=== PATIENT | male | born 1970 | race American Indian/Alaskan Native ===

== ENCOUNTER 2016-09-30 16:47 | Inpatient (IN) | payer MEDICAID, OTHER ==
[2016-09-30 16:48] VITALS: BMI 15.3
[2016-09-30] MEDS ORDERED: Sodium Chloride 0.9% 1,000 ML IV STA (16:57)
[2016-09-30 17:38] LABS: ABG ALLEN TEST YES; ARTERIAL BLOOD GAS PH 7.28 (7.35-7.45); ARTERIAL BLOOD GAS PO2 104 mm/Hg (80-100)
--- NOTE | 2016-09-30 17:48 | ED PDOC ---
HPI: General Adult Time Seen by Provider: 09/30/16 16:56 Chief Complaint (Nursing): Weakness/Neurological Deficit Chief Complaint (Provider): Generalized Weakness History Per: Patient History/Exam Limitations: no limitations Onset/Duration Of Symptoms: Days (x2 weeks) Have you had recent travel within the past 21 days to any of the following countries: [place], [place], [place] or [place]?: No Current Symptoms Are (Timing): Still Present Severity: Moderate Additional Complaint(s): Shyam Ryan is a 46 year old male, with a past medical history inclusive of HTN, hypercholesterolemia, seizures, diabetes (medication compliant) and unspecified "abdominal problems", who presents to the ED on 09/30/16, as per the direction of his PMD, for the evaluation of moderate, generalized weakness that he has experienced over the past 2 weeks. Associated nausea also reported in addition to some moderate lightheadedness, especially when he attempts to get up and try to walk. Denies syncope as well as headache, chest pain, shortness of breath, abdominal pain, focal weakness or blurred vision. PMD: Ramón Past Medical History Reviewed: Historical Data, Nursing Documentation, Vital Signs Vital Signs: Last Vital Signs Temp 97.6 F 10/04/16 12:22 Pulse 86 10/04/16 12:22 Resp 20 10/04/16 12:22 BP 103/70 10/04/16 12:22 Pulse Ox 99 10/04/16 12:22 - Medical History PMH: Diabetes, HTN, Hypercholesterolemia, Seizures Denies: Chronic Kidney Disease Other PMH: c-diff - Surgical History Surgical History: No Surg Hx - Family History Family History: States: Diabetes - Social History Current smoker - smoking cessation education provided: No Alcohol: None Drugs: Denies - Immunization History Hx Influenza Vaccination: No Hx Pneumococcal Vaccination: No - Home Medications Home Medications: Ambulatory Orders Medication Instructions Recorded Aspirin [Ecotrin] 81 mg PO DAILY 09/30/16 Atorvastatin [Lipitor] 10 mg PO DAILY 09/30/16 Canagliflozin [Invokana] 300 mg PO DAILY 09/30/16 Insulin Detemir [Levemir] 30 units SC HS 09/30/16 MetFORMIN [glucoPHAGE] 1,000 mg PO BID 09/30/16 Nebivolol [Bystolic] 10 mg PO DAILY 09/30/16 SITagliptin [Januvia] 100 mg PO DAILY 09/30/16 - Allergies Allergies/Adverse Reactions: Allergies Allergy/AdvReac Type Severity Reaction Status Date / Time No Known Allergies Allergy Verified 09/30/16 16:49 Review of Systems ROS Statement: Except As Marked, All Systems Reviewed And Found Negative Constitutional: Positive for: Chills, Malaise (fatigue), Weight loss (x2 weeks) . Negative for: Fever Eyes: Negative for: Vision Change ENT: Positive for: Nose Discharge (mild). Negative for: Throat Pain Cardiovascular: Positive for: Light Headedness. Negative for: Chest Pain Respiratory: Positive for: Cough, Sputum (yellow). Negative for: Shortness of Breath, Hemoptysis Gastrointestinal: Positive for: Nausea. Negative for: Vomiting, Abdominal Pain Neurological: Positive for: Dizziness. Negative for: Weakness, Numbness, Headache Physical Exam - Reviewed Nursing Documentation Reviewed: Yes Vital Signs Reviewed: Yes - Physical Exam Appears: Positive for: No Acute Distress (unkempt, cachectic/tired appearing) Head Exam: Positive for: ATRAUMATIC, NORMOCEPHALIC. Negative for: NORMAL INSPECTION (temporal wasting) Skin: Positive for: Normal Color (poor skin turgor), Warm, Dry. Negative for: Rash Eye Exam: Positive for: Normal appearance, PERRL ENT: Positive for: Other (dry mucous membranes). Negative for: Pharyngeal Erythema, Tonsillar Exudate Cardiovascular/Chest: Positive for: Regular Rate, Rhythm. Negative for: Edema, Murmur Respiratory: Positive for: Normal Breath Sounds. Negative for: Respiratory Distress Gastrointestinal/Abdominal: Positive for: Normal Exam, Soft. Negative for: Tenderness Back: Positive for: Normal Inspection Extremity: Positive for: Normal ROM (x4 extremities), Other (poor muscle bulk diffusely, no notable skin lesions) Neurologic/Psych: Positive for: Alert, Oriented (x3), Other (normal speech). Negative for: Motor/Sensory Deficits (no focal deficits), Aphasia - Laboratory Results Result Diagrams: 10/04/16 10:52 10/04/16 10:52 - ECG O2 Sat by Pulse Oximetry: 100 (RA) Pulse Ox Interpretation: Normal - Radiology X-Ray: Interpreted by Me, Viewed By Me X-Ray Interpretation: No Acute Disease Medical Decision Making Medical Decision Makin:56 Initial Impression: weakness, dehydration Differential diagnoses include but are not limited to electrolyte abnormality, DKA, sepsis, occult malignancy, HIV, viral syndrome. Initial Plan: * EKG * CXR * ABG * Labs * BNP * TSH * Magnesium * Phosphorus * Troponin I * PTT * PT * Procalcitonin Serum * Urinalysis * HIV 1&2 Antibody * Blood Culture * IV NS 1000ml at 2000mls/hr * Vital Signs Q15 min * Reevaluation Patient will be placed onto a youth nutritional monitor. CXR shows no acute disease. 18:43 Labs reviewed, indicative of acute renal failure, dehydration. Blood glucose is 269. Discussed case with Dr. Melgar, patient will be admitted to Telemetry under his service for further evaluation/treatment of acute renal failure, dehydration and diabetes. Plan has been discussed with patient who is in agreement. Condition fair. Scribe Attestation: Documented by Cynthia Molina, acting as a scribe for Kaylene Mccullough MD. Provider Scribe Attestation: All medical record entries made by the Scribe were at my direction and personally dictated by me. I have reviewed the chart and agree that the record accurately reflects my personal performance of the history, physical exam, medical decision making, and the department course for this patient. I have also personally directed, reviewed, and agree with the discharge instructions and disposition. Disposition - Clinical Impression Clinical Impression: Hyperglycemia, Dehydration, Renal failure - Patient ED Disposition Is Patient to be Admitted: Yes Counseled Patient/Family Regarding: Studies Performed, Diagnosis - Disposition Disposition Time: 18:43 Condition: GUARDED - Pt Status Changed To: Hospital Disposition Of: Inpatient - Admit Certification Admit to Inpatient:: After my assessment, the patient will require hospitalization for at least two midnights. This is because of the severity of symptoms shown, intensity of services needed, and/or the medical risk in this patient being treated as an outpatient. - POA Present On Arrival: Poor Glycemic Control
[2016-09-30 18:11] LABS: BASO # 0.1 K/uL (0.0-0.2); BASO % 1.3 % (0.0-2.0); EOS # 0.4 K/uL (0.0-0.7); EOS % 5.3 % (0.0-4.0); HEMATOCRIT 40.5 % (35.0-51.0); LYMPH # 1.7 K/uL (1.0-4.3); LYMPH % 22.9 % (20.0-40.0); MEAN CORPUSCULAR HEMOGLOBIN 28.5 pg (27.0-31.0); MEAN CORPUSCULAR HGB CONC 32.8 g/dL (33.0-37.0); MEAN PLATELET VOLUME 7.7 fl (7.2-11.7); MONO # 0.6 K/uL (0.0-0.8); MONO % 7.7 % (0.0-10.0); NEUT # 4.6 K/uL (1.8-7.0); NEUT % 62.8 % (50.0-75.0); NRBC % 0.1 % (0.0-0.0); RED CELL DISTRIBUTION WIDTH 16.5 % (11.5-14.5); WHITE BLOOD COUNT 7.3 K/uL (4.8-10.8)
[2016-09-30 18:16] LABS: ALB/GLOB RATIO 0.9 (1.0-2.1); ALKALINE PHOSPHATASE 149 U/L (38-126); ALT/SGPT 32 U/L (21-72); AST/SGOT 24 U/L (17-59); BILIRUBIN,TOTAL 0.5 mg/dl (0.2-1.3); BLOOD UREA NITROGEN 59 mg/dl (9-20); CALCIUM 9.6 mg/dL (8.4-10.2); CARBON DIOXIDE 15 mmol/L (22-30); CHLORIDE 115 mmol/L (98-107); GFR AFRICAN-AMERICAN 20; GLUCOSE,RANDOM 269 mg/dL (75-110); MAGNESIUM 2.5 MG/DL (1.6-2.3); PHOSPHOROUS 5.5 mg/dl (2.5-4.5); SODIUM 149 mmol/l (132-148); TOTAL PROTEIN 8.7 G/DL (6.3-8.2)
[2016-09-30 18:18] LABS: POTASSIUM 5.6 MMOL/L (3.6-5.0)
--- NOTE | 2016-09-30 18:32 | RAD ---
HISTORY: Sepsis Patient . Technique: Single view portable semi erect @ 17:45. COMPARISON: 06/07/2015. FINDINGS: LUNGS: No active pulmonary disease. PLEURA: No significant pleural effusion identified, no pneumothorax apparent. CARDIOVASCULAR: Normal. OSSEOUS STRUCTURES: No significant abnormalities. VISUALIZED UPPER ABDOMEN: Normal. OTHER FINDINGS: None. IMPRESSION: No active disease. No significant interval change compared to the prior examination(s).
[2016-09-30 18:34] LABS: PARTIAL THROMBOPLASTIN TIME 25.7 SECONDS (23.3-32.5)
[2016-09-30 19:00] LABS: THYROID STIMULATING HORMONE 2.13 mIU/ML (0.46-4.68)
[2016-10-01] MEDS ORDERED: Dextrose 5%/0.45% NS 1,000 ML IV SCH ×2 (05:15→10:57)
[2016-10-01 06:42] LABS: BASO # 0.1 K/uL (0.0-0.2); BASO % 1.1 % (0.0-2.0); EOS # 0.5 K/uL (0.0-0.7); EOS % 7.4 % (0.0-4.0); HEMATOCRIT 37.8 % (35.0-51.0); LYMPH # 1.9 K/uL (1.0-4.3); LYMPH % 26.8 % (20.0-40.0); MEAN CELL VOLUME 86.9 fl (80.0-94.0); MEAN CORPUSCULAR HEMOGLOBIN 28.5 pg (27.0-31.0); MEAN CORPUSCULAR HGB CONC 32.8 g/dL (33.0-37.0); MEAN PLATELET VOLUME 7.9 fl (7.2-11.7); MONO # 0.6 K/uL (0.0-0.8); MONO % 7.9 % (0.0-10.0); NEUT % 56.8 % (50.0-75.0)
[2016-10-01 06:47] LABS: ALB/GLOB RATIO 0.9 (1.0-2.1); BILIRUBIN,TOTAL 0.5 mg/dl (0.2-1.3); CALCIUM 9.9 mg/dL (8.4-10.2); POTASSIUM 4.8 MMOL/L (3.6-5.0); TOTAL PROTEIN 8.5 G/DL (6.3-8.2)
[2016-10-01] MEDS ORDERED: Insulin Regular 100 units/ml ONE ×2 (08:54→12:33)
[2016-10-01] MEDS: Insulin Regular 100 units/ml SC SCH ×4 (08:55→22:29)
[2016-10-01] MEDS ORDERED: Dextrose 50% SYRINGE Inj (50 ml) IV PRN (11:02)
[2016-10-01] MEDS ORDERED: Glucagon Recombinant 1 mg Inj IM PRN (11:02)
[2016-10-01] MEDS: Sodium Chloride 0.9% 1,000 ML IV SCH ×2 (11:03→17:51)
--- NOTE | 2016-10-01 11:44 | CARD ---
APPROVED REPORT EKG Measurement Heart [id number] CT 148P79 [id number] <Conclusion> Normal sinus rhythm Early repolarization Normal ECG
[2016-10-01 12:07] LABS: CHOLESTEROL 171 mg/dL (0-199)
--- NOTE | 2016-10-01 12:54 | CP.PCM.HP ---
<Mars Leong F - Last Filed: 10/01/16 12:51> History of Present Illness - History of Present Illness History of Present Illness: 46 y/o M with PMH HTN, hypercholesterolemia, seizures, diabetes (medication compliant) who was instructed to come to [facility] as instructed by his PMD. Being admitted for acute renal failure. Patient states moderate, generalized weakness that he has experienced over the past 2 weeks. Associated nausea, moderate lightheadedness, especially when he attempts to get up and try to walk. Denies syncope as well as headache, chest pain, shortness of breath, abdominal pain, focal weakness or blurred vision. PMD Dr Melgar PMH: HTN, hypercholesterolemia, seizures, diabetes PSH: denies Meds: see reconciled list allergies: nkda SH: denies etoh, tob, drugs Present on Admission - Present on Admission Any Indicators Present on Admission: No Review of Systems - Review of Systems Review of Systems: see hpi Past Patient History - Infectious Disease Hx of Infectious Diseases: None - Past Medical History & Family History Past Medical History?: Yes - Past Social History Smoking Status: Never Smoked - CARDIAC Hx Hypercholesterolemia: Yes Hx Hypertension: Yes - PULMONARY Hx Respiratory Disorders: No - NEUROLOGICAL Hx Seizures: Yes - HEENT Hx HEENT Problems: No - RENAL Hx Chronic Kidney Disease: No - ENDOCRINE/METABOLIC Hx Diabetes Mellitus Type 1: Yes - HEMATOLOGICAL/ONCOLOGICAL Hx Blood Disorders: No - INTEGUMENTARY Hx Dermatological Problems: No - MUSCULOSKELETAL/RHEUMATOLOGICAL Hx Falls: Yes - GASTROINTESTINAL Hx Clostridium Difficile: Yes Hx Diarrhea: Yes - PSYCHIATRIC Hx Psychophysiologic Disorder: No Hx Substance Use: No - SURGICAL HISTORY Hx Surgeries: No - ANESTHESIA Hx Anesthesia: No Meds Allergies/Adverse Reactions: Allergies Allergy/AdvReac Type Severity Reaction Status Date / Time No Known Allergies Allergy Verified 12/10/16 18:01 Physical Exam - Constitutional Appears: Chronically Ill - Head Exam Head Exam: ATRAUMATIC - Eye Exam Eye Exam: EOMI Pupil Exam: PERRL - ENT Exam ENT Exam: Mucous Membranes Dry - Respiratory Exam Respiratory Exam: Clear to Auscultation Bilateral - Cardiovascular Exam Cardiovascular Exam: +S1, +S2 - GI/Abdominal Exam GI & Abdominal Exam: Normal Bowel Sounds, Soft. absent: Tenderness - Extremities Exam Extremities exam: Positive for: pedal pulses present. Negative for: pedal edema - Neurological Exam Neurological exam: Alert, Oriented x3 - Psychiatric Exam Psychiatric exam: Normal Affect, Normal Mood - Skin Skin Exam: Dry, Warm Results - Vital Signs Recent Vital Signs: Last Vital Signs Temp 97.4 F L 10/01/16 08:12 Pulse 91 H 10/01/16 12:19 Resp 11 L 10/01/16 12:19 BP 117/85 10/01/16 12:19 Pulse Ox 100 10/01/16 12:19 - Labs Result Diagrams: 10/01/16 06:00 10/01/16 06:00 Labs: Laboratory Results - last 24 hr 09/30/16 09/30/16 10/01/16 18:50 19:30 06:00 WBC 7.0 RBC 4.35 L Hgb 12.4 Hct 37.8 MCV 86.9 MCH 28.5 MCHC 32.8 L RDW 16.0 H Plt Count 270 MPV 7.9 Neut % (Auto) 56.8 Lymph % (Auto) 26.8 [place] % (Auto) 7.9 Eos % (Auto) 7.4 H Baso % (Auto) 1.1 Neut # 4.0 Lymph # 1.9 [place] # 0.6 Eos # 0.5 Baso # 0.1 Sodium 152 H Potassium 4.8 Chloride 121 H Carbon Dioxide 15 L Anion Gap 21 H BUN 53 H Creatinine 3.2 H Est GFR ( Amer) 26 Est GFR (Non-Af Amer) 21 Random Glucose 234 H Calcium 9.9 Total Bilirubin 0.5 AST 20 ALT 31 Alkaline Phosphatase 144 H Total Protein 8.5 H Albumin 3.9 Globulin 4.5 H Albumin/Globulin Ratio 0.9 L Triglycerides Cholesterol LDL Cholesterol Direct HDL Cholesterol Urine Opiates Screen Negative Urine Methadone Screen Negative Ur Barbiturates Screen Negative Ur Phencyclidine Scrn Negative Ur Amphetamines Screen Negative U Benzodiazepines Scrn Negative U Oth Cocaine Metabols Negative U Cannabinoids Screen Negative HIV 1&2 Antibody Screen Negative 10/01/16 11:31 WBC RBC Hgb Hct MCV MCH MCHC RDW Plt Count MPV Neut % (Auto) Lymph % (Auto) [place] % (Auto) Eos % (Auto) Baso % (Auto) Neut # Lymph # [place] # Eos # Baso # Sodium Potassium Chloride Carbon Dioxide Anion Gap BUN Creatinine Est GFR ( Amer) Est GFR (Non-Af Amer) Random Glucose Calcium Total Bilirubin AST ALT Alkaline Phosphatase Total Protein Albumin Globulin Albumin/Globulin Ratio Triglycerides 114 Cholesterol 171 LDL Cholesterol Direct 71 HDL Cholesterol 52 Urine Opiates Screen Urine Methadone Screen Ur Barbiturates Screen Ur Phencyclidine Scrn Ur Amphetamines Screen U Benzodiazepines Scrn U Oth Cocaine Metabols U Cannabinoids Screen HIV 1&2 Antibody Screen Assessment & Plan - Assessment and Plan (Free Text) Plan: 46 y/o M with PMH HTN, hypercholesterolemia, seizures, diabetes (medication compliant) who was instructed to come to [facility] as instructed by his PMD. Being admitted for acute renal failure. Acute renal failure likely 2/2 dehydration IVF monitor bmp HTN c/w home meds Hypercholesterolemia c/w home meds DM c/w home meds DVT Px Lovenox SC daily <Justin Melgar - Last Filed: 12/15/16 11:24> Results - Vital Signs Recent Vital Signs: Last Vital Signs Temp 97.9 F 10/10/16 08:03 Pulse 89 10/10/16 08:57 Resp 20 10/10/16 08:03 BP 119/79 10/10/16 08:57 Pulse Ox 100 10/10/16 08:03 - Labs Result Diagrams: 10/10/16 06:40 10/10/16 06:40 Assessment & Plan - Assessment and Plan (Free Text) Plan: I was present during evaluation and discussed with Dr Salo hughes plans of care Justin Melgar M.D.
--- NOTE | 2016-10-01 16:40 | CP.PCM.CON ---
History of Present Illness - History of Present Illness History of Present Illness: 46 y/o male with Hx/o DM 11 diagnosed 4 yrs ago, HTN, hyperlipidemia & seizures is admitted for generalized weakness, malaise & acute renal failure. Renal consult is requested for abnormal renal function. Pt reports having diarrhea at home. Pt denied any kidney problem in the past. Has not had eye exam for few yrs. No hx/o kidney disease No FHx/o kidney disease Past Patient History - Infectious Disease Hx of Infectious Diseases: None - Past Medical History & Family History Past Medical History?: Yes - Past Social History Smoking Status: Never Smoked - CARDIAC Hx Hypercholesterolemia: Yes Hx Hypertension: Yes - PULMONARY Hx Respiratory Disorders: No - NEUROLOGICAL Hx Seizures: Yes - HEENT Hx HEENT Problems: No - RENAL Hx Chronic Kidney Disease: No - ENDOCRINE/METABOLIC Hx Diabetes Mellitus Type 1: Yes - HEMATOLOGICAL/ONCOLOGICAL Hx Blood Disorders: No - INTEGUMENTARY Hx Dermatological Problems: No - MUSCULOSKELETAL/RHEUMATOLOGICAL Hx Falls: Yes - GASTROINTESTINAL Hx Clostridium Difficile: Yes Hx Diarrhea: Yes - PSYCHIATRIC Hx Psychophysiologic Disorder: No Hx Substance Use: No - SURGICAL HISTORY Hx Surgeries: No - ANESTHESIA Hx Anesthesia: No Meds Allergies/Adverse Reactions: Allergies Allergy/AdvReac Type Severity Reaction Status Date / Time No Known Allergies Allergy Verified 09/30/16 16:49 - Medications Medications: Current Medications Aspirin (Ecotrin) 81 mg PO DAILY [facility] Atorvastatin Calcium (Lipitor) 10 mg PO DAILY [facility] Dextrose (Dextrose 50% Inj) 0 ml IV STAT PRN; Protocol PRN Reason: Hyglycemia Protocol Dextrose (Glutose 15) 0 gm PO ONCE PRN; Protocol PRN Reason: Hypoglycemia Protocol Glucagon (Glucagen Diagnostic Kit) 0 mg IM STAT PRN; Protocol PRN Reason: Hypoglycemia Protocol Home Med (Canagliflozin [Invokana]) 300 mg PO DAILY [facility] Sodium Chloride (Sodium Chloride 0.9%) 1,000 mls @ 150 mls/hr IV .Q6H40M [facility] Stop: 10/02/16 11:01 Last Admin: 10/01/16 11:03 Dose: 150 mls/hr Insulin Detemir (Levemir) 30 units SC HS AMADA Insulin Human Regular (Humulin R) 0 units SC ACHS AMADA PRN Reason: Protocol Last Admin: 10/01/16 12:30 Dose: 2 units Metformin HCl (Glucophage) 1,000 mg PO BID [facility] Metoprolol Tartrate (Lopressor) 50 mg PO BID [facility] Sitagliptin Phosphate (Januvia) 100 mg PO DAILY AMADA Physical Exam - Constitutional Appears: Non-toxic - Head Exam Head Exam: ATRAUMATIC, NORMOCEPHALIC - Eye Exam Additional comments: Sclerae anicteric - ENT Exam ENT Exam: Mucous Membranes Dry - Neck Exam Additional comments: Neck supple - Respiratory Exam Additional comments: Lungs clear - Cardiovascular Exam Cardiovascular Exam: REGULAR RHYTHM - GI/Abdominal Exam Additional comments: Abd is soft & nontender - Extremities Exam Additional comments: Extrem no edema Results - Vital Signs Recent Vital Signs: Last Vital Signs Temp 97.4 F L 10/01/16 08:12 Pulse 91 H 10/01/16 12:19 Resp 11 L 10/01/16 12:19 BP 117/85 10/01/16 12:19 Pulse Ox 100 10/01/16 12:19 - Labs Result Diagrams: 10/01/16 06:00 10/01/16 06:00 Labs: Laboratory Results - last 24 hr 09/30/16 09/30/16 10/01/16 18:50 19:30 06:00 WBC 7.0 RBC 4.35 L Hgb 12.4 Hct 37.8 MCV 86.9 MCH 28.5 MCHC 32.8 L RDW 16.0 H Plt Count 270 MPV 7.9 Neut % (Auto) 56.8 Lymph % (Auto) 26.8 [place] % (Auto) 7.9 Eos % (Auto) 7.4 H Baso % (Auto) 1.1 Neut # 4.0 Lymph # 1.9 [place] # 0.6 Eos # 0.5 Baso # 0.1 Sodium 152 H Potassium 4.8 Chloride 121 H Carbon Dioxide 15 L Anion Gap 21 H BUN 53 H Creatinine 3.2 H Est GFR ( Amer) 26 Est GFR (Non-Af Amer) 21 Random Glucose 234 H Calcium 9.9 Total Bilirubin 0.5 AST 20 ALT 31 Alkaline Phosphatase 144 H Total Protein 8.5 H Albumin 3.9 Globulin 4.5 H Albumin/Globulin Ratio 0.9 L Triglycerides Cholesterol LDL Cholesterol Direct HDL Cholesterol Urine Opiates Screen Negative Urine Methadone Screen Negative Ur Barbiturates Screen Negative Ur Phencyclidine Scrn Negative Ur Amphetamines Screen Negative U Benzodiazepines Scrn Negative U Oth Cocaine Metabols Negative U Cannabinoids Screen Negative C. difficile Ag & Toxin HIV 1&2 Antibody Screen Negative 10/01/16 10/01/16 11:31 15:00 WBC RBC Hgb Hct MCV MCH MCHC RDW Plt Count MPV Neut % (Auto) Lymph % (Auto) [place] % (Auto) Eos % (Auto) Baso % (Auto) Neut # Lymph # [place] # Eos # Baso # Sodium Potassium Chloride Carbon Dioxide Anion Gap BUN Creatinine Est GFR ( Amer) Est GFR (Non-Af Amer) Random Glucose Calcium Total Bilirubin AST ALT Alkaline Phosphatase Total Protein Albumin Globulin Albumin/Globulin Ratio Triglycerides 114 Cholesterol 171 LDL Cholesterol Direct 71 HDL Cholesterol 52 Urine Opiates Screen Urine Methadone Screen Ur Barbiturates Screen Ur Phencyclidine Scrn Ur Amphetamines Screen U Benzodiazepines Scrn U Oth Cocaine Metabols U Cannabinoids Screen C. difficile Ag & Toxin Positive H HIV 1&2 Antibody Screen Assessment & Plan - Assessment and Plan (Free Text) Assessment: BRITTNI appears to be secondary to dehydration Slight improvement in creat since admission Hypernatremia also sec to dehydration C.diff colitis Plan: Continue IV hydration Monitor urine output Suggest to hold metformin renal US
--- NOTE | 2016-10-01 19:04 | US ---
PROCEDURE: Ultrasound of the Kidneys HISTORY: BRITTNI,DM COMPARISON: None available. TECHNIQUE: Sonogram of the kidneys. FINDINGS: RIGHT KIDNEY: Measures: 11 x5.4 x 6.2 cm. Mildly echogenic kidneys. No evidence of hydronephrosis. No stone, solid mass lesion or hydronephrosis visualized. LEFT KIDNEY: Measures: 10.7 x 4.8 x 5 cm. Mildly echogenic kidney without evidence of hydronephrosis. No stone, solid mass lesion or hydronephrosis visualized. OTHER FINDINGS: The kidney measures in the prevoid images 8 0.1 x 8.7 x 8.1 centimeter. The total volume of the bladder is 400 mL. The uterus jets are not visualized. There is large low-level echoes and the posterior dependent portion of the bladder suggestive of debris. . IMPRESSION: Mildly echogenic kidneys. No evidence of hydronephrosis. The ureteral jets are not visualized . Patient could not void therefore cannot evaluate postvoid residual. Large amount of low to intermediate echoes in the posterior dependent portion of the bladder suggestive of infectious process and debris. Moderate diffuse bladder wall thickening.
[2016-10-01] MEDS: Vancomycin 500 mg (Oral/Rectal USE) PO SCH (23:16)
[2016-10-01] MEDS: Insulin Detemir 100 Units/ml Inj SC SCH (23:16)
[2016-10-02] MEDS: Vancomycin 500 mg (Oral/Rectal USE) PO SCH ×4 (04:42→23:29)
[2016-10-02] MEDS: Sodium Chloride 0.9% 1,000 ML IV SCH ×2 (04:43→10:34)
[2016-10-02] MEDS: Insulin Regular 100 units/ml SC SCH ×3 (06:57→16:57)
[2016-10-02 07:17] LABS: MICROALBUMIN 10.4 mg/dL (())
[2016-10-02] MEDS: Cholestyramine 4 gm/Pkt UD PO SCH ×3 (10:32→17:03)
--- NOTE | 2016-10-02 11:45 | CARD ---
APPROVED REPORT EXAM: Two-dimensional and M-mode echocardiogram with Doppler and color Doppler. Other Information Quality : FairRhythm : NSR Technically limited study due to Poor Echo Window INDICATION LV Function:SystolicDiastolic Mitral Valve E/A ratio0.0 TDI E/Lateral E'0.0E/Medial E'0.0 LEFT VENTRICLE The left ventricle is normal size. There is normal left ventricular wall thickness. The left ventricular function is normal. The left ventricular ejection fraction is within the normal range. The Ejection Fraction is 50-55%. There is normal LV segmental wall motion. The left ventricular diastolic function is normal. No left ventricle thrombus noted on this study. There is no mass noted in the left ventricle. RIGHT VENTRICLE The right ventricle is normal size. There is normal right ventricular wall thickness. The right ventricular systolic function is normal. ATRIA The left atrium size is normal. The right atrium size is normal. The interatrial septum is intact with no evidence for an atrial septal defect. AORTIC VALVE The aortic valve is normal in structure and function. No aortic regurgitation is present. There is no aortic valvular stenosis. There is no aortic valvular vegetation. MITRAL VALVE The mitral valve is normal in structure and function. There is no evidence of mitral valve prolapse. There is no mitral valve stenosis. There is no mitral valve regurgitation noted. TRICUSPID VALVE The tricuspid valve is normal in structure and function. There is no tricuspid valve regurgitation noted. There is no tricuspid valve prolapse or vegetation. There is no tricuspid valve stenosis. PULMONIC VALVE The pulmonary valve is normal in structure and function. There is no pulmonic valvular regurgitation. There is no pulmonic valvular stenosis. GREAT VESSELS The aortic root is normal in size. The IVC is normal in size and collapses >50% with inspiration. PERICARDIAL EFFUSION The pericardium appears normal. There is no pleural effusion. <Conclusion> Limited Study The left ventricle is normal size. The left ventricular function is normal. The left ventricular ejection fraction is within the normal range. The Ejection Fraction is 50-55%.
--- NOTE | 2016-10-02 11:46 | CP.PCM.PN ---
<LuisSelin - Last Filed: 10/02/16 11:47> Subjective - Date & Time of Evaluation Date of Evaluation: 10/02/16 Time of Evaluation: 10:20 - Subjective Subjective: pt seen and examined at bedside this morning, doing better. looks a lot better. does not have any complaints. nurses notes reviewed Objective - Vital Signs/Intake and Output Vital Signs (last 24 hours): Temp Pulse Resp BP Pulse Ox 97.9 F 94 H 20 110/76 100 10/02/16 08:00 10/02/16 10:32 10/02/16 08:00 10/02/16 10:32 10/02/16 08:00 - Medications Medications: Current Medications Aspirin (Ecotrin) 81 mg PO DAILY [facility] Last Admin: 10/02/16 10:47 Dose: 81 mg Atorvastatin Calcium (Lipitor) 10 mg PO DAILY [facility] Last Admin: 10/02/16 10:33 Dose: 10 mg Cholestyramine Resin (Questran) 4 gm PO 0800,1400,1800 [facility] Last Admin: 10/02/16 10:32 Dose: 4 gm Dextrose (Dextrose 50% Inj) 0 ml IV STAT PRN; Protocol PRN Reason: Hyglycemia Protocol Dextrose (Glutose 15) 0 gm PO ONCE PRN; Protocol PRN Reason: Hypoglycemia Protocol Glucagon (Glucagen Diagnostic Kit) 0 mg IM STAT PRN; Protocol PRN Reason: Hypoglycemia Protocol Home Med (Canagliflozin [Invokana]) 300 mg PO DAILY [facility] Insulin Detemir (Levemir) 30 units SC HS [facility] Last Admin: 10/01/16 23:16 Dose: 30 units Insulin Human Regular (Humulin R) 0 units SC ACHS [facility] PRN Reason: Protocol Last Admin: 10/02/16 06:57 Dose: 2 units Metformin HCl (Glucophage) 1,000 mg PO BID [facility] Last Admin: 10/02/16 10:32 Dose: 1,000 mg Metoprolol Tartrate (Lopressor) 50 mg PO BID [facility] Last Admin: 10/02/16 10:32 Dose: 50 mg Sitagliptin Phosphate (Januvia) 100 mg PO DAILY [facility] Last Admin: 10/02/16 10:32 Dose: 100 mg Vancomycin HCl (Vancocin (Oral/Rectal Use)) 125 mg PO Q6 [facility] Last Admin: 10/02/16 10:34 Dose: 125 mg - Labs Labs: 10/01/16 06:00 10/01/16 06:00 PT 11.2 SECONDS (9.6-11.2) 09/30/16 17:50 INR 1.08 (0.92-1.08) 09/30/16 17:50 APTT 25.7 SECONDS (23.3-32.5) 09/30/16 17:50 - Constitutional Appears: Non-toxic, No Acute Distress - Head Exam Head Exam: NORMOCEPHALIC - Eye Exam Eye Exam: Normal appearance - ENT Exam ENT Exam: Mucous Membranes Moist - Respiratory Exam Respiratory Exam: Clear to Ausculation Bilateral, NORMAL BREATHING PATTERN. absent: Rhonchi, Wheezes - Cardiovascular Exam Cardiovascular Exam: REGULAR RHYTHM, +S1, +S2 - GI/Abdominal Exam GI & Abdominal Exam: Soft, Normal Bowel Sounds. absent: Tenderness - Extremities Exam Extremities Exam: Normal Inspection. absent: Calf Tenderness - Neurological Exam Neurological Exam: Alert, Awake, CN II-XII Intact, Oriented x3 Assessment and Plan - Assessment and Plan (Free Text) Assessment: 46 y/o M with PMH HTN, hypercholesterolemia, seizures, diabetes (medication compliant) who was instructed to come to [facility] as instructed by his PMD. Being admitted for acute renal failure. Acute renal failure likely 2/2 dehydration IVF monitor bmp HTN c/w home meds Hypercholesterolemia c/w home meds DM c/w home meds DVT Px Lovenox SC daily Plan: Acute renal failure due to dehydration improving Nephrology recommendations appreciated monitor bmp C-diff positive started on vanco plus Questran isolation HTN c/w home meds Hypercholesterolemia c/w home meds DM accuchecks c/w home meds DVT Px Lovenox SC daily Disposition: discharge in the [place] if pt remains stable <Justin Melgar - Last Filed: 12/15/16 11:25> Objective - Vital Signs/Intake and Output Vital Signs (last 24 hours): Temp Pulse Resp BP Pulse Ox 97.9 F 89 20 119/79 100 10/10/16 08:03 10/10/16 08:57 10/10/16 08:03 10/10/16 08:57 10/10/16 08:03 - Labs Labs: 10/10/16 06:40 10/10/16 06:40 PT 11.2 SECONDS (9.6-11.2) 09/30/16 17:50 INR 1.08 (0.92-1.08) 09/30/16 17:50 APTT 25.7 SECONDS (23.3-32.5) 09/30/16 17:50 Assessment and Plan - Assessment and Plan (Free Text) Plan: I was present during evaluation and discussed with Dr Luis hughes plans of care Justin Melgar M.D.
--- NOTE | 2016-10-02 14:21 | CP.PCM.PN ---
Subjective - Date & Time of Evaluation Date of Evaluation: 10/02/16 Time of Evaluation: 01:20 - Subjective Subjective: Feels better today Objective - Vital Signs/Intake and Output Vital Signs (last 24 hours): Temp Pulse Resp BP Pulse Ox 97.5 F L 91 H 18 100/66 100 10/02/16 12:00 10/02/16 12:00 10/02/16 12:00 10/02/16 12:00 10/02/16 12:00 - Medications Medications: Current Medications Aspirin (Ecotrin) 81 mg PO DAILY [facility] Last Admin: 10/02/16 10:47 Dose: 81 mg Atorvastatin Calcium (Lipitor) 10 mg PO DAILY [facility] Last Admin: 10/02/16 10:33 Dose: 10 mg Cholestyramine Resin (Questran) 4 gm PO 0800,1400,1800 [facility] Last Admin: 10/02/16 13:29 Dose: 4 gm Dextrose (Dextrose 50% Inj) 0 ml IV STAT PRN; Protocol PRN Reason: Hyglycemia Protocol Dextrose (Glutose 15) 0 gm PO ONCE PRN; Protocol PRN Reason: Hypoglycemia Protocol Glucagon (Glucagen Diagnostic Kit) 0 mg IM STAT PRN; Protocol PRN Reason: Hypoglycemia Protocol Home Med (Canagliflozin [Invokana]) 300 mg PO DAILY [facility] Insulin Detemir (Levemir) 30 units SC HS [facility] Last Admin: 10/01/16 23:16 Dose: 30 units Insulin Human Regular (Humulin R) 0 units SC ACHS [facility] PRN Reason: Protocol Last Admin: 10/02/16 13:27 Dose: Not Given Metformin HCl (Glucophage) 1,000 mg PO BID [facility] Last Admin: 10/02/16 10:32 Dose: 1,000 mg Metoprolol Tartrate (Lopressor) 50 mg PO BID [facility] Last Admin: 10/02/16 10:32 Dose: 50 mg Sitagliptin Phosphate (Januvia) 100 mg PO DAILY [facility] Last Admin: 10/02/16 10:32 Dose: 100 mg Vancomycin HCl (Vancocin (Oral/Rectal Use)) 125 mg PO Q6 [facility] Last Admin: 10/02/16 10:34 Dose: 125 mg - Labs Labs: 10/01/16 06:00 10/01/16 06:00 PT 11.2 SECONDS (9.6-11.2) 09/30/16 17:50 INR 1.08 (0.92-1.08) 09/30/16 17:50 APTT 25.7 SECONDS (23.3-32.5) 09/30/16 17:50 - Respiratory Exam Additional comments: Lungs clear - Cardiovascular Exam Cardiovascular Exam: REGULAR RHYTHM - GI/Abdominal Exam GI & Abdominal Exam: Soft - Extremities Exam Additional comments: No edema Assessment and Plan - Assessment and Plan (Free Text) Assessment: Dehydration se. to chronic diarrhea DM 11 BRITTNI & hypernatremia sec to dehydration C.diff colitis Plan: Clinically improved Todays labs pending Continue IV hydration
[2016-10-02 19:35] LABS: MEAN CELL VOLUME 88.3 fl (80.0-94.0); MEAN CORPUSCULAR HEMOGLOBIN 28.8 pg (27.0-31.0); MEAN CORPUSCULAR HGB CONC 32.6 g/dL (33.0-37.0); RED CELL DISTRIBUTION WIDTH 16.8 % (11.5-14.5); WHITE BLOOD COUNT 6.2 K/uL (4.8-10.8)
[2016-10-02 19:40] LABS: CALCIUM 9.4 mg/dL (8.4-10.2)
[2016-10-02 19:45] LABS: POTASSIUM 5.9 MMOL/L (3.6-5.0)
[2016-10-02] MEDS: Insulin Detemir 100 Units/ml Inj SC SCH (23:28)
[2016-10-03] MEDS: Insulin Regular 100 units/ml SC SCH ×5 (00:21→21:25)
[2016-10-03] MEDS: Vancomycin 500 mg (Oral/Rectal USE) PO SCH ×4 (04:00→21:30)
[2016-10-03 07:15] LABS: BASO # 0.1 K/uL (0.0-0.2); BASO % 0.8 % (0.0-2.0); EOS # 0.5 K/uL (0.0-0.7); EOS % 6.5 % (0.0-4.0); HEMATOCRIT 34.7 % (35.0-51.0); LYMPH # 1.5 K/uL (1.0-4.3); MEAN CORPUSCULAR HEMOGLOBIN 28.8 pg (27.0-31.0); MEAN CORPUSCULAR HGB CONC 32.7 g/dL (33.0-37.0); MEAN PLATELET VOLUME 7.8 fl (7.2-11.7); MONO # 0.6 K/uL (0.0-0.8); MONO % 8.7 % (0.0-10.0); NEUT # 4.3 K/uL (1.8-7.0); RED CELL DISTRIBUTION WIDTH 16.3 % (11.5-14.5)
[2016-10-03 07:31] LABS: ALB/GLOB RATIO 0.8 (1.0-2.1); BILIRUBIN,TOTAL 0.3 mg/dl (0.2-1.3); CALCIUM 9.4 mg/dL (8.4-10.2); MAGNESIUM 1.7 MG/DL (1.6-2.3); PHOSPHOROUS 3.3 mg/dl (2.5-4.5); POTASSIUM 5.2 MMOL/L (3.6-5.0); TOTAL PROTEIN 7.5 G/DL (6.3-8.2)
[2016-10-03] MEDS: Cholestyramine 4 gm/Pkt UD PO SCH ×3 (09:13→17:55)
[2016-10-03] MEDS ORDERED: Sodium Chloride 0.9% 1,000 ML IV SCH (09:15)
[2016-10-03] MEDS ORDERED: Sodium Chloride 0.45% 1,000 ML IV SCH (11:15)
--- NOTE | 2016-10-03 16:37 | CP.PCM.PN ---
Subjective - Date & Time of Evaluation Date of Evaluation: 10/03/16 Time of Evaluation: 13:30 - Subjective Subjective: seen and examined lots of diarrhea Objective - Vital Signs/Intake and Output Vital Signs (last 24 hours): Temp Pulse Resp BP Pulse Ox 97.8 F 95 H 18 96/55 L 100 10/03/16 16:28 10/03/16 16:28 10/03/16 16:28 10/03/16 16:28 10/03/16 16:28 - Medications Medications: Current Medications Aspirin (Ecotrin) 81 mg PO DAILY [facility] Last Admin: 10/03/16 09:13 Dose: 81 mg Atorvastatin Calcium (Lipitor) 10 mg PO DAILY [facility] Last Admin: 10/03/16 09:13 Dose: 10 mg Cholestyramine Resin (Questran) 4 gm PO 0800,1400,1800 [facility] Last Admin: 10/03/16 14:06 Dose: 4 gm Dextrose (Dextrose 50% Inj) 0 ml IV STAT PRN; Protocol PRN Reason: Hyglycemia Protocol Dextrose (Glutose 15) 0 gm PO ONCE PRN; Protocol PRN Reason: Hypoglycemia Protocol Glucagon (Glucagen Diagnostic Kit) 0 mg IM STAT PRN; Protocol PRN Reason: Hypoglycemia Protocol Sodium Bicarbonate 75 meq/ (Dextrose) 1,075 mls @ 125 mls/hr IV .Q8H36M [facility] Insulin Detemir (Levemir) 30 units SC HS [facility] Last Admin: 10/02/16 23:28 Dose: 30 units Insulin Human Regular (Humulin R) 0 units SC ACHS [facility] PRN Reason: Protocol Last Admin: 10/03/16 14:06 Dose: 6 units Metoprolol Tartrate (Lopressor) 50 mg PO BID [facility] Last Admin: 10/03/16 09:14 Dose: Not Given Vancomycin HCl (Vancocin (Oral/Rectal Use)) 125 mg PO Q6 [facility] Last Admin: 10/03/16 09:14 Dose: 125 mg - Labs Labs: 10/03/16 06:15 10/03/16 06:15 PT 11.2 SECONDS (9.6-11.2) 09/30/16 17:50 INR 1.08 (0.92-1.08) 09/30/16 17:50 APTT 25.7 SECONDS (23.3-32.5) 09/30/16 17:50 - Constitutional Appears: Cachectic, Chronically Ill - Head Exam Head Exam: ATRAUMATIC - Eye Exam Eye Exam: Normal appearance - ENT Exam ENT Exam: Normal Exam - Neck Exam Neck Exam: Normal Inspection - Respiratory Exam Respiratory Exam: NORMAL BREATHING PATTERN - Cardiovascular Exam Cardiovascular Exam: +S1, +S2 - GI/Abdominal Exam GI & Abdominal Exam: Normal Bowel Sounds - Extremities Exam Additional comments: no edema - Neurological Exam Neurological Exam: Alert, Oriented x3 - Psychiatric Exam Psychiatric exam: Normal Affect - Skin Skin Exam: Normal Color Assessment and Plan - Assessment and Plan (Free Text) Assessment: ARF/ Diarrhea/ Acidosis/ Hypernatremia/dm plan: BRITTNI consistent w/ pre-renal thus far improving w/ ivf WIll d/c 1/2 ns and switch D5w w 75 meq of a bicarb - a hypotonic solution to help w/ volume repletion, improve bicarb and hopefully reduce sodium. Once Hco3 improved can switch back to 1/2 ns. Will need to watch sugars as they may go up with this.
[2016-10-03] MEDS: Sodium Bicarbonate 8.4% 75 MEQ in Dextrose 5% In Water 1,000 ML IV SCH (18:15)
[2016-10-03] MEDS: Insulin Detemir 100 Units/ml Inj SC SCH (21:26)
[2016-10-04] MEDS: Vancomycin 500 mg (Oral/Rectal USE) PO SCH ×4 (04:52→22:10)
[2016-10-04] MEDS: Sodium Bicarbonate 8.4% 75 MEQ in Dextrose 5% In Water 1,000 ML IV SCH ×2 (05:18→09:09)
[2016-10-04] MEDS: Insulin Regular 100 units/ml SC SCH ×4 (08:00→22:02)
[2016-10-04] MEDS: Cholestyramine 4 gm/Pkt UD PO SCH ×3 (08:10→18:20)
[2016-10-04 11:02] LABS: BASO # 0.1 K/uL (0.0-0.2); BASO % 0.9 % (0.0-2.0); EOS # 0.4 K/uL (0.0-0.7); EOS % 6.4 % (0.0-4.0); HEMATOCRIT 32.8 % (35.0-51.0); LYMPH # 1.2 K/uL (1.0-4.3); MEAN CELL VOLUME 86.6 fl (80.0-94.0); MEAN CORPUSCULAR HEMOGLOBIN 27.9 pg (27.0-31.0); MEAN CORPUSCULAR HGB CONC 32.3 g/dL (33.0-37.0); MEAN PLATELET VOLUME 7.5 fl (7.2-11.7); MONO # 0.5 K/uL (0.0-0.8); MONO % 9.2 % (0.0-10.0); NEUT # 3.7 K/uL (1.8-7.0); NEUT % 62.5 % (50.0-75.0); NRBC % 0.1 % (0.0-0.0); RED CELL DISTRIBUTION WIDTH 15.9 % (11.5-14.5); WHITE BLOOD COUNT 5.9 K/uL (4.8-10.8)
[2016-10-04 11:25] LABS: ALB/GLOB RATIO 0.8 (1.0-2.1); BILIRUBIN,TOTAL 0.3 mg/dl (0.2-1.3); CALCIUM 9.3 mg/dL (8.4-10.2); POTASSIUM 4.9 MMOL/L (3.6-5.0); TOTAL PROTEIN 7.1 G/DL (6.3-8.2)
--- NOTE | 2016-10-04 12:16 | CP.PCM.PN ---
Subjective - Date & Time of Evaluation Date of Evaluation: 10/04/16 Time of Evaluation: 12:00 - Subjective Subjective: Appears weak. No c/o abdominal pain Objective - Vital Signs/Intake and Output Vital Signs (last 24 hours): Temp Pulse Resp BP Pulse Ox 97.5 F L 90 20 100/63 98 10/04/16 08:00 10/04/16 09:04 10/04/16 08:00 10/04/16 09:04 10/04/16 08:00 - Medications Medications: Current Medications Aspirin (Ecotrin) 81 mg PO DAILY [facility] Last Admin: 10/04/16 09:02 Dose: 81 mg Atorvastatin Calcium (Lipitor) 10 mg PO DAILY [facility] Last Admin: 10/04/16 09:03 Dose: 10 mg Cholestyramine Resin (Questran) 4 gm PO 0800,1400,1800 [facility] Last Admin: 10/04/16 08:10 Dose: 4 gm Dextrose (Dextrose 50% Inj) 0 ml IV STAT PRN; Protocol PRN Reason: Hyglycemia Protocol Dextrose (Glutose 15) 0 gm PO ONCE PRN; Protocol PRN Reason: Hypoglycemia Protocol Glucagon (Glucagen Diagnostic Kit) 0 mg IM STAT PRN; Protocol PRN Reason: Hypoglycemia Protocol Sodium Bicarbonate 75 meq/ (Dextrose) 1,075 mls @ 125 mls/hr IV .Q8H36M [facility] Last Admin: 10/04/16 09:09 Dose: Not Given Insulin Detemir (Levemir) 30 units SC HS [facility] Last Admin: 10/03/16 21:26 Dose: 30 units Insulin Human Regular (Humulin R) 0 units SC ACHS [facility] PRN Reason: Protocol Last Admin: 10/04/16 08:00 Dose: Not Given Metoprolol Tartrate (Lopressor) 50 mg PO BID [facility] Last Admin: 10/04/16 09:04 Dose: 50 mg Vancomycin HCl (Vancocin (Oral/Rectal Use)) 125 mg PO Q6 [facility] Last Admin: 10/04/16 10:48 Dose: 125 mg - Labs Labs: 10/04/16 10:52 10/04/16 10:52 PT 11.2 SECONDS (9.6-11.2) 09/30/16 17:50 INR 1.08 (0.92-1.08) 09/30/16 17:50 APTT 25.7 SECONDS (23.3-32.5) 09/30/16 17:50 - Respiratory Exam Additional comments: Lungs clear - Cardiovascular Exam Cardiovascular Exam: REGULAR RHYTHM - GI/Abdominal Exam Additional comments: Abd soft nontender - Extremities Exam Additional comments: No edema Assessment and Plan - Assessment and Plan (Free Text) Assessment: Acute on chronic renal failure Renal function continues to improve Anion gap metabolic acidosis C.dibb colitis Plan: Continue with bicarb drip Hypernatremia also improved Continue to monitor renal function
[2016-10-04] MEDS: Insulin Detemir 100 Units/ml Inj SC SCH (22:10)
[2016-10-05] MEDS: Sodium Bicarbonate 8.4% 75 MEQ in Dextrose 5% In Water 1,000 ML IV SCH ×5 (00:32→22:25)
[2016-10-05] MEDS: Vancomycin 500 mg (Oral/Rectal USE) PO SCH ×4 (04:25→21:05)
[2016-10-05] MEDS: Insulin Regular 100 units/ml SC SCH ×4 (06:36→21:03)
[2016-10-05 07:55] VITALS: O2SAT 100
[2016-10-05] MEDS: Cholestyramine 4 gm/Pkt UD PO SCH ×3 (08:51→17:21)
--- NOTE | 2016-10-05 12:32 | CP.PCM.PN ---
Subjective - Date & Time of Evaluation Date of Evaluation: 10/04/16 Time of Evaluation: 09:00 - Subjective Subjective: Patient feels better Still with a lot of loose stools. Positive for C diff. Has no fever. Objective - Vital Signs/Intake and Output Vital Signs (last 24 hours): Temp Pulse Resp BP Pulse Ox 97.9 F 64 18 101/68 100 10/05/16 07:55 10/05/16 08:51 10/05/16 07:55 10/05/16 08:51 10/05/16 07:55 - Medications Medications: Current Medications Aspirin (Ecotrin) 81 mg PO DAILY [facility] Last Admin: 10/05/16 08:55 Dose: 81 mg Atorvastatin Calcium (Lipitor) 10 mg PO DAILY [facility] Last Admin: 10/05/16 08:55 Dose: 10 mg Cholestyramine Resin (Questran) 4 gm PO 0800,1400,1800 [facility] Last Admin: 10/05/16 08:51 Dose: 4 gm Dextrose (Dextrose 50% Inj) 0 ml IV STAT PRN; Protocol PRN Reason: Hyglycemia Protocol Dextrose (Glutose 15) 0 gm PO ONCE PRN; Protocol PRN Reason: Hypoglycemia Protocol Glucagon (Glucagen Diagnostic Kit) 0 mg IM STAT PRN; Protocol PRN Reason: Hypoglycemia Protocol Sodium Bicarbonate 75 meq/ (Dextrose) 1,075 mls @ 125 mls/hr IV .Q8H36M [facility] Last Admin: 10/05/16 04:34 Dose: Not Given Insulin Detemir (Levemir) 30 units SC HS [facility] Last Admin: 10/04/16 22:10 Dose: 30 units Insulin Human Regular (Humulin R) 0 units SC ACHS [facility] PRN Reason: Protocol Last Admin: 10/05/16 11:42 Dose: 4 units Metoprolol Tartrate (Lopressor) 50 mg PO BID [facility] Last Admin: 10/05/16 08:51 Dose: 50 mg Vancomycin HCl (Vancocin (Oral/Rectal Use)) 125 mg PO Q6 [facility] Last Admin: 10/05/16 09:00 Dose: 125 mg - Labs Labs: 10/04/16 10:52 10/04/16 10:52 PT 11.2 SECONDS (9.6-11.2) 09/30/16 17:50 INR 1.08 (0.92-1.08) 09/30/16 17:50 APTT 25.7 SECONDS (23.3-32.5) 09/30/16 17:50 - Head Exam Head Exam: NORMAL INSPECTION - Eye Exam Additional comments: sunken eyeballs - Respiratory Exam Respiratory Exam: Clear to Ausculation Bilateral - Cardiovascular Exam Cardiovascular Exam: REGULAR RHYTHM - GI/Abdominal Exam GI & Abdominal Exam: Normal Bowel Sounds - Neurological Exam Neurological Exam: Awake Assessment and Plan (1) Physical debility Status: Acute (2) Clostridium difficile infection Status: Acute (3) DKA (diabetic ketoacidoses) Status: Acute (4) Malabsorption due to intolerance, not elsewhere classified Status: Acute (5) Diabetes mellitus type 2 in nonobese Status: Chronic - Assessment and Plan (Free Text) Plan: cont meds hydration check labs
--- NOTE | 2016-10-05 12:33 | CP.PCM.PN ---
Subjective - Date & Time of Evaluation Date of Evaluation: 10/05/16 Time of Evaluation: 12:33 - Subjective Subjective: Patient remains stable Has no chest pain or SOB. Afebrile. Objective - Vital Signs/Intake and Output Vital Signs (last 24 hours): Temp Pulse Resp BP Pulse Ox 97.9 F 64 18 101/68 100 10/05/16 07:55 10/05/16 08:51 10/05/16 07:55 10/05/16 08:51 10/05/16 07:55 - Medications Medications: Current Medications Aspirin (Ecotrin) 81 mg PO DAILY [facility] Last Admin: 10/05/16 08:55 Dose: 81 mg Atorvastatin Calcium (Lipitor) 10 mg PO DAILY [facility] Last Admin: 10/05/16 08:55 Dose: 10 mg Cholestyramine Resin (Questran) 4 gm PO 0800,1400,1800 [facility] Last Admin: 10/05/16 08:51 Dose: 4 gm Dextrose (Dextrose 50% Inj) 0 ml IV STAT PRN; Protocol PRN Reason: Hyglycemia Protocol Dextrose (Glutose 15) 0 gm PO ONCE PRN; Protocol PRN Reason: Hypoglycemia Protocol Glucagon (Glucagen Diagnostic Kit) 0 mg IM STAT PRN; Protocol PRN Reason: Hypoglycemia Protocol Sodium Bicarbonate 75 meq/ (Dextrose) 1,075 mls @ 125 mls/hr IV .Q8H36M [facility] Last Admin: 10/05/16 04:34 Dose: Not Given Insulin Detemir (Levemir) 30 units SC HS [facility] Last Admin: 10/04/16 22:10 Dose: 30 units Insulin Human Regular (Humulin R) 0 units SC ACHS [facility] PRN Reason: Protocol Last Admin: 10/05/16 11:42 Dose: 4 units Metoprolol Tartrate (Lopressor) 50 mg PO BID [facility] Last Admin: 10/05/16 08:51 Dose: 50 mg Vancomycin HCl (Vancocin (Oral/Rectal Use)) 125 mg PO Q6 [facility] Last Admin: 10/05/16 09:00 Dose: 125 mg - Labs Labs: 10/04/16 10:52 10/04/16 10:52 PT 11.2 SECONDS (9.6-11.2) 09/30/16 17:50 INR 1.08 (0.92-1.08) 09/30/16 17:50 APTT 25.7 SECONDS (23.3-32.5) 09/30/16 17:50 - Head Exam Head Exam: NORMAL INSPECTION - Respiratory Exam Respiratory Exam: Clear to Ausculation Bilateral - Cardiovascular Exam Cardiovascular Exam: REGULAR RHYTHM - GI/Abdominal Exam GI & Abdominal Exam: Normal Bowel Sounds - Neurological Exam Neurological Exam: Awake, Oriented x3 - Psychiatric Exam Psychiatric exam: Normal Affect Assessment and Plan (1) Clostridium difficile infection Status: Acute (2) Diabetes mellitus type 2 in nonobese Status: Chronic (3) Metabolic acidosis Status: Resolved - Assessment and Plan (Free Text) Plan: cont meds cont hydratin antibiotics
--- NOTE | 2016-10-05 15:52 | CP.PCM.PN ---
Subjective - Date & Time of Evaluation Date of Evaluation: 10/05/16 Time of Evaluation: 03:25 - Subjective Subjective: Appears comfortable Objective - Vital Signs/Intake and Output Vital Signs (last 24 hours): Temp Pulse Resp BP Pulse Ox 97.9 F 64 18 101/68 100 10/05/16 07:55 10/05/16 08:51 10/05/16 07:55 10/05/16 08:51 10/05/16 07:55 - Medications Medications: Current Medications Aspirin (Ecotrin) 81 mg PO DAILY [facility] Last Admin: 10/05/16 08:55 Dose: 81 mg Atorvastatin Calcium (Lipitor) 10 mg PO DAILY [facility] Last Admin: 10/05/16 08:55 Dose: 10 mg Cholestyramine Resin (Questran) 4 gm PO 0800,1400,1800 [facility] Last Admin: 10/05/16 08:51 Dose: 4 gm Dextrose (Dextrose 50% Inj) 0 ml IV STAT PRN; Protocol PRN Reason: Hyglycemia Protocol Dextrose (Glutose 15) 0 gm PO ONCE PRN; Protocol PRN Reason: Hypoglycemia Protocol Glucagon (Glucagen Diagnostic Kit) 0 mg IM STAT PRN; Protocol PRN Reason: Hypoglycemia Protocol Sodium Bicarbonate 75 meq/ (Dextrose) 1,075 mls @ 125 mls/hr IV .Q8H36M [facility] Last Admin: 10/05/16 04:34 Dose: Not Given Insulin Detemir (Levemir) 30 units SC HS [facility] Last Admin: 10/04/16 22:10 Dose: 30 units Insulin Human Regular (Humulin R) 0 units SC ACHS [facility] PRN Reason: Protocol Last Admin: 10/05/16 11:42 Dose: 4 units Metoprolol Tartrate (Lopressor) 50 mg PO BID [facility] Last Admin: 10/05/16 08:51 Dose: 50 mg Vancomycin HCl (Vancocin (Oral/Rectal Use)) 125 mg PO Q6 [facility] Last Admin: 10/05/16 09:00 Dose: 125 mg - Labs Labs: 10/04/16 10:52 10/04/16 10:52 PT 11.2 SECONDS (9.6-11.2) 09/30/16 17:50 INR 1.08 (0.92-1.08) 09/30/16 17:50 APTT 25.7 SECONDS (23.3-32.5) 09/30/16 17:50 - Respiratory Exam Respiratory Exam: NORMAL BREATHING PATTERN - Cardiovascular Exam Cardiovascular Exam: REGULAR RHYTHM - Extremities Exam Additional comments: No edema Assessment and Plan - Assessment and Plan (Free Text) Assessment: Acute on CRF. Renal function is stable Metabolic acidosis with anion gap Bicarb remains low despite supplementation C,diff colitis Plan: Continue with bicarb drip Will otder serum & urine Osmol Lactic acid level
[2016-10-05] MEDS: Insulin Detemir 100 Units/ml Inj SC SCH (21:04)
[2016-10-06] MEDS: Vancomycin 500 mg (Oral/Rectal USE) PO SCH ×4 (04:16→21:25)
[2016-10-06] MEDS: Sodium Bicarbonate 8.4% 75 MEQ in Dextrose 5% In Water 1,000 ML IV SCH ×2 (04:57→13:02)
[2016-10-06] MEDS: Insulin Regular 100 units/ml SC SCH ×4 (06:32→21:30)
[2016-10-06] MEDS: Cholestyramine 4 gm/Pkt UD PO SCH ×3 (09:05→17:42)
[2016-10-06 10:07] LABS: RBC URINE 11 /hpf (0-3); URINE BACTERIA MOD (<OCC); URINE BILIRUBIN NEGATIVE (NEGATIVE); URINE BLOOD SMALL (NEGATIVE); URINE COLOR YELLOW (YELLOW); URINE GLUCOSE (UA) NEG (Normal); URINE KETONE NEGATIVE (NEGATIVE); URINE LEUKOCYTE ESTERASE LARGE Leu/uL (Negative); URINE PROTEIN 100 mg/dL (NEGATIVE); URINE UROBILINOGEN 0.2-1.0 mg/dL (0.2-1.0); WBC CLUMPS MANY /hpf; WBC URINE 430 /hpf (0-5)
[2016-10-06 16:23] LABS: BLOOD UREA NITROGEN 27 mg/dl (9-20); CARBON DIOXIDE 24 mmol/L (22-30); CHLORIDE 107 mmol/L (98-107); GFR AFRICAN-AMERICAN 57; GLUCOSE,RANDOM 347 mg/dL (75-110); POTASSIUM 5.3 MMOL/L (3.6-5.0); SODIUM 144 mmol/l (132-148)
--- NOTE | 2016-10-06 16:52 | CP.PCM.PN ---
Subjective - Date & Time of Evaluation Date of Evaluation: 10/06/16 Time of Evaluation: 04:00 - Subjective Subjective: Alert Denies abdominal pain Objective - Vital Signs/Intake and Output Vital Signs (last 24 hours): Temp Pulse Resp BP Pulse Ox 98.5 F 92 H 18 108/74 100 10/06/16 08:43 10/06/16 09:05 10/06/16 08:43 10/06/16 09:05 10/06/16 08:43 Intake and Output: 10/06/16 10/06/16 06:59 18:59 Intake Total 400 Balance 400 - Medications Medications: Current Medications Aspirin (Ecotrin) 81 mg PO DAILY [facility] Last Admin: 10/06/16 09:05 Dose: 81 mg Atorvastatin Calcium (Lipitor) 10 mg PO DAILY [facility] Last Admin: 10/06/16 09:05 Dose: 10 mg Cholestyramine Resin (Questran) 4 gm PO 0800,1400,1800 [facility] Last Admin: 10/06/16 14:02 Dose: 4 gm Dextrose (Dextrose 50% Inj) 0 ml IV STAT PRN; Protocol PRN Reason: Hyglycemia Protocol Dextrose (Glutose 15) 0 gm PO ONCE PRN; Protocol PRN Reason: Hypoglycemia Protocol Glucagon (Glucagen Diagnostic Kit) 0 mg IM STAT PRN; Protocol PRN Reason: Hypoglycemia Protocol Sodium Bicarbonate 75 meq/ (Dextrose) 1,075 mls @ 125 mls/hr IV .Q8H36M [facility] Last Admin: 10/06/16 13:02 Dose: 125 mls/hr Insulin Detemir (Levemir) 30 units SC HS [facility] Last Admin: 10/05/16 21:04 Dose: 30 units Insulin Human Regular (Humulin R) 0 units SC ACHS [facility] PRN Reason: Protocol Last Admin: 10/06/16 11:50 Dose: 1 units Metoprolol Tartrate (Lopressor) 50 mg PO BID [facility] Last Admin: 10/06/16 09:05 Dose: 50 mg Vancomycin HCl (Vancocin (Oral/Rectal Use)) 125 mg PO Q6 [facility] Last Admin: 10/06/16 16:03 Dose: 125 mg - Labs Labs: 10/04/16 10:52 10/06/16 15:30 PT 11.2 SECONDS (9.6-11.2) 09/30/16 17:50 INR 1.08 (0.92-1.08) 09/30/16 17:50 APTT 25.7 SECONDS (23.3-32.5) 09/30/16 17:50 - Respiratory Exam Additional comments: Lungs clear - Cardiovascular Exam Cardiovascular Exam: REGULAR RHYTHM - GI/Abdominal Exam GI & Abdominal Exam: Soft - Extremities Exam Additional comments: No edema Assessment and Plan - Assessment and Plan (Free Text) Assessment: BRITTNI improving Hyperkalemia,kayexalate , low K diet Metabolic acidosis corrected Plan: Decrease bicarb drip rate Low K+ diet Kayexalate
[2016-10-06] MEDS ORDERED: Sodium Bicarbonate 8.4% 75 MEQ in Dextrose 5% In Water 1,000 ML IV SCH (16:58)
[2016-10-06] MEDS ORDERED: Sod Polystyrene Sulf 15 gm/60 ml Oral Susp PO ONE (17:08)
[2016-10-06] MEDS: Insulin Detemir 100 Units/ml Inj SC SCH (21:25)
[2016-10-07] MEDS: Vancomycin 500 mg (Oral/Rectal USE) PO SCH ×4 (04:39→21:48)
[2016-10-07] MEDS: Insulin Regular 100 units/ml SC SCH ×4 (06:57→21:46)
[2016-10-07] MEDS: Cholestyramine 4 gm/Pkt UD PO SCH ×3 (10:07→17:17)
[2016-10-07 10:17] LABS: CALCIUM 9.1 mg/dL (8.4-10.2); POTASSIUM 4.4 MMOL/L (3.6-5.0)
--- NOTE | 2016-10-07 11:55 | CP.PCM.DIS ---
Provider - Provider Date of Admission: 09/30/16 18:43 Attending physician: Justin Meglar MD Hospital Course - Lab Results Lab Results: Most Recent Lab Values WBC 5.9 K/uL (4.8-10.8) 10/04/16 10:52 RBC 3.78 Mil/uL (4.40-5.90) L 10/04/16 10:52 Hgb 10.6 g/dL (12.0-18.0) L 10/04/16 10:52 Hct 32.8 % (35.0-51.0) L 10/04/16 10:52 MCV 86.6 fl (80.0-94.0) 10/04/16 10:52 MCH 27.9 pg (27.0-31.0) 10/04/16 10:52 MCHC 32.3 g/dL (33.0-37.0) L 10/04/16 10:52 RDW 15.9 % (11.5-14.5) H 10/04/16 10:52 Plt Count 283 K/uL (130-400) 10/04/16 10:52 MPV 7.5 fl (7.2-11.7) 10/04/16 10:52 Neut % (Auto) 62.5 % (50.0-75.0) 10/04/16 10:52 Lymph % (Auto) 21.0 % (20.0-40.0) 10/04/16 10:52 [place] % (Auto) 9.2 % (0.0-10.0) 10/04/16 10:52 Eos % (Auto) 6.4 % (0.0-4.0) H 10/04/16 10:52 Baso % (Auto) 0.9 % (0.0-2.0) 10/04/16 10:52 Neut # 3.7 K/uL (1.8-7.0) 10/04/16 10:52 Lymph # 1.2 K/uL (1.0-4.3) 10/04/16 10:52 [place] # 0.5 K/uL (0.0-0.8) 10/04/16 10:52 Eos # 0.4 K/uL (0.0-0.7) 10/04/16 10:52 Baso # 0.1 K/uL (0.0-0.2) 10/04/16 10:52 PT 11.2 SECONDS (9.6-11.2) 09/30/16 17:50 INR 1.08 (0.92-1.08) 09/30/16 17:50 APTT 25.7 SECONDS (23.3-32.5) 09/30/16 17:50 pCO2 33 mm/Hg (35-45) L 09/30/16 17:29 pO2 104 mm/Hg (80-100) H 09/30/16 17:29 HCO3 17.0 mmol/L (21-28) L 09/30/16 17:29 ABG pH 7.28 (7.35-7.45) L 09/30/16 17: ABG Total CO2 16.5 mmol/L (22-28) L 09/30/16 17:29 ABG O2 Saturation 98.8 % (95-98) H 09/30/16 17:29 ABG Base Excess -10.2 mmol/L (-2.0-3.0) L 09/30/16 17:29 Kb Test Yes 09/30/16 17:29 ABG Potassium 4.9 mmol/L (3.6-5.2) 09/30/16 17:29 A-a O2 Difference 4.0 mm/Hg 09/30/16 17:29 Sodium 142.0 mmol/L (132-148) 09/30/16 17: Chloride 119.0 mmol/L (98-107) H 09/30/16 17: Glucose 271 mg/dL (75-110) H 09/30/16 17:29 Lactate 1.0 mmol/L (0.7-2.1) 09/30/16 17:29 FiO2 21.0 % 09/30/16 17: Sodium 146 mmol/l (132-148) 10/07/16 09:40 Potassium 4.4 MMOL/L (3.6-5.0) 10/07/16 09:40 Chloride 112 mmol/L (98-107) H 10/07/16 09:40 Carbon Dioxide 21 mmol/L (22-30) L 10/07/16 09:40 Anion Gap 17 (10-20) 10/07/16 09:40 BUN 23 mg/dl (9-20) H 10/07/16 09:40 Creatinine 1.6 mg/dL (0.8-1.5) H 10/07/16 09:40 Est GFR ( Amer) 57 10/07/16 09:40 Est GFR (Non-Af Amer) 47 10/07/16 09:40 POC Glucose (mg/dL) 101 mg/dL (65-110) 10/07/16 06:57 Random Glucose 266 mg/dL (75-110) H 10/07/16 09:40 Hemoglobin A1c 9.0 % (4.2-6.5) H D 10/01/16 11:38 Lactic Acid 1.5 MMOL/L (0.7-2.1) 10/05/16 19:00 Calcium 9.1 mg/dL (8.4-10.2) 10/07/16 09:40 Phosphorus 3.3 mg/dl (2.5-4.5) 10/03/16 06:15 Magnesium 1.7 MG/DL (1.6-2.3) 10/03/16 06:15 Total Bilirubin 0.3 mg/dl (0.2-1.3) 10/04/16 10:52 AST 13 U/L (17-59) L D 10/04/16 10:52 ALT 22 U/L (21-72) 10/04/16 10:52 Alkaline Phosphatase 100 U/L (38-126) 10/04/16 10:52 Troponin I < 0.0120 ng/mL (0.00-0.120) 09/30/16 17:50 NT-Pro-B Natriuret Pep 154 pg/ml (0-450) 09/30/16 17:50 Total Protein 7.1 G/DL (6.3-8.2) 10/04/16 10:52 Albumin 3.2 g/dL (3.5-5.0) L 10/04/16 10:52 Globulin 3.8 gm/dL (2.2-3.9) 10/04/16 10:52 Albumin/Globulin Ratio 0.8 (1.0-2.1) L 10/04/16 10:52 Triglycerides 114 mg/DL (0-149) 10/01/16 11:31 Cholesterol 171 mg/dL (0-199) 10/01/16 11:31 LDL Cholesterol Direct 71 mg/dL (0-129) 10/01/16 11:31 HDL Cholesterol 52 MG/DL (30-70) 10/01/16 11:31 Procalcitonin 0.10 NG/ML (0.19-0.49) L 09/30/16 17:50 TSH 3rd Generation 2.13 mIU/ML (0.46-4.68) 09/30/16 17:50 Arterial Blood Potassium 4.9 mmol/L (3.6-5.2) 09/30/16 17:29 Urine Color Yellow (YELLOW) 10/05/16 07:00 Urine Clarity Cloudy (Clear) 10/05/16 07:00 Urine pH 6.0 (5.0-8.0) 10/05/16 07:00 Ur Specific [place] 1.006 (1.003-1.030) 10/05/16 07:00 Urine Protein 100 mg/dL (NEGATIVE) 10/05/16 07:00 Urine Glucose (UA) Neg mg/dL (Normal) 10/05/16 07:00 Urine Ketones Negative mg/dL (NEGATIVE) 10/05/16 07:00 Urine Blood Small (NEGATIVE) 10/05/16 07:00 Urine Nitrate Negative (NEGATIVE) 10/05/16 07:00 Urine Bilirubin Negative (NEGATIVE) 10/05/16 07:00 Urine Urobilinogen 0.2-1.0 mg/dL (0.2-1.0) 10/05/16 07:00 Ur Leukocyte Esterase Large [place]/uL (Negative) 10/05/16 07:00 Urine RBC (Auto) 11 /hpf (0-3) H 10/05/16 07:00 Urine WBC Clumps (Auto) Many /hpf (NONE) H 10/05/16 07:00 Urine Microscopic WBC 430 /hpf (0-5) H 10/05/16 07:00 Ur Squamous Epith Cells 1 /hpf (0-5) 10/05/16 07:00 Urine Bacteria Mod (<OCC) H 10/05/16 07:00 Urine Yeast (Budding) Mod /hpf (NEGATIVE) H 10/05/16 07:00 Urine Creatinine 46 mg/dL (20-370) 10/01/16 19:42 Urine Microalbumin 10.4 mg/dL (()) 10/01/16 19:42 Microalb/Creat Ratio 227 (<30) H 10/01/16 19:42 Urine Opiates Screen Negative (NEGATIVE) 09/30/16 18:50 Urine Methadone Screen Negative (NEGATIVE) 09/30/16 18:50 Ur Barbiturates Screen Negative (NEGATIVE) 09/30/16 18:50 Ur Phencyclidine Scrn Negative (NEGATIVE) 09/30/16 18:50 Ur Amphetamines Screen Negative (NEGATIVE) 09/30/16 18:50 U Benzodiazepines Scrn Negative (NEGATIVE) 09/30/16 18:50 U Oth Cocaine Metabols Negative (NEGATIVE) 09/30/16 18:50 U Cannabinoids Screen Negative (NEGATIVE) 09/30/16 18:50 Serum Ketones Negative (NEGATIVE) 10/06/16 15:30 C. difficile Ag & Toxin Negative (NEGATIVE) 10/03/16 08:50 HIV 1&2 Antibody Screen Negative (NEGATIVE) 09/30/16 19:30 Discharge Exam - Head Exam Head Exam: ATRAUMATIC, NORMOCEPHALIC. absent: NORMAL INSPECTION (temporal wasting) Discharge Plan - Follow Up Plan Condition: GUARDED Disposition: HOME/ ROUTINE
--- NOTE | 2016-10-07 15:46 | CP.PCM.PN ---
Subjective - Date & Time of Evaluation Date of Evaluation: 10/07/16 Time of Evaluation: 11:20 - Subjective Subjective: Comfortable in bed Objective - Vital Signs/Intake and Output Vital Signs (last 24 hours): Temp Pulse Resp BP Pulse Ox 98.5 F 88 20 115/82 100 10/07/16 08:42 10/07/16 10:07 10/07/16 08:42 10/07/16 10:07 10/07/16 08:42 - Medications Medications: Current Medications Aspirin (Ecotrin) 81 mg PO DAILY [facility] Last Admin: 10/07/16 10:08 Dose: 81 mg Atorvastatin Calcium (Lipitor) 10 mg PO DAILY [facility] Last Admin: 10/07/16 10:07 Dose: 10 mg Cholestyramine Resin (Questran) 4 gm PO 0800,1400,1800 [facility] Last Admin: 10/07/16 10:07 Dose: 4 gm Dextrose (Dextrose 50% Inj) 0 ml IV STAT PRN; Protocol PRN Reason: Hyglycemia Protocol Dextrose (Glutose 15) 0 gm PO ONCE PRN; Protocol PRN Reason: Hypoglycemia Protocol Glucagon (Glucagen Diagnostic Kit) 0 mg IM STAT PRN; Protocol PRN Reason: Hypoglycemia Protocol Insulin Detemir (Levemir) 30 units SC HS [facility] Last Admin: 10/06/16 21:25 Dose: 30 units Insulin Human Regular (Humulin R) 0 units SC ACHS [facility] PRN Reason: Protocol Last Admin: 10/07/16 12:35 Dose: 6 units Metoprolol Tartrate (Lopressor) 50 mg PO BID [facility] Last Admin: 10/07/16 10:07 Dose: 50 mg Pioglitazone HCl (Actos) 30 mg PO DAILY [facility] Last Admin: 10/07/16 10:33 Dose: 30 mg Sitagliptin Phosphate (Januvia) 50 mg PO DAILY [facility] Last Admin: 10/07/16 10:32 Dose: 50 mg Vancomycin HCl (Vancocin (Oral/Rectal Use)) 125 mg PO Q6 [facility] Last Admin: 10/07/16 10:09 Dose: 125 mg - Labs Labs: 10/04/16 10:52 10/07/16 09:40 PT 11.2 SECONDS (9.6-11.2) 09/30/16 17:50 INR 1.08 (0.92-1.08) 09/30/16 17:50 APTT 25.7 SECONDS (23.3-32.5) 09/30/16 17:50 - Respiratory Exam Respiratory Exam: NORMAL BREATHING PATTERN - Cardiovascular Exam Cardiovascular Exam: REGULAR RHYTHM - Extremities Exam Additional comments: No edema Assessment and Plan - Assessment and Plan (Free Text) Assessment: CKD stage 111, Creat is stable K+ controlled Metabolic acidosis on bicarb drip C. diff colitis Plan: Suggest to d/c bicarb drip Monito creat, K+ & bicarb
[2016-10-07] MEDS: Insulin Detemir 100 Units/ml Inj SC SCH (21:46)
[2016-10-08] MEDS: Vancomycin 500 mg (Oral/Rectal USE) PO SCH ×4 (03:59→22:49)
[2016-10-08] MEDS: Insulin Regular 100 units/ml SC SCH ×4 (06:50→22:46)
--- NOTE | 2016-10-08 08:07 | CP.PCM.PN ---
<Kristy Roche - Last Filed: 10/08/16 14:48> Subjective - Date & Time of Evaluation Date of Evaluation: 10/08/16 Time of Evaluation: 07:10 - Subjective Subjective: 46M seen and examined at bedside with attending. Pt reports feeling better, but still a little weak. BMs have greatly improved in frequency and consistency. He denies SOB, chest pain, palpitations, and is eating well. Objective - Vital Signs/Intake and Output Vital Signs (last 24 hours): Temp Pulse Resp BP Pulse Ox 36.9 C 85 20 114/78 100 10/07/16 23:23 10/07/16 23:23 10/07/16 23:23 10/07/16 23:23 10/07/16 23:23 - Medications Medications: Current Medications Aspirin (Ecotrin) 81 mg PO DAILY [facility] Last Admin: 10/07/16 10:08 Dose: 81 mg Atorvastatin Calcium (Lipitor) 10 mg PO DAILY [facility] Last Admin: 10/07/16 10:07 Dose: 10 mg Cholestyramine Resin (Questran) 4 gm PO 0800,1400,1800 [facility] Last Admin: 10/07/16 17:17 Dose: 4 gm Dextrose (Dextrose 50% Inj) 0 ml IV STAT PRN; Protocol PRN Reason: Hyglycemia Protocol Dextrose (Glutose 15) 0 gm PO ONCE PRN; Protocol PRN Reason: Hypoglycemia Protocol Glucagon (Glucagen Diagnostic Kit) 0 mg IM STAT PRN; Protocol PRN Reason: Hypoglycemia Protocol Insulin Detemir (Levemir) 30 units SC HS [facility] Last Admin: 10/07/16 21:46 Dose: 30 units Insulin Human Regular (Humulin R) 0 units SC ACHS [facility] PRN Reason: Protocol Last Admin: 10/08/16 06:50 Dose: 2 units Metoprolol Tartrate (Lopressor) 50 mg PO BID [facility] Last Admin: 10/07/16 17:16 Dose: 50 mg Pioglitazone HCl (Actos) 30 mg PO DAILY [facility] Last Admin: 10/07/16 10:33 Dose: 30 mg Sitagliptin Phosphate (Januvia) 50 mg PO DAILY [facility] Last Admin: 10/07/16 10:32 Dose: 50 mg Vancomycin HCl (Vancocin (Oral/Rectal Use)) 125 mg PO Q6 [facility] Last Admin: 10/08/16 03:59 Dose: 125 mg - Labs Labs: 10/04/16 10:52 10/07/16 09:40 PT 11.2 SECONDS (9.6-11.2) 09/30/16 17:50 INR 1.08 (0.92-1.08) 09/30/16 17:50 APTT 25.7 SECONDS (23.3-32.5) 09/30/16 17:50 - Constitutional Appears: Well, No Acute Distress, Cachectic - Head Exam Head Exam: ATRAUMATIC, NORMAL INSPECTION - Eye Exam Eye Exam: EOMI, Normal appearance - ENT Exam ENT Exam: Mucous Membranes Moist, Normal Exam - Neck Exam Neck Exam: Full ROM, Normal Inspection - Respiratory Exam Respiratory Exam: Clear to Ausculation Bilateral, NORMAL BREATHING PATTERN. absent: Rhonchi, Wheezes - Cardiovascular Exam Cardiovascular Exam: REGULAR RHYTHM. absent: JVD - GI/Abdominal Exam GI & Abdominal Exam: Soft, Normal Bowel Sounds. absent: Tenderness - Extremities Exam Extremities Exam: Full ROM, Normal Capillary Refill, Normal Inspection. absent : Pedal Edema - Neurological Exam Neurological Exam: Alert, Awake, Oriented x3 - Psychiatric Exam Psychiatric exam: Normal Affect, Normal Mood - Skin Skin Exam: Normal Color, Warm Assessment and Plan (1) Diabetes Assessment & Plan: Intermittently controlled, most recently poorly controlled due to poor nutrition and diarrhea. Glucose better controlled presently. - Levemir - SSI - Pioglitazone, Januvia - Hypoglycemia Bundle - Accu-check Status: h (2) Clostridium difficile infection Assessment & Plan: Diarrhea since 06/2016 and patient denies antibiotic use but admits doesn't remember exactly. - PO Vancomycin - Cholestyramine Status: c (3) BRITTNI (acute kidney injury) Assessment & Plan: Likely multi-factorial with poor nutrition, persistent diarrhea since , and poor glucose control leading to volume depletion and pre-renal. Continuing to resolve as underlying factors are addressed. - Mod CHO diet - BMP - Encourage hydration Status: c (4) Hypertension Assessment & Plan: Well- controlled c/w home medications Status: h (5) DVT prophylaxis Assessment & Plan: Heparin 5,000, SC, Q12H Status: c <Justin Melgar - Last Filed: 12/15/16 11:30> Objective - Vital Signs/Intake and Output Vital Signs (last 24 hours): Temp Pulse Resp BP Pulse Ox 97.9 F 89 20 119/79 100 10/10/16 08:03 10/10/16 08:57 10/10/16 08:03 10/10/16 08:57 10/10/16 08:03 - Labs Labs: 10/10/16 06:40 10/10/16 06:40 PT 11.2 SECONDS (9.6-11.2) 09/30/16 17:50 INR 1.08 (0.92-1.08) 09/30/16 17:50 APTT 25.7 SECONDS (23.3-32.5) 09/30/16 17:50 Assessment and Plan (1) Clostridium difficile infection Status: Acute (2) Diabetes mellitus type 2 in nonobese Status: Chronic (3) Metabolic acidosis Status: Resolved - Assessment and Plan (Free Text) Plan: i was present during evaluation and discussed with Dr Melchor madrid plans of care Justin Melgar M.D.
[2016-10-08 08:09] LABS: BASO # 0.1 K/uL (0.0-0.2); BASO % 1.2 % (0.0-2.0); EOS # 0.5 K/uL (0.0-0.7); EOS % 7.6 % (0.0-4.0); HEMATOCRIT 33.3 % (35.0-51.0); LYMPH # 1.9 K/uL (1.0-4.3); LYMPH % 29.4 % (20.0-40.0); MEAN CELL VOLUME 86.3 fl (80.0-94.0); MEAN CORPUSCULAR HEMOGLOBIN 28.4 pg (27.0-31.0); MEAN CORPUSCULAR HGB CONC 32.9 g/dL (33.0-37.0); MEAN PLATELET VOLUME 7.7 fl (7.2-11.7); MONO # 0.7 K/uL (0.0-0.8); MONO % 10.7 % (0.0-10.0); NEUT # 3.3 K/uL (1.8-7.0); NEUT % 51.1 % (50.0-75.0); RED CELL DISTRIBUTION WIDTH 16.1 % (11.5-14.5); WHITE BLOOD COUNT 6.4 K/uL (4.8-10.8)
[2016-10-08 08:20] LABS: ALB/GLOB RATIO 0.8 (1.0-2.1); ALKALINE PHOSPHATASE 112 U/L (38-126); ALT/SGPT 39 U/L (21-72); AST/SGOT 27 U/L (17-59); BILIRUBIN,TOTAL 0.3 mg/dl (0.2-1.3); BLOOD UREA NITROGEN 22 mg/dl (9-20); CALCIUM 9.5 mg/dL (8.4-10.2); CARBON DIOXIDE 21 mmol/L (22-30); CHLORIDE 110 mmol/L (98-107); GFR AFRICAN-AMERICAN > 60; GLUCOSE,RANDOM 177 mg/dL (75-110); POTASSIUM 4.8 MMOL/L (3.6-5.0); SODIUM 145 mmol/l (132-148); TOTAL PROTEIN 7.8 G/DL (6.3-8.2)
[2016-10-08] MEDS: Cholestyramine 4 gm/Pkt UD PO SCH ×3 (10:11→19:02)
--- NOTE | 2016-10-08 10:18 | CP.PCM.PN ---
Subjective - Date & Time of Evaluation Date of Evaluation: 10/08/16 Time of Evaluation: 10:16 - Subjective Subjective: diarrhea slowing down Objective - Vital Signs/Intake and Output Vital Signs (last 24 hours): Temp Pulse Resp BP Pulse Ox 97.4 F L 92 H 20 113/82 100 10/08/16 08:47 10/08/16 09:56 10/08/16 08:47 10/08/16 09:56 10/08/16 08:47 - Medications Medications: Current Medications Aspirin (Ecotrin) 81 mg PO DAILY [facility] Last Admin: 10/08/16 09:55 Dose: 81 mg Atorvastatin Calcium (Lipitor) 10 mg PO DAILY [facility] Last Admin: 10/08/16 09:55 Dose: 10 mg Cholestyramine Resin (Questran) 4 gm PO 0800,1400,1800 [facility] Last Admin: 10/08/16 10:11 Dose: Not Given Dextrose (Dextrose 50% Inj) 0 ml IV STAT PRN; Protocol PRN Reason: Hyglycemia Protocol Dextrose (Glutose 15) 0 gm PO ONCE PRN; Protocol PRN Reason: Hypoglycemia Protocol Glucagon (Glucagen Diagnostic Kit) 0 mg IM STAT PRN; Protocol PRN Reason: Hypoglycemia Protocol Insulin Detemir (Levemir) 30 units SC HS [facility] Last Admin: 10/07/16 21:46 Dose: 30 units Insulin Human Regular (Humulin R) 0 units SC ACHS [facility] PRN Reason: Protocol Last Admin: 10/08/16 06:50 Dose: 2 units Metoprolol Tartrate (Lopressor) 50 mg PO BID [facility] Last Admin: 10/08/16 09:56 Dose: 50 mg Pioglitazone HCl (Actos) 30 mg PO DAILY [facility] Last Admin: 10/08/16 09:55 Dose: 30 mg Sitagliptin Phosphate (Januvia) 50 mg PO DAILY [facility] Last Admin: 10/08/16 09:55 Dose: 50 mg Vancomycin HCl (Vancocin (Oral/Rectal Use)) 125 mg PO Q6 [facility] Last Admin: 10/08/16 10:03 Dose: 125 mg - Labs Labs: 10/08/16 06:00 10/08/16 06:00 PT 11.2 SECONDS (9.6-11.2) 09/30/16 17:50 INR 1.08 (0.92-1.08) 09/30/16 17:50 APTT 25.7 SECONDS (23.3-32.5) 09/30/16 17:50 - Constitutional Appears: Non-toxic - Head Exam Head Exam: ATRAUMATIC - Eye Exam Eye Exam: Normal appearance - ENT Exam ENT Exam: Normal Exam - Neck Exam Neck Exam: Normal Inspection - Respiratory Exam Respiratory Exam: NORMAL BREATHING PATTERN - Cardiovascular Exam Cardiovascular Exam: +S1, +S2 - GI/Abdominal Exam GI & Abdominal Exam: Normal Bowel Sounds - Extremities Exam Extremities Exam: Normal Inspection - Neurological Exam Neurological Exam: Alert, Oriented x3 - Psychiatric Exam Psychiatric exam: Normal Affect - Skin Skin Exam: Normal Color Assessment and Plan - Assessment and Plan (Free Text) Assessment: ARF/ c. diff Diarrhea/ Acidosis/ Hypernatremia/dm plan: ARF resolving off ivf as now appears to be eating and drinking and acidosis appears resolved hypernatremia resolved on po vanc
[2016-10-08] MEDS: Insulin Detemir 100 Units/ml Inj SC SCH (22:47)
[2016-10-09] MEDS: Vancomycin 500 mg (Oral/Rectal USE) PO SCH ×4 (04:21→22:46)
--- NOTE | 2016-10-09 07:13 | CP.PCM.PN ---
Subjective - Date & Time of Evaluation Date of Evaluation: 10/09/16 Time of Evaluation: 07:13 - Subjective Subjective: 46M Objective - Vital Signs/Intake and Output Vital Signs (last 24 hours): Temp Pulse Resp BP Pulse Ox 36.6 C 92 H 18 112/75 100 10/08/16 20:29 10/08/16 20:29 10/08/16 20:29 10/08/16 20:29 10/08/16 20:29 - Medications Medications: Current Medications Aspirin (Ecotrin) 81 mg PO DAILY [facility] Last Admin: 10/08/16 09:55 Dose: 81 mg Atorvastatin Calcium (Lipitor) 10 mg PO DAILY [facility] Last Admin: 10/08/16 09:55 Dose: 10 mg Cholestyramine Resin (Questran) 4 gm PO 0800,1400,1800 [facility] Last Admin: 10/08/16 19:02 Dose: 4 gm Dextrose (Dextrose 50% Inj) 0 ml IV STAT PRN; Protocol PRN Reason: Hyglycemia Protocol Dextrose (Glutose 15) 0 gm PO ONCE PRN; Protocol PRN Reason: Hypoglycemia Protocol Glucagon (Glucagen Diagnostic Kit) 0 mg IM STAT PRN; Protocol PRN Reason: Hypoglycemia Protocol Heparin Sodium (Porcine) (Heparin) 5,000 units SC Q12 [facility] PRN Reason: Protocol Last Admin: 10/08/16 22:46 Dose: 5,000 units Insulin Detemir (Levemir) 30 units SC HS [facility] Last Admin: 10/08/16 22:47 Dose: 30 units Insulin Human Regular (Humulin R) 0 units SC ACHS [facility] PRN Reason: Protocol Last Admin: 10/08/16 22:46 Dose: Not Given Metoprolol Tartrate (Lopressor) 50 mg PO BID [facility] Last Admin: 10/08/16 16:50 Dose: 50 mg Pioglitazone HCl (Actos) 30 mg PO DAILY [facility] Last Admin: 10/08/16 09:55 Dose: 30 mg Sitagliptin Phosphate (Januvia) 50 mg PO DAILY [facility] Last Admin: 10/08/16 09:55 Dose: 50 mg Vancomycin HCl (Vancocin (Oral/Rectal Use)) 125 mg PO Q6 [facility] Last Admin: 10/09/16 04:21 Dose: 125 mg - Labs Labs: 10/08/16 06:00 10/08/16 06:00 PT 11.2 SECONDS (9.6-11.2) 09/30/16 17:50 INR 1.08 (0.92-1.08) 09/30/16 17:50 APTT 25.7 SECONDS (23.3-32.5) 09/30/16 17:50 Assessment and Plan (1) BRITTNI (acute kidney injury) Status: Acute (2) Clostridium difficile infection Status: Acute (3) DVT prophylaxis Status: Acute (4) Diabetes Status: Chronic (5) Hypertension Status: Chronic
[2016-10-09 07:40] LABS: HEMATOCRIT 33.2 % (35.0-51.0); MEAN CELL VOLUME 85.5 fl (80.0-94.0); MEAN CORPUSCULAR HGB CONC 33.9 g/dL (33.0-37.0); RED CELL DISTRIBUTION WIDTH 15.6 % (11.5-14.5); WHITE BLOOD COUNT 6.7 K/uL (4.8-10.8)
[2016-10-09 07:54] LABS: CHLORIDE 110 mmol/L (98-107); GLUCOSE,RANDOM 94 mg/dL (75-110); POTASSIUM 4.9 MMOL/L (3.6-5.0)
[2016-10-09 07:55] LABS: ALB/GLOB RATIO 0.8 (1.0-2.1); ALKALINE PHOSPHATASE 115 U/L (38-126); ALT/SGPT 29 U/L (21-72); AST/SGOT 24 U/L (17-59); BILIRUBIN,TOTAL 0.3 mg/dl (0.2-1.3); BLOOD UREA NITROGEN 21 mg/dl (9-20); CALCIUM 9.8 mg/dL (8.4-10.2); CARBON DIOXIDE 23 mmol/L (22-30); GFR AFRICAN-AMERICAN > 60; SODIUM 147 mmol/l (132-148)
[2016-10-09] MEDS: Insulin Regular 100 units/ml SC SCH ×4 (07:57→22:48)
[2016-10-09] MEDS: Cholestyramine 4 gm/Pkt UD PO SCH ×2 (09:32→13:05)
--- NOTE | 2016-10-09 10:36 | CP.PCM.DIS ---
Provider - Provider Date of Admission: 09/30/16 18:43 Attending physician: Justin Melgar MD Time Spent in preparation of Discharge (in minutes): 45 Diagnosis - Discharge Diagnosis (1) BRITTNI (acute kidney injury) Status: Chronic Comment: Improved, but likely will have baseline (2) Clostridium difficile infection Status: Acute (3) DVT prophylaxis Status: Acute (4) Diabetes Status: Chronic (5) Hypertension Status: Chronic Hospital Course - Lab Results Lab Results: Most Recent Lab Values WBC 6.7 K/uL (4.8-10.8) 10/09/16 06:05 RBC 3.88 Mil/uL (4.40-5.90) L 10/09/16 06:05 Hgb 11.3 g/dL (12.0-18.0) L 10/09/16 06:05 Hct 33.2 % (35.0-51.0) L 10/09/16 06:05 MCV 85.5 fl (80.0-94.0) 10/09/16 06:05 MCH 29.0 pg (27.0-31.0) 10/09/16 06:05 MCHC 33.9 g/dL (33.0-37.0) 10/09/16 06:05 RDW 15.6 % (11.5-14.5) H 10/09/16 06:05 Plt Count 348 K/uL (130-400) 10/09/16 06:05 MPV 7.7 fl (7.2-11.7) 10/08/16 06:00 Neut % (Auto) 51.1 % (50.0-75.0) 10/08/16 06:00 Lymph % (Auto) 29.4 % (20.0-40.0) 10/08/16 06:00 [place] % (Auto) 10.7 % (0.0-10.0) H 10/08/16 06:00 Eos % (Auto) 7.6 % (0.0-4.0) H 10/08/16 06:00 Baso % (Auto) 1.2 % (0.0-2.0) 10/08/16 06:00 Neut # 3.3 K/uL (1.8-7.0) 10/08/16 06:00 Lymph # 1.9 K/uL (1.0-4.3) 10/08/16 06:00 [place] # 0.7 K/uL (0.0-0.8) 10/08/16 06:00 Eos # 0.5 K/uL (0.0-0.7) 10/08/16 06:00 Baso # 0.1 K/uL (0.0-0.2) 10/08/16 06:00 PT 11.2 SECONDS (9.6-11.2) 09/30/16 17:50 INR 1.08 (0.92-1.08) 09/30/16 17:50 APTT 25.7 SECONDS (23.3-32.5) 09/30/16 17:50 pCO2 33 mm/Hg (35-45) L 09/30/16 17: pO2 104 mm/Hg (80-100) H 09/30/16 17: HCO3 17.0 mmol/L (21-28) L 09/30/16 17: ABG pH 7.28 (7.35-7.45) L 09/30/16 17:29 ABG Total CO2 16.5 mmol/L (22-28) L 09/30/16 17:29 ABG O2 Saturation 98.8 % (95-98) H 09/30/16 17:29 ABG Base Excess -10.2 mmol/L (-2.0-3.0) L 09/30/16 17:29 Kb Test Yes 09/30/16 17: ABG Potassium 4.9 mmol/L (3.6-5.2) 09/30/16 17:29 A-a O2 Difference 4.0 mm/Hg 09/30/16 17:29 Sodium 142.0 mmol/L (132-148) 09/30/16 17: Chloride 119.0 mmol/L (98-107) H 09/30/16 17: Glucose 271 mg/dL (75-110) H 09/30/16 17:29 Lactate 1.0 mmol/L (0.7-2.1) 09/30/16 17:29 FiO2 21.0 % 09/30/16 17: Sodium 147 mmol/l (132-148) 10/09/16 06:05 Potassium 4.9 MMOL/L (3.6-5.0) 10/09/16 06:05 Chloride 110 mmol/L (98-107) H 10/09/16 06:05 Carbon Dioxide 23 mmol/L (22-30) 10/09/16 06:05 Anion Gap 19 (10-20) 10/09/16 06:05 BUN 21 mg/dl (9-20) H 10/09/16 06:05 Creatinine 1.5 mg/dL (0.8-1.5) 10/09/16 06:05 Est GFR ( Amer) > 60 10/09/16 06:05 Est GFR (Non-Af Amer) 51 10/09/16 06:05 POC Glucose (mg/dL) 90 mg/dL (65-110) 10/09/16 06:27 Random Glucose 94 mg/dL (75-110) 10/09/16 06:05 Hemoglobin A1c 9.0 % (4.2-6.5) H D 10/01/16 11:38 Lactic Acid 1.5 MMOL/L (0.7-2.1) 10/05/16 19:00 Calcium 9.8 mg/dL (8.4-10.2) 10/09/16 06:05 Phosphorus 3.3 mg/dl (2.5-4.5) 10/03/16 06:15 Magnesium 1.7 MG/DL (1.6-2.3) 10/03/16 06:15 Total Bilirubin 0.3 mg/dl (0.2-1.3) 10/09/16 06:05 AST 24 U/L (17-59) 10/09/16 06:05 ALT 29 U/L (21-72) 10/09/16 06:05 Alkaline Phosphatase 115 U/L (38-126) 10/09/16 06:05 Troponin I < 0.0120 ng/mL (0.00-0.120) 09/30/16 17:50 NT-Pro-B Natriuret Pep 154 pg/ml (0-450) 09/30/16 17:50 Total Protein 8.0 G/DL (6.3-8.2) 10/09/16 06:05 Albumin 3.5 g/dL (3.5-5.0) 10/09/16 06:05 Globulin 4.4 gm/dL (2.2-3.9) H 10/09/16 06:05 Albumin/Globulin Ratio 0.8 (1.0-2.1) L 10/09/16 06:05 Triglycerides 114 mg/DL (0-149) 10/01/16 11:31 Cholesterol 171 mg/dL (0-199) 10/01/16 11:31 LDL Cholesterol Direct 71 mg/dL (0-129) 10/01/16 11:31 HDL Cholesterol 52 MG/DL (30-70) 10/01/16 11:31 Procalcitonin 0.10 NG/ML (0.19-0.49) L 09/30/16 17:50 TSH 3rd Generation 2.13 mIU/ML (0.46-4.68) 09/30/16 17:50 Arterial Blood Potassium 4.9 mmol/L (3.6-5.2) 09/30/16 17:29 Urine Color Yellow (YELLOW) 10/05/16 07:00 Urine Clarity Cloudy (Clear) 10/05/16 07:00 Urine pH 6.0 (5.0-8.0) 10/05/16 07:00 Ur Specific [place] 1.006 (1.003-1.030) 10/05/16 07:00 Urine Protein 100 mg/dL (NEGATIVE) 10/05/16 07:00 Urine Glucose (UA) Neg mg/dL (Normal) 10/05/16 07:00 Urine Ketones Negative mg/dL (NEGATIVE) 10/05/16 07:00 Urine Blood Small (NEGATIVE) 10/05/16 07:00 Urine Nitrate Negative (NEGATIVE) 10/05/16 07:00 Urine Bilirubin Negative (NEGATIVE) 10/05/16 07:00 Urine Urobilinogen 0.2-1.0 mg/dL (0.2-1.0) 10/05/16 07:00 Ur Leukocyte Esterase Large [place]/uL (Negative) 10/05/16 07:00 Urine RBC (Auto) 11 /hpf (0-3) H 10/05/16 07:00 Urine WBC Clumps (Auto) Many /hpf (NONE) H 10/05/16 07:00 Urine Microscopic WBC 430 /hpf (0-5) H 10/05/16 07:00 Ur Squamous Epith Cells 1 /hpf (0-5) 10/05/16 07:00 Urine Bacteria Mod (<OCC) H 10/05/16 07:00 Urine Yeast (Budding) Mod /hpf (NEGATIVE) H 10/05/16 07:00 Urine Creatinine 46 mg/dL (20-370) 10/01/16 19:42 Urine Microalbumin 10.4 mg/dL (()) 10/01/16 19:42 Microalb/Creat Ratio 227 (<30) H 10/01/16 19:42 Urine Opiates Screen Negative (NEGATIVE) 09/30/16 18:50 Urine Methadone Screen Negative (NEGATIVE) 09/30/16 18:50 Ur Barbiturates Screen Negative (NEGATIVE) 09/30/16 18:50 Ur Phencyclidine Scrn Negative (NEGATIVE) 09/30/16 18:50 Ur Amphetamines Screen Negative (NEGATIVE) 09/30/16 18:50 U Benzodiazepines Scrn Negative (NEGATIVE) 09/30/16 18:50 U Oth Cocaine Metabols Negative (NEGATIVE) 09/30/16 18:50 U Cannabinoids Screen Negative (NEGATIVE) 09/30/16 18:50 Serum Ketones Negative (NEGATIVE) 10/06/16 15:30 C. difficile Ag & Toxin Negative (NEGATIVE) 10/03/16 08:50 HIV 1&2 Antibody Screen Negative (NEGATIVE) 09/30/16 19:30 Discharge Exam - Head Exam Head Exam: ATRAUMATIC, NORMAL INSPECTION Discharge Plan - Follow Up Plan Condition: GUARDED Disposition: REHAB FACILITY/REHAB UNIT Instructions: Clostridium Difficile Infection (DC), Managing Diabetes During Sick Days (DC), Diabetic Hyperglycemia (DC)
--- NOTE | 2016-10-09 10:50 | CP.PCM.PN ---
Subjective - Date & Time of Evaluation Date of Evaluation: 10/09/16 Time of Evaluation: 10:48 - Subjective Subjective: No significant changes reported overnight. Clinically appears to be stable Objective - Vital Signs/Intake and Output Vital Signs (last 24 hours): Temp Pulse Resp BP Pulse Ox 98.2 F 92 H 20 97/60 L 100 10/09/16 08:07 10/09/16 08:07 10/09/16 08:07 10/09/16 09:33 10/09/16 08:07 - Medications Medications: Current Medications Aspirin (Ecotrin) 81 mg PO DAILY [facility] Last Admin: 10/09/16 09:32 Dose: 81 mg Atorvastatin Calcium (Lipitor) 10 mg PO DAILY [facility] Last Admin: 10/09/16 09:32 Dose: 10 mg Cholestyramine Resin (Questran) 4 gm PO 0800,1400,1800 [facility] Last Admin: 10/09/16 09:32 Dose: 4 gm Dextrose (Dextrose 50% Inj) 0 ml IV STAT PRN; Protocol PRN Reason: Hyglycemia Protocol Dextrose (Glutose 15) 0 gm PO ONCE PRN; Protocol PRN Reason: Hypoglycemia Protocol Glucagon (Glucagen Diagnostic Kit) 0 mg IM STAT PRN; Protocol PRN Reason: Hypoglycemia Protocol Heparin Sodium (Porcine) (Heparin) 5,000 units SC Q12 [facility] PRN Reason: Protocol Last Admin: 10/09/16 09:32 Dose: 5,000 units Insulin Detemir (Levemir) 15 units SC Q12H [facility] Insulin Human Regular (Humulin R) 0 units SC ACHS AMADA PRN Reason: Protocol Last Admin: 10/09/16 07:57 Dose: Not Given Metoprolol Tartrate (Lopressor) 25 mg PO BID [facility] Pioglitazone HCl (Actos) 30 mg PO DAILY [facility] Last Admin: 10/09/16 09:31 Dose: 30 mg Sitagliptin Phosphate (Januvia) 50 mg PO DAILY [facility] Last Admin: 10/09/16 09:32 Dose: 50 mg Vancomycin HCl (Vancocin (Oral/Rectal Use)) 125 mg PO Q6 [facility] Last Admin: 10/09/16 09:34 Dose: 125 mg - Labs Labs: 10/09/16 06:05 10/09/16 06:05 PT 11.2 SECONDS (9.6-11.2) 09/30/16 17:50 INR 1.08 (0.92-1.08) 09/30/16 17:50 APTT 25.7 SECONDS (23.3-32.5) 09/30/16 17:50 - Constitutional Appears: No Acute Distress - ENT Exam ENT Exam: Mucous Membranes Moist - Respiratory Exam Respiratory Exam: absent: Chest Wall Tenderness - Cardiovascular Exam Cardiovascular Exam: absent: Rubs - Extremities Exam Extremities Exam: absent: Calf Tenderness - Back Exam Back Exam: absent: CVA tenderness (L) - Neurological Exam Neurological Exam: Alert Assessment and Plan (1) BRITTNI (acute kidney injury) Assessment & Plan: plan: ARF resolving off ivf as now appears to be eating and drinking and acidosis appears resolved hypernatremia resolved on po vanc force fluid Status: Chronic
[2016-10-09] MEDS: Insulin Detemir 100 Units/ml Inj SC SCH ×2 (11:15→22:48)
--- NOTE | 2016-10-09 11:21 | CP.PCM.PN ---
<Kristy Roche - Last Filed: 10/09/16 11:37> Subjective - Date & Time of Evaluation Date of Evaluation: 10/09/16 Time of Evaluation: 07:00 - Subjective Subjective: 46M seen and examined at bedside with attending. Pt now reporting crampy abdominal pain, but reports BMs are soft, formed at present. Otherwise denies SOB, chest pain. Objective - Vital Signs/Intake and Output Vital Signs (last 24 hours): Temp Pulse Resp BP Pulse Ox 36.8 C 92 H 20 97/60 L 100 10/09/16 08:07 10/09/16 08:07 10/09/16 08:07 10/09/16 09:33 10/09/16 08:07 - Medications Medications: Current Medications Aspirin (Ecotrin) 81 mg PO DAILY [facility] Last Admin: 10/09/16 09:32 Dose: 81 mg Atorvastatin Calcium (Lipitor) 10 mg PO DAILY [facility] Last Admin: 10/09/16 09:32 Dose: 10 mg Cholestyramine Resin (Questran) 4 gm PO 0800,1400,1800 [facility] Last Admin: 10/09/16 09:32 Dose: 4 gm Dextrose (Dextrose 50% Inj) 0 ml IV STAT PRN; Protocol PRN Reason: Hyglycemia Protocol Dextrose (Glutose 15) 0 gm PO ONCE PRN; Protocol PRN Reason: Hypoglycemia Protocol Dicyclomine HCl (Bentyl) 10 mg PO QID [facility] Glucagon (Glucagen Diagnostic Kit) 0 mg IM STAT PRN; Protocol PRN Reason: Hypoglycemia Protocol Heparin Sodium (Porcine) (Heparin) 5,000 units SC Q12 [facility] PRN Reason: Protocol Last Admin: 10/09/16 09:32 Dose: 5,000 units Insulin Detemir (Levemir) 15 units SC Q12H [facility] Last Admin: 10/09/16 11:15 Dose: 15 unit Insulin Human Regular (Humulin R) 0 units SC ACHS [facility] PRN Reason: Protocol Last Admin: 10/09/16 07:57 Dose: Not Given Metoprolol Tartrate (Lopressor) 25 mg PO BID [facility] Pioglitazone HCl (Actos) 30 mg PO DAILY [facility] Last Admin: 10/09/16 09:31 Dose: 30 mg Sitagliptin Phosphate (Januvia) 50 mg PO DAILY [facility] Last Admin: 10/09/16 09:32 Dose: 50 mg Sucralfate (Carafate Oral Susp) 1 gm PO QID [facility] Vancomycin HCl (Vancocin (Oral/Rectal Use)) 125 mg PO Q6 [facility] Last Admin: 10/09/16 09:34 Dose: 125 mg - Labs Labs: 10/09/16 06:05 10/09/16 06:05 PT 11.2 SECONDS (9.6-11.2) 09/30/16 17:50 INR 1.08 (0.92-1.08) 09/30/16 17:50 APTT 25.7 SECONDS (23.3-32.5) 09/30/16 17:50 - Constitutional Appears: Well, Non-toxic, No Acute Distress - Head Exam Head Exam: ATRAUMATIC, NORMAL INSPECTION - Eye Exam Eye Exam: EOMI, Normal appearance - ENT Exam ENT Exam: Mucous Membranes Moist, Normal Exam - Neck Exam Neck Exam: Full ROM, Normal Inspection - Respiratory Exam Respiratory Exam: Clear to Ausculation Bilateral, NORMAL BREATHING PATTERN. absent: Rales, Wheezes - Cardiovascular Exam Cardiovascular Exam: REGULAR RHYTHM. absent: JVD - GI/Abdominal Exam GI & Abdominal Exam: Soft, Normal Bowel Sounds. absent: Tenderness - Extremities Exam Extremities Exam: Full ROM, Normal Capillary Refill, Normal Inspection. absent : Pedal Edema - Neurological Exam Neurological Exam: Alert, Awake, Oriented x3 - Psychiatric Exam Psychiatric exam: Normal Affect, Normal Mood - Skin Skin Exam: Normal Color, Warm Assessment and Plan (1) Diabetes Assessment & Plan: Low fasting and spike in afternoon. - Levemir 30U, SC, qHS - starting Losartan 25mg, PO, Daily - SSI started prior to LUNCH only - Pioglitazone, Januvia - Hypoglycemia Bundle - Accu-check Status: h (2) Clostridium difficile infection Assessment & Plan: Improved, no longer has diarrhea and continues on oral abx. Now with some mild crampy abd pain. - c/w PO Vancomycin - c/w Cholestyramine - Bentyl - Sucralfate Status: c (3) BRITTNI (acute kidney injury) Assessment & Plan: Likely at baseline renal function. - Daiy BMP - Encourage hydration - f/u Nephrology recommendations Status: h (4) Hypertension Assessment & Plan: Well- controlled c/w home medications Status: h (5) DVT prophylaxis Assessment & Plan: Heparin 5,000, SC, Q12H Status: c <Justin Melgar - Last Filed: 12/15/16 11:30> Objective - Vital Signs/Intake and Output Vital Signs (last 24 hours): Temp Pulse Resp BP Pulse Ox 97.9 F 89 20 119/79 100 10/10/16 08:03 10/10/16 08:57 10/10/16 08:03 10/10/16 08:57 10/10/16 08:03 - Labs Labs: 10/10/16 06:40 10/10/16 06:40 PT 11.2 SECONDS (9.6-11.2) 09/30/16 17:50 INR 1.08 (0.92-1.08) 09/30/16 17:50 APTT 25.7 SECONDS (23.3-32.5) 09/30/16 17:50 Assessment and Plan (1) Clostridium difficile infection Status: Acute (2) Diabetes mellitus type 2 in nonobese Status: Chronic (3) Metabolic acidosis Status: Resolved - Assessment and Plan (Free Text) Plan: I was present during evaluation and discussed with Dr Melchor hughes plans of care Justin Melgar M.D.
[2016-10-09] MEDS: Sucralfate 1 gm/10 ml Oral Susp UD PO SCH ×3 (13:04→22:45)
[2016-10-10] MEDS: Vancomycin 500 mg (Oral/Rectal USE) PO SCH ×2 (05:00→09:10)
[2016-10-10] MEDS: Insulin Regular 100 units/ml SC SCH ×2 (06:57→11:48)
[2016-10-10 07:41] LABS: HEMATOCRIT 32.4 % (35.0-51.0); MEAN CELL VOLUME 85.6 fl (80.0-94.0); MEAN CORPUSCULAR HEMOGLOBIN 28.4 pg (27.0-31.0); MEAN CORPUSCULAR HGB CONC 33.2 g/dL (33.0-37.0); RED CELL DISTRIBUTION WIDTH 15.7 % (11.5-14.5); WHITE BLOOD COUNT 7.2 K/uL (4.8-10.8)
[2016-10-10 07:54] LABS: CALCIUM 9.2 mg/dL (8.4-10.2); POTASSIUM 5.1 MMOL/L (3.6-5.0)
[2016-10-10] MEDS ORDERED: Insulin Lispro (humaLOG) 100 Units/ml Inj SC SCH (08:00)
[2016-10-10 08:04] VITALS: BP 119/79; PULSE 89; RESP 20; TEMP 97.9
[2016-10-10] MEDS: Sucralfate 1 gm/10 ml Oral Susp UD PO SCH ×2 (08:54→12:03)
[2016-10-10] MEDS: Cholestyramine 4 gm/Pkt UD PO SCH (08:55)
--- NOTE | 2016-10-10 09:08 | CP.PCM.DIS ---
<MelchorKristy - Last Filed: 10/10/16 15:36> Provider - Provider Date of Admission: 09/30/16 18:43 Attending physician: Justin Melgar MD Time Spent in preparation of Discharge (in minutes): 45 Diagnosis - Discharge Diagnosis (1) Diabetes Status: h Comment: Has medication at home that he will resume. (2) Clostridium difficile infection Status: c Comment: Treatment changed to PO Flagyl due to insurance lapse. (3) BRITTNI (acute kidney injury) Status: h Comment: Worsening Cr after started on Losartan. Nephrology recommend consider d/c Losartan (4) Hypertension Status: h Comment: Well-controlled on current regimen. Hospital Course - Lab Results Lab Results: Most Recent Lab Values WBC 7.2 K/uL (4.8-10.8) 10/10/16 06:40 RBC 3.79 Mil/uL (4.40-5.90) L 10/10/16 06:40 Hgb 10.8 g/dL (12.0-18.0) L 10/10/16 06:40 Hct 32.4 % (35.0-51.0) L 10/10/16 06:40 MCV 85.6 fl (80.0-94.0) 10/10/16 06:40 MCH 28.4 pg (27.0-31.0) 10/10/16 06:40 MCHC 33.2 g/dL (33.0-37.0) 10/10/16 06:40 RDW 15.7 % (11.5-14.5) H 10/10/16 06:40 Plt Count 349 K/uL (130-400) 10/10/16 06:40 MPV 7.7 fl (7.2-11.7) 10/08/16 06:00 Neut % (Auto) 51.1 % (50.0-75.0) 10/08/16 06:00 Lymph % (Auto) 29.4 % (20.0-40.0) 10/08/16 06:00 Tyler % (Auto) 10.7 % (0.0-10.0) H 10/08/16 06:00 Eos % (Auto) 7.6 % (0.0-4.0) H 10/08/16 06:00 Baso % (Auto) 1.2 % (0.0-2.0) 10/08/16 06:00 Neut # 3.3 K/uL (1.8-7.0) 10/08/16 06:00 Lymph # 1.9 K/uL (1.0-4.3) 10/08/16 06:00 Tyler # 0.7 K/uL (0.0-0.8) 10/08/16 06:00 Eos # 0.5 K/uL (0.0-0.7) 10/08/16 06:00 Baso # 0.1 K/uL (0.0-0.2) 10/08/16 06:00 PT 11.2 SECONDS (9.6-11.2) 09/30/16 17:50 INR 1.08 (0.92-1.08) 09/30/16 17:50 APTT 25.7 SECONDS (23.3-32.5) 09/30/16 17:50 pCO2 33 mm/Hg (35-45) L 09/30/16 17:29 pO2 104 mm/Hg (80-100) H 09/30/16 17: HCO3 17.0 mmol/L (21-28) L 09/30/16 17:29 ABG pH 7.28 (7.35-7.45) L 09/30/16 17: ABG Total CO2 16.5 mmol/L (22-28) L 09/30/16 17: ABG O2 Saturation 98.8 % (95-98) H 09/30/16 17: ABG Base Excess -10.2 mmol/L (-2.0-3.0) L 09/30/16 17:29 Kb Test Yes 09/30/16 17: ABG Potassium 4.9 mmol/L (3.6-5.2) 09/30/16 17: A-a O2 Difference 4.0 mm/Hg 09/30/16 17: Sodium 142.0 mmol/L (132-148) 09/30/16 17: Chloride 119.0 mmol/L (98-107) H 09/30/16 17: Glucose 271 mg/dL (75-110) H 09/30/16 17:29 Lactate 1.0 mmol/L (0.7-2.1) 09/30/16 17:29 FiO2 21.0 % 09/30/16 17:29 Sodium 145 mmol/l (132-148) 10/10/16 06:40 Potassium 5.1 MMOL/L (3.6-5.0) H 10/10/16 06:40 Chloride 109 mmol/L (98-107) H 10/10/16 06:40 Carbon Dioxide 24 mmol/L (22-30) 10/10/16 06:40 Anion Gap 17 (10-20) 10/10/16 06:40 BUN 26 mg/dl (9-20) H 10/10/16 06:40 Creatinine 1.7 mg/dL (0.8-1.5) H 10/10/16 06:40 Est GFR ( Amer) 53 10/10/16 06:40 Est GFR (Non-Af Amer) 44 10/10/16 06:40 POC Glucose (mg/dL) 187 mg/dL (65-110) H 10/10/16 06:09 Random Glucose 187 mg/dL (75-110) H 10/10/16 06:40 Hemoglobin A1c 9.0 % (4.2-6.5) H D 10/01/16 11:38 Lactic Acid 1.5 MMOL/L (0.7-2.1) 10/05/16 19:00 Calcium 9.2 mg/dL (8.4-10.2) 10/10/16 06:40 Phosphorus 3.3 mg/dl (2.5-4.5) 10/03/16 06:15 Magnesium 1.7 MG/DL (1.6-2.3) 10/03/16 06:15 Total Bilirubin 0.3 mg/dl (0.2-1.3) 10/09/16 06:05 AST 24 U/L (17-59) 10/09/16 06:05 ALT 29 U/L (21-72) 10/09/16 06:05 Alkaline Phosphatase 115 U/L (38-126) 10/09/16 06:05 Troponin I < 0.0120 ng/mL (0.00-0.120) 09/30/16 17:50 NT-Pro-B Natriuret Pep 154 pg/ml (0-450) 09/30/16 17:50 Total Protein 8.0 G/DL (6.3-8.2) 10/09/16 06:05 Albumin 3.5 g/dL (3.5-5.0) 10/09/16 06:05 Globulin 4.4 gm/dL (2.2-3.9) H 10/09/16 06:05 Albumin/Globulin Ratio 0.8 (1.0-2.1) L 10/09/16 06:05 Triglycerides 114 mg/DL (0-149) 10/01/16 11:31 Cholesterol 171 mg/dL (0-199) 10/01/16 11:31 LDL Cholesterol Direct 71 mg/dL (0-129) 10/01/16 11:31 HDL Cholesterol 52 MG/DL (30-70) 10/01/16 11:31 Procalcitonin 0.10 NG/ML (0.19-0.49) L 09/30/16 17:50 TSH 3rd Generation 2.13 mIU/ML (0.46-4.68) 09/30/16 17:50 Arterial Blood Potassium 4.9 mmol/L (3.6-5.2) 09/30/16 17:29 Urine Color Yellow (YELLOW) 10/05/16 07:00 Urine Clarity Cloudy (Clear) 10/05/16 07:00 Urine pH 6.0 (5.0-8.0) 10/05/16 07:00 Ur Specific [place] 1.006 (1.003-1.030) 10/05/16 07:00 Urine Protein 100 mg/dL (NEGATIVE) 10/05/16 07:00 Urine Glucose (UA) Neg mg/dL (Normal) 10/05/16 07:00 Urine Ketones Negative mg/dL (NEGATIVE) 10/05/16 07:00 Urine Blood Small (NEGATIVE) 10/05/16 07:00 Urine Nitrate Negative (NEGATIVE) 10/05/16 07:00 Urine Bilirubin Negative (NEGATIVE) 10/05/16 07:00 Urine Urobilinogen 0.2-1.0 mg/dL (0.2-1.0) 10/05/16 07:00 Ur Leukocyte Esterase Large Clark/uL (Negative) 10/05/16 07:00 Urine RBC (Auto) 11 /hpf (0-3) H 10/05/16 07:00 Urine WBC Clumps (Auto) Many /hpf (NONE) H 10/05/16 07:00 Urine Microscopic WBC 430 /hpf (0-5) H 10/05/16 07:00 Ur Squamous Epith Cells 1 /hpf (0-5) 10/05/16 07:00 Urine Bacteria Mod (<OCC) H 10/05/16 07:00 Urine Yeast (Budding) Mod /hpf (NEGATIVE) H 10/05/16 07:00 Urine Creatinine 46 mg/dL (20-370) 10/01/16 19:42 Urine Microalbumin 10.4 mg/dL (()) 10/01/16 19:42 Microalb/Creat Ratio 227 (<30) H 10/01/16 19:42 Urine Opiates Screen Negative (NEGATIVE) 09/30/16 18:50 Urine Methadone Screen Negative (NEGATIVE) 09/30/16 18:50 Ur Barbiturates Screen Negative (NEGATIVE) 09/30/16 18:50 Ur Phencyclidine Scrn Negative (NEGATIVE) 09/30/16 18:50 Ur Amphetamines Screen Negative (NEGATIVE) 09/30/16 18:50 U Benzodiazepines Scrn Negative (NEGATIVE) 09/30/16 18:50 U Oth Cocaine Metabols Negative (NEGATIVE) 09/30/16 18:50 U Cannabinoids Screen Negative (NEGATIVE) 09/30/16 18:50 Serum Ketones Negative (NEGATIVE) 10/06/16 15:30 C. difficile Ag & Toxin Negative (NEGATIVE) 10/03/16 08:50 HIV 1&2 Antibody Screen Negative (NEGATIVE) 09/30/16 19:30 - Hospital Course Hospital Course: 46M admitted after experiencing 3-4 months of diarrhea with corresponding diarrhea and inability to tolerate diabetic medication. He has improved with appropriate fluid resuscitation and medication. Nephrology (Senia Pan and Dr Brown) assisted in co-management of acute renal injury. He is no longer experiencing diarrhea, able to ambulate with walker, and is tolerating PO. He is stable for discharge to home and will f/u with Dr Melgar 10/14, Thursday. Discharge Exam - Head Exam Head Exam: ATRAUMATIC, NORMAL INSPECTION - Eye Exam Eye Exam: EOMI, Normal appearance - ENT Exam ENT Exam: Mucous Membranes Moist, Normal Exam - Neck Exam Neck exam: Full Rom, Normal Inspection - Respiratory Exam Respiratory Exam: Clear to PA & Lateral, NORMAL BREATHING PATTERN. absent: Rales, Wheezes - Cardiovascular Exam Cardiovascular Exam: REGULAR RHYTHM. absent: JVD - GI/Abdominal Exam GI & Abdominal Exam: Normal Bowel Sounds, Soft. absent: Tenderness - Extremities Exam Extremities exam: full ROM, normal capillary refill, pedal pulses present - Neurological Exam Neurological exam: Alert, Oriented x3 - Psychiatric Exam Psychiatric exam: Normal Affect, Normal Mood - Skin Skin Exam: Normal Color, Warm Discharge Plan - Discharge Medications Prescriptions: Sucralfate [Carafate Oral Susp] 1 gm PO QID #40 udc Aspirin [Ecotrin] 81 mg PO DAILY #30 tabec Insulin Detemir [Levemir] 30 units SC HS #1 dev Atorvastatin [Lipitor] 10 mg PO DAILY #30 tab - Follow Up Plan Condition: GUARDED Disposition: HOME/ ROUTINE Instructions: Clostridium Difficile Infection (DC), Managing Diabetes During Sick Days (DC), Diabetic Hyperglycemia (DC) Additional Instructions: I was present during evaluation and discussed with Dr Roche re: discharge plans. Justin Melgar M.D. Referrals: Felton Alaniz MD [Staff Provider] - Justin Melgar MD [Staff Provider] - 10/14/16 2:00 pm <Justin Melgar - Last Filed: 12/15/16 11:32> Provider - Provider Date of Admission: 09/30/16 18:43 Attending physician: Justin Melgar MD Diagnosis - Discharge Diagnosis (1) Clostridium difficile infection Status: Acute (2) Diabetes mellitus type 2 in nonobese Status: Chronic (3) Metabolic acidosis Status: Resolved Hospital Course - Lab Results Lab Results: Most Recent Lab Values WBC 7.2 K/uL (4.8-10.8) 10/10/16 06:40 RBC 3.79 Mil/uL (4.40-5.90) L 10/10/16 06:40 Hgb 10.8 g/dL (12.0-18.0) L 10/10/16 06:40 Hct 32.4 % (35.0-51.0) L 10/10/16 06:40 MCV 85.6 fl (80.0-94.0) 10/10/16 06:40 MCH 28.4 pg (27.0-31.0) 10/10/16 06:40 MCHC 33.2 g/dL (33.0-37.0) 10/10/16 06:40 RDW 15.7 % (11.5-14.5) H 10/10/16 06:40 Plt Count 349 K/uL (130-400) 10/10/16 06:40 MPV 7.7 fl (7.2-11.7) 10/08/16 06:00 Neut % (Auto) 51.1 % (50.0-75.0) 10/08/16 06:00 Lymph % (Auto) 29.4 % (20.0-40.0) 10/08/16 06:00 Tyler % (Auto) 10.7 % (0.0-10.0) H 10/08/16 06:00 Eos % (Auto) 7.6 % (0.0-4.0) H 10/08/16 06:00 Baso % (Auto) 1.2 % (0.0-2.0) 10/08/16 06:00 Neut # 3.3 K/uL (1.8-7.0) 10/08/16 06:00 Lymph # 1.9 K/uL (1.0-4.3) 10/08/16 06:00 Tyler # 0.7 K/uL (0.0-0.8) 10/08/16 06:00 Eos # 0.5 K/uL (0.0-0.7) 10/08/16 06:00 Baso # 0.1 K/uL (0.0-0.2) 10/08/16 06:00 PT 11.2 SECONDS (9.6-11.2) 09/30/16 17:50 INR 1.08 (0.92-1.08) 09/30/16 17:50 APTT 25.7 SECONDS (23.3-32.5) 09/30/16 17:50 pCO2 33 mm/Hg (35-45) L 09/30/16 17:29 pO2 104 mm/Hg (80-100) H 09/30/16 17:29 HCO3 17.0 mmol/L (21-28) L 09/30/16 17:29 ABG pH 7.28 (7.35-7.45) L 09/30/16 17:29 ABG Total CO2 16.5 mmol/L (22-28) L 09/30/16 17:29 ABG O2 Saturation 98.8 % (95-98) H 09/30/16 17:29 ABG Base Excess -10.2 mmol/L (-2.0-3.0) L 09/30/16 17:29 Kb Test Yes 09/30/16 17: ABG Potassium 4.9 mmol/L (3.6-5.2) 09/30/16 17:29 A-a O2 Difference 4.0 mm/Hg 09/30/16 17: Sodium 142.0 mmol/L (132-148) 09/30/16 17: Chloride 119.0 mmol/L (98-107) H 09/30/16 17: Glucose 271 mg/dL (75-110) H 09/30/16 17: Lactate 1.0 mmol/L (0.7-2.1) 09/30/16 17: FiO2 21.0 % 09/30/16 17: Sodium 145 mmol/l (132-148) 10/10/16 06:40 Potassium 5.1 MMOL/L (3.6-5.0) H 10/10/16 06:40 Chloride 109 mmol/L (98-107) H 10/10/16 06:40 Carbon Dioxide 24 mmol/L (22-30) 10/10/16 06:40 Anion Gap 17 (10-20) 10/10/16 06:40 BUN 26 mg/dl (9-20) H 10/10/16 06:40 Creatinine 1.7 mg/dL (0.8-1.5) H 10/10/16 06:40 Est GFR ( Amer) 53 10/10/16 06:40 Est GFR (Non-Af Amer) 44 10/10/16 06:40 POC Glucose (mg/dL) 285 mg/dL (65-110) H 10/10/16 10:48 Random Glucose 187 mg/dL (75-110) H 10/10/16 06:40 Hemoglobin A1c 9.0 % (4.2-6.5) H D 10/01/16 11:38 Lactic Acid 1.5 MMOL/L (0.7-2.1) 10/05/16 19:00 Calcium 9.2 mg/dL (8.4-10.2) 10/10/16 06:40 Phosphorus 3.3 mg/dl (2.5-4.5) 10/03/16 06:15 Magnesium 1.7 MG/DL (1.6-2.3) 10/03/16 06:15 Total Bilirubin 0.3 mg/dl (0.2-1.3) 10/09/16 06:05 AST 24 U/L (17-59) 10/09/16 06:05 ALT 29 U/L (21-72) 10/09/16 06:05 Alkaline Phosphatase 115 U/L (38-126) 10/09/16 06:05 Troponin I < 0.0120 ng/mL (0.00-0.120) 09/30/16 17:50 NT-Pro-B Natriuret Pep 154 pg/ml (0-450) 09/30/16 17:50 Total Protein 8.0 G/DL (6.3-8.2) 10/09/16 06:05 Albumin 3.5 g/dL (3.5-5.0) 10/09/16 06:05 Globulin 4.4 gm/dL (2.2-3.9) H 10/09/16 06:05 Albumin/Globulin Ratio 0.8 (1.0-2.1) L 10/09/16 06:05 Triglycerides 114 mg/DL (0-149) 10/01/16 11:31 Cholesterol 171 mg/dL (0-199) 10/01/16 11:31 LDL Cholesterol Direct 71 mg/dL (0-129) 10/01/16 11:31 HDL Cholesterol 52 MG/DL (30-70) 10/01/16 11:31 Beta-Hydroxybutyric Acd None detected mcg/mL (()) 10/06/16 12:19 Procalcitonin 0.10 NG/ML (0.19-0.49) L 09/30/16 17:50 TSH 3rd Generation 2.13 mIU/ML (0.46-4.68) 09/30/16 17:50 Arterial Blood Potassium 4.9 mmol/L (3.6-5.2) 09/30/16 17:29 Urine Color Yellow (YELLOW) 10/05/16 07:00 Urine Clarity Cloudy (Clear) 10/05/16 07:00 Urine pH 6.0 (5.0-8.0) 10/05/16 07:00 Ur Specific [place] 1.006 (1.003-1.030) 10/05/16 07:00 Urine Protein 100 mg/dL (NEGATIVE) 10/05/16 07:00 Urine Glucose (UA) Neg mg/dL (Normal) 10/05/16 07:00 Urine Ketones Negative mg/dL (NEGATIVE) 10/05/16 07:00 Urine Blood Small (NEGATIVE) 10/05/16 07:00 Urine Nitrate Negative (NEGATIVE) 10/05/16 07:00 Urine Bilirubin Negative (NEGATIVE) 10/05/16 07:00 Urine Urobilinogen 0.2-1.0 mg/dL (0.2-1.0) 10/05/16 07:00 Ur Leukocyte Esterase Large Clark/uL (Negative) 10/05/16 07:00 Urine RBC (Auto) 11 /hpf (0-3) H 10/05/16 07:00 Urine WBC Clumps (Auto) Many /hpf (NONE) H 10/05/16 07:00 Urine Microscopic WBC 430 /hpf (0-5) H 10/05/16 07:00 Ur Squamous Epith Cells 1 /hpf (0-5) 10/05/16 07:00 Urine Bacteria Mod (<OCC) H 10/05/16 07:00 Urine Yeast (Budding) Mod /hpf (NEGATIVE) H 10/05/16 07:00 Urine Creatinine 46 mg/dL (20-370) 10/01/16 19:42 Urine Microalbumin 10.4 mg/dL (()) 10/01/16 19:42 Microalb/Creat Ratio 227 (<30) H 10/01/16 19:42 Random Vancomycin < 5.0 ug/mL 10/10/16 09:36 Urine Opiates Screen Negative (NEGATIVE) 09/30/16 18:50 Urine Methadone Screen Negative (NEGATIVE) 09/30/16 18:50 Ur Barbiturates Screen Negative (NEGATIVE) 09/30/16 18:50 Ur Phencyclidine Scrn Negative (NEGATIVE) 09/30/16 18:50 Ur Amphetamines Screen Negative (NEGATIVE) 09/30/16 18:50 U Benzodiazepines Scrn Negative (NEGATIVE) 09/30/16 18:50 U Oth Cocaine Metabols Negative (NEGATIVE) 09/30/16 18:50 U Cannabinoids Screen Negative (NEGATIVE) 09/30/16 18:50 Serum Ketones Negative (NEGATIVE) 10/06/16 15:30 C. difficile Ag & Toxin Negative (NEGATIVE) 10/03/16 08:50 HIV 1&2 Antibody Screen Negative (NEGATIVE) 09/30/16 19:30
--- NOTE | 2016-10-10 09:37 | CP.PCM.PN ---
Subjective - Date & Time of Evaluation Date of Evaluation: 10/10/16 Time of Evaluation: 09:34 - Subjective Subjective: Patient and bed appeared to be comfortable He is eating his breakfast Objective - Vital Signs/Intake and Output Vital Signs (last 24 hours): Temp Pulse Resp BP Pulse Ox 97.9 F 89 20 119/79 100 10/10/16 08:03 10/10/16 08:57 10/10/16 08:03 10/10/16 08:57 10/10/16 08:03 - Medications Medications: Current Medications Aspirin (Ecotrin) 81 mg PO DAILY [facility] Last Admin: 10/10/16 08:56 Dose: 81 mg Atorvastatin Calcium (Lipitor) 10 mg PO DAILY [facility] Last Admin: 10/10/16 08:55 Dose: 10 mg Cholestyramine Resin (Questran) 4 gm PO 0800,1400,1800 [facility] Last Admin: 10/10/16 08:55 Dose: 4 gm Dextrose (Dextrose 50% Inj) 0 ml IV STAT PRN; Protocol PRN Reason: Hyglycemia Protocol Dextrose (Glutose 15) 0 gm PO ONCE PRN; Protocol PRN Reason: Hypoglycemia Protocol Dicyclomine HCl (Bentyl) 10 mg PO QID [facility] Last Admin: 10/10/16 08:54 Dose: 10 mg Glucagon (Glucagen Diagnostic Kit) 0 mg IM STAT PRN; Protocol PRN Reason: Hypoglycemia Protocol Heparin Sodium (Porcine) (Heparin) 5,000 units SC Q12 [facility] PRN Reason: Protocol Last Admin: 10/10/16 08:56 Dose: 5,000 units Insulin Detemir (Levemir) 30 units SC HS [facility] Insulin Human Regular (Humulin R) 0 units SC ACHS [facility] PRN Reason: Protocol Last Admin: 10/10/16 06:57 Dose: 2 units Losartan Potassium (Cozaar) 25 mg PO DAILY [facility] Last Admin: 10/10/16 08:54 Dose: 25 mg Metoprolol Tartrate (Lopressor) 25 mg PO BID [facility] Last Admin: 10/10/16 08:57 Dose: 25 mg Pioglitazone HCl (Actos) 30 mg PO DAILY [facility] Last Admin: 10/10/16 08:55 Dose: 30 mg Sitagliptin Phosphate (Januvia) 50 mg PO DAILY [facility] Last Admin: 10/10/16 08:56 Dose: 50 mg Sucralfate (Carafate Oral Susp) 1 gm PO QID [facility] Last Admin: 10/10/16 08:54 Dose: 1 gm Vancomycin HCl (Vancocin (Oral/Rectal Use)) 125 mg PO Q6 [facility] Last Admin: 10/10/16 09:10 Dose: 125 mg - Labs Labs: 10/10/16 06:40 10/10/16 06:40 PT 11.2 SECONDS (9.6-11.2) 09/30/16 17:50 INR 1.08 (0.92-1.08) 09/30/16 17:50 APTT 25.7 SECONDS (23.3-32.5) 09/30/16 17:50 - Constitutional Appears: No Acute Distress - ENT Exam ENT Exam: Mucous Membranes Moist - Respiratory Exam Respiratory Exam: absent: Chest Wall Tenderness - Cardiovascular Exam Cardiovascular Exam: REGULAR RHYTHM - GI/Abdominal Exam GI & Abdominal Exam: absent: Guarding - Extremities Exam Extremities Exam: absent: Calf Tenderness - Back Exam Back Exam: absent: CVA tenderness (L), CVA tenderness (R) - Neurological Exam Neurological Exam: Alert Assessment and Plan (1) BRITTNI (acute kidney injury) Assessment & Plan: Worsening kidney function serum creatinine going up 1.7 Forced fluid by mouth Patient receiving oral vancomycin although small percentage could be absorbed. Therefore I'm ordering stat vancomycin level. We will hold off losartan and perhaps vancomycin if the level elevated. Status: Chronic
[2016-10-10] MEDS ORDERED: Insulin Detemir 100 Units/ml Inj SC SCH (22:00)
== END 2016-10-10 15:00 | disposition home or self-care (01) | DRG 683 ==
LOC: H.ER 16:47 → H.ERHOLD 18:43 → H.TEL 10-01 22:06 → H.MEDSURG1 10-05 00:15
PROVIDERS: ADMIT Family Medicine; ATTEND Family Medicine
DX: N17.9 Acute kidney failure, unspecified (principal); E87.0 Hyperosmolality and hypernatremia; A04.7 Enterocolitis due to Clostridium difficile; E87.2 Acidosis; E86.0 Dehydration; N18.3 Chronic kidney disease, stage 3 (moderate); E11.22 Type 2 diabetes mellitus with diabetic chronic kidney disease; E87.5 Hyperkalemia; I12.9 Hypertensive chronic kidney disease with stage 1 through stage 4 chronic kidney disease, or unspecified chronic kidney disease; E11.65 Type 2 diabetes mellitus with hyperglycemia; E78.00 Pure hypercholesterolemia, unspecified; E78.5 Hyperlipidemia, unspecified; R56.9 Unspecified convulsions; Z79.4 Long term (current) use of insulin; Z79.82 Long term (current) use of aspirin

== ENCOUNTER 2016-11-05 19:45 | Inpatient (IN) | payer OTHER ==
[2016-11-05] MEDS ORDERED: Sodium Chloride 0.9% 1,000 ML IV STA (19:56)
[2016-11-05] MEDS ORDERED: Insulin Regular 100 units/ml ONE (20:13)
[2016-11-05 20:17] LABS: ABG ALLEN TEST YES; ARTERIAL BLOOD GAS HCO3 11.6 mmol/L (21-28); ARTERIAL BLOOD GAS PO2 101 mm/Hg (80-100)
[2016-11-05] MEDS ORDERED: Insulin Regular 100 units/ml IV ONE (20:17)
[2016-11-05 20:18] LABS: ARTERIAL BLOOD GAS PH 7.16 (7.35-7.45)
[2016-11-05 20:48] LABS: BASO # 0.1 K/uL (0.0-0.2); BASO % 0.4 % (0.0-2.0); EOS % 0.2 % (0.0-4.0); HEMATOCRIT 47.5 % (35.0-51.0); LYMPH # 1.3 K/uL (1.0-4.3); LYMPH % 6.9 % (20.0-40.0); MEAN CELL VOLUME 88.6 fl (80.0-94.0); MEAN CORPUSCULAR HGB CONC 32.7 g/dL (33.0-37.0); MEAN PLATELET VOLUME 9.7 fl (7.2-11.7); MONO # 0.8 K/uL (0.0-0.8); MONO % 4.2 % (0.0-10.0); NEUT # 16.3 K/uL (1.8-7.0); NEUT % 88.3 % (50.0-75.0); NRBC % 0.1 % (0.0-0.0); PLATELET COUNT 358 K/uL (130-400); RED CELL DISTRIBUTION WIDTH 14.9 % (11.5-14.5); WHITE BLOOD COUNT 18.5 K/uL (4.8-10.8)
[2016-11-05 21:06] LABS: PARTIAL THROMBOPLASTIN TIME 26.4 SECONDS (23.3-32.5)
--- NOTE | 2016-11-05 21:13 | ED PDOC ---
ATTENTION PHYSICIANS Hyperglycemia/Hypoglycemia <Cynthia Lancaster - Last Filed: 11/05/16 22:13> Chief Complaint (Provider): High Blood Sugar History Per: Patient, Other (ALS) History/Exam Limitations: no limitations Onset/Duration Of Symptoms: Days (2x weeks) Current Symptoms Are (Timing): Still Present Severity: Moderate Causative (Exacerbating) Factor(s): Missed Taking Medication Associated Infectious Symptoms: Other (thick salivary secretion, general weakness). denies: Nausea, Vomiting : The patient does not have any of the infectious symptoms listed except for those marked. Additional Complaint(s): 46 year old male patient with a pertinent medical history of diabetes, c diff colitis, sepsis, and previous episodes of DKA is brought into ED by ALS for elevated blood sugar. ALS states that patient was hypotensive in the field, ongoing fluids are being administered. He reports that his symptoms of general body weakness first onset 2x weeks ago but have gotten worsened. He admits to not taking insulin due to general weakness, although he noticed elevated blood sugar levels. He also reports having thick salivary secretions, but denies having nausea, vomiting, diarrhea, and abdominal pain. PMD: Justin Melgar MD <Reza Ghosh - Last Filed: 11/06/16 01:42> Time Seen by Provider: 11/05/16 19:52 Chief Complaint (Nursing): High Blood Sugar Past Medical History Vital Signs: Last Vital Signs Temp 97.7 F 11/05/16 19:51 Pulse 101 H 11/05/16 22:03 Resp 12 11/05/16 22:03 BP 129/92 H 11/05/16 22:03 Pulse Ox 99 11/05/16 22:08 <Cynthia Lancaster - Last Filed: 11/05/16 22:13> Reviewed: Historical Data, Nursing Documentation, Vital Signs Vital Signs: Last Vital Signs Temp 97.7 F 11/05/16 19:51 Pulse 125 H 11/05/16 20:30 Resp 22 11/05/16 20:30 BP 113/83 11/05/16 20:30 Pulse Ox 99 11/05/16 20:30 - Medical History PMH: Diabetes, Fractures (left shoulder), HTN, Hypercholesterolemia, Seizures Denies: HIV, Chronic Kidney Disease - Surgical History Surgical History: No Surg Hx - Family History Family History: States: Unknown Family Hx, Diabetes - Social History Current smoker - smoking cessation education provided: No Alcohol: None Drugs: Denies - Immunization History Hx Influenza Vaccination: No Hx Pneumococcal Vaccination: No <Reza Ghosh - Last Filed: 11/06/16 01:42> - Home Medications Home Medications: Ambulatory Orders Medication Instructions Recorded Aspirin [Ecotrin] 81 mg PO DAILY #30 tabec 10/10/16 Atorvastatin [Lipitor] 10 mg PO DAILY #30 tab 10/10/16 Cholestyramine [Questran] 4 gm PO 0800,1400,1800 #45 packet 10/10/16 Dicyclomine [Bentyl] 10 mg PO QID #30 cap 10/10/16 Insulin Detemir [Levemir] 30 units SC HS #1 dev 10/10/16 Metoprolol Tartrate [Lopressor] 25 mg PO BID #60 tab 10/10/16 Pioglitazone [Actos] 30 mg PO DAILY #30 tab 10/10/16 SITagliptin [Januvia] 50 mg PO DAILY #30 tab 10/10/16 Sucralfate [Carafate Oral Susp] 1 gm PO QID #40 udc 10/10/16 - Allergies Allergies/Adverse Reactions: Allergies Allergy/AdvReac Type Severity Reaction Status Date / Time No Known Allergies Allergy Verified 11/05/16 19:53 Review of Systems ROS Statement: Except As Marked, All Systems Reviewed And Found Negative Constitutional: Positive for: Weakness ENT: Positive for: Other (thickening of salivary secretions) Respiratory: Negative for: Shortness of Breath Gastrointestinal: Negative for: Nausea, Vomiting, Abdominal Pain, Diarrhea <Reza Ghosh - Last Filed: 11/06/16 01:42> Physical Exam - Reviewed Nursing Documentation Reviewed: Yes Vital Signs Reviewed: Yes - Physical Exam Appears: Positive for: Non-toxic (cachectic), No Acute Distress Head Exam: Positive for: ATRAUMATIC, NORMOCEPHALIC. Negative for: NORMAL INSPECTION (bitemporal wasting) Skin: Positive for: Normal Color, Warm, Dry ENT: Positive for: Other (vrey tacky mucous membranes) Cardiovascular/Chest: Positive for: Tachycardia (regular rhythm) Respiratory: Positive for: Normal Breath Sounds Neurologic/Psych: Positive for: Alert, Oriented (3x) <Reza Ghosh - Last Filed: 11/06/16 01:42> - Laboratory Results Result Diagrams: 11/05/16 20:38 11/05/16 20:38 - ECG O2 Sat by Pulse Oximetry: 99 (RA) Pulse Ox Interpretation: Normal - Critical Care Total Time (In Min): 60 <Cynthia Lancaster - Last Filed: 11/05/16 22:13> - Laboratory Results Result Diagrams: 11/05/16 20:38 11/05/16 22:24 - ECG O2 Sat by Pulse Oximetry: 99 <Reza Ghosh - Last Filed: 11/06/16 01:42> Medical Decision Making Medical Decision Makin:52 Initial impression: 46 year old male with hyperlycemia insetting of diabetes. Initial plan: * ABG shock panel * EKG * CMP * lactic acid plasma * troponin I * Udip * CBC * PTT * prothrombin time * XRay chest portable * IV fluid boluses * 2 saline locks * insulin drip * blood culture * accucheck * C diff toxin AB * urinalysis * reevaluation 20:00 Accucheck shows glucose elevation AGB reveals metabolic acidosis and hyperlactatemia Code sepsis is initiated 20:55 Discussed case with Justin Melgar MD. 21:[address] Hinkle for ICU placement 21:40 Discussed case with infectious disease translational specialist Dr. Mallory for code sepsis. He advises to IV vancomycin and to collect stool for c diff. Dr. Mallory agreed with decision to administer dose of Flagyl. Patient will be admitted to ICU under Dr. Melgar for DKA and dehydration UA noted to be indicative of UTI IV rocephin ordered for coverage of UTI Scribe Attestation: Documented by Miranda Kwan, acting as a scribe for Reza Ghosh MD. Provider Scribe Attestation: All medical record entries made by the Scribe were at my direction and personally dictated by me. I have reviewed the chart and agree that the record accurately reflects my personal performance of the history, physical exam, medical decision making, and the department course for this patient. I have also personally directed, reviewed, and agree with the discharge instructions and disposition. <Reza Ghosh - Last Filed: 11/06/16 01:42> Disposition <Cynthia Lancaster - Last Filed: 11/05/16 22:13> - Patient ED Disposition Is Patient to be Admitted: Yes - Disposition Disposition Time: 20:40 <Reza Ghosh - Last Filed: 11/06/16 01:42> - Clinical Impression Clinical Impression: DKA (diabetic ketoacidoses), Sepsis, Dehydration, BRITTNI (acute kidney injury) - Disposition Condition: GUARDED
[2016-11-05 21:34] LABS: ALB/GLOB RATIO 0.6 (1.0-2.1); ALKALINE PHOSPHATASE 171 U/L (38-126); ALT/SGPT 16 U/L (21-72); AST/SGOT 38 U/L (17-59); BILIRUBIN,TOTAL 1.5 mg/dl (0.2-1.3); BLOOD UREA NITROGEN 85 mg/dl (9-20); CHLORIDE 111 mmol/L (98-107); GFR AFRICAN-AMERICAN 19; TOTAL PROTEIN 10.8 G/DL (6.3-8.2)
[2016-11-05 21:37] LABS: SODIUM 145 mmol/l (132-148)
[2016-11-05 21:40] LABS: GLUCOSE,RANDOM 588 mg/dL (75-110); POTASSIUM 6.9 MMOL/L (3.6-5.0)
[2016-11-05 21:41] LABS: CARBON DIOXIDE 8 mmol/L (22-30)
[2016-11-05] MEDS ORDERED: metroNIDAZOLE 500mg/100ml NS 100 ML IVPB STA (21:43)
[2016-11-05] MEDS ORDERED: Vancomycin 1 g Inj ONE (21:51)
[2016-11-05 22:29] LABS: EOSINOPHIL 1 % (0-7); NEUTROPHIL 82 % (42-75); TOTAL CELLS COUNTED 100
[2016-11-05 22:42] LABS: CALCIUM 9.1 mg/dL (8.4-10.2)
[2016-11-05 22:45] LABS: POTASSIUM 5.3 MMOL/L (3.6-5.0)
[2016-11-05 23:33] LABS: RBC URINE 120 /hpf (0-3); URINE BILIRUBIN NEGATIVE (NEGATIVE); URINE BLOOD MODERATE (NEGATIVE); URINE COLOR YELLOW (YELLOW); URINE GLUCOSE (UA) 150 mg/dL (Normal); URINE KETONE NEGATIVE (NEGATIVE); URINE LEUKOCYTE ESTERASE LARGE Leu/uL (Negative); URINE PROTEIN 100 mg/dL (NEGATIVE); URINE UROBILINOGEN 0.2-1.0 mg/dL (0.2-1.0); WBC CLUMPS MANY /hpf; WBC URINE 1330 /hpf (0-5)
--- NOTE | 2016-11-05 23:33 | CP.PCM.CON ---
History of Present Illness - History of Present Illness History of Present Illness: PCP: Justin Frias MD Reason for Consult: Critical care Management Chief Complaint: Severe Dizziness with elevated Blood Glucose HPI: 46 years male with hx of HTN, BRITTNI DM II with previous episode of DKA is brought to the ED by the ALS, complaining of not eating for 3-4 days, worsening of his dizziness whereby he cannot stand because he will fall, generalized weakness for 2 weeks and becoming worse, and being non compliant with his medications. His blood glucose was elevated. He was found to be Hypotensive by the ALS and was given fluids. mHe referred mild cough but Thick salivary secretion. No nausea nor vomits, no Chest pain, palpitations, diarrhea nor dysuria. No fever. PMH: DM II with hx of DKA; Fractures (left shoulder), HTN, HLD; Seizures while in grade school; BRITTNI; C Diff Colitis PSH: Denies surgical hx SH: Non Smoker; No illegal drug use; No Alcohol use; Live with 3 brothers and a sister; Worked [employer] last year FH: DM Allergies: NKDA Review of Systems - Constitutional Constitutional: Anorexia, Malaise, Weight Loss - EENT Eyes: absent: Diplopia, Photophobia, Requires Corrective Lenses, Sees Flashes Ears: absent: Ear Discharge, Ear Pain, Tinnitus Nose/Mouth/Throat: absent: Epistaxis, Nasal Congestion, Nasal Discharge, Sinus Pain, Sinus Pressure - Cardiovascular Cardiovascular: absent: Chest Pain, Dyspnea, Edema - Respiratory Respiratory: Cough. absent: Dyspnea, Hemoptysis, Wheezing - Gastrointestinal Gastrointestinal: absent: Abdominal Pain, Constipation, Diarrhea, Nausea, Vomiting - Genitourinary Genitourinary: absent: Dysuria, Flank Pain, Hematuria, Urinary Frequency - Musculoskeletal Musculoskeletal: Muscle Weakness. absent: Arthralgias, Muscle Cramps, Numbness - Integumentary Integumentary: absent: Pruritus, Rash, Skin Ulcer, Sores, Striae, Swelling - Neurological Neurological: Dizziness, Weakness. absent: Focal Weakness, Headaches, Paresthesias - Psychiatric Psychiatric: absent: Anxiety, Depression, Panic Attacks - Endocrine Endocrine: absent: Palpitations, Polydipsia, Polyphagia, Polyuria - Hematologic/Lymphatic Hematologic: absent: Easy Bleeding, Easy Bruising Past Patient History - Infectious Disease Hx of Infectious Diseases: None - Past Medical History & Family History Past Medical History?: Yes - Past Social History Smoking Status: Never Smoked Chewing Tobacco Use: No Cigar Use: No Alcohol: None Drugs: Denies Home Situation {Lives}: With Family - CARDIAC Hx Hypercholesterolemia: Yes Hx Hypertension: Yes - PULMONARY Hx Respiratory Disorders: No - NEUROLOGICAL Hx Seizures: Yes - HEENT Hx HEENT Problems: No - RENAL Hx Chronic Kidney Disease: No - ENDOCRINE/METABOLIC Hx Endocrine Disorders: Yes Hx Diabetes Mellitus Type 2: Yes - HEMATOLOGICAL/ONCOLOGICAL Hx Blood Disorders: No Hx Human Immunodeficiency Virus (HIV): No - INTEGUMENTARY Hx Dermatological Problems: No - MUSCULOSKELETAL/RHEUMATOLOGICAL Hx Fractures: Yes (left shoulder) - GASTROINTESTINAL Hx Clostridium Difficile: Yes Hx Diarrhea: Yes - GENITOURINARY/GYNECOLOGICAL Hx Genitourinary Disorders: No - PSYCHIATRIC Hx Psychophysiologic Disorder: No Hx Substance Use: No - SURGICAL HISTORY Hx Surgeries: No - ANESTHESIA Hx Anesthesia: No Meds Allergies/Adverse Reactions: Allergies Allergy/AdvReac Type Severity Reaction Status Date / Time No Known Allergies Allergy Verified 11/05/16 19:53 - Medications Medications: Current Medications Insulin Human Regular 100 (units/ Sodium Chloride) 101 mls @ 6.06 mls/hr IV .[id number] AMADA PRN Reason: 6 UNITS/HR Last Admin: 11/05/16 21:51 Dose: 6.06 mls/hr Vancomycin HCl 1,000 mg/ (Sodium Chloride) 250 mls @ 125 mls/hr IV STAT STA Stop: 11/06/16 00:10 Physical Exam - Constitutional Appears: Cachectic - Head Exam Head Exam: ATRAUMATIC, NORMAL INSPECTION, NORMOCEPHALIC - Eye Exam Eye Exam: EOMI, Normal appearance Pupil Exam: NORMAL ACCOMODATION, PERRL - ENT Exam ENT Exam: Mucous Membranes Dry, Normal External Ear Exam, Normal Oropharynx - Neck Exam Neck exam: Positive for: Full Rom, Normal Inspection. Negative for: Lymphadenopathy, Tenderness - Respiratory Exam Respiratory Exam: Clear to Auscultation Bilateral. absent: Rales, Rhonchi, Wheezes - Cardiovascular Exam Cardiovascular Exam: REGULAR RHYTHM, RRR, +S1, +S2. absent: Gallop, JVD - GI/Abdominal Exam GI & Abdominal Exam: Normal Bowel Sounds, Soft. absent: Mass, Organomegaly, Tenderness - Rectal Exam Rectal Exam: Deferred - Extremities Exam Extremities exam: Positive for: full ROM, normal inspection. Negative for: calf tenderness, joint swelling, pedal edema - Back Exam Back exam: NORMAL INSPECTION. absent: CVA tenderness (L), CVA tenderness (R) - Neurological Exam Neurological exam: Alert, CN II-XII Intact, Oriented x3, Reflexes Normal - Psychiatric Exam Psychiatric exam: Normal Affect, Normal Mood - Skin Skin Exam: Dry, Intact, Normal Color, Warm Results - Vital Signs Recent Vital Signs: Last Vital Signs Temp 97.7 F 11/05/16 19:51 Pulse 102 H 11/05/16 22:32 Resp 13 11/05/16 22:32 BP 128/74 11/05/16 22:32 Pulse Ox 99 11/05/16 22:33 - Labs Result Diagrams: 11/05/16 20:38 11/05/16 22:24 Labs: Laboratory Results - last 24 hr 11/05/16 11/05/16 22:24 23:00 Sodium 149 H Potassium 5.3 H Chloride 119 H Carbon Dioxide 12 L Anion Gap 23 H BUN 79 H Creatinine 3.4 H Est GFR ( Amer) 24 Est GFR (Non-Af Amer) 20 Random Glucose 383 H Lactic Acid 3.4 H Calcium 9.1 - EKG Data EKG comments: Sinus tachycardia, 125/min. No sign of Ischemia - Imaging and Cardiology Chest x-ray Status: Image reviewed by me Additional comment: No infiltrates Assessment & Plan - Assessment and Plan (Free Text) Assessment: #.DKA #. Dehydration #. BRITTNI #. UTI #. Funguria #. Hypokalemia #. Leukocytosis Plan: 46 years male with hx of HTN, BRITTNI DM II with previous episode of DKA is brought to the ED by the ALS, not eating for 3-4 days, worsening of his dizziness, generalized weakness for 2 weeks and becoming worse, and being non compliant with his medications. His blood glucose was elevated. He referred mild cough no nausea nor vomits, Chest pain, palpitations, diarrhea nor dysuria. No fever. #. DKA secondary to UTI and non compliance with medication - One liter of NS given in ED. Continue with D5/0.45NS because the blood Glucose is down to 150mg/dl and the anion gap is still elevated - IV Regular insulin according to protocol with Accucheck Q1H - Follow Electrolytes including Magnesium - NPO except medications until anion gap has normalized #. Dehydration due to poor intake and the diuresis of the hyperglycemia - IV Fluid D5/0.45NS at 150mls/Hr because of the Hypernatremia, normalized blood pressures with Blood Sugars running low on the IV Rgular Insulin - Follow Renal labs #. BRITTNI is caused by the Dehydration and is prerenal. -m IV Fluids - Follow renal labs #. UTI with Fungiuria and Sepsis. - Vancomycin, Flagyl given in ED. - Ceftriaxone 1gm given in Ed, Continue with !gm IVPB Daily - Diflucan 200mg stat dose, followed by Diflucan 100mg Oral daily - Follow urine coulture #. Leukocytosis caused by the DKA and the UTI - Treat the UTI - Follow WBC #. Stress ulcer prophylaxis with Pantoprazole #. DVT Prophylaxis with lovenox #. Code Status: Full - Date & Time Date: 11/05/16 Time: 23:33
[2016-11-06] MEDS ORDERED: Dextrose 50% SYRINGE Inj (50 ml) IV PRN ×5 (00:49→17:00)
[2016-11-06] MEDS ORDERED: Glucagon Recombinant 1 mg Inj IM PRN ×5 (00:49→17:00)
[2016-11-06 00:56] VITALS: BMI 12.6
[2016-11-06] MEDS: Dextrose 5%/0.45% NS 1,000 ML IV SCH ×2 (01:50→09:10)
[2016-11-06 05:27] LABS: BASO # 0.1 K/uL (0.0-0.2); BASO % 0.8 % (0.0-2.0); EOS # 0.2 K/uL (0.0-0.7); EOS % 1.4 % (0.0-4.0); HEMATOCRIT 33.3 % (35.0-51.0); LYMPH # 1.6 K/uL (1.0-4.3); LYMPH % 10.7 % (20.0-40.0); MEAN CELL VOLUME 87.2 fl (80.0-94.0); MEAN CORPUSCULAR HEMOGLOBIN 28.4 pg (27.0-31.0); MEAN CORPUSCULAR HGB CONC 32.6 g/dL (33.0-37.0); MEAN PLATELET VOLUME 8.9 fl (7.2-11.7); MONO # 0.9 K/uL (0.0-0.8); MONO % 5.8 % (0.0-10.0); NEUT # 12.2 K/uL (1.8-7.0); NEUT % 81.3 % (50.0-75.0); RED CELL DISTRIBUTION WIDTH 14.5 % (11.5-14.5); WHITE BLOOD COUNT 14.9 K/uL (4.8-10.8)
[2016-11-06 05:38] LABS: ALB/GLOB RATIO 0.7 (1.0-2.1); BILIRUBIN,TOTAL 0.2 mg/dl (0.2-1.3); CALCIUM 8.7 mg/dL (8.4-10.2); POTASSIUM 3.7 MMOL/L (3.6-5.0); TOTAL PROTEIN 7.2 G/DL (6.3-8.2)
--- NOTE | 2016-11-06 07:05 | RAD ---
HISTORY: admit COMPARISON: Comparison is made to the previous study dated 09/30/2016 FINDINGS: LUNGS: No evidence of new infiltrate or consolidation in the lungs. Mild hyperinflation of the lungs is again noted. PLEURA: No significant pleural effusion identified, no pneumothorax apparent. CARDIOVASCULAR: Normal. OSSEOUS STRUCTURES: No significant abnormalities. VISUALIZED UPPER ABDOMEN: Normal. OTHER FINDINGS: None. IMPRESSION: No evidence of significant interval change compared to the previous exam.
--- NOTE | 2016-11-06 07:16 | CP.PCM.HP ---
<Cassie Jones - Last Filed: 11/06/16 10:18> History of Present Illness - History of Present Illness History of Present Illness: 46 y/o M with PMH HTN, hypercholesterolemia, seizures, diabetes admitted for DKA, dehydration. c/o weakness x2 weeks and has not been compliant with insulin d/t feeling weak. Tolerating PO. Denies fever, headache, chest pain, shortness of breath, abdominal pain, diarrhea. Evaluated by PMD 2 weeks ago and found to have c diff. BM less frequent. PMD Dr Melgar PMH: HTN, hypercholesterolemia, seizures, diabetes PSH: denies allergies: NKDA SH: denies smoking, EtOH, drugs Present on Admission - Present on Admission Any Indicators Present on Admission: Yes History of Uncontrolled Diabetes: Yes Review of Systems - Constitutional Constitutional: Weakness. absent: Chills, Fever - Cardiovascular Cardiovascular: absent: Chest Pain - Respiratory Respiratory: absent: Dyspnea - Gastrointestinal Gastrointestinal: absent: Abdominal Pain, Diarrhea, Nausea, Vomiting - Genitourinary Genitourinary: absent: Dysuria, Hematuria - Musculoskeletal Musculoskeletal: absent: Back Pain - Neurological Neurological: Weakness Past Patient History - Infectious Disease Hx of Infectious Diseases: None - Past Medical History & Family History Past Medical History?: Yes - Past Social History Smoking Status: Never Smoked Chewing Tobacco Use: No Cigar Use: No Alcohol: None Drugs: Denies Home Situation {Lives}: With Family - CARDIAC Hx Hypercholesterolemia: Yes Hx Hypertension: Yes - PULMONARY Hx Respiratory Disorders: No - NEUROLOGICAL Hx Seizures: Yes - HEENT Hx HEENT Problems: No - RENAL Hx Chronic Kidney Disease: No - ENDOCRINE/METABOLIC Hx Endocrine Disorders: Yes Hx Diabetes Mellitus Type 2: Yes - HEMATOLOGICAL/ONCOLOGICAL Hx Blood Disorders: No Hx Human Immunodeficiency Virus (HIV): No - INTEGUMENTARY Hx Dermatological Problems: No - MUSCULOSKELETAL/RHEUMATOLOGICAL Hx Fractures: Yes (left shoulder) - GASTROINTESTINAL Hx Clostridium Difficile: Yes Hx Diarrhea: Yes - GENITOURINARY/GYNECOLOGICAL Hx Genitourinary Disorders: No - PSYCHIATRIC Hx Psychophysiologic Disorder: No Hx Substance Use: No - SURGICAL HISTORY Hx Surgeries: No - ANESTHESIA Hx Anesthesia: No Meds Allergies/Adverse Reactions: Allergies Allergy/AdvReac Type Severity Reaction Status Date / Time No Known Allergies Allergy Verified 11/05/16 19:53 Physical Exam - Constitutional Appears: Non-toxic, No Acute Distress - Head Exam Head Exam: NORMAL INSPECTION - Eye Exam Eye Exam: Normal appearance - ENT Exam ENT Exam: Mucous Membranes Dry - Neck Exam Neck exam: Positive for: Normal Inspection - Respiratory Exam Respiratory Exam: Clear to Auscultation Bilateral - Cardiovascular Exam Cardiovascular Exam: REGULAR RHYTHM - GI/Abdominal Exam GI & Abdominal Exam: Normal Bowel Sounds, Soft - Extremities Exam Extremities exam: Positive for: normal inspection. Negative for: pedal edema, tenderness - Neurological Exam Neurological exam: Alert, Oriented x3 - Skin Skin Exam: Dry, Warm Results - Vital Signs Recent Vital Signs: Last Vital Signs Temp 98.5 F 11/06/16 04:00 Pulse 81 11/06/16 06:00 Resp 10 L 11/06/16 06:00 BP 97/75 L 11/06/16 06:00 Pulse Ox 100 11/06/16 06:00 - Labs Result Diagrams: 11/06/16 04:20 11/06/16 04:20 Labs: Laboratory Results - last 24 hr 11/05/16 11/05/16 11/05/16 21:27 22:24 23:00 WBC RBC Hgb Hct MCV MCH MCHC RDW Plt Count MPV Neut % (Auto) Lymph % (Auto) [place] % (Auto) Eos % (Auto) Baso % (Auto) Neut # Lymph # [place] # Eos # Baso # Sodium 149 H Potassium 5.3 H Chloride 119 H Carbon Dioxide 12 L Anion Gap 23 H BUN 79 H Creatinine 3.4 H Est GFR ( Amer) 24 Est GFR (Non-Af Amer) 20 POC Glucose (mg/dL) 362 H Random Glucose 383 H Lactic Acid 3.4 H Calcium 9.1 Total Bilirubin AST ALT Alkaline Phosphatase Total Protein Albumin Globulin Albumin/Globulin Ratio Urine Color Urine Clarity Urine pH Ur Specific [place] Urine Protein Urine Glucose (UA) Urine Ketones Urine Blood Urine Nitrate Urine Bilirubin Urine Urobilinogen Ur Leukocyte Esterase Urine RBC (Auto) Urine WBC Clumps (Auto) Urine Microscopic WBC Urine Yeast (Budding) 11/05/16 11/05/16 11/06/16 23:02 23:13 00:10 WBC RBC Hgb Hct MCV MCH MCHC RDW Plt Count MPV Neut % (Auto) Lymph % (Auto) [place] % (Auto) Eos % (Auto) Baso % (Auto) Neut # Lymph # [place] # Eos # Baso # Sodium Potassium Chloride Carbon Dioxide Anion Gap BUN Creatinine Est GFR ( Amer) Est GFR (Non-Af Amer) POC Glucose (mg/dL) 207 H 183 H Random Glucose Lactic Acid Calcium Total Bilirubin AST ALT Alkaline Phosphatase Total Protein Albumin Globulin Albumin/Globulin Ratio Urine Color Yellow Urine Clarity Cloudy Urine pH 6.0 Ur Specific [place] 1.012 Urine Protein 100 Urine Glucose (UA) 150 Urine Ketones Negative Urine Blood Moderate Urine Nitrate Negative Urine Bilirubin Negative Urine Urobilinogen 0.2-1.0 Ur Leukocyte Esterase Large Urine RBC (Auto) 120 H Urine WBC Clumps (Auto) Many H Urine Microscopic WBC 1330 H Urine Yeast (Budding) Many H 11/06/16 11/06/16 11/06/16 01:03 02:07 02:58 WBC RBC Hgb Hct MCV MCH MCHC RDW Plt Count MPV Neut % (Auto) Lymph % (Auto) [place] % (Auto) Eos % (Auto) Baso % (Auto) Neut # Lymph # [place] # Eos # Baso # Sodium Potassium Chloride Carbon Dioxide Anion Gap BUN Creatinine Est GFR ( Amer) Est GFR (Non-Af Amer) POC Glucose (mg/dL) 122 H 131 H Random Glucose Lactic Acid 1.1 Calcium Total Bilirubin AST ALT Alkaline Phosphatase Total Protein Albumin Globulin Albumin/Globulin Ratio Urine Color Urine Clarity Urine pH Ur Specific [place] Urine Protein Urine Glucose (UA) Urine Ketones Urine Blood Urine Nitrate Urine Bilirubin Urine Urobilinogen Ur Leukocyte Esterase Urine RBC (Auto) Urine WBC Clumps (Auto) Urine Microscopic WBC Urine Yeast (Budding) 11/06/16 11/06/16 11/06/16 03:03 04:04 04:20 WBC 14.9 H RBC 3.82 L Hgb 10.9 L D Hct 33.3 L MCV 87.2 MCH 28.4 MCHC 32.6 L RDW 14.5 Plt Count 255 D MPV 8.9 Neut % (Auto) 81.3 H Lymph % (Auto) 10.7 L [place] % (Auto) 5.8 Eos % (Auto) 1.4 Baso % (Auto) 0.8 Neut # 12.2 H Lymph # 1.6 [place] # 0.9 H Eos # 0.2 Baso # 0.1 Sodium Potassium Chloride Carbon Dioxide Anion Gap BUN Creatinine Est GFR ( Amer) Est GFR (Non-Af Amer) POC Glucose (mg/dL) 191 H 214 H Random Glucose Lactic Acid Calcium Total Bilirubin AST ALT Alkaline Phosphatase Total Protein Albumin Globulin Albumin/Globulin Ratio Urine Color Urine Clarity Urine pH Ur Specific [place] Urine Protein Urine Glucose (UA) Urine Ketones Urine Blood Urine Nitrate Urine Bilirubin Urine Urobilinogen Ur Leukocyte Esterase Urine RBC (Auto) Urine WBC Clumps (Auto) Urine Microscopic WBC Urine Yeast (Budding) 11/06/16 11/06/16 11/06/16 04:20 04:20 05:05 WBC RBC Hgb Hct MCV MCH MCHC RDW Plt Count MPV Neut % (Auto) Lymph % (Auto) [place] % (Auto) Eos % (Auto) Baso % (Auto) Neut # Lymph # [place] # Eos # Baso # Sodium 150 H Potassium 3.7 Chloride 121 H Carbon Dioxide 16 L Anion Gap 17 BUN 69 H Creatinine 2.9 H Est GFR ( Amer) 29 Est GFR (Non-Af Amer) 24 POC Glucose (mg/dL) 166 H Random Glucose 216 H Lactic Acid 1.4 Calcium 8.7 Total Bilirubin 0.2 AST 13 L D ALT 17 L Alkaline Phosphatase 109 Total Protein 7.2 Albumin 2.9 L D Globulin 4.3 H Albumin/Globulin Ratio 0.7 L Urine Color Urine Clarity Urine pH Ur Specific [place] Urine Protein Urine Glucose (UA) Urine Ketones Urine Blood Urine Nitrate Urine Bilirubin Urine Urobilinogen Ur Leukocyte Esterase Urine RBC (Auto) Urine WBC Clumps (Auto) Urine Microscopic WBC Urine Yeast (Budding) 11/06/16 11/06/16 06:06 07:02 WBC RBC Hgb Hct MCV MCH MCHC RDW Plt Count MPV Neut % (Auto) Lymph % (Auto) [place] % (Auto) Eos % (Auto) Baso % (Auto) Neut # Lymph # [place] # Eos # Baso # Sodium Potassium Chloride Carbon Dioxide Anion Gap BUN Creatinine Est GFR ( Amer) Est GFR (Non-Af Amer) POC Glucose (mg/dL) 192 H 210 H Random Glucose Lactic Acid Calcium Total Bilirubin AST ALT Alkaline Phosphatase Total Protein Albumin Globulin Albumin/Globulin Ratio Urine Color Urine Clarity Urine pH Ur Specific [place] Urine Protein Urine Glucose (UA) Urine Ketones Urine Blood Urine Nitrate Urine Bilirubin Urine Urobilinogen Ur Leukocyte Esterase Urine RBC (Auto) Urine WBC Clumps (Auto) Urine Microscopic WBC Urine Yeast (Budding) Assessment & Plan - Assessment and Plan (Free Text) Assessment: 46 y/o M with PMH HTN, hypercholesterolemia, seizures, diabetes admitted for DKA, dehydration. Sepsis -2/2 to UTI and DKA -LA normalized -ID on board, appreciate input DKA -2/2 infection and med noncompliance -IV Regular insulin drip -Accucheck Q1H -D5 NS MIVF 150cc/hr -NPO -monitor electrolytes UTI -UA +yeast, WBC -Ceftriaxone 1gm IVPB Daily -Diflucan 100mg Oral daily -FU urine culture Dehydration -D5 NS MIVF 150cc/hr -D5 NS 500cc bolus -monitor electrolytes BRITTNI, prerenal, improving -D5 NS MIVF 150cc/hr -D5 NS 500cc bolus -monitor electrolytes anemia -likely dilutional -monitor H/H -iron studies reviewed, will not start Fe for now c diff positive -FU c diff tox -vanco PO -will monitor overall clinical response give pt has other comorbidities. If sepsis does not improve, will add flagyl -contact precautions Leukocytosis -trending down HLD -statin HTN -hold metoprolol d/t hypotension and dehydration GI prophylaxis -Pantoprazole DVT Prophylaxis -lovenox Decision To Admit - Pt Status Changed To: Hospital Disposition Of: Inpatient - Admit Certification Admit to Inpatient:: After my assessment, the patient will require hospitalization for at least two midnights. This is because of the severity of symptoms shown, intensity of services needed, and/or the medical risk in this patient being treated as an outpatient. - . Bed Request Type: Intensive Care Admitting Physician: Justin Melgar <Justin Melgar - Last Filed: 11/09/16 21:58> Results - Vital Signs Recent Vital Signs: Last Vital Signs Temp 97.7 F 11/09/16 21:08 Pulse 76 11/09/16 21:08 Resp 18 11/09/16 21:08 BP 115/81 11/09/16 21:08 Pulse Ox 100 11/09/16 21:08 - Labs Result Diagrams: 11/08/16 05:30 11/09/16 05:40 Labs: Laboratory Results - last 24 hr 11/09/16 11/09/16 11/09/16 05:40 06:00 15:00 Sodium 154 H Potassium 4.1 Chloride 132 H Carbon Dioxide 12 L Anion Gap 14 BUN 36 H Creatinine 2.9 H Est GFR ( Amer) 29 Est GFR (Non-Af Amer) 24 POC Glucose (mg/dL) 112 H Random Glucose 113 H Lactic Acid 1.4 Calcium 9.2 Total Bilirubin 0.2 AST 9 L ALT 21 Alkaline Phosphatase 102 Total Protein 6.9 Albumin 2.5 L Globulin 4.4 H Albumin/Globulin Ratio 0.6 L Urine Color Urine Clarity Urine pH Ur Specific [place] Urine Protein Urine Glucose (UA) Urine Ketones Urine Blood Urine Nitrate Urine Bilirubin Urine Urobilinogen Ur Leukocyte Esterase Urine RBC (Auto) Urine WBC Clumps (Auto) Urine Microscopic WBC Ur Squamous Epith Cells Amorphous Sediment Urine Bacteria Urine Yeast (Budding) Ur Random Creatinine Ur Random Sodium Ur Random Potassium Serum Ketones 11/09/16 11/09/16 11/09/16 15:00 15:15 15:15 Sodium Potassium Chloride Carbon Dioxide Anion Gap BUN Creatinine Est GFR ( Amer) Est GFR (Non-Af Amer) POC Glucose (mg/dL) Random Glucose Lactic Acid Calcium Total Bilirubin AST ALT Alkaline Phosphatase Total Protein Albumin Globulin Albumin/Globulin Ratio Urine Color Urine Clarity Urine pH Ur Specific [place] Urine Protein Urine Glucose (UA) Urine Ketones Urine Blood Urine Nitrate Urine Bilirubin Urine Urobilinogen Ur Leukocyte Esterase Urine RBC (Auto) Urine WBC Clumps (Auto) Urine Microscopic WBC Ur Squamous Epith Cells Amorphous Sediment Urine Bacteria Urine Yeast (Budding) Ur Random Creatinine 21.1 Ur Random Sodium 73 74 Ur Random Potassium 10.0 9.7 Serum Ketones Negative 11/09/16 11/09/16 11/09/16 15:15 16:22 21:13 Sodium Potassium Chloride Carbon Dioxide Anion Gap BUN Creatinine Est GFR ( Amer) Est GFR (Non-Af Amer) POC Glucose (mg/dL) 265 H 222 H Random Glucose Lactic Acid Calcium Total Bilirubin AST ALT Alkaline Phosphatase Total Protein Albumin Globulin Albumin/Globulin Ratio Urine Color Yellow Urine Clarity Turbid Urine pH 6.0 Ur Specific [place] 1.006 Urine Protein 30 Urine Glucose (UA) Neg Urine Ketones Negative Urine Blood Small Urine Nitrate Negative Urine Bilirubin Negative Urine Urobilinogen 0.2-1.0 Ur Leukocyte Esterase Large Urine RBC (Auto) 222 H Urine WBC Clumps (Auto) Many H Urine Microscopic WBC 3077 H Ur Squamous Epith Cells 1 Amorphous Sediment Small Urine Bacteria Mod H Urine Yeast (Budding) Many H Ur Random Creatinine Ur Random Sodium Ur Random Potassium Serum Ketones Assessment & Plan - Assessment and Plan (Free Text) Plan: I was present during evaluation and discussed with Dr Cassie hughes plans of care , antibiotic use, hydration. I personally examined the patient. Justin Melgar M.D.
[2016-11-06] MEDS: Enoxaparin 30 mg Syringe SC SCH (08:44)
[2016-11-06] MEDS: Pantoprazole 40 mg EC Tab PO SCH (08:44)
--- NOTE | 2016-11-06 10:09 | CARD ---
APPROVED REPORT EKG Measurement Heart [id number] <Conclusion> Sinus tachycardia Right atrial enlargement Borderline ECG
[2016-11-06] MEDS: Dextrose 5%/0.9% NS 1,000 ML IV SCH ×3 (10:32→22:05)
--- NOTE | 2016-11-06 15:10 | CP.CCUPN ---
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 Denies any increase in abdominal discomfort; denies fevers or chills, no CP or SOB. IVFs changed as per PMD to D5NS for now. Insulin drip has been stopped rom 3 units/hr with normalization of BS levels. Afebrile, 98/70, 82 , 14, 100% on RA. ROS: as above, no other obtainable pertinent negs or positives on 12 system review from other documentations. PMSFH: All nursing and physician documentation reviewed, no new information noted pertinent to current medical problems. No other distress noted: EXAM- HEENT: no icterus, pupils 2-3mm but equal and reactive bilat, no nystagmus NECK: no visible JVD, supple, carotids equal upstroke bilat/no bruits CHEST: decreased BS bases, no wheezes audible HEART: regular, distant, tachy S1S2, no murmur audible, no rubs. ABD: soft, no distention post re-intubation, no focal tenderness, no HSM. BS hypoactive, no abdominal bruits or other masses EXT: no leg edema, no peripheral/ digital cyanosis, no calf tenderness or palpable cords, distal pulses intact and symmetrical NEURO: No focal motor deficits SKIN: no rashes LABS: WBC= 14.9 HGB= 10.9 PLTs= 255K Na= 150 K= 3.7 HCO3= 216 BUN/Cr= 69/2.9 BS= 216 MAJOR PROBLEMS: 1. DKA 2. Chronic C diff infection 3. BRITTNI / ATN 4. Hypernatremia / Dehydration 5. Chronic Disease Anemia PLAN: 1. IVF hydration and Insulin drip as anion gap normalizes. 2. PO Vanco started, consider IV Flagyl as well. 3. Start PO diet as tolerated. 4. Watch K levels, which may need repletion as acidosis improves, Check Mag / Phos.
--- NOTE | 2016-11-06 15:46 | CP.PCM.CON ---
History of Present Illness - History of Present Illness History of Present Illness: 46 y/o M admitted for DKA, dehydration. c/o weakness x2 weeks and has not been compliant with insulin d/t feeling weak. Tolerating PO. Denies fever, headache, chest pain, shortness of breath, abdominal pain, diarrhea. Evaluated by PMD 2 weeks ago and found to have c diff. BM less frequent. ID consult requested - possible sepsis appears weak lethargic PMH: HTN, hypercholesterolemia, seizures, diabetes PSH: denies allergies: NKDA SH: denies smoking, EtOH, drugs Review of Systems - Constitutional Constitutional: As Per HPI, Anorexia, Malaise, Weight Loss - EENT Eyes: absent: As Per HPI, Blind Spots, Blurred Vision, Change in Vision, Decreased Night Vision, Diplopia, Discharge, Dry Eye, Exophthalmos, Floaters, Irritation, Itchy Eyes, Loss of Peripheral Vision, Pain, Photophobia, Requires Corrective Lenses, Sees Flashes, Spots in Vision, Tunnel Vision, Other Visual Disturbances, Loss of Vision, Other Ears: absent: As Per HPI, Decreased Hearing, Ear Discharge, Ear Pain, Tinnitus, Abnormal Hearing, Disequilibrium, Dizziness, Other Nose/Mouth/Throat: absent: As Per HPI, Epistaxis, Nasal Congestion, Nasal Discharge, Nasal Obstruction, Nasal Trauma, Nose Pain, Post Nasal Drip, Sinus Pain, Sinus Pressure, Bleeding Gums, Change in Voice, Dental Pain, Dry Mouth, Dysphagia, Halitosis, Hoarsness, Lip Swelling, Mouth Lesions, Mouth Pain, Odynophagia, Sore Throat, Throat Swelling, Tongue Swelling, Facial Pain, Neck Pain, Neck Mass, Other - Cardiovascular Cardiovascular: absent: As Per HPI, Acrocyanosis, Chest Pain, Chest Pain at Rest , Chest Pain with Activity, Claudication, Diaphoresis, Dyspnea, Dyspnea on Exertion, Edema, Irregular Heart Rhythm, Pain Radiating to Arm/Neck/Jaw, Leg Edema, Leg Ulcers, Lightheadedness, Orthopnea, Palpitations, Paroxysmal Nocturnal Dyspnea, Pedal Edema, Radiating Pain, Rapid Heart Rate, Slow Heart Rate, Syncope, Other - Respiratory Respiratory: absent: As Per HPI, Cough, Dyspnea, Hemoptysis, Dyspnea on Exertion , Wheezing, Snoring, Stridor, Pain on Inspiration, Chest Congestion, Excessive Mucous Production, Change in Mucous Color, Pain with Coughing, Other - Gastrointestinal Gastrointestinal: As Per HPI - Genitourinary Genitourinary: absent: As Per HPI, Change in Urinary Stream, Difficulty Urinating, Dysuria, Flank Pain, Hematuria, Pyuria, Nocturia, Urinary Incontinence, Urinary Frequency, Urinary Hesitance, Urinary Urgency, Voiding Freq/Small Amts, Freq UTI, Hx Renal/Bladder Calculi, Hx /Renal Surgery, Bladder Distension, Other - Musculoskeletal Musculoskeletal: absent: As Per HPI, Abnormal Gait, Arthralgias, Atrophy, Back Pain, Deformity, Joint Swelling, Limited Range of Motion, Loss of Height, Muscle Cramps, Muscle Weakness, Myalgias, Neck Pain, Numbness, Radiating Pain into Limb, Stiffness, Tingling, Other - Integumentary Integumentary: absent: As Per HPI, Acne, Alopecia, Bleeding Lesions, Change in Hair, Change in Nails, Change in Pigmentation, Changing Lesions, Dry Skin, Erythema, Furuncle, Hirsutism, Lesions, New Lesions, Non-Healing Lesions, Photosensitivity, Pruritus, Rash, Skin Pain, Skin Ulcer, Sores, Striae, Swelling , Unusual Bruising, Wounds, Jaundice, Other - Neurological Neurological: absent: As Per HPI, Abnormal Gait, Abnormal Hearing, Abnormal Movements, Abnormal Speech, Behavioral Changes, Burning Sensations, Confusion, Convulsions, Disequilibrium, Dizziness, Numbness, Focal Weakness, Frequent Falls , Headaches, Lack of Coordination, Loss of Vision, Memory Loss, Paresthesias, Radicular Pain, Restless Legs, Sensory Deficit, Syncope, Tingling, Tremor, Vertigo, Weakness, Other Visual Disturbances, Other - Psychiatric Psychiatric: absent: As Per HPI, Abnormal Sleep Pattern, Anhedonia, Anxiety, Auditory Hallucinations, Behavioral Changes, Change in Appetite, Change in Libido, Confusion, Depression, Difficulty Concentrating, Hallucinations, Homicidal Ideation, Hopelessness, Irritability, Memory Loss, Mood Swings, Panic Attacks, Paranoia, Suicidal Ideation, Visual Hallucinations, Tactile Hallucinations, Other - Endocrine Endocrine: As Per HPI Past Patient History - Infectious Disease Hx of Infectious Diseases: None - Past Medical History & Family History Past Medical History?: Yes - Past Social History Smoking Status: Never Smoked Chewing Tobacco Use: No Cigar Use: No Alcohol: None Drugs: Denies Home Situation {Lives}: With Family - CARDIAC Hx Hypercholesterolemia: Yes Hx Hypertension: Yes - PULMONARY Hx Respiratory Disorders: No - NEUROLOGICAL Hx Seizures: Yes - HEENT Hx HEENT Problems: No - RENAL Hx Chronic Kidney Disease: No - ENDOCRINE/METABOLIC Hx Endocrine Disorders: Yes Hx Diabetes Mellitus Type 2: Yes - HEMATOLOGICAL/ONCOLOGICAL Hx Blood Disorders: No Hx Human Immunodeficiency Virus (HIV): No - INTEGUMENTARY Hx Dermatological Problems: No - MUSCULOSKELETAL/RHEUMATOLOGICAL Hx Fractures: Yes (left shoulder) - GASTROINTESTINAL Hx Clostridium Difficile: Yes Hx Diarrhea: Yes - GENITOURINARY/GYNECOLOGICAL Hx Genitourinary Disorders: No - PSYCHIATRIC Hx Psychophysiologic Disorder: No Hx Substance Use: No - SURGICAL HISTORY Hx Surgeries: No - ANESTHESIA Hx Anesthesia: No Meds Allergies/Adverse Reactions: Allergies Allergy/AdvReac Type Severity Reaction Status Date / Time No Known Allergies Allergy Verified 11/05/16 19:53 - Medications Medications: Current Medications Aspirin (Ecotrin) 81 mg PO DAILY [facility] Last Admin: 11/06/16 08:44 Dose: 81 mg Atorvastatin Calcium (Lipitor) 10 mg PO DAILY [facility] Last Admin: 11/06/16 08:44 Dose: 10 mg Dextrose (Dextrose 50% Inj) 0 ml IV STAT PRN; Protocol PRN Reason: Hyglycemia Protocol Dextrose (Glutose 15) 0 gm PO ONCE PRN; Protocol PRN Reason: Hypoglycemia Protocol Enoxaparin Sodium (Lovenox) 30 mg SC DAILY [facility] PRN Reason: Protocol Last Admin: 11/06/16 08:44 Dose: 30 mg Fluconazole (Diflucan) 100 mg PO DAILY [facility] Last Admin: 11/06/16 08:44 Dose: 100 mg Glucagon (Glucagen Diagnostic Kit) 0 mg IM STAT PRN; Protocol PRN Reason: Hypoglycemia Protocol Ceftriaxone Sodium 1 gm/ (Sodium Chloride) 100 mls @ 100 mls/hr IVPB DAILY [facility] Last Admin: 11/06/16 12:36 Dose: 100 mls/hr Insulin Human Regular 100 (units/ Sodium Chloride) 101 mls @ 3.03 mls/hr IV .Q24H AMADA; 3 UNITS/HR PRN Reason: Protocol Last Titration: 11/06/16 14:00 Dose: 0 units/hr, 0 mls/hr Dextrose/Sodium Chloride (Dextrose 5%/0.9% Ns 1000 Ml) 1,000 mls @ 150 mls/hr IV .Q6H40M [facility] Stop: 11/07/16 10:26 Last Admin: 11/06/16 10:32 Dose: 150 mls/hr Ondansetron HCl (Zofran Inj) 4 mg IVP Q4 PRN PRN Reason: Nausea/Vomiting Pantoprazole Sodium (Protonix Ec Tab) 40 mg PO DAILY [facility] Last Admin: 11/06/16 08:44 Dose: 40 mg Vancomycin HCl (Vancocin (Oral/Rectal Use)) 250 mg PO Q6 [facility] Physical Exam - Constitutional Appears: Non-toxic, Cachectic, Chronically Ill - Head Exam Head Exam: NORMOCEPHALIC - Eye Exam Eye Exam: PERRL. absent: Scleral icterus - ENT Exam ENT Exam: Mucous Membranes Dry, Normal External Ear Exam, Normal Oropharynx - Neck Exam Neck exam: Negative for: Lymphadenopathy, Thyromegaly - Respiratory Exam Respiratory Exam: Decreased Breath Sounds, Clear to Auscultation Bilateral - Cardiovascular Exam Cardiovascular Exam: REGULAR RHYTHM, +S1, +S2 - GI/Abdominal Exam GI & Abdominal Exam: Diminished Bowel Sounds, Soft. absent: Tenderness - Rectal Exam Rectal Exam: Deferred - Exam Exam: NORMAL INSPECTION - Extremities Exam Extremities exam: Positive for: pedal pulses present. Negative for: calf tenderness, pedal edema, tenderness - Back Exam Back exam: absent: CVA tenderness (L), CVA tenderness (R), paraspinal tenderness - Neurological Exam Neurological exam: Alert, CN II-XII Intact, Oriented x3, Reflexes Normal - Psychiatric Exam Psychiatric exam: Depressed - Skin Skin Exam: Dry, Intact Results - Vital Signs Recent Vital Signs: Last Vital Signs Temp 97.4 F L 11/06/16 12:00 Pulse 73 11/06/16 14:00 Resp 10 L 11/06/16 14:00 BP 104/77 11/06/16 14:00 Pulse Ox 100 11/06/16 14:00 - Labs Result Diagrams: 11/06/16 04:20 11/06/16 04:20 Labs: Laboratory Results - last 24 hr 11/05/16 11/05/16 11/05/16 21:27 22:24 23:00 WBC RBC Hgb Hct MCV MCH MCHC RDW Plt Count MPV Neut % (Auto) Lymph % (Auto) Dickson % (Auto) Eos % (Auto) Baso % (Auto) Neut # Lymph # Dickson # Eos # Baso # Sodium 149 H Potassium 5.3 H Chloride 119 H Carbon Dioxide 12 L Anion Gap 23 H BUN 79 H Creatinine 3.4 H Est GFR ( Amer) 24 Est GFR (Non-Af Amer) 20 POC Glucose (mg/dL) 362 H Random Glucose 383 H Lactic Acid 3.4 H Calcium 9.1 Magnesium Total Bilirubin AST ALT Alkaline Phosphatase Total Protein Albumin Globulin Albumin/Globulin Ratio Urine Color Urine Clarity Urine pH Ur Specific [place] Urine Protein Urine Glucose (UA) Urine Ketones Urine Blood Urine Nitrate Urine Bilirubin Urine Urobilinogen Ur Leukocyte Esterase Urine RBC (Auto) Urine WBC Clumps (Auto) Urine Microscopic WBC Urine Yeast (Budding) C. difficile Ag & Toxin 11/05/16 11/05/16 11/06/16 23:02 23:13 00:10 WBC RBC Hgb Hct MCV MCH MCHC RDW Plt Count MPV Neut % (Auto) Lymph % (Auto) Dickson % (Auto) Eos % (Auto) Baso % (Auto) Neut # Lymph # Dickson # Eos # Baso # Sodium Potassium Chloride Carbon Dioxide Anion Gap BUN Creatinine Est GFR ( Amer) Est GFR (Non-Af Amer) POC Glucose (mg/dL) 207 H 183 H Random Glucose Lactic Acid Calcium Magnesium Total Bilirubin AST ALT Alkaline Phosphatase Total Protein Albumin Globulin Albumin/Globulin Ratio Urine Color Yellow Urine Clarity Cloudy Urine pH 6.0 Ur Specific [place] 1.012 Urine Protein 100 Urine Glucose (UA) 150 Urine Ketones Negative Urine Blood Moderate Urine Nitrate Negative Urine Bilirubin Negative Urine Urobilinogen 0.2-1.0 Ur Leukocyte Esterase Large Urine RBC (Auto) 120 H Urine WBC Clumps (Auto) Many H Urine Microscopic WBC 1330 H Urine Yeast (Budding) Many H C. difficile Ag & Toxin 11/06/16 11/06/16 11/06/16 01:03 02:07 02:58 WBC RBC Hgb Hct MCV MCH MCHC RDW Plt Count MPV Neut % (Auto) Lymph % (Auto) Dickson % (Auto) Eos % (Auto) Baso % (Auto) Neut # Lymph # Dickson # Eos # Baso # Sodium Potassium Chloride Carbon Dioxide Anion Gap BUN Creatinine Est GFR ( Amer) Est GFR (Non-Af Amer) POC Glucose (mg/dL) 122 H 131 H Random Glucose Lactic Acid 1.1 Calcium Magnesium Total Bilirubin AST ALT Alkaline Phosphatase Total Protein Albumin Globulin Albumin/Globulin Ratio Urine Color Urine Clarity Urine pH Ur Specific [place] Urine Protein Urine Glucose (UA) Urine Ketones Urine Blood Urine Nitrate Urine Bilirubin Urine Urobilinogen Ur Leukocyte Esterase Urine RBC (Auto) Urine WBC Clumps (Auto) Urine Microscopic WBC Urine Yeast (Budding) C. difficile Ag & Toxin 11/06/16 11/06/16 11/06/16 03:03 04:04 04:20 WBC 14.9 H RBC 3.82 L Hgb 10.9 L D Hct 33.3 L MCV 87.2 MCH 28.4 MCHC 32.6 L RDW 14.5 Plt Count 255 D MPV 8.9 Neut % (Auto) 81.3 H Lymph % (Auto) 10.7 L Dickson % (Auto) 5.8 Eos % (Auto) 1.4 Baso % (Auto) 0.8 Neut # 12.2 H Lymph # 1.6 Dickson # 0.9 H Eos # 0.2 Baso # 0.1 Sodium Potassium Chloride Carbon Dioxide Anion Gap BUN Creatinine Est GFR ( Amer) Est GFR (Non-Af Amer) POC Glucose (mg/dL) 191 H 214 H Random Glucose Lactic Acid Calcium Magnesium Total Bilirubin AST ALT Alkaline Phosphatase Total Protein Albumin Globulin Albumin/Globulin Ratio Urine Color Urine Clarity Urine pH Ur Specific [place] Urine Protein Urine Glucose (UA) Urine Ketones Urine Blood Urine Nitrate Urine Bilirubin Urine Urobilinogen Ur Leukocyte Esterase Urine RBC (Auto) Urine WBC Clumps (Auto) Urine Microscopic WBC Urine Yeast (Budding) C. difficile Ag & Toxin 11/06/16 11/06/16 11/06/16 04:20 04:20 04:20 WBC RBC Hgb Hct MCV MCH MCHC RDW Plt Count MPV Neut % (Auto) Lymph % (Auto) Dickson % (Auto) Eos % (Auto) Baso % (Auto) Neut # Lymph # Dickson # Eos # Baso # Sodium 150 H Potassium 3.7 Chloride 121 H Carbon Dioxide 16 L Anion Gap 17 BUN 69 H Creatinine 2.9 H Est GFR ( Amer) 29 Est GFR (Non-Af Amer) 24 POC Glucose (mg/dL) Random Glucose 216 H Lactic Acid 1.4 Calcium 8.7 Magnesium 2.2 Total Bilirubin 0.2 AST 13 L D ALT 17 L Alkaline Phosphatase 109 Total Protein 7.2 Albumin 2.9 L D Globulin 4.3 H Albumin/Globulin Ratio 0.7 L Urine Color Urine Clarity Urine pH Ur Specific [place] Urine Protein Urine Glucose (UA) Urine Ketones Urine Blood Urine Nitrate Urine Bilirubin Urine Urobilinogen Ur Leukocyte Esterase Urine RBC (Auto) Urine WBC Clumps (Auto) Urine Microscopic WBC Urine Yeast (Budding) C. difficile Ag & Toxin 11/06/16 11/06/16 11/06/16 05:05 06:06 07:02 WBC RBC Hgb Hct MCV MCH MCHC RDW Plt Count MPV Neut % (Auto) Lymph % (Auto) Dickson % (Auto) Eos % (Auto) Baso % (Auto) Neut # Lymph # Dickson # Eos # Baso # Sodium Potassium Chloride Carbon Dioxide Anion Gap BUN Creatinine Est GFR ( Amer) Est GFR (Non-Af Amer) POC Glucose (mg/dL) 166 H 192 H 210 H Random Glucose Lactic Acid Calcium Magnesium Total Bilirubin AST ALT Alkaline Phosphatase Total Protein Albumin Globulin Albumin/Globulin Ratio Urine Color Urine Clarity Urine pH Ur Specific [place] Urine Protein Urine Glucose (UA) Urine Ketones Urine Blood Urine Nitrate Urine Bilirubin Urine Urobilinogen Ur Leukocyte Esterase Urine RBC (Auto) Urine WBC Clumps (Auto) Urine Microscopic WBC Urine Yeast (Budding) C. difficile Ag & Toxin 11/06/16 11/06/16 11/06/16 08:09 09:05 10:02 WBC RBC Hgb Hct MCV MCH MCHC RDW Plt Count MPV Neut % (Auto) Lymph % (Auto) Dickson % (Auto) Eos % (Auto) Baso % (Auto) Neut # Lymph # Dickson # Eos # Baso # Sodium Potassium Chloride Carbon Dioxide Anion Gap BUN Creatinine Est GFR ( Amer) Est GFR (Non-Af Amer) POC Glucose (mg/dL) 183 H 158 H 182 H Random Glucose Lactic Acid Calcium Magnesium Total Bilirubin AST ALT Alkaline Phosphatase Total Protein Albumin Globulin Albumin/Globulin Ratio Urine Color Urine Clarity Urine pH Ur Specific [place] Urine Protein Urine Glucose (UA) Urine Ketones Urine Blood Urine Nitrate Urine Bilirubin Urine Urobilinogen Ur Leukocyte Esterase Urine RBC (Auto) Urine WBC Clumps (Auto) Urine Microscopic WBC Urine Yeast (Budding) C. difficile Ag & Toxin 11/06/16 11/06/16 11/06/16 10:18 10:58 11:59 WBC RBC Hgb Hct MCV MCH MCHC RDW Plt Count MPV Neut % (Auto) Lymph % (Auto) Dickson % (Auto) Eos % (Auto) Baso % (Auto) Neut # Lymph # Dickson # Eos # Baso # Sodium Potassium Chloride Carbon Dioxide Anion Gap BUN Creatinine Est GFR ( Amer) Est GFR (Non-Af Amer) POC Glucose (mg/dL) 197 H 160 H Random Glucose Lactic Acid Calcium Magnesium Total Bilirubin AST ALT Alkaline Phosphatase Total Protein Albumin Globulin Albumin/Globulin Ratio Urine Color Urine Clarity Urine pH Ur Specific [place] Urine Protein Urine Glucose (UA) Urine Ketones Urine Blood Urine Nitrate Urine Bilirubin Urine Urobilinogen Ur Leukocyte Esterase Urine RBC (Auto) Urine WBC Clumps (Auto) Urine Microscopic WBC Urine Yeast (Budding) C. difficile Ag & Toxin Positive H 11/06/16 11/06/16 11/06/16 13:15 14:02 15:00 WBC RBC Hgb Hct MCV MCH MCHC RDW Plt Count MPV Neut % (Auto) Lymph % (Auto) Dickson % (Auto) Eos % (Auto) Baso % (Auto) Neut # Lymph # Dickson # Eos # Baso # Sodium Potassium Chloride Carbon Dioxide Anion Gap BUN Creatinine Est GFR ( Amer) Est GFR (Non-Af Amer) POC Glucose (mg/dL) 110 102 167 H Random Glucose Lactic Acid Calcium Magnesium Total Bilirubin AST ALT Alkaline Phosphatase Total Protein Albumin Globulin Albumin/Globulin Ratio Urine Color Urine Clarity Urine pH Ur Specific [place] Urine Protein Urine Glucose (UA) Urine Ketones Urine Blood Urine Nitrate Urine Bilirubin Urine Urobilinogen Ur Leukocyte Esterase Urine RBC (Auto) Urine WBC Clumps (Auto) Urine Microscopic WBC Urine Yeast (Budding) C. difficile Ag & Toxin Assessment & Plan (1) DKA (diabetic ketoacidoses) Status: Acute (2) Dehydration Status: Acute (3) Sepsis Status: Acute (4) BRITTNI (acute kidney injury) Status: Chronic (5) Clostridium difficile infection Status: Acute (6) DVT prophylaxis Status: Acute (7) Diarrhea Status: Acute (8) History of hypercholesterolemia Status: Acute - Assessment and Plan (Free Text) Assessment: cont iv flagyl and PO Vanco consider colonoscopy/ egd r/o malignancy
[2016-11-06] MEDS ORDERED: Insulin Regular 100 units/ml SC STA (16:59)
[2016-11-06] MEDS: Vancomycin 500 mg (Oral/Rectal USE) PO SCH ×2 (17:40→21:38)
[2016-11-06 17:41] LABS: CALCIUM 8.4 mg/dL (8.4-10.2)
[2016-11-06] MEDS: Insulin Regular 100 units/ml SC SCH (21:47)
[2016-11-07] MEDS: Sodium Chloride 0.9% 1,000 ML IV SCH ×3 (00:26→16:18)
[2016-11-07 05:22] LABS: HEMATOCRIT 33.1 % (35.0-51.0); MEAN CELL VOLUME 87.9 fl (80.0-94.0); MEAN CORPUSCULAR HEMOGLOBIN 28.1 pg (27.0-31.0); WHITE BLOOD COUNT 9.5 K/uL (4.8-10.8)
[2016-11-07 05:35] LABS: ALB/GLOB RATIO 0.7 (1.0-2.1); BILIRUBIN,TOTAL 0.2 mg/dl (0.2-1.3); CALCIUM 8.4 mg/dL (8.4-10.2); MAGNESIUM 1.9 MG/DL (1.6-2.3); POTASSIUM 3.7 MMOL/L (3.6-5.0); TOTAL PROTEIN 6.7 G/DL (6.3-8.2)
[2016-11-07] MEDS: Insulin Regular 100 units/ml SC SCH ×4 (06:38→21:23)
[2016-11-07] MEDS: Vancomycin 500 mg (Oral/Rectal USE) PO SCH (06:48)
--- NOTE | 2016-11-07 06:58 | CP.CCUPN ---
CCU Subjective - Physician Review Subjective (Free Text): C [employer] DEV[employer] PROGRESS NOTE Patient examined, interim events reviewed: Awake and responsive, still having liquid BMs. Denies any abdominal discomfort ; no fevers or chills, no CP or SOB. IVFs changed again to NS for now. Insulin drip resumed at 2-3 units/hr. Afebrile, 106/70, 80, 14, 100% on RA. 24H I/O's = 3107/2350ml ROS: as above, no new pertinent negs or positives on 12 system review from other documentations. PMSFH: All nursing and physician documentation reviewed, no new information noted pertinent to current medical problems. No other distress noted: EXAM- HEENT: no icterus, pupils equal and reactive bilat, no nystagmus NECK: no visible JVD, supple, carotids equal upstroke bilat/no bruits CHEST: decreased BS bases, no wheezes audible HEART: regular, distant, tachy S1S2, no murmur audible, no rubs. ABD: soft, no distention, no focal tenderness, no HSM. BS hypoactive, no abdominal bruits or other masses EXT: no leg edema, no peripheral/ digital cyanosis, no calf tenderness or palpable cords, distal pulses intact and symmetrical NEURO: No focal motor deficits SKIN: no rashes LABS: WBC= 9.5 HGB= 10.6 PLTs= 239k Na= 146 K= 3.7 HCO3= 12 BUN/Cr= 51/2.3 BS= 355 MAJOR PROBLEMS: 1. DKA 2. Chronic C diff infection 3. BRITTNI / ATN 4. Hypernatremia / Dehydration 5. Chronic Disease Anemia PLAN: 1. Will maintain IVF hydration ( BUN/Cr levels improving) and Insulin drip for better glucose control, anion gap normalized, but will check urinary anion gap. Metabolic acidosis 2' Diarrhea?? now. 2. PO Vanco started, consider IV Flagyl as well. Discuss with ID: re- stop Rocephin. 3. PO diet as tolerated. 4. Improved Na levels, watch K, may need repletion as acidosis improves, Check Mag /Phos.
--- NOTE | 2016-11-07 07:29 | CP.PCM.PN ---
<Cassie Jones - Last Filed: 11/07/16 08:51> Subjective - Date & Time of Evaluation Date of Evaluation: 11/07/16 Time of Evaluation: 07:29 - Subjective Subjective: evaluated with attending. No overnight events. Feels better today, has an appetite, tolerating PO. BM x3 yesterday, watery/loose. Denies chest pain, SOB, abdominal pain. Objective - Vital Signs/Intake and Output Vital Signs (last 24 hours): Temp Pulse Resp BP Pulse Ox 97.7 F 80 11 L 106/74 100 11/07/16 04:00 11/07/16 04:00 11/07/16 04:00 11/07/16 04:00 11/07/16 04:00 Intake and Output: 11/07/16 11/07/16 06:59 18:59 Intake Total 2135 Output Total 1750 Balance 385 - Medications Medications: Current Medications Aspirin (Ecotrin) 81 mg PO DAILY [facility] Last Admin: 11/06/16 08:44 Dose: 81 mg Atorvastatin Calcium (Lipitor) 10 mg PO DAILY [facility] Last Admin: 11/06/16 08:44 Dose: 10 mg Dextrose (Dextrose 50% Inj) 0 ml IV STAT PRN; Protocol PRN Reason: Hyglycemia Protocol Dextrose (Glutose 15) 0 gm PO ONCE PRN; Protocol PRN Reason: Hypoglycemia Protocol Enoxaparin Sodium (Lovenox) 30 mg SC DAILY [facility] PRN Reason: Protocol Last Admin: 11/06/16 08:44 Dose: 30 mg Fluconazole (Diflucan) 100 mg PO DAILY [facility] Last Admin: 11/06/16 08:44 Dose: 100 mg Glucagon (Glucagen Diagnostic Kit) 0 mg IM STAT PRN; Protocol PRN Reason: Hypoglycemia Protocol Ceftriaxone Sodium 1 gm/ (Sodium Chloride) 100 mls @ 100 mls/hr IVPB DAILY [facility] Last Admin: 11/06/16 12:36 Dose: 100 mls/hr Insulin Human Regular 100 (units/ Sodium Chloride) 101 mls @ 3.03 mls/hr IV .Q24H [facility]; 3 UNITS/HR PRN Reason: Protocol Last Admin: 11/07/16 06:31 Dose: Not Given Sodium Chloride (Sodium Chloride 0.9%) 1,000 mls @ 150 mls/hr IV .Q6H40M [facility] Stop: 11/07/16 23:29 Last Admin: 11/07/16 06:34 Dose: 150 mls/hr Insulin Human Regular (Humulin R) 0 units SC ACHS [facility] PRN Reason: Protocol Last Admin: 11/07/16 06:38 Dose: 8 u Ondansetron HCl (Zofran Inj) 4 mg IVP Q4 PRN PRN Reason: Nausea/Vomiting Pantoprazole Sodium (Protonix Ec Tab) 40 mg PO DAILY [facility] Last Admin: 11/06/16 08:44 Dose: 40 mg Vancomycin HCl (Vancocin (Oral/Rectal Use)) 250 mg PO Q6 [facility] Last Admin: 11/07/16 06:48 Dose: 250 mg - Labs Labs: 11/07/16 04:15 11/07/16 04:15 PT 11.8 SECONDS (9.6-11.2) H 11/05/16 20:38 INR 1.13 (0.92-1.08) H 11/05/16 20:38 APTT 26.4 SECONDS (23.3-32.5) 11/05/16 20:38 - Constitutional Appears: Non-toxic, No Acute Distress - Head Exam Head Exam: NORMAL INSPECTION - Eye Exam Eye Exam: Normal appearance - ENT Exam ENT Exam: Mucous Membranes Dry - Respiratory Exam Respiratory Exam: Clear to Ausculation Bilateral - Cardiovascular Exam Cardiovascular Exam: REGULAR RHYTHM - GI/Abdominal Exam GI & Abdominal Exam: Soft, Tenderness - Extremities Exam Extremities Exam: Normal Inspection. absent: Pedal Edema - Neurological Exam Neurological Exam: Alert, Oriented x3 - Skin Skin Exam: Dry, Warm Assessment and Plan - Assessment and Plan (Free Text) Assessment: 46 y/o M with PMH HTN, hypercholesterolemia, seizures, diabetes admitted for DKA, dehydration. Sepsis, improved -VSS -2/2 to UTI and DKA -LA, WBC normalized -ID on board, appreciate input DKA, improved -2/2 infection and med noncompliance -AG closed -Accucheck -SSI -D5 NS MIVF 150cc/hr -PO diet as tolerated -monitor electrolytes UTI -UA +yeast, WBC -Ceftriaxone 1gm IVPB Daily -Diflucan 100mg Oral daily -FU urine culture -ID on board, appreciate input Dehydration -D5 NS MIVF 150cc/hr -monitor electrolytes BRITTNI, prerenal, improving -D5 NS MIVF 150cc/hr -monitor electrolytes anemia -likely dilutional -monitor H/H -iron studies reviewed, will not start Fe for now c diff positive -+c diff tox -vanco PO -ID on board, appreciate input. will start flagyl IV -contact precautions hypernatremia -resolved -D5 NS MIVF 150cc/hr Leukocytosis -resolved HLD -statin HTN -hold metoprolol d/t hypotension and dehydration GI prophylaxis -Pantoprazole DVT Prophylaxis -lovenox <Justin Melgar - Last Filed: 11/09/16 22:05> Objective - Vital Signs/Intake and Output Vital Signs (last 24 hours): Temp Pulse Resp BP Pulse Ox 97.7 F 76 18 115/81 100 11/09/16 21:08 11/09/16 21:08 11/09/16 21:08 11/09/16 21:08 11/09/16 21:08 - Medications Medications: Current Medications Aspirin (Ecotrin) 81 mg PO DAILY [facility] Last Admin: 11/09/16 08:09 Dose: 81 mg Atorvastatin Calcium (Lipitor) 10 mg PO DAILY [facility] Last Admin: 11/09/16 08:09 Dose: 10 mg Cholestyramine Resin (Questran) 4 gm PO DAILY [facility] Last Admin: 11/09/16 10:29 Dose: 4 gm Dextrose (Dextrose 50% Inj) 0 ml IV STAT PRN; Protocol PRN Reason: Hyglycemia Protocol Dextrose (Glutose 15) 0 gm PO ONCE PRN; Protocol PRN Reason: Hypoglycemia Protocol Fluconazole (Diflucan) 100 mg PO DAILY [facility] Last Admin: 11/09/16 08:09 Dose: 100 mg Glucagon (Glucagen Diagnostic Kit) 0 mg IM STAT PRN; Protocol PRN Reason: Hypoglycemia Protocol Metronidazole (Flagyl 500mg/100ml Ns) 100 mls @ 100 mls/hr IVPB Q8 [facility] Last Admin: 11/09/16 16:27 Dose: 100 mls/hr Sodium Bicarbonate 50 meq/ (Dextrose) 1,050 mls @ 100 mls/hr IV .[id number] [facility] Stop: 11/11/16 10:55 Last Admin: 11/09/16 11:29 Dose: 100 mls/hr Insulin Detemir (Levemir) 20 units SC HS [facility] Last Admin: 11/09/16 21:14 Dose: 20 u Insulin Human Regular (Humulin R) 0 units SC ACHS [facility] PRN Reason: Protocol Last Admin: 11/09/16 21:14 Dose: Not Given Insulin Lispro Protam/Lispro Human (Humalog Mix 75/25) 10 units SC BID [facility] Last Admin: 11/09/16 16:59 Dose: 10 units Megestrol Acetate (Megace) 800 mg PO DAILY [facility] Last Admin: 11/09/16 08:09 Dose: 800 mg Ondansetron HCl (Zofran Inj) 4 mg IVP Q4 PRN PRN Reason: Nausea/Vomiting Pantoprazole Sodium (Protonix Ec Tab) 40 mg PO DAILY [facility] Last Admin: 11/09/16 08:09 Dose: 40 mg Vancomycin HCl (Vancocin (Oral/Rectal Use)) 250 mg PO Q6 [facility] Last Admin: 11/09/16 21:14 Dose: 250 mg - Labs Labs: 11/08/16 05:30 11/09/16 05:40 PT 11.8 SECONDS (9.6-11.2) H 11/05/16 20:38 INR 1.13 (0.92-1.08) H 11/05/16 20:38 APTT 26.4 SECONDS (23.3-32.5) 11/05/16 20:38 Assessment and Plan - Assessment and Plan (Free Text) Plan: I was present during evaluation and personally examined patient. I discussed with Dr Cassie hughes plans of care and management, Justin Melgar M.D.
[2016-11-07] MEDS: Pantoprazole 40 mg EC Tab PO SCH (08:13)
[2016-11-07] MEDS: Enoxaparin 30 mg Syringe SC SCH (08:13)
[2016-11-07] MEDS: Vancomycin 1 g Inj PO SCH ×3 (10:49→21:35)
[2016-11-07] MEDS: metroNIDAZOLE 500mg/100ml NS 100 ML IVPB SCH ×2 (12:53→17:18)
--- NOTE | 2016-11-07 13:23 | CP.PCM.PN ---
Subjective - Date & Time of Evaluation Date of Evaluation: 11/07/16 Time of Evaluation: 10:00 - Subjective Subjective: weak and lethargic NAD less diarrhea Objective - Vital Signs/Intake and Output Vital Signs (last 24 hours): Temp Pulse Resp BP Pulse Ox 97.8 F 97 H 16 104/58 L 97 11/07/16 12:00 11/07/16 12:00 11/07/16 12:00 11/07/16 12:00 11/07/16 12:00 Intake and Output: 11/07/16 11/07/16 06:59 18:59 Intake Total 2135 1690 Output Total 1750 900 Balance 385 790 - Medications Medications: Current Medications Aspirin (Ecotrin) 81 mg PO DAILY [facility] Last Admin: 11/07/16 08:13 Dose: 81 mg Atorvastatin Calcium (Lipitor) 10 mg PO DAILY [facility] Last Admin: 11/07/16 08:13 Dose: 10 mg Dextrose (Dextrose 50% Inj) 0 ml IV STAT PRN; Protocol PRN Reason: Hyglycemia Protocol Dextrose (Glutose 15) 0 gm PO ONCE PRN; Protocol PRN Reason: Hypoglycemia Protocol Enoxaparin Sodium (Lovenox) 30 mg SC DAILY [facility] PRN Reason: Protocol Last Admin: 11/07/16 08:13 Dose: 30 mg Fluconazole (Diflucan) 100 mg PO DAILY [facility] Last Admin: 11/07/16 08:13 Dose: 100 mg Glucagon (Glucagen Diagnostic Kit) 0 mg IM STAT PRN; Protocol PRN Reason: Hypoglycemia Protocol Ceftriaxone Sodium 1 gm/ (Sodium Chloride) 100 mls @ 100 mls/hr IVPB DAILY [facility] Last Admin: 11/07/16 08:14 Dose: 100 mls/hr Insulin Human Regular 100 (units/ Sodium Chloride) 101 mls @ 3.03 mls/hr IV .Q24H [facility]; 3 UNITS/HR PRN Reason: Protocol Last Admin: 11/07/16 06:31 Dose: Not Given Sodium Chloride (Sodium Chloride 0.9%) 1,000 mls @ 150 mls/hr IV .Q6H40M [facility] Stop: 11/07/16 23:29 Last Admin: 11/07/16 06:34 Dose: 150 mls/hr Metronidazole (Flagyl 500mg/100ml Ns) 100 mls @ 100 mls/hr IVPB Q8 [facility] Last Admin: 11/07/16 12:53 Dose: 100 mls/hr Insulin Human Regular (Humulin R) 0 units SC ACHS [facility] PRN Reason: Protocol Last Admin: 11/07/16 11:01 Dose: 8 u Megestrol Acetate (Megace) 800 mg PO DAILY [facility] Ondansetron HCl (Zofran Inj) 4 mg IVP Q4 PRN PRN Reason: Nausea/Vomiting Pantoprazole Sodium (Protonix Ec Tab) 40 mg PO DAILY [facility] Last Admin: 11/07/16 08:13 Dose: 40 mg Vancomycin HCl (Vancomycin Inj) 0.25 gm PO Q6 [facility] Last Admin: 11/07/16 10:49 Dose: 0.25 gm - Labs Labs: 11/07/16 04:15 11/07/16 04:15 PT 11.8 SECONDS (9.6-11.2) H 11/05/16 20:38 INR 1.13 (0.92-1.08) H 11/05/16 20:38 APTT 26.4 SECONDS (23.3-32.5) 11/05/16 20:38 - Constitutional Appears: Non-toxic, Cachectic, Chronically Ill - Eye Exam Eye Exam: PERRL Pupil Exam: NORMAL ACCOMODATION - ENT Exam ENT Exam: TM's Normal Bilaterally - Neck Exam Neck Exam: Full ROM - Respiratory Exam Respiratory Exam: Decreased Breath Sounds, Clear to Ausculation Bilateral - Cardiovascular Exam Cardiovascular Exam: REGULAR RHYTHM, +S1, +S2 - GI/Abdominal Exam GI & Abdominal Exam: Distended, Soft. absent: Tenderness - Rectal Exam Rectal Exam: Deferred - Exam Exam: NORMAL INSPECTION - Extremities Exam Extremities Exam: absent: Calf Tenderness, Pedal Edema - Back Exam Back Exam: absent: CVA tenderness (L), CVA tenderness (R) - Neurological Exam Neurological Exam: Alert, Awake, Oriented x3 - Psychiatric Exam Psychiatric exam: Normal Mood - Skin Skin Exam: Dry Assessment and Plan (1) DKA (diabetic ketoacidoses) Status: Acute (2) Dehydration Status: Acute (3) Sepsis Status: Acute (4) BRITTNI (acute kidney injury) Status: Chronic (5) Clostridium difficile infection Status: Acute (6) DVT prophylaxis Status: Acute (7) Diarrhea Status: Acute (8) History of hypercholesterolemia Status: Acute
[2016-11-08] MEDS: Sodium Chloride 0.9% 1,000 ML IV SCH (00:35)
[2016-11-08] MEDS: metroNIDAZOLE 500mg/100ml NS 100 ML IVPB SCH ×3 (00:36→17:00)
[2016-11-08] MEDS: Vancomycin 1 g Inj PO SCH ×2 (03:37→09:08)
[2016-11-08] MEDS: Insulin Regular 100 units/ml SC SCH ×4 (07:10→22:00)
[2016-11-08 08:02] LABS: HEMATOCRIT 34.8 % (35.0-51.0); MEAN CELL VOLUME 88.9 fl (80.0-94.0); MEAN CORPUSCULAR HEMOGLOBIN 28.1 pg (27.0-31.0); MEAN CORPUSCULAR HGB CONC 31.6 g/dL (33.0-37.0); RED CELL DISTRIBUTION WIDTH 15.3 % (11.5-14.5)
[2016-11-08 08:20] LABS: ALB/GLOB RATIO 0.6 (1.0-2.1); BILIRUBIN,TOTAL 0.2 mg/dl (0.2-1.3); CALCIUM 8.6 mg/dL (8.4-10.2); MAGNESIUM 1.9 MG/DL (1.6-2.3); PHOSPHOROUS 3.3 mg/dl (2.5-4.5); POTASSIUM 4.2 MMOL/L (3.6-5.0); TOTAL PROTEIN 6.7 G/DL (6.3-8.2)
[2016-11-08] MEDS: Pantoprazole 40 mg EC Tab PO SCH (08:22)
[2016-11-08] MEDS: Megestrol Acetate 40 mg/ml Cup PO SCH (08:22)
[2016-11-08] MEDS: Enoxaparin 30 mg Syringe SC SCH (08:23)
--- NOTE | 2016-11-08 12:19 | CP.CCUPN ---
CCU Subjective - Physician Review Subjective (Free Text): NEUROPSYCHOLOGY SERVICE DIRECTOR PROGRESS NOTE Patient examined, interim events reviewed: Awake and responsive, still having diarrheal BMs. Denies any abdominal discomfort or nausea; no fevers or chills, no CP or SOB. Has been off insulin drip resumed at 2-3 units/hr. Afebrile, 117/80, 89, 14, 100% on RA. 24H I/O's = 5890/3200ml. ROS: as above, no new pertinent negs or positives on 12 system review from other documentations. PMSFH: All nursing and physician documentation reviewed, no new information noted pertinent to current medical problems. No other distress noted: EXAM- HEENT: no icterus, pupils equal and reactive bilat, no nystagmus NECK: no visible JVD, supple, carotids equal upstroke bilat/no bruits CHEST: decreased BS bases, no wheezes audible HEART: regular, distant, tachy S1S2, no murmur audible, no rubs. ABD: soft, no distention, no focal tenderness, no HSM. BS hypoactive, no abdominal bruits or other masses EXT: no leg edema, no peripheral/ digital cyanosis, no calf tenderness or palpable cords, distal pulses intact and symmetrical NEURO: No focal motor deficits SKIN: no rashes LABS: WBC= 7.0 HGB= 11.0 PLTs= 243k Na= 152 K= 4.2 HCO3= 11 BUN/Cr= 40/2.8 BS= 446 MAJOR PROBLEMS: 1. DKA 2. Chronic C diff infection 3. BRITTNI / ATN 4. Hypernatremia / Dehydration 5. Chronic Disease Anemia PLAN: 1. Maintain IVF hydration with hypotonic fluids, dextrose added, Levemir cautiously resumed. Non gapped Metabolic acidosis 2' Diarrhea?? now. Urinary anion gap assessment. 2. On PO Vanco started, consider IV Flagyl as well. Discuss with ID: re- stop Rocephin. 3. PO diet as tolerated. 4. Serial Na levels, watch. Check Mag /Phos.
--- NOTE | 2016-11-08 12:40 | CP.PCM.PN ---
Subjective - Date & Time of Evaluation Date of Evaluation: 11/08/16 Time of Evaluation: 12:38 - Subjective Subjective: patient feels a lot better. Still with elevated FBS Still with episodes of loose stools. Objective - Vital Signs/Intake and Output Vital Signs (last 24 hours): Temp Pulse Resp BP Pulse Ox 98.1 F 94 H 16 106/73 100 11/08/16 07:54 11/08/16 10:00 11/08/16 10:00 11/08/16 10:00 11/08/16 09:00 Intake and Output: 11/08/16 11/08/16 06:59 18:59 Intake Total 2630 830 Output Total 2125 600 Balance 505 230 - Medications Medications: Current Medications Aspirin (Ecotrin) [address] [facility] Last Admin: 11/08/16 08:22 Dose: 81 mg Atorvastatin Calcium (Lipitor) [address] [facility] Last Admin: 11/08/16 08:22 Dose: 10 mg Dextrose (Dextrose 50% Inj) 0 ml IV STAT PRN; Protocol PRN Reason: Hyglycemia Protocol Dextrose (Glutose 15) 0 gm PO ONCE PRN; Protocol PRN Reason: Hypoglycemia Protocol Enoxaparin Sodium (Lovenox) 30 mg SC DAILY [facility] PRN Reason: Protocol Last Admin: 11/08/16 08:23 Dose: 30 mg Fluconazole (Diflucan) [address] [facility] Last Admin: 11/08/16 08:22 Dose: 100 mg Glucagon (Glucagen Diagnostic Kit) 0 mg IM STAT PRN; Protocol PRN Reason: Hypoglycemia Protocol Metronidazole (Flagyl 500mg/100ml Ns) 100 mls @ 100 mls/hr IVPB Q8 [facility] Last Admin: 11/08/16 08:19 Dose: 100 mls/hr Dextrose/Sodium Chloride (Dextrose 5%-0.45% Ns 500 Ml) 1,000 mls @ 100 mls/hr IV .Q10H [facility] Stop: 11/09/16 12:02 Insulin Detemir (Levemir) 20 units SC HS [facility] Insulin Detemir (Levemir) [address] [facility] Insulin Human Regular (Humulin R) 0 units SC ACHS [facility] PRN Reason: Protocol Last Admin: 11/08/16 07:10 Dose: 10 u Megestrol Acetate (Megace) [address] [facility] Last Admin: 11/08/16 08:22 Dose: 800 mg Ondansetron HCl (Zofran Inj) 4 mg IVP Q4 PRN PRN Reason: Nausea/Vomiting Pantoprazole Sodium (Protonix Ec Tab) [address] [facility] Last Admin: 11/08/16 08:22 Dose: 40 mg Vancomycin HCl (Vancomycin Inj) 0.[address] [facility] Last Admin: 11/08/16 09:08 Dose: 0.25 gm - Labs Labs: 11/08/16 05:30 11/08/16 05:30 PT 11.8 SECONDS (9.6-11.2) H 11/05/16 20:38 INR 1.13 (0.92-1.08) H 11/05/16 20:38 APTT 26.4 SECONDS (23.3-32.5) 11/05/16 20:38 - Head Exam Head Exam: NORMAL INSPECTION - Eye Exam Eye Exam: Normal appearance - ENT Exam ENT Exam: Mucous Membranes Dry - Respiratory Exam Respiratory Exam: Clear to Ausculation Bilateral, NORMAL BREATHING PATTERN - Cardiovascular Exam Cardiovascular Exam: REGULAR RHYTHM - GI/Abdominal Exam GI & Abdominal Exam: Normal Bowel Sounds - Neurological Exam Neurological Exam: Awake, Oriented x3 - Psychiatric Exam Psychiatric exam: Normal Mood Assessment and Plan (1) Diabetes mellitus type 2 in nonobese Status: Acute (2) DKA (diabetic ketoacidoses) Status: Acute (3) Dehydration Status: Acute (4) BRITTNI (acute kidney injury) Status: Chronic (5) Clostridium difficile infection Status: Acute - Assessment and Plan (Free Text) Plan: COnt hydration and vancomycin cont meds recheck stool exams
[2016-11-08] MEDS: Cholestyramine 4 gm/Pkt UD PO SCH (16:51)
[2016-11-08] MEDS: Vancomycin 500 mg (Oral/Rectal USE) PO SCH ×2 (16:53→21:55)
[2016-11-08] MEDS: Insulin Lispro Mix 75/25 100 units/ml (HumaLog) 10ml SC SCH (17:02)
[2016-11-08] MEDS: Insulin Detemir 100 Units/ml Inj SC SCH (21:56)
[2016-11-08] MEDS ORDERED: Insulin Detemir 100 Units/ml Inj SC SCH (22:00)
[2016-11-09] MEDS: metroNIDAZOLE 500mg/100ml NS 100 ML IVPB SCH ×3 (00:11→16:27)
[2016-11-09] MEDS: Vancomycin 500 mg (Oral/Rectal USE) PO SCH ×4 (04:00→21:14)
[2016-11-09] MEDS: Insulin Regular 100 units/ml SC SCH ×4 (06:47→21:14)
[2016-11-09 06:56] LABS: ALB/GLOB RATIO 0.6 (1.0-2.1); BILIRUBIN,TOTAL 0.2 mg/dl (0.2-1.3); CALCIUM 9.2 mg/dL (8.4-10.2); POTASSIUM 4.1 MMOL/L (3.6-5.0); TOTAL PROTEIN 6.9 G/DL (6.3-8.2)
--- NOTE | 2016-11-09 07:43 | CP.PCM.PN ---
Subjective - Date & Time of Evaluation Date of Evaluation: 11/09/16 Time of Evaluation: 07:41 - Subjective Subjective: No new complaints. Objective - Vital Signs/Intake and Output Vital Signs (last 24 hours): Temp Pulse Resp BP Pulse Ox 98.2 F 91 H 20 100/67 100 11/09/16 00:10 11/09/16 00:10 11/09/16 00:10 11/09/16 00:10 11/09/16 00:10 - Labs Labs: 11/08/16 05:30 11/09/16 05:40 PT 11.8 SECONDS (9.6-11.2) H 11/05/16 20:38 INR 1.13 (0.92-1.08) H 11/05/16 20:38 APTT 26.4 SECONDS (23.3-32.5) 11/05/16 20:38 - Constitutional Appears: Well - Head Exam Head Exam: NORMAL INSPECTION - Eye Exam Eye Exam: Normal appearance - ENT Exam ENT Exam: Mucous Membranes Moist - Neck Exam Neck Exam: Full ROM - Respiratory Exam Respiratory Exam: Clear to Ausculation Bilateral - Cardiovascular Exam Cardiovascular Exam: REGULAR RHYTHM, +S1, +S2 - GI/Abdominal Exam GI & Abdominal Exam: Soft, Hypoactive Bowel Sounds - Rectal Exam Rectal Exam: Deferred - Extremities Exam Extremities Exam: Normal Inspection - Back Exam Back Exam: NORMAL INSPECTION - Neurological Exam Neurological Exam: Alert, Awake, Oriented x3 - Skin Skin Exam: Normal Color Assessment and Plan - Assessment and Plan (Free Text) Assessment: 1. s/p DKA 2. Chronic C diff infection 3. BRITTNI / ATN 4. Hypernatremia / Dehydration 5. Chronic Disease Anemia Plan: 1. Have requested urine spot Chloride levels, and not yet reported by Lab with spot urine Na and urine K. Non-anion gap metabolic Acidosis evident, unclear if 2' to ATN versus Diarrhea. 2. Change IVFs to plain D5W at 100ml / hr for today to prevent further rise in hypernatremia. 3. Levemir started and BS levels have improved. 4. Abx coverage ongoing.
[2016-11-09] MEDS: Enoxaparin 30 mg Syringe SC SCH (08:09)
[2016-11-09] MEDS: Megestrol Acetate 40 mg/ml Cup PO SCH (08:09)
[2016-11-09] MEDS: Pantoprazole 40 mg EC Tab PO SCH (08:09)
[2016-11-09] MEDS: Insulin Lispro Mix 75/25 100 units/ml (HumaLog) 10ml SC SCH ×2 (09:37→16:59)
[2016-11-09] MEDS: Cholestyramine 4 gm/Pkt UD PO SCH (10:29)
[2016-11-09] MEDS: Sodium Bicarbonate 8.4% 50 MEQ in Dextrose 5% In Water 1,000 ML IV SCH ×2 (11:29→21:24)
--- NOTE | 2016-11-09 13:08 | CP.PCM.CON ---
History of Present Illness - History of Present Illness History of Present Illness: 46 y/o male with HX/o DM,chronic C.diff infection ,seizures was admitted on 11/05/16 for DKA, extreme weakness & dizziness Pt was also noted to have BRITTNI. Upon arrival in ER Pt was hypotensive Renal consult is requested for evaluation of KI, metabolic acidosis & now has developed hypernatremia Past Patient History - Infectious Disease Hx of Infectious Diseases: None - Past Medical History & Family History Past Medical History?: Yes - Past Social History Smoking Status: Never Smoked Chewing Tobacco Use: No Cigar Use: No Alcohol: None Drugs: Denies Home Situation {Lives}: With Family - CARDIAC Hx Hypercholesterolemia: Yes Hx Hypertension: Yes - PULMONARY Hx Respiratory Disorders: No - NEUROLOGICAL Hx Seizures: Yes - HEENT Hx HEENT Problems: No - RENAL Hx Chronic Kidney Disease: No - ENDOCRINE/METABOLIC Hx Endocrine Disorders: Yes Hx Diabetes Mellitus Type 2: Yes - HEMATOLOGICAL/ONCOLOGICAL Hx Blood Disorders: No Hx Human Immunodeficiency Virus (HIV): No - INTEGUMENTARY Hx Dermatological Problems: No - MUSCULOSKELETAL/RHEUMATOLOGICAL Hx Fractures: Yes (left shoulder) - GASTROINTESTINAL Hx Clostridium Difficile: Yes Hx Diarrhea: Yes - GENITOURINARY/GYNECOLOGICAL Hx Genitourinary Disorders: No - PSYCHIATRIC Hx Psychophysiologic Disorder: No Hx Substance Use: No - SURGICAL HISTORY Hx Surgeries: No - ANESTHESIA Hx Anesthesia: No Meds Allergies/Adverse Reactions: Allergies Allergy/AdvReac Type Severity Reaction Status Date / Time No Known Allergies Allergy Verified 11/05/16 19:53 - Medications Medications: Current Medications Aspirin (Ecotrin) 81 mg PO DAILY [facility] Last Admin: 11/09/16 08:09 Dose: 81 mg Atorvastatin Calcium (Lipitor) 10 mg PO DAILY [facility] Last Admin: 11/09/16 08:09 Dose: 10 mg Cholestyramine Resin (Questran) 4 gm PO DAILY [facility] Last Admin: 11/09/16 10:29 Dose: 4 gm Dextrose (Dextrose 50% Inj) 0 ml IV STAT PRN; Protocol PRN Reason: Hyglycemia Protocol Dextrose (Glutose 15) 0 gm PO ONCE PRN; Protocol PRN Reason: Hypoglycemia Protocol Fluconazole (Diflucan) 100 mg PO DAILY [facility] Last Admin: 11/09/16 08:09 Dose: 100 mg Glucagon (Glucagen Diagnostic Kit) 0 mg IM STAT PRN; Protocol PRN Reason: Hypoglycemia Protocol Metronidazole (Flagyl 500mg/100ml Ns) 100 mls @ 100 mls/hr IVPB Q8 [facility] Last Admin: 11/09/16 08:08 Dose: 100 mls/hr Sodium Bicarbonate 50 meq/ (Dextrose) 1,050 mls @ 100 mls/hr IV .[id number] [facility] Stop: 11/11/16 10:55 Last Admin: 11/09/16 11:29 Dose: 100 mls/hr Insulin Detemir (Levemir) 20 units SC [facility] Last Admin: 11/08/16 21:56 Dose: Not Given Insulin Human Regular (Humulin R) 0 units SC ACHS [facility] PRN Reason: Protocol Last Admin: 11/09/16 11:06 Dose: 6 u Insulin Lispro Protam/Lispro Human (Humalog Mix 75/25) 10 units SC BID [facility] Last Admin: 11/09/16 09:37 Dose: 10 units Megestrol Acetate (Megace) 800 mg PO DAILY [facility] Last Admin: 11/09/16 08:09 Dose: 800 mg Ondansetron HCl (Zofran Inj) 4 mg IVP Q4 PRN PRN Reason: Nausea/Vomiting Pantoprazole Sodium (Protonix Ec Tab) 40 mg PO DAILY [facility] Last Admin: 11/09/16 08:09 Dose: 40 mg Vancomycin HCl (Vancocin (Oral/Rectal Use)) 250 mg PO Q6 [facility] Last Admin: 11/09/16 09:37 Dose: 250 mg Physical Exam - Constitutional Appears: Chronically Ill - Head Exam Head Exam: ATRAUMATIC, NORMOCEPHALIC - Eye Exam Additional comments: Sclera anicteric - ENT Exam ENT Exam: Mucous Membranes Dry - Neck Exam Additional comments: JVD flat - Respiratory Exam Additional comments: Lungs clear - Cardiovascular Exam Cardiovascular Exam: REGULAR RHYTHM - GI/Abdominal Exam GI & Abdominal Exam: Soft Additional comments: Nontender - Rectal Exam Rectal Exam: Deferred - Extremities Exam Additional comments: No edema or cyanosis Results - Vital Signs Recent Vital Signs: Last Vital Signs Temp 98.4 F 11/09/16 08:23 Pulse 84 11/09/16 08:23 Resp 18 11/09/16 08:23 BP 100/68 11/09/16 08:23 Pulse Ox 100 11/09/16 08:23 - Labs Result Diagrams: 11/08/16 05:30 11/09/16 05:40 Labs: Laboratory Results - last 24 hr 11/08/16 11/08/16 11/08/16 16:28 16:51 18:39 Sodium Potassium Chloride Carbon Dioxide Anion Gap BUN Creatinine Est GFR ( Amer) Est GFR (Non-Af Amer) POC Glucose (mg/dL) 283 H 312 H Random Glucose Calcium Total Bilirubin AST ALT Alkaline Phosphatase Total Protein Albumin Globulin Albumin/Globulin Ratio Ur Random Sodium 62 Ur Random Potassium 6.6 11/08/16 11/09/16 11/09/16 20:57 05:40 06:00 Sodium 154 H Potassium 4.1 Chloride 132 H Carbon Dioxide 12 L Anion Gap 14 BUN 36 H Creatinine 2.9 H Est GFR ( Amer) 29 Est GFR (Non-Af Amer) 24 POC Glucose (mg/dL) 238 H 112 H Random Glucose 113 H Calcium 9.2 Total Bilirubin 0.2 AST 9 L ALT 21 Alkaline Phosphatase 102 Total Protein 6.9 Albumin 2.5 L Globulin 4.4 H Albumin/Globulin Ratio 0.6 L Ur Random Sodium Ur Random Potassium Assessment & Plan - Assessment and Plan (Free Text) Assessment: BRITTNI improving with hydration Nonanion gap metabolic acidosis despite bicarb drip sec to chronic diarrhea/ sepsis Hypernatremia. . Bicarb drip may be causing hypernatremia ? urosepsis. Ua shows pyuria Plan: urine spot lytes Suggest to decrease bicarb drip & add IV with D5,1/2 ns Lactic acid level
--- NOTE | 2016-11-09 14:10 | CP.PCM.PN ---
Subjective - Date & Time of Evaluation Date of Evaluation: 11/09/16 Time of Evaluation: 06:00 - Subjective Subjective: awake and alert less diarrhea denies fever aappettite poor denies chest pain or sob Objective - Vital Signs/Intake and Output Vital Signs (last 24 hours): Temp Pulse Resp BP Pulse Ox 98.4 F 84 18 100/68 100 11/09/16 08:23 11/09/16 08:23 11/09/16 08:23 11/09/16 08:23 11/09/16 08:23 - Medications Medications: Current Medications Aspirin (Ecotrin) 81 mg PO DAILY [facility] Last Admin: 11/09/16 08:09 Dose: 81 mg Atorvastatin Calcium (Lipitor) 10 mg PO DAILY [facility] Last Admin: 11/09/16 08:09 Dose: 10 mg Cholestyramine Resin (Questran) 4 gm PO DAILY [facility] Last Admin: 11/09/16 10:29 Dose: 4 gm Dextrose (Dextrose 50% Inj) 0 ml IV STAT PRN; Protocol PRN Reason: Hyglycemia Protocol Dextrose (Glutose 15) 0 gm PO ONCE PRN; Protocol PRN Reason: Hypoglycemia Protocol Fluconazole (Diflucan) 100 mg PO DAILY [facility] Last Admin: 11/09/16 08:09 Dose: 100 mg Glucagon (Glucagen Diagnostic Kit) 0 mg IM STAT PRN; Protocol PRN Reason: Hypoglycemia Protocol Metronidazole (Flagyl 500mg/100ml Ns) 100 mls @ 100 mls/hr IVPB Q8 [facility] Last Admin: 11/09/16 08:08 Dose: 100 mls/hr Sodium Bicarbonate 50 meq/ (Dextrose) 1,050 mls @ 100 mls/hr IV [id number] [facility] Stop: 11/11/16 10:55 Last Admin: 11/09/16 11:29 Dose: 100 mls/hr Insulin Detemir (Levemir) 20 units SC HS [facility] Last Admin: 11/08/16 21:56 Dose: Not Given Insulin Human Regular (Humulin R) 0 units SC ACHS [facility] PRN Reason: Protocol Last Admin: 11/09/16 11:06 Dose: 6 u Insulin Lispro Protam/Lispro Human (Humalog Mix 75/25) 10 units SC BID [facility] Last Admin: 11/09/16 09:37 Dose: 10 units Megestrol Acetate (Megace) 800 mg PO DAILY [facility] Last Admin: 11/09/16 08:09 Dose: 800 mg Ondansetron HCl (Zofran Inj) 4 mg IVP Q4 PRN PRN Reason: Nausea/Vomiting Pantoprazole Sodium (Protonix Ec Tab) 40 mg PO DAILY [facility] Last Admin: 11/09/16 08:09 Dose: 40 mg Vancomycin HCl (Vancocin (Oral/Rectal Use)) 250 mg PO Q6 [facility] Last Admin: 11/09/16 09:37 Dose: 250 mg - Labs Labs: 11/08/16 05:30 11/09/16 05:40 PT 11.8 SECONDS (9.6-11.2) H 11/05/16 20:38 INR 1.13 (0.92-1.08) H 11/05/16 20:38 APTT 26.4 SECONDS (23.3-32.5) 11/05/16 20:38 - Constitutional Appears: Non-toxic, Cachectic, Chronically Ill - Head Exam Head Exam: NORMOCEPHALIC - Eye Exam Eye Exam: PERRL. absent: Scleral icterus - ENT Exam ENT Exam: Mucous Membranes Dry - Neck Exam Neck Exam: absent: Lymphadenopathy - Respiratory Exam Respiratory Exam: Decreased Breath Sounds, Rhonchi - Cardiovascular Exam Cardiovascular Exam: REGULAR RHYTHM, +S1, +S2 - GI/Abdominal Exam GI & Abdominal Exam: Distended, Soft. absent: Tenderness - Rectal Exam Rectal Exam: Deferred - Exam Exam: NORMAL INSPECTION - Extremities Exam Extremities Exam: absent: Calf Tenderness, Pedal Edema, Tenderness - Back Exam Back Exam: absent: CVA tenderness (L), CVA tenderness (R), paraspinal tenderness - Neurological Exam Neurological Exam: Alert, Awake, Oriented x3 - Psychiatric Exam Psychiatric exam: Normal Mood - Skin Skin Exam: Dry Assessment and Plan (1) DKA (diabetic ketoacidoses) Status: Acute (2) Dehydration Status: Acute (3) Sepsis Status: Acute (4) BRITTNI (acute kidney injury) Status: Chronic (5) Clostridium difficile infection Status: Acute (6) DVT prophylaxis Status: Acute (7) Diarrhea Status: Acute (8) History of hypercholesterolemia Status: Acute - Assessment and Plan (Free Text) Plan: iv rx renewed
[2016-11-09 15:30] LABS: CREATININE, RANDOM URINE 21.1 mg/dL
[2016-11-09 15:32] LABS: RBC URINE 222 /hpf (0-3); URINE BILIRUBIN NEGATIVE (NEGATIVE); URINE BLOOD SMALL (NEGATIVE); URINE COLOR YELLOW (YELLOW); URINE GLUCOSE (UA) NEG (Normal); URINE KETONE NEGATIVE (NEGATIVE); URINE LEUKOCYTE ESTERASE LARGE Leu/uL (Negative); URINE PROTEIN 30 mg/dL (NEGATIVE); URINE UROBILINOGEN 0.2-1.0 mg/dL (0.2-1.0); WBC CLUMPS MANY /hpf; WBC URINE 3077 /hpf (0-5)
[2016-11-09 16:03] LABS: URINE BACTERIA MOD (<OCC)
[2016-11-09] MEDS: Insulin Detemir 100 Units/ml Inj SC SCH (21:14)
--- NOTE | 2016-11-09 22:14 | CP.PCM.PN ---
Subjective - Date & Time of Evaluation Date of Evaluation: 11/09/16 Time of Evaluation: 09:40 - Subjective Subjective: Patient continues to have loose stools. Has no fever Has better appetite. Labs still shows acidosis with CO2 of 12 GFR is 29. Objective - Vital Signs/Intake and Output Vital Signs (last 24 hours): Temp Pulse Resp BP Pulse Ox 97.7 F 76 18 115/81 100 11/09/16 21:08 11/09/16 21:08 11/09/16 21:08 11/09/16 21:08 11/09/16 21:08 - Medications Medications: Current Medications Aspirin (Ecotrin) 81 mg PO DAILY [facility] Last Admin: 11/09/16 08:09 Dose: 81 mg Atorvastatin Calcium (Lipitor) 10 mg PO DAILY [facility] Last Admin: 11/09/16 08:09 Dose: 10 mg Cholestyramine Resin (Questran) 4 gm PO DAILY [facility] Last Admin: 11/09/16 10:29 Dose: 4 gm Dextrose (Dextrose 50% Inj) 0 ml IV STAT PRN; Protocol PRN Reason: Hyglycemia Protocol Dextrose (Glutose 15) 0 gm PO ONCE PRN; Protocol PRN Reason: Hypoglycemia Protocol Fluconazole (Diflucan) 100 mg PO DAILY [facility] Last Admin: 11/09/16 08:09 Dose: 100 mg Glucagon (Glucagen Diagnostic Kit) 0 mg IM STAT PRN; Protocol PRN Reason: Hypoglycemia Protocol Metronidazole (Flagyl 500mg/100ml Ns) 100 mls @ 100 mls/hr IVPB Q8 [facility] Last Admin: 11/09/16 16:27 Dose: 100 mls/hr Sodium Bicarbonate 50 meq/ (Dextrose) 1,050 mls @ 100 mls/hr IV .[id number] [facility] Stop: 11/11/16 10:55 Last Admin: 11/09/16 11:29 Dose: 100 mls/hr Insulin Detemir (Levemir) 20 units SC HS [facility] Last Admin: 11/09/16 21:14 Dose: 20 u Insulin Human Regular (Humulin R) 0 units SC ACHS [facility] PRN Reason: Protocol Last Admin: 11/09/16 21:14 Dose: Not Given Insulin Lispro Protam/Lispro Human (Humalog Mix 75/25) 10 units SC BID [facility] Last Admin: 11/09/16 16:59 Dose: 10 units Megestrol Acetate (Megace) 800 mg PO DAILY [facility] Last Admin: 11/09/16 08:09 Dose: 800 mg Ondansetron HCl (Zofran Inj) 4 mg IVP Q4 PRN PRN Reason: Nausea/Vomiting Pantoprazole Sodium (Protonix Ec Tab) 40 mg PO DAILY [facility] Last Admin: 11/09/16 08:09 Dose: 40 mg Vancomycin HCl (Vancocin (Oral/Rectal Use)) 250 mg PO Q6 [facility] Last Admin: 11/09/16 21:14 Dose: 250 mg - Labs Labs: 11/08/16 05:30 11/09/16 05:40 PT 11.8 SECONDS (9.6-11.2) H 11/05/16 20:38 INR 1.13 (0.92-1.08) H 11/05/16 20:38 APTT 26.4 SECONDS (23.3-32.5) 11/05/16 20:38 - Head Exam Head Exam: NORMAL INSPECTION - Eye Exam Eye Exam: Normal appearance - ENT Exam ENT Exam: Mucous Membranes Moist - Respiratory Exam Respiratory Exam: NORMAL BREATHING PATTERN - Cardiovascular Exam Cardiovascular Exam: REGULAR RHYTHM - GI/Abdominal Exam GI & Abdominal Exam: Normal Bowel Sounds - Neurological Exam Neurological Exam: CN II-XII Intact, Oriented x3 - Psychiatric Exam Psychiatric exam: Normal Mood Assessment and Plan (1) Diabetes mellitus type 2 in nonobese Status: Acute (2) DKA (diabetic ketoacidoses) Status: Acute (3) Dehydration Status: Acute (4) BRITTNI (acute kidney injury) Status: Chronic (5) Clostridium difficile infection Status: Acute - Assessment and Plan (Free Text) Plan: cont hydration sodium bicarb recheck labs in am repeat stool exam. Phys therapy subacute rehab
[2016-11-10] MEDS: Sodium Bicarbonate 8.4% 50 MEQ in Dextrose 5% In Water 1,000 ML IV SCH ×2 (00:33→08:34)
[2016-11-10] MEDS: metroNIDAZOLE 500mg/100ml NS 100 ML IVPB SCH ×3 (00:33→16:17)
[2016-11-10] MEDS: Vancomycin 500 mg (Oral/Rectal USE) PO SCH ×4 (03:45→21:53)
[2016-11-10 06:22] LABS: HEMATOCRIT 34.7 % (35.0-51.0); MEAN CORPUSCULAR HEMOGLOBIN 28.7 pg (27.0-31.0); MEAN CORPUSCULAR HGB CONC 32.7 g/dL (33.0-37.0); RED CELL DISTRIBUTION WIDTH 15.2 % (11.5-14.5); WHITE BLOOD COUNT 7.9 K/uL (4.8-10.8)
[2016-11-10 06:33] LABS: ALB/GLOB RATIO 0.6 (1.0-2.1); ALKALINE PHOSPHATASE 111 U/L (38-126); ALT/SGPT 19 U/L (21-72); AST/SGOT 9 U/L (17-59); BILIRUBIN,TOTAL 0.2 mg/dl (0.2-1.3); BLOOD UREA NITROGEN 34 mg/dl (9-20); CALCIUM 9.2 mg/dL (8.4-10.2); CHLORIDE 126 mmol/L (98-107); GFR AFRICAN-AMERICAN 28; GLUCOSE,RANDOM 250 mg/dL (75-110); POTASSIUM 4.9 MMOL/L (3.6-5.0); SODIUM 147 mmol/l (132-148)
[2016-11-10 07:01] LABS: CARBON DIOXIDE 11 mmol/L (22-30); CARCINOEMBRYONIC ANTIGEN 10.8 ng/mL (0-3.0)
[2016-11-10] MEDS: Megestrol Acetate 40 mg/ml Cup PO SCH (08:32)
[2016-11-10] MEDS: Cholestyramine 4 gm/Pkt UD PO SCH ×2 (08:33→16:19)
[2016-11-10] MEDS: Insulin Regular 100 units/ml SC SCH ×4 (08:33→21:44)
[2016-11-10] MEDS: Pantoprazole 40 mg EC Tab PO SCH (08:33)
[2016-11-10] MEDS: Insulin Lispro Mix 75/25 100 units/ml (HumaLog) 10ml SC SCH ×2 (08:33→16:18)
[2016-11-10] MEDS ORDERED: Sodium Bicarbonate 8.4% 50 MEQ in Dextrose 5% In Water 1,000 ML IV SCH (09:49)
--- NOTE | 2016-11-10 10:04 | CP.PCM.PN ---
Subjective - Date & Time of Evaluation Date of Evaluation: 11/10/16 Time of Evaluation: 10:02 - Subjective Subjective: Continues to have loose stools Stool for C diff still positive despite meds. Has no fever labs showed CO 2 11 Received IV fluids with bicarb yesterday. Objective - Vital Signs/Intake and Output Vital Signs (last 24 hours): Temp Pulse Resp BP Pulse Ox 97.8 F 90 20 105/72 100 11/10/16 07:28 11/10/16 07:28 11/10/16 07:28 11/10/16 07:28 11/10/16 07:28 - Medications Medications: Current Medications Aspirin (Ecotrin) 81 mg PO DAILY [facility] Last Admin: 11/10/16 08:33 Dose: 81 mg Atorvastatin Calcium (Lipitor) 10 mg PO DAILY [facility] Last Admin: 11/10/16 08:33 Dose: 10 mg Cholestyramine Resin (Questran) 4 gm PO DAILY [facility] Last Admin: 11/10/16 08:33 Dose: 4 gm Dextrose (Dextrose 50% Inj) 0 ml IV STAT PRN; Protocol PRN Reason: Hyglycemia Protocol Dextrose (Glutose 15) 0 gm PO ONCE PRN; Protocol PRN Reason: Hypoglycemia Protocol Fluconazole (Diflucan) 100 mg PO DAILY [facility] Last Admin: 11/10/16 08:32 Dose: 100 mg Glucagon (Glucagen Diagnostic Kit) 0 mg IM STAT PRN; Protocol PRN Reason: Hypoglycemia Protocol Metronidazole (Flagyl 500mg/100ml Ns) 100 mls @ 100 mls/hr IVPB Q8 [facility] Last Admin: 11/10/16 08:32 Dose: 100 mls/hr Sodium Bicarbonate 50 meq/ (Dextrose) 1,050 mls @ 150 mls/hr IV .Q7H [facility] Stop: 11/12/16 09:49 Insulin Detemir (Levemir) 20 units SC HS [facility] Last Admin: 11/09/16 21:14 Dose: 20 u Insulin Human Regular (Humulin R) 0 units SC ACHS [facility] PRN Reason: Protocol Last Admin: 11/10/16 08:33 Dose: Not Given Insulin Lispro Protam/Lispro Human (Humalog Mix 75/25) 10 units SC BID [facility] Last Admin: 11/10/16 08:33 Dose: 10 units Megestrol Acetate (Megace) 800 mg PO DAILY [facility] Last Admin: 11/10/16 08:32 Dose: 800 mg Ondansetron HCl (Zofran Inj) 4 mg IVP Q4 PRN PRN Reason: Nausea/Vomiting Pantoprazole Sodium (Protonix Ec Tab) 40 mg PO DAILY [facility] Last Admin: 11/10/16 08:33 Dose: 40 mg Vancomycin HCl (Vancocin (Oral/Rectal Use)) 250 mg PO Q6 [facility] Last Admin: 11/10/16 09:06 Dose: 250 mg - Labs Labs: 11/10/16 05:40 11/10/16 05:40 PT 11.8 SECONDS (9.6-11.2) H 11/05/16 20:38 INR 1.13 (0.92-1.08) H 11/05/16 20:38 APTT 26.4 SECONDS (23.3-32.5) 11/05/16 20:38 - Head Exam Head Exam: NORMAL INSPECTION - Eye Exam Eye Exam: Normal appearance - ENT Exam ENT Exam: Mucous Membranes Moist - Respiratory Exam Respiratory Exam: Clear to Ausculation Bilateral - Cardiovascular Exam Cardiovascular Exam: REGULAR RHYTHM - Neurological Exam Neurological Exam: Awake, Oriented x3 - Psychiatric Exam Psychiatric exam: Depressed Assessment and Plan (1) Diabetes mellitus type 2 in nonobese Status: Acute (2) DKA (diabetic ketoacidoses) Status: Acute (3) Dehydration Status: Acute (4) BRITTNI (acute kidney injury) Status: Chronic (5) Clostridium difficile infection Status: Acute - Assessment and Plan (Free Text) Plan: cont IV fluids Increase IV fluids to 150 cc per hour. check cbc cmp cont meds.
[2016-11-10] MEDS: Dextrose 5%/0.45% NS 1,000 ML IV SCH ×3 (11:26→21:43)
--- NOTE | 2016-11-10 11:42 | CP.PCM.PN ---
Subjective - Date & Time of Evaluation Date of Evaluation: 11/10/16 Time of Evaluation: 11:15 - Subjective Subjective: No acute distress noted Objective - Vital Signs/Intake and Output Vital Signs (last 24 hours): Temp Pulse Resp BP Pulse Ox 97.8 F 90 20 105/72 100 11/10/16 07:28 11/10/16 07:28 11/10/16 07:28 11/10/16 07:28 11/10/16 07:28 - Medications Medications: Current Medications Aspirin (Ecotrin) 81 mg PO DAILY [facility] Last Admin: 11/10/16 08:33 Dose: 81 mg Atorvastatin Calcium (Lipitor) 10 mg PO DAILY [facility] Last Admin: 11/10/16 08:33 Dose: 10 mg Cholestyramine Resin (Questran) 4 gm PO BID [facility] Dextrose (Dextrose 50% Inj) 0 ml IV STAT PRN; Protocol PRN Reason: Hyglycemia Protocol Dextrose (Glutose 15) 0 gm PO ONCE PRN; Protocol PRN Reason: Hypoglycemia Protocol Fluconazole (Diflucan) 100 mg PO DAILY [facility] Last Admin: 11/10/16 08:32 Dose: 100 mg Glucagon (Glucagen Diagnostic Kit) 0 mg IM STAT PRN; Protocol PRN Reason: Hypoglycemia Protocol Metronidazole (Flagyl 500mg/100ml Ns) 100 mls @ 100 mls/hr IVPB Q8 [facility] Last Admin: 11/10/16 08:32 Dose: 100 mls/hr Dextrose/Sodium Chloride (Dextrose 5%/0.45% Ns 1000 Ml) 1,000 mls @ 150 mls/hr IV .Q6H40M [facility] Stop: 11/11/16 11:12 Last Admin: 11/10/16 11:26 Dose: 150 mls/hr Insulin Detemir (Levemir) 20 units SC HS [facility] Last Admin: 11/09/16 21:14 Dose: 20 u Insulin Human Regular (Humulin R) 0 units SC ACHS [facility] PRN Reason: Protocol Last Admin: 11/10/16 10:51 Dose: 10 u Insulin Lispro Protam/Lispro Human (Humalog Mix 75/25) 10 units SC BID [facility] Last Admin: 11/10/16 08:33 Dose: 10 units Megestrol Acetate (Megace) 800 mg PO DAILY [facility] Last Admin: 11/10/16 08:32 Dose: 800 mg Ondansetron HCl (Zofran Inj) 4 mg IVP Q4 PRN PRN Reason: Nausea/Vomiting Pantoprazole Sodium (Protonix Ec Tab) 40 mg PO DAILY [facility] Last Admin: 11/10/16 08:33 Dose: 40 mg Sodium Bicarbonate (Sodium Bicarbonate Tab) 1,300 mg PO BID [facility] Vancomycin HCl (Vancocin (Oral/Rectal Use)) 250 mg PO Q6 [facility] Last Admin: 11/10/16 09:06 Dose: 250 mg - Labs Labs: 11/10/16 05:40 11/10/16 05:40 PT 11.8 SECONDS (9.6-11.2) H 11/05/16 20:38 INR 1.13 (0.92-1.08) H 11/05/16 20:38 APTT 26.4 SECONDS (23.3-32.5) 11/05/16 20:38 - Respiratory Exam Respiratory Exam: NORMAL BREATHING PATTERN - Cardiovascular Exam Cardiovascular Exam: REGULAR RHYTHM - Extremities Exam Additional comments: No edema Assessment and Plan - Assessment and Plan (Free Text) Assessment: Hypernatremia is improving Acute on chronic renal failure. Creatinine is higher today sec to dehydration NAG met. acidosis secondary to diarrhes Plan: Continue with IV hydration with D5W & 0.45% saline Continue with PO bicarb ABG is ordered Monitor renal function
--- NOTE | 2016-11-10 12:27 | CP.PCM.PN ---
Subjective - Date & Time of Evaluation Date of Evaluation: 11/10/16 Time of Evaluation: 08:00 - Subjective Subjective: Continues to have loose stools Stool for C diff still positive despite meds. Has no fever may need rifaximin consider GI eval for colonoscopy Objective - Vital Signs/Intake and Output Vital Signs (last 24 hours): Temp Pulse Resp BP Pulse Ox 97.8 F 90 20 105/72 100 11/10/16 07:28 11/10/16 07:28 11/10/16 07:28 11/10/16 07:28 11/10/16 07:28 - Medications Medications: Current Medications Aspirin (Ecotrin) 81 mg PO DAILY [facility] Last Admin: 11/10/16 08:33 Dose: 81 mg Atorvastatin Calcium (Lipitor) 10 mg PO DAILY [facility] Last Admin: 11/10/16 08:33 Dose: 10 mg Cholestyramine Resin (Questran) 4 gm PO BID [facility] Dextrose (Dextrose 50% Inj) 0 ml IV STAT PRN; Protocol PRN Reason: Hyglycemia Protocol Dextrose (Glutose 15) 0 gm PO ONCE PRN; Protocol PRN Reason: Hypoglycemia Protocol Fluconazole (Diflucan) 100 mg PO DAILY [facility] Last Admin: 11/10/16 08:32 Dose: 100 mg Glucagon (Glucagen Diagnostic Kit) 0 mg IM STAT PRN; Protocol PRN Reason: Hypoglycemia Protocol Metronidazole (Flagyl 500mg/100ml Ns) 100 mls @ 100 mls/hr IVPB Q8 [facility] Last Admin: 11/10/16 08:32 Dose: 100 mls/hr Dextrose/Sodium Chloride (Dextrose 5%/0.45% Ns 1000 Ml) 1,000 mls @ 150 mls/hr IV .Q6H40M [facility] Stop: 11/11/16 11:12 Last Admin: 11/10/16 11:26 Dose: 150 mls/hr Insulin Detemir (Levemir) 20 units SC HS [facility] Last Admin: 11/09/16 21:14 Dose: 20 u Insulin Human Regular (Humulin R) 0 units SC ACHS [facility] PRN Reason: Protocol Last Admin: 11/10/16 10:51 Dose: 10 u Insulin Lispro Protam/Lispro Human (Humalog Mix 75/25) 10 units SC BID [facility] Last Admin: 11/10/16 08:33 Dose: 10 units Megestrol Acetate (Megace) 800 mg PO DAILY [facility] Last Admin: 11/10/16 08:32 Dose: 800 mg Ondansetron HCl (Zofran Inj) 4 mg IVP Q4 PRN PRN Reason: Nausea/Vomiting Pantoprazole Sodium (Protonix Ec Tab) 40 mg PO DAILY [facility] Last Admin: 11/10/16 08:33 Dose: 40 mg Sodium Bicarbonate (Sodium Bicarbonate Tab) 1,300 mg PO BID [facility] Vancomycin HCl (Vancocin (Oral/Rectal Use)) 250 mg PO Q6 [facility] Last Admin: 11/10/16 09:06 Dose: 250 mg - Labs Labs: 11/10/16 05:40 11/10/16 05:40 PT 11.8 SECONDS (9.6-11.2) H 11/05/16 20:38 INR 1.13 (0.92-1.08) H 11/05/16 20:38 APTT 26.4 SECONDS (23.3-32.5) 11/05/16 20:38 - Constitutional Appears: Non-toxic, Cachectic - Head Exam Head Exam: NORMOCEPHALIC - Eye Exam Eye Exam: PERRL. absent: Scleral icterus - ENT Exam ENT Exam: Mucous Membranes Dry - Neck Exam Neck Exam: absent: Lymphadenopathy, Thyromegaly - Respiratory Exam Respiratory Exam: Decreased Breath Sounds, Clear to Ausculation Bilateral - Cardiovascular Exam Cardiovascular Exam: REGULAR RHYTHM - GI/Abdominal Exam GI & Abdominal Exam: Distended - Rectal Exam Rectal Exam: Deferred Assessment and Plan (1) DKA (diabetic ketoacidoses) Status: Acute (2) Dehydration Status: Acute (3) Sepsis Status: Acute (4) BRITTNI (acute kidney injury) Status: Chronic (5) Clostridium difficile infection Status: Acute (6) DVT prophylaxis Status: Acute (7) Diarrhea Status: Acute (8) History of hypercholesterolemia Status: Acute
[2016-11-10 15:50] LABS: ABG ALLEN TEST YES; ARTERIAL BLOOD GAS HCO3 15.2 mmol/L (21-28); ARTERIAL BLOOD GAS O2 CAPACITY 16.2 mL/dL (16-24); ARTERIAL BLOOD GAS PH 7.32 (7.35-7.45); ARTERIAL BLOOD GAS PO2 127 mm/Hg (80-100); ARTERIAL BLOOD HGB O2 SAT 95.8 % (95.0-98.0); CARBOXYHEMOGLOBIN 0.9 % (0.5-1.5); HHB 1.2 % (0.0-5.0); METHEMOGLOBIN 2.1 % (0.0-3.0)
[2016-11-10 17:06] LABS: CORTISOL AM 11.3 ug/dL (4.46-22.7)
[2016-11-10 17:10] LABS: CA 19-9 < 1.4 U/mL (0-37)
[2016-11-10] MEDS: Insulin Detemir 100 Units/ml Inj SC SCH (21:53)
[2016-11-11] MEDS: metroNIDAZOLE 500mg/100ml NS 100 ML IVPB SCH ×3 (00:16→16:45)
[2016-11-11] MEDS: Dextrose 5%/0.45% NS 1,000 ML IV SCH ×2 (01:00→09:26)
[2016-11-11] MEDS: Vancomycin 500 mg (Oral/Rectal USE) PO SCH ×4 (04:00→21:46)
[2016-11-11] MEDS: Insulin Regular 100 units/ml SC SCH ×4 (06:37→21:43)
[2016-11-11 06:55] LABS: BASO # 0.1 K/uL (0.0-0.2); BASO % 1.1 % (0.0-2.0); EOS % 0.7 % (0.0-4.0); LYMPH # 0.9 K/uL (1.0-4.3); LYMPH % 13.2 % (20.0-40.0); MEAN CELL VOLUME 86.1 fl (80.0-94.0); MEAN CORPUSCULAR HEMOGLOBIN 28.5 pg (27.0-31.0); MEAN CORPUSCULAR HGB CONC 33.1 g/dL (33.0-37.0); MEAN PLATELET VOLUME 8.4 fl (7.2-11.7); MONO # 0.3 K/uL (0.0-0.8); MONO % 4.1 % (0.0-10.0); NEUT # 5.3 K/uL (1.8-7.0); NEUT % 80.9 % (50.0-75.0); NRBC % 0.1 % (0.0-0.0); RED CELL DISTRIBUTION WIDTH 15.3 % (11.5-14.5); WHITE BLOOD COUNT 6.5 K/uL (4.8-10.8)
[2016-11-11 07:19] LABS: ALB/GLOB RATIO 0.7 (1.0-2.1); BILIRUBIN,TOTAL 0.1 mg/dl (0.2-1.3); CALCIUM 8.9 mg/dL (8.4-10.2); POTASSIUM 5.4 MMOL/L (3.6-5.0); TOTAL PROTEIN 6.9 G/DL (6.3-8.2)
[2016-11-11 08:48] LABS: RBC URINE 8 /hpf (0-3); URINE BACTERIA RARE (<OCC); URINE BILIRUBIN NEGATIVE (NEGATIVE); URINE BLOOD SMALL (NEGATIVE); URINE COLOR YELLOW (YELLOW); URINE GLUCOSE (UA) 150 mg/dL (Normal); URINE KETONE NEGATIVE (NEGATIVE); URINE LEUKOCYTE ESTERASE LARGE Leu/uL (Negative); URINE PROTEIN 30 mg/dL (NEGATIVE); URINE UROBILINOGEN 0.2-1.0 mg/dL (0.2-1.0); WBC URINE 399 /hpf (0-5)
[2016-11-11] MEDS: Insulin Lispro Mix 75/25 100 units/ml (HumaLog) 10ml SC SCH ×2 (09:28→16:45)
[2016-11-11] MEDS: Pantoprazole 40 mg EC Tab PO SCH (09:28)
[2016-11-11] MEDS: Cholestyramine 4 gm/Pkt UD PO SCH (09:28)
[2016-11-11] MEDS: Megestrol Acetate 40 mg/ml Cup PO SCH (09:28)
[2016-11-11 11:14] LABS: CHLORIDE URINE 84 mmol/L (32-290)
--- NOTE | 2016-11-11 12:17 | CON ---
DATE: 11/11/2016 REFERRING PHYSICIAN: Dr. Melgar REASON FOR CONSULTATION: Persistent/recurrent Clostridium difficile. This is a 46-year-old man with a history of hypertension, hypercholesterolemia, seizure disorder, jessica betes and admitted for DKA and dehydration and weakness for 2 weeks. The patient is noncompliant wit h diet and some medication. Basically, GI was called because he has had C. diff for some time, uncle ar the duration of which. He had diarrhea, but that also is improving, only on medication. Currentl y, patient is lying in bed, comfortable, in no apparent distress. PAST MEDICAL HISTORY: As above. PAST SURGICAL HISTORY: As above. MEDICATIONS: Have been reviewed. All other systems have been reviewed and negative apart from the HPI. PHYSICAL EXAMINATION: VITAL SIGNS: Here in the hospital, grossly unremarkable. GENERAL: A pleasant, middle-aged man, lying in bed, comfortable, no apparent distress. HEAD: Normocephalic, atraumatic. EYES: Pupils equally reactive to light bilaterally. No conjunctival pallor or icterus. NECK: Supple, normal range of motion. No lymphadenopathy appreciated. LUNGS: Coarse breath sounds bilaterally. HEART: S1, S2, regular rate and rhythm. No murmurs appreciated. ABDOMEN: Soft, nontender, bowel sounds present. No rebound, no guarding. RECTAL: Deferred. EXTREMITIES: Pulses present bilaterally. SKIN: Warm, dry and intact. NEUROLOGIC: Alert and oriented x 3. All labs and relevant radiology have been reviewed. WBCs 6.5, hemoglobin 10.9, hematocrit 33.0, plat elet count is 263. Glucose is 150, down from over 400. ASSESSMENT AND PLAN: This is a 46-year-old man with persistent/recurrent Clostridium difficile. We are going to review the chart and see how many times exactly he had it and duration of treatment. Fo r right now, he has no white count, he is nontoxic appearing, diarrhea is improving, tolerating diet. I will continue on current regimen per ID. Ultimately, if this persists beyond 3-4 episodes, may r equire a fecal transplant. Thank you for the consult. Cornel Lima MD, PhD cc:Justin Melgar MD [id number] TT: 11/11/2016 12:17:14 Confirmation # [id number] Dictation # [id number] en
[2016-11-11] MEDS: Sodium Chloride 0.45% 1,000 ML IV SCH ×2 (13:30→19:33)
--- NOTE | 2016-11-11 14:42 | CP.PCM.PN ---
Subjective - Date & Time of Evaluation Date of Evaluation: 11/11/16 Time of Evaluation: 11:50 - Subjective Subjective: Follow up Nephrology Consultation Note Assessment: Acute Kidney Injury likely due to pre-renal state and eventually leading to acute tubular necrosis. Episodes of BRITTNI in past with resulting cr 1.5-1.7 Hypernatremia with dehydration non anion gap metabolic acidosis ? due to GI loss or impaired kidney function or combination of two Mild Hyperkalemia microscopic hematuria with Bacteriuria and bladder wall thickening on sonogram Clostridium difficille infection, DM, Anemia Plan No acute need for renal replacement therapy at this time. will change D5+0.45% to 0.45% saline @ 150 mL/hr to keep hypotonic fluid and avoid hyperglycemia. pt was also encourage to drink water. also to d/c cholestyramine as it also can contribute significantly to acidosis. will increase bicarb supplements 1300 mg TID. Patient not on ACEI/ARB due to recent BRITTNI and low BP Monitor Input/Output, daily weights and renal function with basic metabolic panel will order urine studies and renal/bladder sonogram. if continue to hae bladder thickening, consider urology eval low K diet. Dose meds/antibiotics for reduced GFR. Avoid fleets enema/magnesium based laxatives. Avoid nephrotoxins/NSAIDs/ iodinated contrast (unless needed emergently) Glycemic control Further work up for as per primary team. discussed with team today Thanks for allowing me to participate in care of your patient. Will follow patient with you. Please call if any Qs Dr Aaron Reyes Office: [phone] Subjective: Noted events overnight. Patients feels okay. Denies chest pain, palpitation, shortness of breath, leg swelling. diarrhea is better. Physical Examination: General Appearance: Comfortable, in no acute respiratory distress, co- operative. appears frail and cachexic Vitals reviewed and noted as below Lungs: Normal respiratory rate/effort. Breath sounds bilateral equal and clear Heart: Normal rate. s1s2 normal. No rub or gallop. Extremities: no edema. Neurological: Patient is alert, awake and oriented to person, place and time. No focal deficit. Strength bilateral appropriate and equal Skin: Warm and dry. Normal turgor. No rash. Palpitation: Normal elasticity for age Abdomen: Abdomen is soft. Bowel sounds +. There is no abdominal tenderness, no guarding/rigidity or organomegaly : kidney or bladder not palpable Labs/imaging reviewed. Past medical history, past surgical history, family history, social history, allergy reviewed and noted as below Echo normal LVEF Urine cx: yeast C diff + Objective - Vital Signs/Intake and Output Vital Signs (last 24 hours): Temp Pulse Resp BP Pulse Ox 98.8 F 105 H 18 90/58 L 100 11/11/16 08:18 11/11/16 08:18 11/11/16 08:18 11/11/16 08:18 11/11/16 08:18 - Medications Medications: Current Medications Aspirin (Ecotrin) 81 mg PO DAILY [facility] Last Admin: 11/11/16 09:27 Dose: 81 mg Atorvastatin Calcium (Lipitor) 10 mg PO DAILY [facility] Last Admin: 11/11/16 09:28 Dose: 10 mg Dextrose (Dextrose 50% Inj) 0 ml IV STAT PRN; Protocol PRN Reason: Hyglycemia Protocol Dextrose (Glutose 15) 0 gm PO ONCE PRN; Protocol PRN Reason: Hypoglycemia Protocol Glucagon (Glucagen Diagnostic Kit) 0 mg IM STAT PRN; Protocol PRN Reason: Hypoglycemia Protocol Metronidazole (Flagyl 500mg/100ml Ns) 100 mls @ 100 mls/hr IVPB Q8 [facility] Last Admin: 11/11/16 09:27 Dose: 100 mls/hr Sodium Chloride (Sodium Chloride 0.45%) 1,000 mls @ 150 mls/hr IV .Q6H40M [facility] Stop: 11/15/16 12:21 Last Admin: 11/11/16 13:30 Dose: 150 mls/hr Fluconazole (Diflucan Iv 100 Mg/50 Ml Ns) 50 mls @ 50 mls/hr IVPB DAILY [facility] Insulin Detemir (Levemir) 20 units SC HS [facility] Last Admin: 11/10/16 21:53 Dose: 20 u Insulin Human Regular (Humulin R) 0 units SC ACHS [facility] PRN Reason: Protocol Last Admin: 11/11/16 13:29 Dose: 4 u Insulin Lispro Protam/Lispro Human (Humalog Mix 75/25) 10 units SC BID [facility] Last Admin: 11/11/16 09:28 Dose: 10 units Megestrol Acetate (Megace) 800 mg PO DAILY [facility] Last Admin: 11/11/16 09:28 Dose: 800 mg Ondansetron HCl (Zofran Inj) 4 mg IVP Q4 PRN PRN Reason: Nausea/Vomiting Pantoprazole Sodium (Protonix Ec Tab) 40 mg PO DAILY [facility] Last Admin: 11/11/16 09:28 Dose: 40 mg Sodium Bicarbonate (Sodium Bicarbonate Tab) 1,300 mg PO TID [facility] Last Admin: 11/11/16 13:29 Dose: 1,300 mg Vancomycin HCl (Vancocin (Oral/Rectal Use)) 250 mg PO Q6 [facility] Last Admin: 11/11/16 09:27 Dose: 250 mg - Labs Labs: 11/11/16 05:30 11/11/16 05:30 PT 11.8 SECONDS (9.6-11.2) H 11/05/16 20:38 INR 1.13 (0.92-1.08) H 11/05/16 20:38 APTT 26.4 SECONDS (23.3-32.5) 11/05/16 20:38
[2016-11-11] MEDS: Fluconazole IV 100mg/50 ml NS 50 ML IVPB SCH (16:44)
[2016-11-11 17:17] LABS: URINE BILIRUBIN NEGATIVE (NEGATIVE); URINE BLOOD SMALL (NEGATIVE); URINE COLOR AMBER (YELLOW); URINE GLUCOSE (UA) NEG (Normal); URINE KETONE NEGATIVE (NEGATIVE); URINE LEUKOCYTE ESTERASE LARGE Leu/uL (Negative); URINE PROTEIN 30 mg/dL (NEGATIVE); URINE UROBILINOGEN 0.2-1.0 mg/dL (0.2-1.0); WBC CLUMPS MANY /hpf; WBC URINE 4155 /hpf (0-5)
[2016-11-11] MEDS: Insulin Detemir 100 Units/ml Inj SC SCH (21:45)
[2016-11-12] MEDS: metroNIDAZOLE 500mg/100ml NS 100 ML IVPB SCH ×3 (00:05→16:47)
[2016-11-12] MEDS: Sodium Chloride 0.45% 1,000 ML IV SCH ×6 (00:12→21:50)
[2016-11-12] MEDS: Vancomycin 500 mg (Oral/Rectal USE) PO SCH ×4 (03:56→22:35)
[2016-11-12] MEDS: Insulin Regular 100 units/ml SC SCH ×4 (06:30→22:33)
[2016-11-12 07:04] LABS: HEMATOCRIT 31.4 % (35.0-51.0); MEAN CELL VOLUME 87.4 fl (80.0-94.0); MEAN CORPUSCULAR HEMOGLOBIN 28.1 pg (27.0-31.0); MEAN CORPUSCULAR HGB CONC 32.2 g/dL (33.0-37.0); RED CELL DISTRIBUTION WIDTH 15.4 % (11.5-14.5); WHITE BLOOD COUNT 5.7 K/uL (4.8-10.8)
[2016-11-12 07:07] LABS: CALCIUM 8.4 mg/dL (8.4-10.2)
[2016-11-12 08:31] LABS: MICROALBUMIN 7.8 mg/dL
[2016-11-12] MEDS: Fluconazole IV 100mg/50 ml NS 50 ML IVPB SCH (09:07)
[2016-11-12] MEDS: Pantoprazole 40 mg EC Tab PO SCH (09:10)
[2016-11-12] MEDS: Megestrol Acetate 40 mg/ml Cup PO SCH (09:12)
[2016-11-12] MEDS: Insulin Lispro Mix 75/25 100 units/ml (HumaLog) 10ml SC SCH ×2 (09:13→16:51)
[2016-11-12 09:23] LABS: CREATININE, RANDOM URINE 48 mg/dL (20-370)
--- NOTE | 2016-11-12 09:39 | CP.PCM.PN ---
Subjective - Date & Time of Evaluation Date of Evaluation: 11/11/16 Time of Evaluation: 18:00 - Subjective Subjective: Patient continues to have low BP and still with diarrhea Noted low C)2 12 On D5 1/2 at 150cc. Has no fever Has better appetite. Objective - Vital Signs/Intake and Output Vital Signs (last 24 hours): Temp Pulse Resp BP Pulse Ox 98.3 F 93 H 20 108/75 100 11/12/16 07:40 11/12/16 07:40 11/12/16 07:40 11/12/16 07:40 11/12/16 07:40 - Medications Medications: Current Medications Aspirin (Ecotrin) 81 mg PO DAILY [facility] Last Admin: 11/12/16 09:10 Dose: 81 mg Atorvastatin Calcium (Lipitor) 10 mg PO DAILY [facility] Last Admin: 11/12/16 09:10 Dose: 10 mg Dextrose (Dextrose 50% Inj) 0 ml IV STAT PRN; Protocol PRN Reason: Hyglycemia Protocol Dextrose (Glutose 15) 0 gm PO ONCE PRN; Protocol PRN Reason: Hypoglycemia Protocol Glucagon (Glucagen Diagnostic Kit) 0 mg IM STAT PRN; Protocol PRN Reason: Hypoglycemia Protocol Metronidazole (Flagyl 500mg/100ml Ns) 100 mls @ 100 mls/hr IVPB Q8 [facility] Last Admin: 11/12/16 09:06 Dose: 100 mls/hr Sodium Chloride (Sodium Chloride 0.45%) 1,000 mls @ 150 mls/hr IV .Q6H40M [facility] Stop: 11/15/16 12:21 Last Admin: 11/12/16 09:26 Dose: 150 mls/hr Fluconazole (Diflucan Iv 100 Mg/50 Ml Ns) 50 mls @ 50 mls/hr IVPB DAILY [facility] Last Admin: 11/12/16 09:07 Dose: 50 mls/hr Insulin Detemir (Levemir) 20 units SC HS [facility] Last Admin: 11/11/16 21:45 Dose: 20 u Insulin Human Regular (Humulin R) 0 units SC ACHS [facility] PRN Reason: Protocol Last Admin: 11/12/16 06:30 Dose: 6 u Insulin Lispro Protam/Lispro Human (Humalog Mix 75/25) 10 units SC BID [facility] Last Admin: 11/12/16 09:13 Dose: 10 units Megestrol Acetate (Megace) 800 mg PO DAILY [facility] Last Admin: 11/12/16 09:12 Dose: 800 mg Ondansetron HCl (Zofran Inj) 4 mg IVP Q4 PRN PRN Reason: Nausea/Vomiting Pantoprazole Sodium (Protonix Ec Tab) 40 mg PO DAILY [facility] Last Admin: 11/12/16 09:10 Dose: 40 mg Sodium Bicarbonate (Sodium Bicarbonate Tab) 1,300 mg PO QID [facility] Last Admin: 11/12/16 09:10 Dose: 1,300 mg Vancomycin HCl (Vancocin (Oral/Rectal Use)) 250 mg PO Q6 [facility] Last Admin: 11/12/16 09:19 Dose: 250 mg - Labs Labs: 11/12/16 06:00 11/12/16 06:00 PT 11.8 SECONDS (9.6-11.2) H 11/05/16 20:38 INR 1.13 (0.92-1.08) H 11/05/16 20:38 APTT 26.4 SECONDS (23.3-32.5) 11/05/16 20:38 - Head Exam Head Exam: NORMAL INSPECTION - Eye Exam Eye Exam: Normal appearance - ENT Exam ENT Exam: Mucous Membranes Moist - Respiratory Exam Respiratory Exam: NORMAL BREATHING PATTERN - Cardiovascular Exam Cardiovascular Exam: REGULAR RHYTHM - GI/Abdominal Exam GI & Abdominal Exam: Normal Bowel Sounds - Psychiatric Exam Psychiatric exam: Normal Mood Assessment and Plan (1) Diabetes mellitus type 2 in nonobese Status: Acute (2) DKA (diabetic ketoacidoses) Status: Acute (3) Dehydration Status: Acute (4) BRITTNI (acute kidney injury) Status: Chronic (5) Clostridium difficile infection Status: Acute (6) Metabolic acidosis Status: Acute - Assessment and Plan (Free Text) Plan: Cont hydration will try Xifaxan if no response to current antibiotics cont hydration
--- NOTE | 2016-11-12 11:46 | US ---
PROCEDURE: Bladder ultrasound HISTORY: bladder wall thickening on previous imaging. COMPARISON: 10/01/2016. TECHNIQUE: Standard protocol for this study/examination. FINDINGS: Urinary bladder assessment: Prevoid volume: 595.1 ml Postvoid residual: He 9.80 ml Intrinsic, mural, perivesical abnormalities: Diffuse bladder wall thickening similar to that seen previously. Debris fluid level within the urinary bladder similar to that seen previously. No focal bladder masses. Ureteral jets: Not assessed. IMPRESSION: Fluid debris level within the urinary bladder, findings identified previously. Bladder wall thickening remains likely cystitis.
--- NOTE | 2016-11-12 11:58 | CP.PCM.PN ---
Subjective - Date & Time of Evaluation Date of Evaluation: 11/12/16 Time of Evaluation: 11:53 - Subjective Subjective: Follow up Nephrology Consultation Note Assessment: Acute Kidney Injury likely due to pre-renal state and eventually leading to acute tubular necrosis. Episodes of BRITTNI in past with resulting cr 1.5-1.7 Hypernatremia with dehydration non anion gap metabolic acidosis ? due to GI loss or impaired kidney function or combination of two Mild Hyperkalemia microscopic hematuria with Bacteriuria and bladder wall thickening on sonogram Clostridium difficille infection, DM, Anemia Plan No acute need for renal replacement therapy at this time. continue with 0.45% saline @ 150 mL/hr. pt was also encourage to drink water. d/ c cholestyramine as it also can contribute significantly to acidosis. will increase bicarb supplements 1300 mg QID. repeat Urine Na, K and chloride to check UAG Patient not on ACEI/ARB due to recent BRITTNI and low BP Monitor Input/Output, daily weights and renal function with basic metabolic panel follow up renal/bladder sonogram. with hx of bladder thickening and persistent pyuria, consider urology eval low K diet. Dose meds/antibiotics for reduced GFR. Avoid fleets enema/magnesium based laxatives. Avoid nephrotoxins/NSAIDs/ iodinated contrast (unless needed emergently) Glycemic control Further work up for as per primary team. discussed with team today Thanks for allowing me to participate in care of your patient. Will follow patient with you. Please call if any Qs Dr Aaron Reyes Office: [phone] Subjective: Noted events overnight. Patients feels okay. Denies chest pain, palpitation, shortness of breath, leg swelling. diarrhea is better but remains there. Physical Examination: General Appearance: Comfortable, in no acute respiratory distress, co- operative. appears frail and cachexic Vitals reviewed and noted as below Lungs: Normal respiratory rate/effort. Breath sounds bilateral equal and clear Heart: Normal rate. s1s2 normal. No rub or gallop. Extremities: no edema. Neurological: Patient is alert, awake and oriented to person, place and time. No focal deficit. Strength bilateral appropriate and equal Skin: Warm and dry. Normal turgor. No rash. Palpitation: Normal elasticity for age Abdomen: Abdomen is soft. Bowel sounds +. There is no abdominal tenderness, no guarding/rigidity or organomegaly : kidney or bladder not palpable Labs/imaging reviewed. Past medical history, past surgical history, family history, social history, allergy reviewed and noted as below Echo normal LVEF Urine cx: yeast C diff + urine chloride 84 but rest of electrolytes are at different times urine pr/cr: 390 mg/day Objective - Vital Signs/Intake and Output Vital Signs (last 24 hours): Temp Pulse Resp BP Pulse Ox 98.3 F 93 H 20 108/75 100 11/12/16 07:40 11/12/16 07:40 11/12/16 07:40 11/12/16 07:40 11/12/16 07:40 - Medications Medications: Current Medications Aspirin (Ecotrin) 81 mg PO DAILY [facility] Last Admin: 11/12/16 09:10 Dose: 81 mg Atorvastatin Calcium (Lipitor) 10 mg PO DAILY [facility] Last Admin: 11/12/16 09:10 Dose: 10 mg Dextrose (Dextrose 50% Inj) 0 ml IV STAT PRN; Protocol PRN Reason: Hyglycemia Protocol Dextrose (Glutose 15) 0 gm PO ONCE PRN; Protocol PRN Reason: Hypoglycemia Protocol Glucagon (Glucagen Diagnostic Kit) 0 mg IM STAT PRN; Protocol PRN Reason: Hypoglycemia Protocol Metronidazole (Flagyl 500mg/100ml Ns) 100 mls @ 100 mls/hr IVPB Q8 [facility] Last Admin: 11/12/16 09:06 Dose: 100 mls/hr Sodium Chloride (Sodium Chloride 0.45%) 1,000 mls @ 150 mls/hr IV .Q6H40M [facility] Stop: 11/15/16 12:21 Last Admin: 11/12/16 09:26 Dose: 150 mls/hr Fluconazole (Diflucan Iv 100 Mg/50 Ml Ns) 50 mls @ 50 mls/hr IVPB DAILY [facility] Last Admin: 11/12/16 09:07 Dose: 50 mls/hr Insulin Detemir (Levemir) 20 units SC HS [facility] Last Admin: 11/11/16 21:45 Dose: 20 u Insulin Human Regular (Humulin R) 0 units SC ACHS [facility] PRN Reason: Protocol Last Admin: 11/12/16 06:30 Dose: 6 u Insulin Lispro Protam/Lispro Human (Humalog Mix 75/25) 10 units SC BID [facility] Last Admin: 11/12/16 09:13 Dose: 10 units Megestrol Acetate (Megace) 800 mg PO DAILY [facility] Last Admin: 11/12/16 09:12 Dose: 800 mg Ondansetron HCl (Zofran Inj) 4 mg IVP Q4 PRN PRN Reason: Nausea/Vomiting Pantoprazole Sodium (Protonix Ec Tab) 40 mg PO DAILY [facility] Last Admin: 11/12/16 09:10 Dose: 40 mg Rifaximin (Xifaxan) 550 mg PO BID [facility] Last Admin: 11/12/16 10:31 Dose: 550 mg Sodium Bicarbonate (Sodium Bicarbonate Tab) 1,300 mg PO QID [facility] Last Admin: 11/12/16 09:10 Dose: 1,300 mg Vancomycin HCl (Vancocin (Oral/Rectal Use)) 250 mg PO Q6 [facility] Last Admin: 11/12/16 09:19 Dose: 250 mg - Labs Labs: 11/12/16 06:00 11/12/16 06:00 PT 11.8 SECONDS (9.6-11.2) H 11/05/16 20:38 INR 1.13 (0.92-1.08) H 11/05/16 20:38 APTT 26.4 SECONDS (23.3-32.5) 11/05/16 20:38
--- NOTE | 2016-11-12 12:27 | US ---
PROCEDURE: Ultrasound of the Kidneys HISTORY: Acute kidney injury COMPARISON: 10/01/2016.. TECHNIQUE: Sonogram of the kidneys. FINDINGS: RIGHT KIDNEY: Measures: 4.0 x 11.8 cm. Normal in size, contour and echogenicity. Mild fullness right kidney may be physiological. LEFT KIDNEY: Measures: 10.2 x 5.3 cm. Normal in size, contour and echogenicity. Persistent fullness in the left collecting system. OTHER FINDINGS: None. IMPRESSION: Mild distention of the collecting systems bilaterally left greater than right.
--- NOTE | 2016-11-12 13:16 | CP.PCM.PN ---
<Cassie Jones - Last Filed: 11/12/16 13:14> Subjective - Date & Time of Evaluation Date of Evaluation: 11/12/16 Time of Evaluation: 13:14 - Subjective Subjective: evaluated with attending. no overnight events. BM very loose x3, pudding like, occurs only after eating. Feeling stronger. Denies f/c, n/v, chest pain, SOB, abd pain. Tolerating PO. Objective - Vital Signs/Intake and Output Vital Signs (last 24 hours): Temp Pulse Resp BP Pulse Ox 98.3 F 93 H 20 108/75 100 11/12/16 07:40 11/12/16 07:40 11/12/16 07:40 11/12/16 07:40 11/12/16 07:40 - Medications Medications: Current Medications Aspirin (Ecotrin) 81 mg PO DAILY [facility] Last Admin: 11/12/16 09:10 Dose: 81 mg Atorvastatin Calcium (Lipitor) 10 mg PO DAILY [facility] Last Admin: 11/12/16 09:10 Dose: 10 mg Dextrose (Dextrose 50% Inj) 0 ml IV STAT PRN; Protocol PRN Reason: Hyglycemia Protocol Dextrose (Glutose 15) 0 gm PO ONCE PRN; Protocol PRN Reason: Hypoglycemia Protocol Glucagon (Glucagen Diagnostic Kit) 0 mg IM STAT PRN; Protocol PRN Reason: Hypoglycemia Protocol Metronidazole (Flagyl 500mg/100ml Ns) 100 mls @ 100 mls/hr IVPB Q8 [facility] Last Admin: 11/12/16 09:06 Dose: 100 mls/hr Sodium Chloride (Sodium Chloride 0.45%) 1,000 mls @ 150 mls/hr IV .Q6H40M [facility] Stop: 11/15/16 12:21 Last Admin: 11/12/16 09:26 Dose: 150 mls/hr Fluconazole (Diflucan Iv 100 Mg/50 Ml Ns) 50 mls @ 50 mls/hr IVPB DAILY [facility] Last Admin: 11/12/16 09:07 Dose: 50 mls/hr Insulin Detemir (Levemir) 20 units SC HS [facility] Last Admin: 11/11/16 21:45 Dose: 20 u Insulin Human Regular (Humulin R) 0 units SC ACHS [facility] PRN Reason: Protocol Last Admin: 11/12/16 11:59 Dose: 4 u Insulin Lispro Protam/Lispro Human (Humalog Mix 75/25) 10 units SC BID [facility] Last Admin: 11/12/16 09:13 Dose: 10 units Megestrol Acetate (Megace) 800 mg PO DAILY [facility] Last Admin: 11/12/16 09:12 Dose: 800 mg Ondansetron HCl (Zofran Inj) 4 mg IVP Q4 PRN PRN Reason: Nausea/Vomiting Pantoprazole Sodium (Protonix Ec Tab) 40 mg PO DAILY [facility] Last Admin: 11/12/16 09:10 Dose: 40 mg Rifaximin (Xifaxan) 550 mg PO BID [facility] Last Admin: 11/12/16 10:31 Dose: 550 mg Sodium Bicarbonate (Sodium Bicarbonate Tab) 1,300 mg PO QID [facility] Last Admin: 11/12/16 12:02 Dose: 1,300 mg Vancomycin HCl (Vancocin (Oral/Rectal Use)) 250 mg PO Q6 [facility] Last Admin: 11/12/16 09:19 Dose: 250 mg - Labs Labs: 11/12/16 06:00 11/12/16 06:00 PT 11.8 SECONDS (9.6-11.2) H 11/05/16 20:38 INR 1.13 (0.92-1.08) H 11/05/16 20:38 APTT 26.4 SECONDS (23.3-32.5) 11/05/16 20:38 - Constitutional Appears: Non-toxic, No Acute Distress - Head Exam Head Exam: NORMAL INSPECTION - Eye Exam Eye Exam: Normal appearance - ENT Exam ENT Exam: Mucous Membranes Moist - Neck Exam Neck Exam: Normal Inspection - Respiratory Exam Respiratory Exam: Clear to Ausculation Bilateral - Cardiovascular Exam Cardiovascular Exam: REGULAR RHYTHM - GI/Abdominal Exam GI & Abdominal Exam: Soft - Extremities Exam Extremities Exam: Normal Inspection - Back Exam Back Exam: NORMAL INSPECTION - Neurological Exam Neurological Exam: Alert, Oriented x3 - Skin Skin Exam: Dry, Warm Assessment and Plan (1) Clostridium difficile infection Assessment & Plan: -ID on board, appreciate input -monitor response to abx. considering rifaxamin -contact precautions Status: Acute (2) Diabetes mellitus type 2 in nonobese Assessment & Plan: c/w meds -accucheck -SSI Status: Chronic (3) Metabolic acidosis Assessment & Plan: -2/2 diarrhea and BRITTNI -Nephro on board, appreciate input Status: Acute (4) BRITTNI (acute kidney injury) Assessment & Plan: -Nephro on board, appreciate input -MIVF 1/2 NS, 150cc/hr Status: Acute (5) Hypertension Assessment & Plan: -hold meds for hypotension Status: Chronic (6) Cystitis Assessment & Plan: -per US bladder -US renal: mild distension collecting system -urine cx 50-100K CFU -ID on board, appreciate input Status: Acute (8) DVT prophylaxis Assessment & Plan: -lovenox Status: Acute <Justin Melgar L - Last Filed: 11/17/16 09:46> Objective - Vital Signs/Intake and Output Vital Signs (last 24 hours): Temp Pulse Resp BP Pulse Ox 97.5 F L 100 H 18 129/95 H 100 11/17/16 08:08 11/17/16 08:08 11/17/16 08:08 11/17/16 08:08 11/17/16 08:08 - Medications Medications: Current Medications Aspirin (Ecotrin) 81 mg PO DAILY [facility] Last Admin: 11/17/16 09:35 Dose: 81 mg Atorvastatin Calcium (Lipitor) 10 mg PO DAILY [facility] Last Admin: 11/17/16 09:37 Dose: 10 mg Dextrose (Dextrose 50% Inj) 0 ml IV STAT PRN; Protocol PRN Reason: Hyglycemia Protocol Dextrose (Glutose 15) 0 gm PO ONCE PRN; Protocol PRN Reason: Hypoglycemia Protocol Dextrose (Dextrose 50% Inj) 0 ml IV STAT PRN; Protocol PRN Reason: Hyglycemia Protocol Dextrose (Glutose 15) 0 gm PO ONCE PRN; Protocol PRN Reason: Hypoglycemia Protocol Glucagon (Glucagen Diagnostic Kit) 0 mg IM STAT PRN; Protocol PRN Reason: Hypoglycemia Protocol Glucagon (Glucagen Diagnostic Kit) 0 mg IM STAT PRN; Protocol PRN Reason: Hypoglycemia Protocol Metronidazole (Flagyl 500mg/100ml Ns) 100 mls @ 100 mls/hr IVPB Q8 [facility] Last Admin: 11/17/16 09:35 Dose: 100 mls/hr Fluconazole (Diflucan Iv 100 Mg/50 Ml Ns) 50 mls @ 50 mls/hr IVPB DAILY [facility] Last Admin: 11/17/16 09:34 Dose: 50 mls/hr Dextrose/Sodium Chloride (Dextrose 5%/0.45% Ns 1000 Ml) 1,000 mls @ 150 mls/hr IV .Q6H40M [facility] Stop: 11/18/16 06:38 Last Admin: 11/17/16 07:04 Dose: 150 mls/hr Insulin Detemir (Levemir) 20 units SC [facility] Last Admin: 11/16/16 21:43 Dose: 20 u Insulin Human Regular (Humulin R) 0 units SC ACHS [facility] PRN Reason: Protocol Insulin Lispro Protam/Lispro Human (Humalog Mix 75/25) 15 units SC BID [facility] Last Admin: 11/17/16 09:36 Dose: 15 units Lactobacillus Acidophilus (Bacid Acidophilus) 1 cap PO BID [facility] Last Admin: 11/17/16 09:34 Dose: 1 cap Megestrol Acetate (Megace) 800 mg PO DAILY [facility] Last Admin: 11/17/16 09:37 Dose: 800 mg Ondansetron HCl (Zofran Inj) 4 mg IVP Q4 PRN PRN Reason: Nausea/Vomiting Pantoprazole Sodium (Protonix Ec Tab) 40 mg PO DAILY [facility] Last Admin: 11/17/16 09:37 Dose: 40 mg Rifaximin (Xifaxan) 550 mg PO BID [facility] Last Admin: 11/17/16 09:41 Dose: 550 mg Sodium Bicarbonate (Sodium Bicarbonate Tab) 1,300 mg PO QID [facility] Last Admin: 11/17/16 09:00 Dose: 1,300 mg Vancomycin HCl (Vancocin (Oral/Rectal Use)) 250 mg PO Q6 [facility] Last Admin: 11/17/16 09:40 Dose: 250 mg - Labs Labs: 11/15/16 06:00 11/17/16 05:45 PT 11.8 SECONDS (9.6-11.2) H 11/05/16 20:38 INR 1.13 (0.92-1.08) H 11/05/16 20:38 APTT 26.4 SECONDS (23.3-32.5) 11/05/16 20:38 Assessment and Plan (1) Diabetes mellitus type 2 in nonobese Status: Chronic (2) DKA (diabetic ketoacidoses) Status: Acute (3) Dehydration Status: Acute (4) BRITTNI (acute kidney injury) Status: Acute (5) Clostridium difficile infection Status: Acute (6) Metabolic acidosis Status: Acute - Assessment and Plan (Free Text) Plan: I was present during evaluation and discussed with Dr Gunnar hughes plans of care , hydration and consultations. Will keep hydrated, monitor lytes cont antibiotics. Justin Melgar M.D.
--- NOTE | 2016-11-12 15:35 | CP.PCM.PN ---
Subjective - Date & Time of Evaluation Date of Evaluation: 11/12/16 Time of Evaluation: 08:00 - Subjective Subjective: still weak with lbm seen by renal rx in progress Objective - Vital Signs/Intake and Output Vital Signs (last 24 hours): Temp Pulse Resp BP Pulse Ox 98.3 F 93 H 20 108/75 100 11/12/16 07:40 11/12/16 15:08 11/12/16 07:40 11/12/16 15:08 11/12/16 15:08 - Medications Medications: Current Medications Aspirin (Ecotrin) 81 mg PO DAILY [facility] Last Admin: 11/12/16 09:10 Dose: 81 mg Atorvastatin Calcium (Lipitor) 10 mg PO DAILY [facility] Last Admin: 11/12/16 09:10 Dose: 10 mg Dextrose (Dextrose 50% Inj) 0 ml IV STAT PRN; Protocol PRN Reason: Hyglycemia Protocol Dextrose (Glutose 15) 0 gm PO ONCE PRN; Protocol PRN Reason: Hypoglycemia Protocol Glucagon (Glucagen Diagnostic Kit) 0 mg IM STAT PRN; Protocol PRN Reason: Hypoglycemia Protocol Metronidazole (Flagyl 500mg/100ml Ns) 100 mls @ 100 mls/hr IVPB Q8 [facility] Last Admin: 11/12/16 09:06 Dose: 100 mls/hr Sodium Chloride (Sodium Chloride 0.45%) 1,000 mls @ 150 mls/hr IV .Q6H40M [facility] Stop: 11/15/16 12:21 Last Admin: 11/12/16 09:26 Dose: 150 mls/hr Fluconazole (Diflucan Iv 100 Mg/50 Ml Ns) 50 mls @ 50 mls/hr IVPB DAILY [facility] Last Admin: 11/12/16 09:07 Dose: 50 mls/hr Insulin Detemir (Levemir) 20 units SC HS [facility] Last Admin: 11/11/16 21:45 Dose: 20 u Insulin Human Regular (Humulin R) 0 units SC ACHS [facility] PRN Reason: Protocol Last Admin: 11/12/16 11:59 Dose: 4 u Insulin Lispro Protam/Lispro Human (Humalog Mix 75/25) 10 units SC BID [facility] Last Admin: 11/12/16 09:13 Dose: 10 units Megestrol Acetate (Megace) 800 mg PO DAILY [facility] Last Admin: 11/12/16 09:12 Dose: 800 mg Ondansetron HCl (Zofran Inj) 4 mg IVP Q4 PRN PRN Reason: Nausea/Vomiting Pantoprazole Sodium (Protonix Ec Tab) 40 mg PO DAILY [facility] Last Admin: 11/12/16 09:10 Dose: 40 mg Rifaximin (Xifaxan) 550 mg PO BID [facility] Last Admin: 11/12/16 10:31 Dose: 550 mg Sodium Bicarbonate (Sodium Bicarbonate Tab) 1,300 mg PO QID [facility] Last Admin: 11/12/16 12:02 Dose: 1,300 mg Vancomycin HCl (Vancocin (Oral/Rectal Use)) 250 mg PO Q6 [facility] Last Admin: 11/12/16 09:19 Dose: 250 mg - Labs Labs: 11/12/16 06:00 11/12/16 06:00 PT 11.8 SECONDS (9.6-11.2) H 11/05/16 20:38 INR 1.13 (0.92-1.08) H 11/05/16 20:38 APTT 26.4 SECONDS (23.3-32.5) 11/05/16 20:38 - Constitutional Appears: Non-toxic, Cachectic, Chronically Ill - Head Exam Head Exam: NORMOCEPHALIC - Eye Exam Eye Exam: PERRL. absent: Scleral icterus - ENT Exam ENT Exam: Mucous Membranes Dry, Normal External Ear Exam - Neck Exam Neck Exam: absent: Lymphadenopathy, Thyromegaly - Respiratory Exam Respiratory Exam: Decreased Breath Sounds, Clear to Ausculation Bilateral - Cardiovascular Exam Cardiovascular Exam: REGULAR RHYTHM, +S1, +S2 - GI/Abdominal Exam GI & Abdominal Exam: Distended, Soft. absent: Tenderness - Rectal Exam Rectal Exam: Deferred - Exam Exam: NORMAL INSPECTION - Extremities Exam Extremities Exam: absent: Calf Tenderness, Pedal Edema - Back Exam Back Exam: NORMAL INSPECTION. absent: CVA tenderness (L), CVA tenderness (R) - Neurological Exam Neurological Exam: Alert, Awake, Oriented x3 - Psychiatric Exam Psychiatric exam: Depressed, Flat Affect - Skin Skin Exam: Dry, Intact Assessment and Plan (1) DKA (diabetic ketoacidoses) Status: Acute (2) Dehydration Status: Acute (3) Sepsis Status: Acute (4) BRITTNI (acute kidney injury) Status: Acute (5) Clostridium difficile infection Status: Acute (6) DVT prophylaxis Status: Acute (7) Diarrhea Status: Acute (8) History of hypercholesterolemia Status: Acute
[2016-11-12] MEDS: Insulin Detemir 100 Units/ml Inj SC SCH (22:34)
[2016-11-13] MEDS: metroNIDAZOLE 500mg/100ml NS 100 ML IVPB SCH ×3 (00:16→17:22)
[2016-11-13] MEDS: Vancomycin 500 mg (Oral/Rectal USE) PO SCH ×4 (04:57→22:23)
[2016-11-13] MEDS: Sodium Chloride 0.45% 1,000 ML IV SCH (04:57)
[2016-11-13] MEDS: Insulin Regular 100 units/ml SC SCH ×4 (06:34→22:26)
[2016-11-13 06:53] LABS: HEMATOCRIT 34.2 % (35.0-51.0); MEAN CELL VOLUME 87.1 fl (80.0-94.0); MEAN CORPUSCULAR HEMOGLOBIN 28.5 pg (27.0-31.0); MEAN CORPUSCULAR HGB CONC 32.7 g/dL (33.0-37.0); RED CELL DISTRIBUTION WIDTH 15.8 % (11.5-14.5); WHITE BLOOD COUNT 7.3 K/uL (4.8-10.8)
[2016-11-13 07:10] LABS: ALB/GLOB RATIO 0.7 (1.0-2.1); BILIRUBIN,TOTAL 0.2 mg/dl (0.2-1.3); CALCIUM 8.9 mg/dL (8.4-10.2); MAGNESIUM 1.8 MG/DL (1.6-2.3); PHOSPHOROUS 3.3 mg/dl (2.5-4.5); POTASSIUM 5.4 MMOL/L (3.6-5.0); TOTAL PROTEIN 7.2 G/DL (6.3-8.2)
[2016-11-13] MEDS: Fluconazole IV 100mg/50 ml NS 50 ML IVPB SCH (09:02)
[2016-11-13] MEDS: Megestrol Acetate 40 mg/ml Cup PO SCH (09:03)
[2016-11-13] MEDS: Pantoprazole 40 mg EC Tab PO SCH (09:04)
[2016-11-13] MEDS: Insulin Lispro Mix 75/25 100 units/ml (HumaLog) 10ml SC SCH ×2 (09:37→17:23)
--- NOTE | 2016-11-13 11:29 | CP.PCM.PN ---
<Cassie Jones - Last Filed: 11/13/16 11:53> Subjective - Date & Time of Evaluation Date of Evaluation: 11/13/16 Time of Evaluation: 11:27 - Subjective Subjective: evaluated with attending. no overnight events. BM very loose x3, pudding like, occurs only after eating. Denies f/c, n/v, chest pain, SOB, abd pain. Tolerating PO. Objective - Vital Signs/Intake and Output Vital Signs (last 24 hours): Temp Pulse Resp BP Pulse Ox 97.8 F 91 H 20 115/79 100 11/13/16 08:54 11/13/16 00:54 11/13/16 08:54 11/13/16 08:54 11/13/16 08:54 - Medications Medications: Current Medications Aspirin (Ecotrin) 81 mg PO DAILY [facility] Last Admin: 11/13/16 09:04 Dose: 81 mg Atorvastatin Calcium (Lipitor) 10 mg PO DAILY [facility] Last Admin: 11/13/16 09:05 Dose: 10 mg Dextrose (Dextrose 50% Inj) 0 ml IV STAT PRN; Protocol PRN Reason: Hyglycemia Protocol Dextrose (Glutose 15) 0 gm PO ONCE PRN; Protocol PRN Reason: Hypoglycemia Protocol Glucagon (Glucagen Diagnostic Kit) 0 mg IM STAT PRN; Protocol PRN Reason: Hypoglycemia Protocol Metronidazole (Flagyl 500mg/100ml Ns) 100 mls @ 100 mls/hr IVPB Q8 [facility] Last Admin: 11/13/16 09:05 Dose: 100 mls/hr Sodium Chloride (Sodium Chloride 0.45%) 1,000 mls @ 150 mls/hr IV .Q6H40M [facility] Stop: 11/15/16 12:21 Last Admin: 11/13/16 04:57 Dose: 150 mls/hr Fluconazole (Diflucan Iv 100 Mg/50 Ml Ns) 50 mls @ 50 mls/hr IVPB DAILY [facility] Last Admin: 11/13/16 09:02 Dose: 50 mls/hr Insulin Detemir (Levemir) 20 units SC [facility] Last Admin: 11/12/16 22:34 Dose: 20 u Insulin Human Regular (Humulin R) 0 units SC ACHS [facility] PRN Reason: Protocol Last Admin: 11/13/16 06:34 Dose: 4 u Insulin Lispro Protam/Lispro Human (Humalog Mix 75/25) 10 units SC BID [facility] Last Admin: 11/13/16 09:37 Dose: 10 units Megestrol Acetate (Megace) 800 mg PO DAILY [facility] Last Admin: 11/13/16 09:03 Dose: 800 mg Ondansetron HCl (Zofran Inj) 4 mg IVP Q4 PRN PRN Reason: Nausea/Vomiting Pantoprazole Sodium (Protonix Ec Tab) 40 mg PO DAILY [facility] Last Admin: 11/13/16 09:04 Dose: 40 mg Rifaximin (Xifaxan) 550 mg PO BID [facility] Last Admin: 11/13/16 09:04 Dose: 550 mg Sodium Bicarbonate (Sodium Bicarbonate Tab) 1,300 mg PO QID [facility] Last Admin: 11/13/16 09:04 Dose: 1,300 mg Vancomycin HCl (Vancocin (Oral/Rectal Use)) 250 mg PO Q6 [facility] Last Admin: 11/13/16 09:06 Dose: 250 mg - Labs Labs: 11/13/16 05:40 11/13/16 05:40 PT 11.8 SECONDS (9.6-11.2) H 11/05/16 20:38 INR 1.13 (0.92-1.08) H 11/05/16 20:38 APTT 26.4 SECONDS (23.3-32.5) 11/05/16 20:38 - Constitutional Appears: Non-toxic, No Acute Distress - Head Exam Head Exam: NORMAL INSPECTION - Eye Exam Eye Exam: Normal appearance - ENT Exam ENT Exam: Mucous Membranes Moist - Neck Exam Neck Exam: Normal Inspection - Respiratory Exam Respiratory Exam: Clear to Ausculation Bilateral - Cardiovascular Exam Cardiovascular Exam: REGULAR RHYTHM - GI/Abdominal Exam GI & Abdominal Exam: Soft - Extremities Exam Extremities Exam: Normal Inspection. absent: Pedal Edema - Back Exam Back Exam: NORMAL INSPECTION - Neurological Exam Neurological Exam: Alert, Oriented x3 - Skin Skin Exam: Dry, Warm Assessment and Plan (1) Clostridium difficile infection Assessment & Plan: -ID on board, appreciate input -GI on board, appreciate input -monitor response to abx. added rifaxamin -contact precautions Status: Acute (2) Diabetes mellitus type 2 in nonobese Assessment & Plan: -c/w meds -accucheck -SSI Status: Chronic (3) Metabolic acidosis Assessment & Plan: -2/2 diarrhea and BRITTNI -Nephro on board, appreciate input Status: Acute (4) BRITTNI (acute kidney injury) Assessment & Plan: -Nephro on board, appreciate input -MIVF 1/2 NS, 150cc/hr Status: Acute (5) Hypertension Assessment & Plan: -hold meds for hypotension Status: Chronic (6) Cystitis Assessment & Plan: -per US bladder -US renal: mild distension collecting system -urine cx 50-100K CFU -ID on board, appreciate input - c/s, appreciate input Status: Acute (7) Hyperkalemia Assessment & Plan: -scheduled insulin d/t DM -low K diet -Renal on board, appreciate input -monitor K -K AM labs Status: Acute (8) DVT prophylaxis Assessment & Plan: -lovenox Status: Acute <Justin Melgar - Last Filed: 11/17/16 09:48> Objective - Vital Signs/Intake and Output Vital Signs (last 24 hours): Temp Pulse Resp BP Pulse Ox 97.5 F L 100 H 18 129/95 H 100 11/17/16 08:08 11/17/16 08:08 11/17/16 08:08 11/17/16 08:08 11/17/16 08:08 - Medications Medications: Current Medications Aspirin (Ecotrin) 81 mg PO DAILY [facility] Last Admin: 11/17/16 09:35 Dose: 81 mg Atorvastatin Calcium (Lipitor) 10 mg PO DAILY [facility] Last Admin: 11/17/16 09:37 Dose: 10 mg Dextrose (Dextrose 50% Inj) 0 ml IV STAT PRN; Protocol PRN Reason: Hyglycemia Protocol Dextrose (Glutose 15) 0 gm PO ONCE PRN; Protocol PRN Reason: Hypoglycemia Protocol Dextrose (Dextrose 50% Inj) 0 ml IV STAT PRN; Protocol PRN Reason: Hyglycemia Protocol Dextrose (Glutose 15) 0 gm PO ONCE PRN; Protocol PRN Reason: Hypoglycemia Protocol Glucagon (Glucagen Diagnostic Kit) 0 mg IM STAT PRN; Protocol PRN Reason: Hypoglycemia Protocol Glucagon (Glucagen Diagnostic Kit) 0 mg IM STAT PRN; Protocol PRN Reason: Hypoglycemia Protocol Metronidazole (Flagyl 500mg/100ml Ns) 100 mls @ 100 mls/hr IVPB Q8 [facility] Last Admin: 11/17/16 09:35 Dose: 100 mls/hr Fluconazole (Diflucan Iv 100 Mg/50 Ml Ns) 50 mls @ 50 mls/hr IVPB DAILY [facility] Last Admin: 11/17/16 09:34 Dose: 50 mls/hr Dextrose/Sodium Chloride (Dextrose 5%/0.45% Ns 1000 Ml) 1,000 mls @ 150 mls/hr IV .Q6H40M [facility] Stop: 11/18/16 06:38 Last Admin: 11/17/16 07:04 Dose: 150 mls/hr Insulin Detemir (Levemir) 20 units SC HS [facility] Last Admin: 11/16/16 21:43 Dose: 20 u Insulin Human Regular (Humulin R) 0 units SC ACHS [facility] PRN Reason: Protocol Insulin Lispro Protam/Lispro Human (Humalog Mix 75/25) 15 units SC BID [facility] Last Admin: 11/17/16 09:36 Dose: 15 units Lactobacillus Acidophilus (Bacid Acidophilus) 1 cap PO BID [facility] Last Admin: 11/17/16 09:34 Dose: 1 cap Megestrol Acetate (Megace) 800 mg PO DAILY [facility] Last Admin: 11/17/16 09:37 Dose: 800 mg Ondansetron HCl (Zofran Inj) 4 mg IVP Q4 PRN PRN Reason: Nausea/Vomiting Pantoprazole Sodium (Protonix Ec Tab) 40 mg PO DAILY [facility] Last Admin: 11/17/16 09:37 Dose: 40 mg Rifaximin (Xifaxan) 550 mg PO BID [facility] Last Admin: 11/17/16 09:41 Dose: 550 mg Sodium Bicarbonate (Sodium Bicarbonate Tab) 1,300 mg PO QID [facility] Last Admin: 11/17/16 09:00 Dose: 1,300 mg Vancomycin HCl (Vancocin (Oral/Rectal Use)) 250 mg PO Q6 [facility] Last Admin: 11/17/16 09:40 Dose: 250 mg - Labs Labs: 11/15/16 06:00 11/17/16 05:45 PT 11.8 SECONDS (9.6-11.2) H 11/05/16 20:38 INR 1.13 (0.92-1.08) H 11/05/16 20:38 APTT 26.4 SECONDS (23.3-32.5) 11/05/16 20:38 Assessment and Plan (1) Diabetes mellitus type 2 in nonobese Status: Chronic (2) DKA (diabetic ketoacidoses) Status: Acute (3) Dehydration Status: Acute (4) BRITTNI (acute kidney injury) Status: Acute (5) Clostridium difficile infection Status: Acute (6) Metabolic acidosis Status: Acute - Assessment and Plan (Free Text) Plan: I was present during evaluation and personally examined patient. Discussed with Dr Cassie hughes plans of care and management. Justin Melgar M.D.
--- NOTE | 2016-11-13 12:26 | CP.PCM.PN ---
Subjective - Date & Time of Evaluation Date of Evaluation: 11/13/16 Time of Evaluation: 12:00 - Subjective Subjective: Appears comfortable Objective - Vital Signs/Intake and Output Vital Signs (last 24 hours): Temp Pulse Resp BP Pulse Ox 97.8 F 91 H 20 115/79 100 11/13/16 08:54 11/13/16 00:54 11/13/16 08:54 11/13/16 08:54 11/13/16 08:54 - Medications Medications: Current Medications Aspirin (Ecotrin) 81 mg PO DAILY [facility] Last Admin: 11/13/16 09:04 Dose: 81 mg Atorvastatin Calcium (Lipitor) 10 mg PO DAILY [facility] Last Admin: 11/13/16 09:05 Dose: 10 mg Dextrose (Dextrose 50% Inj) 0 ml IV STAT PRN; Protocol PRN Reason: Hyglycemia Protocol Dextrose (Glutose 15) 0 gm PO ONCE PRN; Protocol PRN Reason: Hypoglycemia Protocol Glucagon (Glucagen Diagnostic Kit) 0 mg IM STAT PRN; Protocol PRN Reason: Hypoglycemia Protocol Metronidazole (Flagyl 500mg/100ml Ns) 100 mls @ 100 mls/hr IVPB Q8 [facility] Last Admin: 11/13/16 09:05 Dose: 100 mls/hr Sodium Chloride (Sodium Chloride 0.45%) 1,000 mls @ 150 mls/hr IV .Q6H40M [facility] Stop: 11/15/16 12:21 Last Admin: 11/13/16 04:57 Dose: 150 mls/hr Fluconazole (Diflucan Iv 100 Mg/50 Ml Ns) 50 mls @ 50 mls/hr IVPB DAILY [facility] Last Admin: 11/13/16 09:02 Dose: 50 mls/hr Insulin Detemir (Levemir) 20 units SC HS [facility] Last Admin: 11/12/16 22:34 Dose: 20 u Insulin Human Regular (Humulin R) 0 units SC ACHS [facility] PRN Reason: Protocol Last Admin: 11/13/16 12:00 Dose: 3 u Insulin Lispro Protam/Lispro Human (Humalog Mix 75/25) 10 units SC BID [facility] Last Admin: 11/13/16 09:37 Dose: 10 units Megestrol Acetate (Megace) 800 mg PO DAILY [facility] Last Admin: 11/13/16 09:03 Dose: 800 mg Ondansetron HCl (Zofran Inj) 4 mg IVP Q4 PRN PRN Reason: Nausea/Vomiting Pantoprazole Sodium (Protonix Ec Tab) 40 mg PO DAILY [facility] Last Admin: 11/13/16 09:04 Dose: 40 mg Rifaximin (Xifaxan) 550 mg PO BID [facility] Last Admin: 11/13/16 09:04 Dose: 550 mg Sodium Bicarbonate (Sodium Bicarbonate Tab) 1,300 mg PO QID [facility] Last Admin: 11/13/16 12:03 Dose: 1,300 mg Vancomycin HCl (Vancocin (Oral/Rectal Use)) 250 mg PO Q6 [facility] Last Admin: 11/13/16 09:06 Dose: 250 mg - Labs Labs: 11/13/16 05:40 11/13/16 05:40 PT 11.8 SECONDS (9.6-11.2) H 11/05/16 20:38 INR 1.13 (0.92-1.08) H 11/05/16 20:38 APTT 26.4 SECONDS (23.3-32.5) 11/05/16 20:38 - Respiratory Exam Additional comments: Lungs clear - Cardiovascular Exam Cardiovascular Exam: REGULAR RHYTHM - Extremities Exam Additional comments: No edema Assessment and Plan - Assessment and Plan (Free Text) Assessment: Acute on CRF renal function is improving Hyperkalemia NAG metabolic acidosis due to diarrhea proteinuria DM 11 Plan: Low K+ diet, Kayexalate as neede 24 hr urine for total protein
--- NOTE | 2016-11-13 21:32 | CP.PCM.PN ---
Subjective - Date & Time of Evaluation Date of Evaluation: 11/13/16 Time of Evaluation: 11:00 - Subjective Subjective: diarrhea is better Objective - Vital Signs/Intake and Output Vital Signs (last 24 hours): Temp Pulse Resp BP Pulse Ox 98 F 89 18 115/77 100 11/13/16 16:56 11/13/16 16:56 11/13/16 16:56 11/13/16 16:56 11/13/16 16:56 - Medications Medications: Current Medications Aspirin (Ecotrin) 81 mg PO DAILY [facility] Last Admin: 11/13/16 09:04 Dose: 81 mg Atorvastatin Calcium (Lipitor) 10 mg PO DAILY [facility] Last Admin: 11/13/16 09:05 Dose: 10 mg Dextrose (Dextrose 50% Inj) 0 ml IV STAT PRN; Protocol PRN Reason: Hyglycemia Protocol Dextrose (Glutose 15) 0 gm PO ONCE PRN; Protocol PRN Reason: Hypoglycemia Protocol Glucagon (Glucagen Diagnostic Kit) 0 mg IM STAT PRN; Protocol PRN Reason: Hypoglycemia Protocol Metronidazole (Flagyl 500mg/100ml Ns) 100 mls @ 100 mls/hr IVPB Q8 [facility] Last Admin: 11/13/16 17:22 Dose: 100 mls/hr Sodium Chloride (Sodium Chloride 0.45%) 1,000 mls @ 150 mls/hr IV .Q6H40M [facility] Stop: 11/15/16 12:21 Last Admin: 11/13/16 04:57 Dose: 150 mls/hr Fluconazole (Diflucan Iv 100 Mg/50 Ml Ns) 50 mls @ 50 mls/hr IVPB DAILY [facility] Last Admin: 11/13/16 09:02 Dose: 50 mls/hr Insulin Detemir (Levemir) 20 units SC HS [facility] Last Admin: 11/12/16 22:34 Dose: 20 u Insulin Human Regular (Humulin R) 0 units SC ACHS [facility] PRN Reason: Protocol Last Admin: 11/13/16 17:24 Dose: 2 u Insulin Lispro Protam/Lispro Human (Humalog Mix 75/25) 10 units SC BID [facility] Last Admin: 11/13/16 17:23 Dose: 10 units Megestrol Acetate (Megace) 800 mg PO DAILY [facility] Last Admin: 11/13/16 09:03 Dose: 800 mg Ondansetron HCl (Zofran Inj) 4 mg IVP Q4 PRN PRN Reason: Nausea/Vomiting Pantoprazole Sodium (Protonix Ec Tab) 40 mg PO DAILY [facility] Last Admin: 11/13/16 09:04 Dose: 40 mg Rifaximin (Xifaxan) 550 mg PO BID [facility] Last Admin: 11/13/16 17:26 Dose: 550 mg Sodium Bicarbonate (Sodium Bicarbonate Tab) 1,300 mg PO QID [facility] Last Admin: 11/13/16 17:25 Dose: 1,300 mg Vancomycin HCl (Vancocin (Oral/Rectal Use)) 250 mg PO Q6 [facility] Last Admin: 11/13/16 17:26 Dose: 250 mg - Labs Labs: 11/13/16 05:40 11/13/16 05:40 PT 11.8 SECONDS (9.6-11.2) H 11/05/16 20:38 INR 1.13 (0.92-1.08) H 11/05/16 20:38 APTT 26.4 SECONDS (23.3-32.5) 11/05/16 20:38 - GI/Abdominal Exam GI & Abdominal Exam: Soft, Normal Bowel Sounds Assessment and Plan - Assessment and Plan (Free Text) Assessment: 46 yo male with CDAD diarrhea improving dc planning from GI standpoint
[2016-11-13] MEDS: Insulin Detemir 100 Units/ml Inj SC SCH (22:27)
[2016-11-14] MEDS: metroNIDAZOLE 500mg/100ml NS 100 ML IVPB SCH ×3 (00:57→16:33)
[2016-11-14] MEDS: Sodium Chloride 0.45% 1,000 ML IV SCH ×2 (01:24→04:21)
[2016-11-14] MEDS: Vancomycin 500 mg (Oral/Rectal USE) PO SCH ×4 (04:18→21:47)
[2016-11-14] MEDS: Insulin Regular 100 units/ml SC SCH ×5 (06:32→21:50)
[2016-11-14 06:33] LABS: HEMATOCRIT 31.4 % (35.0-51.0); MEAN CELL VOLUME 87.6 fl (80.0-94.0); MEAN CORPUSCULAR HEMOGLOBIN 27.8 pg (27.0-31.0); MEAN CORPUSCULAR HGB CONC 31.8 g/dL (33.0-37.0); RED CELL DISTRIBUTION WIDTH 15.8 % (11.5-14.5); WHITE BLOOD COUNT 6.3 K/uL (4.8-10.8)
[2016-11-14 07:28] LABS: ALB/GLOB RATIO 0.7 (1.0-2.1); ALKALINE PHOSPHATASE 181 U/L (38-126); ALT/SGPT 33 U/L (21-72); AST/SGOT 27 U/L (17-59); BILIRUBIN,TOTAL < 0.1 mg/dl (0.2-1.3); BLOOD UREA NITROGEN 26 mg/dl (9-20); CALCIUM 8.2 mg/dL (8.4-10.2); CARBON DIOXIDE 14 mmol/L (22-30); CHLORIDE 123 mmol/L (98-107); GFR AFRICAN-AMERICAN 34; GLUCOSE,RANDOM 330 mg/dL (75-110); SODIUM 147 mmol/l (132-148); TOTAL PROTEIN 6.5 G/DL (6.3-8.2)
[2016-11-14] MEDS: Insulin Lispro Mix 75/25 100 units/ml (HumaLog) 10ml SC SCH ×3 (08:54→16:34)
[2016-11-14] MEDS: Megestrol Acetate 40 mg/ml Cup PO SCH (08:55)
[2016-11-14] MEDS: Pantoprazole 40 mg EC Tab PO SCH (08:56)
[2016-11-14 09:06] LABS: CHLORIDE URINE 87 mmol/L (32-290)
--- NOTE | 2016-11-14 11:25 | CP.PCM.PN ---
Subjective - Date & Time of Evaluation Date of Evaluation: 11/14/16 Time of Evaluation: 11:00 - Subjective Subjective: Appears comfoetsble in bed Objective - Vital Signs/Intake and Output Vital Signs (last 24 hours): Temp Pulse Resp BP Pulse Ox 97.6 F 98 H 20 136/95 H 100 11/14/16 08:24 11/14/16 08:24 11/14/16 08:24 11/14/16 08:24 11/14/16 08:24 - Medications Medications: Current Medications Aspirin (Ecotrin) 81 mg PO DAILY [facility] Last Admin: 11/14/16 08:52 Dose: 81 mg Atorvastatin Calcium (Lipitor) 10 mg PO DAILY [facility] Last Admin: 11/14/16 08:55 Dose: 10 mg Dextrose (Dextrose 50% Inj) 0 ml IV STAT PRN; Protocol PRN Reason: Hyglycemia Protocol Dextrose (Glutose 15) 0 gm PO ONCE PRN; Protocol PRN Reason: Hypoglycemia Protocol Glucagon (Glucagen Diagnostic Kit) 0 mg IM STAT PRN; Protocol PRN Reason: Hypoglycemia Protocol Metronidazole (Flagyl 500mg/100ml Ns) 100 mls @ 100 mls/hr IVPB Q8 [facility] Last Admin: 11/14/16 08:51 Dose: 100 mls/hr Sodium Chloride (Sodium Chloride 0.45%) 1,000 mls @ 150 mls/hr IV .Q6H40M [facility] Stop: 11/15/16 12:21 Last Admin: 11/14/16 04:21 Dose: 150 mls/hr Fluconazole (Diflucan Iv 100 Mg/50 Ml Ns) 50 mls @ 50 mls/hr IVPB DAILY [facility] Last Admin: 11/13/16 09:02 Dose: 50 mls/hr Insulin Detemir (Levemir) 20 units SC HS [facility] Last Admin: 11/13/16 22:27 Dose: 20 u Insulin Human Regular (Humulin R) 0 units SC ACHS [facility] PRN Reason: Protocol Last Admin: 11/14/16 06:32 Dose: 6 u Insulin Lispro Protam/Lispro Human (Humalog Mix 75/25) 15 units SC BID [facility] Lactobacillus Acidophilus (Bacid Acidophilus) 1 cap PO BID [facility] Megestrol Acetate (Megace) 800 mg PO DAILY [facility] Last Admin: 11/14/16 08:55 Dose: 800 mg Ondansetron HCl (Zofran Inj) 4 mg IVP Q4 PRN PRN Reason: Nausea/Vomiting Pantoprazole Sodium (Protonix Ec Tab) 40 mg PO DAILY [facility] Last Admin: 11/14/16 08:56 Dose: 40 mg Rifaximin (Xifaxan) 550 mg PO BID [facility] Last Admin: 11/14/16 09:01 Dose: 550 mg Sodium Bicarbonate (Sodium Bicarbonate Tab) 1,300 mg PO QID [facility] Last Admin: 11/14/16 08:56 Dose: 1,300 mg Vancomycin HCl (Vancocin (Oral/Rectal Use)) 250 mg PO Q6 [facility] Last Admin: 11/14/16 09:01 Dose: 250 mg - Labs Labs: 11/14/16 05:35 11/14/16 05:35 PT 11.8 SECONDS (9.6-11.2) H 11/05/16 20:38 INR 1.13 (0.92-1.08) H 11/05/16 20:38 APTT 26.4 SECONDS (23.3-32.5) 11/05/16 20:38 - Respiratory Exam Additional comments: Lungs clear - Cardiovascular Exam Cardiovascular Exam: REGULAR RHYTHM - Extremities Exam Additional comments: No edema Assessment and Plan - Assessment and Plan (Free Text) Assessment: acute on CRF. renal function is stable NAG metabolic acidosis sec to chronic diarrhea on PO bicarb Hyperkalemia controlled on low K+ diet Chronic C. diff colitis DM Plan: Continue current Mx Serum bicarb is improving Monitor renal function
--- NOTE | 2016-11-14 13:04 | CP.PCM.PN ---
<Cassie Jones - Last Filed: 11/14/16 13:01> Subjective - Date & Time of Evaluation Date of Evaluation: 11/14/16 Time of Evaluation: 13:02 - Subjective Subjective: evaluated with attending. no overnight events. BM very loose x3-4, pudding like , occurs only after eating. Denies f/c, n/v, chest pain, SOB, abd pain. Tolerating PO. Objective - Vital Signs/Intake and Output Vital Signs (last 24 hours): Temp Pulse Resp BP Pulse Ox 97.6 F 98 H 20 136/95 H 100 11/14/16 08:24 11/14/16 08:24 11/14/16 08:24 11/14/16 08:24 11/14/16 08:24 - Medications Medications: Current Medications Aspirin (Ecotrin) 81 mg PO DAILY [facility] Last Admin: 11/14/16 08:52 Dose: 81 mg Atorvastatin Calcium (Lipitor) 10 mg PO DAILY [facility] Last Admin: 11/14/16 08:55 Dose: 10 mg Dextrose (Dextrose 50% Inj) 0 ml IV STAT PRN; Protocol PRN Reason: Hyglycemia Protocol Dextrose (Glutose 15) 0 gm PO ONCE PRN; Protocol PRN Reason: Hypoglycemia Protocol Glucagon (Glucagen Diagnostic Kit) 0 mg IM STAT PRN; Protocol PRN Reason: Hypoglycemia Protocol Metronidazole (Flagyl 500mg/100ml Ns) 100 mls @ 100 mls/hr IVPB Q8 [facility] Last Admin: 11/14/16 08:51 Dose: 100 mls/hr Sodium Chloride (Sodium Chloride 0.45%) 1,000 mls @ 150 mls/hr IV .Q6H40M [facility] Stop: 11/15/16 12:21 Last Admin: 11/14/16 04:21 Dose: 150 mls/hr Fluconazole (Diflucan Iv 100 Mg/50 Ml Ns) 50 mls @ 50 mls/hr IVPB DAILY [facility] Last Admin: 11/13/16 09:02 Dose: 50 mls/hr Insulin Detemir (Levemir) 20 units SC [facility] Last Admin: 11/13/16 22:27 Dose: 20 u Insulin Human Regular (Humulin R) 0 units SC ACHS [facility] PRN Reason: Protocol Last Admin: 11/14/16 06:32 Dose: 6 u Insulin Lispro Protam/Lispro Human (Humalog Mix 75/25) 15 units SC BID [facility] Lactobacillus Acidophilus (Bacid Acidophilus) 1 cap PO BID [facility] Megestrol Acetate (Megace) 800 mg PO DAILY [facility] Last Admin: 11/14/16 08:55 Dose: 800 mg Ondansetron HCl (Zofran Inj) 4 mg IVP Q4 PRN PRN Reason: Nausea/Vomiting Pantoprazole Sodium (Protonix Ec Tab) 40 mg PO DAILY [facility] Last Admin: 11/14/16 08:56 Dose: 40 mg Rifaximin (Xifaxan) 550 mg PO BID [facility] Last Admin: 11/14/16 09:01 Dose: 550 mg Sodium Bicarbonate (Sodium Bicarbonate Tab) 1,300 mg PO QID [facility] Last Admin: 11/14/16 08:56 Dose: 1,300 mg Vancomycin HCl (Vancocin (Oral/Rectal Use)) 250 mg PO Q6 [facility] Last Admin: 11/14/16 09:01 Dose: 250 mg - Labs Labs: 11/14/16 05:35 11/14/16 05:35 PT 11.8 SECONDS (9.6-11.2) H 11/05/16 20:38 INR 1.13 (0.92-1.08) H 11/05/16 20:38 APTT 26.4 SECONDS (23.3-32.5) 11/05/16 20:38 - Constitutional Appears: Non-toxic, No Acute Distress - Head Exam Head Exam: NORMAL INSPECTION - Eye Exam Eye Exam: Normal appearance - ENT Exam ENT Exam: Mucous Membranes Moist - Neck Exam Neck Exam: Normal Inspection - Respiratory Exam Respiratory Exam: Clear to Ausculation Bilateral - Cardiovascular Exam Cardiovascular Exam: REGULAR RHYTHM - GI/Abdominal Exam GI & Abdominal Exam: Soft, Hyperactive Bowel Sounds - Extremities Exam Extremities Exam: Normal Inspection - Back Exam Back Exam: NORMAL INSPECTION - Neurological Exam Neurological Exam: Alert, Oriented x3 - Skin Skin Exam: Dry, Warm Assessment and Plan (1) Clostridium difficile infection Assessment & Plan: -ID on board, appreciate input -GI on board, appreciate input. cleared for d/c -flagyl, vanc, rifaxamin -contact precautions -probiotic Status: Acute (2) Diabetes mellitus type 2 in nonobese Assessment & Plan: -c/w meds, increase lispro mix to 15u -accucheck -SSI Status: Chronic (3) Metabolic acidosis Assessment & Plan: -2/2 diarrhea and BRITTNI -Nephro on board, appreciate input Status: Acute (4) BRITTNI (acute kidney injury) Assessment & Plan: -Nephro on board, appreciate input -MIVF 1/2 NS, 150cc/hr Status: Acute (5) Hypertension Assessment & Plan: -hold meds for hypotension Status: Chronic (6) Cystitis Assessment & Plan: -per US bladder -US renal: mild distension collecting system -urine cx >100K CFU yeast -repeat urine cx <10K CFU GPC -ID on board, appreciate input - c/s, appreciate input Status: Acute (7) Hyperkalemia Status: Resolved (8) DVT prophylaxis Assessment & Plan: -lovenox Status: Acute <RamónJustin L - Last Filed: 11/17/16 09:49> Objective - Vital Signs/Intake and Output Vital Signs (last 24 hours): Temp Pulse Resp BP Pulse Ox 97.5 F L 100 H 18 129/95 H 100 11/17/16 08:08 11/17/16 08:08 11/17/16 08:08 11/17/16 08:08 11/17/16 08:08 - Medications Medications: Current Medications Aspirin (Ecotrin) 81 mg PO DAILY [facility] Last Admin: 11/17/16 09:35 Dose: 81 mg Atorvastatin Calcium (Lipitor) 10 mg PO DAILY [facility] Last Admin: 11/17/16 09:37 Dose: 10 mg Dextrose (Dextrose 50% Inj) 0 ml IV STAT PRN; Protocol PRN Reason: Hyglycemia Protocol Dextrose (Glutose 15) 0 gm PO ONCE PRN; Protocol PRN Reason: Hypoglycemia Protocol Dextrose (Dextrose 50% Inj) 0 ml IV STAT PRN; Protocol PRN Reason: Hyglycemia Protocol Dextrose (Glutose 15) 0 gm PO ONCE PRN; Protocol PRN Reason: Hypoglycemia Protocol Glucagon (Glucagen Diagnostic Kit) 0 mg IM STAT PRN; Protocol PRN Reason: Hypoglycemia Protocol Glucagon (Glucagen Diagnostic Kit) 0 mg IM STAT PRN; Protocol PRN Reason: Hypoglycemia Protocol Metronidazole (Flagyl 500mg/100ml Ns) 100 mls @ 100 mls/hr IVPB Q8 [facility] Last Admin: 11/17/16 09:35 Dose: 100 mls/hr Fluconazole (Diflucan Iv 100 Mg/50 Ml Ns) 50 mls @ 50 mls/hr IVPB DAILY [facility] Last Admin: 11/17/16 09:34 Dose: 50 mls/hr Dextrose/Sodium Chloride (Dextrose 5%/0.45% Ns 1000 Ml) 1,000 mls @ 150 mls/hr IV .Q6H40M [facility] Stop: 11/18/16 06:38 Last Admin: 11/17/16 07:04 Dose: 150 mls/hr Insulin Detemir (Levemir) 20 units SC HS [facility] Last Admin: 11/16/16 21:43 Dose: 20 u Insulin Human Regular (Humulin R) 0 units SC ACHS [facility] PRN Reason: Protocol Insulin Lispro Protam/Lispro Human (Humalog Mix 75/25) 15 units SC BID [facility] Last Admin: 11/17/16 09:36 Dose: 15 units Lactobacillus Acidophilus (Bacid Acidophilus) 1 cap PO BID [facility] Last Admin: 11/17/16 09:34 Dose: 1 cap Megestrol Acetate (Megace) 800 mg PO DAILY [facility] Last Admin: 11/17/16 09:37 Dose: 800 mg Ondansetron HCl (Zofran Inj) 4 mg IVP Q4 PRN PRN Reason: Nausea/Vomiting Pantoprazole Sodium (Protonix Ec Tab) 40 mg PO DAILY [facility] Last Admin: 11/17/16 09:37 Dose: 40 mg Rifaximin (Xifaxan) 550 mg PO BID [facility] Last Admin: 11/17/16 09:41 Dose: 550 mg Sodium Bicarbonate (Sodium Bicarbonate Tab) 1,300 mg PO QID [facility] Last Admin: 11/17/16 09:00 Dose: 1,300 mg Vancomycin HCl (Vancocin (Oral/Rectal Use)) 250 mg PO Q6 [facility] Last Admin: 11/17/16 09:40 Dose: 250 mg - Labs Labs: 11/15/16 06:00 11/17/16 05:45 PT 11.8 SECONDS (9.6-11.2) H 11/05/16 20:38 INR 1.13 (0.92-1.08) H 11/05/16 20:38 APTT 26.4 SECONDS (23.3-32.5) 11/05/16 20:38 Assessment and Plan (1) Diabetes mellitus type 2 in nonobese Status: Chronic (2) DKA (diabetic ketoacidoses) Status: Acute (3) Dehydration Status: Acute (4) BRITTNI (acute kidney injury) Status: Acute (5) Clostridium difficile infection Status: Acute (6) Metabolic acidosis Status: Acute - Assessment and Plan (Free Text) Plan: I was present during evaluation and discussed with Dr Cassie hughes plans of care and management. Justin Melgar M.D.
[2016-11-14] MEDS: Lactobacillus Acidophilus 500 MU Cap PO SCH ×2 (13:32→22:03)
[2016-11-14] MEDS: Fluconazole IV 100mg/50 ml NS 50 ML IVPB SCH (13:33)
--- NOTE | 2016-11-14 13:33 | CP.PCM.PN ---
Subjective - Date & Time of Evaluation Date of Evaluation: 11/14/16 Time of Evaluation: 13:30 - Subjective Subjective: doing well Objective - Vital Signs/Intake and Output Vital Signs (last 24 hours): Temp Pulse Resp BP Pulse Ox 97.6 F 98 H 20 136/95 H 100 11/14/16 08:24 11/14/16 08:24 11/14/16 08:24 11/14/16 08:24 11/14/16 08:24 - Medications Medications: Current Medications Aspirin (Ecotrin) 81 mg PO DAILY [facility] Last Admin: 11/14/16 08:52 Dose: 81 mg Atorvastatin Calcium (Lipitor) 10 mg PO DAILY [facility] Last Admin: 11/14/16 08:55 Dose: 10 mg Dextrose (Dextrose 50% Inj) 0 ml IV STAT PRN; Protocol PRN Reason: Hyglycemia Protocol Dextrose (Glutose 15) 0 gm PO ONCE PRN; Protocol PRN Reason: Hypoglycemia Protocol Glucagon (Glucagen Diagnostic Kit) 0 mg IM STAT PRN; Protocol PRN Reason: Hypoglycemia Protocol Metronidazole (Flagyl 500mg/100ml Ns) 100 mls @ 100 mls/hr IVPB Q8 [facility] Last Admin: 11/14/16 08:51 Dose: 100 mls/hr Sodium Chloride (Sodium Chloride 0.45%) 1,000 mls @ 150 mls/hr IV .Q6H40M [facility] Stop: 11/15/16 12:21 Last Admin: 11/14/16 04:21 Dose: 150 mls/hr Fluconazole (Diflucan Iv 100 Mg/50 Ml Ns) 50 mls @ 50 mls/hr IVPB DAILY [facility] Last Admin: 11/13/16 09:02 Dose: 50 mls/hr Insulin Detemir (Levemir) 20 units SC HS [facility] Last Admin: 11/13/16 22:27 Dose: 20 u Insulin Human Regular (Humulin R) 0 units SC ACHS [facility] PRN Reason: Protocol Last Admin: 11/14/16 06:32 Dose: 6 u Insulin Lispro Protam/Lispro Human (Humalog Mix 75/25) 15 units SC BID [facility] Last Admin: 11/14/16 09:00 Dose: 15 units Lactobacillus Acidophilus (Bacid Acidophilus) 1 cap PO BID [facility] Megestrol Acetate (Megace) 800 mg PO DAILY [facility] Last Admin: 11/14/16 08:55 Dose: 800 mg Ondansetron HCl (Zofran Inj) 4 mg IVP Q4 PRN PRN Reason: Nausea/Vomiting Pantoprazole Sodium (Protonix Ec Tab) 40 mg PO DAILY [facility] Last Admin: 11/14/16 08:56 Dose: 40 mg Rifaximin (Xifaxan) 550 mg PO BID [facility] Last Admin: 11/14/16 09:01 Dose: 550 mg Sodium Bicarbonate (Sodium Bicarbonate Tab) 1,300 mg PO QID [facility] Last Admin: 11/14/16 13:21 Dose: 1,300 mg Vancomycin HCl (Vancocin (Oral/Rectal Use)) 250 mg PO Q6 [facility] Last Admin: 11/14/16 09:01 Dose: 250 mg - Labs Labs: 11/14/16 05:35 11/14/16 05:35 PT 11.8 SECONDS (9.6-11.2) H 11/05/16 20:38 INR 1.13 (0.92-1.08) H 11/05/16 20:38 APTT 26.4 SECONDS (23.3-32.5) 11/05/16 20:38 - GI/Abdominal Exam GI & Abdominal Exam: Soft, Normal Bowel Sounds Assessment and Plan - Assessment and Plan (Free Text) Assessment: 46 yo male with cdad doing well on abx dc planning
--- NOTE | 2016-11-14 13:55 | CP.PCM.PN ---
Subjective - Date & Time of Evaluation Date of Evaluation: 11/14/16 Time of Evaluation: 08:00 - Subjective Subjective: afebrile alert nad less diiarrhea gi eval in progress Objective - Vital Signs/Intake and Output Vital Signs (last 24 hours): Temp Pulse Resp BP Pulse Ox 97.6 F 98 H 20 136/95 H 100 11/14/16 08:24 11/14/16 08:24 11/14/16 08:24 11/14/16 08:24 11/14/16 08:24 - Medications Medications: Current Medications Aspirin (Ecotrin) 81 mg PO DAILY [facility] Last Admin: 11/14/16 08:52 Dose: 81 mg Atorvastatin Calcium (Lipitor) 10 mg PO DAILY [facility] Last Admin: 11/14/16 08:55 Dose: 10 mg Dextrose (Dextrose 50% Inj) 0 ml IV STAT PRN; Protocol PRN Reason: Hyglycemia Protocol Dextrose (Glutose 15) 0 gm PO ONCE PRN; Protocol PRN Reason: Hypoglycemia Protocol Glucagon (Glucagen Diagnostic Kit) 0 mg IM STAT PRN; Protocol PRN Reason: Hypoglycemia Protocol Metronidazole (Flagyl 500mg/100ml Ns) 100 mls @ 100 mls/hr IVPB Q8 [facility] Last Admin: 11/14/16 08:51 Dose: 100 mls/hr Sodium Chloride (Sodium Chloride 0.45%) 1,000 mls @ 150 mls/hr IV .Q6H40M [facility] Stop: 11/15/16 12:21 Last Admin: 11/14/16 04:21 Dose: 150 mls/hr Fluconazole (Diflucan Iv 100 Mg/50 Ml Ns) 50 mls @ 50 mls/hr IVPB DAILY [facility] Last Admin: 11/14/16 13:33 Dose: 50 mls/hr Insulin Detemir (Levemir) 20 units SC HS [facility] Last Admin: 11/13/16 22:27 Dose: 20 u Insulin Human Regular (Humulin R) 0 units SC ACHS [facility] PRN Reason: Protocol Last Admin: 11/14/16 13:30 Dose: 4 u Insulin Lispro Protam/Lispro Human (Humalog Mix 75/25) 15 units SC BID [facility] Last Admin: 11/14/16 09:00 Dose: 15 units Lactobacillus Acidophilus (Bacid Acidophilus) 1 cap PO BID [facility] Last Admin: 11/14/16 13:32 Dose: 1 cap Megestrol Acetate (Megace) 800 mg PO DAILY [facility] Last Admin: 11/14/16 08:55 Dose: 800 mg Ondansetron HCl (Zofran Inj) 4 mg IVP Q4 PRN PRN Reason: Nausea/Vomiting Pantoprazole Sodium (Protonix Ec Tab) 40 mg PO DAILY [facility] Last Admin: 11/14/16 08:56 Dose: 40 mg Rifaximin (Xifaxan) 550 mg PO BID [facility] Last Admin: 11/14/16 09:01 Dose: 550 mg Sodium Bicarbonate (Sodium Bicarbonate Tab) 1,300 mg PO QID [facility] Last Admin: 11/14/16 13:21 Dose: 1,300 mg Vancomycin HCl (Vancocin (Oral/Rectal Use)) 250 mg PO Q6 [facility] Last Admin: 11/14/16 09:01 Dose: 250 mg - Labs Labs: 11/14/16 05:35 11/14/16 05:35 PT 11.8 SECONDS (9.6-11.2) H 11/05/16 20:38 INR 1.13 (0.92-1.08) H 11/05/16 20:38 APTT 26.4 SECONDS (23.3-32.5) 11/05/16 20:38 - Constitutional Appears: Non-toxic, Chronically Ill - Head Exam Head Exam: NORMOCEPHALIC - Eye Exam Eye Exam: PERRL. absent: Scleral icterus - ENT Exam ENT Exam: Mucous Membranes Dry - Neck Exam Neck Exam: absent: Lymphadenopathy - Respiratory Exam Respiratory Exam: Decreased Breath Sounds, Rhonchi - Cardiovascular Exam Cardiovascular Exam: REGULAR RHYTHM, +S1, +S2 - GI/Abdominal Exam GI & Abdominal Exam: Distended, Soft. absent: Tenderness - Rectal Exam Rectal Exam: Deferred - Exam Exam: NORMAL INSPECTION - Extremities Exam Extremities Exam: absent: Pedal Edema - Back Exam Back Exam: absent: CVA tenderness (L), CVA tenderness (R) - Neurological Exam Neurological Exam: Alert, Awake, Oriented x3 Neuro motor strength exam: Left Upper Extremity: 4, Right Upper Extremity: 4, Left Lower Extremity: 4, Right Lower Extremity: 4 - Psychiatric Exam Psychiatric exam: Depressed Assessment and Plan (1) DKA (diabetic ketoacidoses) Status: Acute (2) Dehydration Status: Acute (3) Sepsis Status: Acute (4) BRITTNI (acute kidney injury) Status: Acute (5) Clostridium difficile infection Status: Acute (6) DVT prophylaxis Status: Acute (7) Diarrhea Status: Acute (8) History of hypercholesterolemia Status: Acute - Assessment and Plan (Free Text) Assessment: needs GI eval cont rx
--- NOTE | 2016-11-14 16:07 | CP.PCM.PN ---
Subjective - Date & Time of Evaluation Date of Evaluation: 11/14/16 Time of Evaluation: 16:04 - Subjective Subjective: 46 year old blk male admitted w weakness pt known diabetic has pyuria and neg C& S pt denies lower urinary tract symtoms.creatine is elevated us ahows mild fullness of collecting system. A PYURIA RO obstructive uropathy. Suggest Bladder scan with PVR determination. CT scan to investigate FULLNESS of colecting system. Hosay Objective - Vital Signs/Intake and Output Vital Signs (last 24 hours): Temp Pulse Resp BP Pulse Ox 97.6 F 98 H 20 103/69 100 11/14/16 08:24 11/14/16 08:24 11/14/16 08:24 11/14/16 15:13 11/14/16 08:24 - Medications Medications: Current Medications Aspirin (Ecotrin) 81 mg PO DAILY [facility] Last Admin: 11/14/16 08:52 Dose: 81 mg Atorvastatin Calcium (Lipitor) 10 mg PO DAILY [facility] Last Admin: 11/14/16 08:55 Dose: 10 mg Dextrose (Dextrose 50% Inj) 0 ml IV STAT PRN; Protocol PRN Reason: Hyglycemia Protocol Dextrose (Glutose 15) 0 gm PO ONCE PRN; Protocol PRN Reason: Hypoglycemia Protocol Glucagon (Glucagen Diagnostic Kit) 0 mg IM STAT PRN; Protocol PRN Reason: Hypoglycemia Protocol Metronidazole (Flagyl 500mg/100ml Ns) 100 mls @ 100 mls/hr IVPB Q8 [facility] Last Admin: 11/14/16 08:51 Dose: 100 mls/hr Sodium Chloride (Sodium Chloride 0.45%) 1,000 mls @ 150 mls/hr IV .Q6H40M [facility] Stop: 11/15/16 12:21 Last Admin: 11/14/16 04:21 Dose: 150 mls/hr Fluconazole (Diflucan Iv 100 Mg/50 Ml Ns) 50 mls @ 50 mls/hr IVPB DAILY [facility] Last Admin: 11/14/16 13:33 Dose: 50 mls/hr Insulin Detemir (Levemir) 20 units SC [facility] Last Admin: 11/13/16 22:27 Dose: 20 u Insulin Human Regular (Humulin R) 0 units SC ACHS [facility] PRN Reason: Protocol Last Admin: 11/14/16 13:30 Dose: 4 u Insulin Lispro Protam/Lispro Human (Humalog Mix 75/25) 15 units SC BID [facility] Last Admin: 11/14/16 09:00 Dose: 15 units Lactobacillus Acidophilus (Bacid Acidophilus) 1 cap PO BID [facility] Last Admin: 11/14/16 13:32 Dose: 1 cap Megestrol Acetate (Megace) 800 mg PO DAILY [facility] Last Admin: 11/14/16 08:55 Dose: 800 mg Ondansetron HCl (Zofran Inj) 4 mg IVP Q4 PRN PRN Reason: Nausea/Vomiting Pantoprazole Sodium (Protonix Ec Tab) 40 mg PO DAILY [facility] Last Admin: 11/14/16 08:56 Dose: 40 mg Rifaximin (Xifaxan) 550 mg PO BID [facility] Last Admin: 11/14/16 09:01 Dose: 550 mg Sodium Bicarbonate (Sodium Bicarbonate Tab) 1,300 mg PO QID [facility] Last Admin: 11/14/16 13:21 Dose: 1,300 mg Vancomycin HCl (Vancocin (Oral/Rectal Use)) 250 mg PO Q6 [facility] Last Admin: 11/14/16 09:01 Dose: 250 mg - Labs Labs: 11/14/16 05:35 11/14/16 05:35 PT 11.8 SECONDS (9.6-11.2) H 11/05/16 20:38 INR 1.13 (0.92-1.08) H 11/05/16 20:38 APTT 26.4 SECONDS (23.3-32.5) 11/05/16 20:38
[2016-11-14] MEDS: Insulin Detemir 100 Units/ml Inj SC SCH (21:54)
[2016-11-15] MEDS: metroNIDAZOLE 500mg/100ml NS 100 ML IVPB SCH ×3 (01:08→16:21)
[2016-11-15] MEDS: Sodium Chloride 0.45% 1,000 ML IV SCH ×3 (03:00→22:05)
[2016-11-15] MEDS: Vancomycin 500 mg (Oral/Rectal USE) PO SCH ×4 (05:00→22:04)
[2016-11-15] MEDS: Insulin Regular 100 units/ml SC SCH ×4 (07:54→22:03)
[2016-11-15 08:18] LABS: HEMATOCRIT 32.8 % (35.0-51.0); MEAN CELL VOLUME 87.5 fl (80.0-94.0); MEAN CORPUSCULAR HEMOGLOBIN 28.3 pg (27.0-31.0); MEAN CORPUSCULAR HGB CONC 32.4 g/dL (33.0-37.0); RED CELL DISTRIBUTION WIDTH 15.8 % (11.5-14.5); WHITE BLOOD COUNT 7.5 K/uL (4.8-10.8)
--- NOTE | 2016-11-15 08:27 | CT ---
PROCEDURE: CT Abdomen and Pelvis without intravenous contrast HISTORY: Renal Fullness pyuria COMPARISON: None. TECHNIQUE: Technique. Contrast Dose: Radiation dose: Total exam DLP = 607 mGy-cm. This CT exam was performed using one or more of the following dose reduction techniques: Automated exposure control, adjustment of the mA and/or kV according to patient size, and/or use of iterative reconstruction technique. FINDINGS: LOWER THORAX: Bibasilar interstitial infiltrates are noted. LIVER: Unremarkable. No gross lesion or ductal dilatation. GALLBLADDER AND BILE DUCTS: Unremarkable. PANCREAS: Unremarkable. No gross lesion or ductal dilatation. SPLEEN: Unremarkable. ADRENALS: Unremarkable. No mass. KIDNEYS AND URETERS: Bilateral hydronephrosis and hydroureter to the level of the bladder. VASCULATURE: Unremarkable. No aortic aneurysm. BOWEL: Fluid in the rectum.. No obstruction. No gross mural thickening. APPENDIX: Unremarkable. Normal appendix. PERITONEUM: Unremarkable. No free fluid. No free air. LYMPH NODES: Unremarkable. No enlarged lymph nodes. BLADDER: Circumferential bladder wall thickening. REPRODUCTIVE: Unremarkable. BONES: No acute fracture. OTHER FINDINGS: None. IMPRESSION: Bilateral hydronephrosis and hydroureter to the level of the bladder which is diffusely thickened suggestive of an underlying cystitis.
[2016-11-15 08:42] LABS: CALCIUM 8.3 mg/dL (8.4-10.2); POTASSIUM 5.1 MMOL/L (3.6-5.0)
[2016-11-15] MEDS: Lactobacillus Acidophilus 500 MU Cap PO SCH ×2 (09:44→16:21)
[2016-11-15] MEDS: Pantoprazole 40 mg EC Tab PO SCH (09:45)
[2016-11-15] MEDS: Insulin Lispro Mix 75/25 100 units/ml (HumaLog) 10ml SC SCH ×2 (09:47→16:23)
[2016-11-15] MEDS: Megestrol Acetate 40 mg/ml Cup PO SCH (09:48)
--- NOTE | 2016-11-15 11:48 | CON ---
DATE: 11/14/2016 REASON FOR CONSULTATION: Pyuria. HISTORY OF PRESENT ILLNESS: The patient was admitted to the [facility] with diabeti c ketoacidosis and dehydration. He has been in the hospital since 11/05 and has had various tests done . He is not complaining of any urinary complaints. He has no dysuria, no frequency, but is noted to have pyuria. On his ultrasound, there was noted to be a mild fullness in the collecting system. Ur inalysis shows many WBCs. The patient also has an elevated creatinine. He is a known diabetic. REVIEW OF SYSTEMS: RESPIRATORY: The patient has no complaints of wheezing, shortness of breath. CARDIAC: He has no history of palpitations or chest pain. GASTROINTESTINAL: The patient has no history of change in bowel habits. GENITOURINARY: The patient denies any previous instrumentation or procedures. He says he is void ing well. He is not having any difficulty and has not had any history of urinary tract problems as a n outpatient. 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 He neither smokes or drinks. PHYSICAL EXAMINATION: VITAL SIGNS: Within normal limits. HEAD, EARS, EYES, NOSE AND THROAT: Within normal limits. NECK: Supple. There are no bruits, nodes, or masses. CHEST: Clear bilaterally. There are no rales or rhonchi. HEART: Normal sinus rhythm. ABDOMEN: Soft, nontender. There is questionable bladder distention. GENITALIA: Testicles, epididymis, cord, and penis are normal. RECTAL: Shows a +2 to +3 prostate. I suggest the following: The patient should have a CAT scan to further define this fullness in the r enal collecting system described on ultrasound in addition to which, I would suggest that the patient have a postvoid residual determination. We will follow with you. Cornel Sseay MD cc: [id number] TT: 11/15/2016 11:47:52 Confirmation # [id number] Dictation # [id number] tn
--- NOTE | 2016-11-15 11:56 | CP.PCM.PN ---
Subjective - Date & Time of Evaluation Date of Evaluation: 11/15/16 Time of Evaluation: 11:56 - Subjective Subjective: no events overnight Objective - Vital Signs/Intake and Output Vital Signs (last 24 hours): Temp Pulse Resp BP Pulse Ox 98.4 F 95 H 20 114/79 100 11/15/16 07:50 11/15/16 07:50 11/15/16 07:50 11/15/16 07:50 11/15/16 07:50 - Medications Medications: Current Medications Aspirin (Ecotrin) 81 mg PO DAILY [facility] Last Admin: 11/15/16 09:45 Dose: 81 mg Atorvastatin Calcium (Lipitor) 10 mg PO DAILY [facility] Last Admin: 11/15/16 09:46 Dose: 10 mg Dextrose (Dextrose 50% Inj) 0 ml IV STAT PRN; Protocol PRN Reason: Hyglycemia Protocol Dextrose (Glutose 15) 0 gm PO ONCE PRN; Protocol PRN Reason: Hypoglycemia Protocol Glucagon (Glucagen Diagnostic Kit) 0 mg IM STAT PRN; Protocol PRN Reason: Hypoglycemia Protocol Metronidazole (Flagyl 500mg/100ml Ns) 100 mls @ 100 mls/hr IVPB Q8 [facility] Last Admin: 11/15/16 09:47 Dose: 100 mls/hr Sodium Chloride (Sodium Chloride 0.45%) 1,000 mls @ 150 mls/hr IV .Q6H40M [facility] Stop: 11/15/16 12:21 Last Admin: 11/15/16 03:00 Dose: 150 mls/hr Fluconazole (Diflucan Iv 100 Mg/50 Ml Ns) 50 mls @ 50 mls/hr IVPB DAILY [facility] Last Admin: 11/14/16 13:33 Dose: 50 mls/hr Insulin Detemir (Levemir) 20 units SC HS [facility] Last Admin: 11/14/16 21:54 Dose: 20 u Insulin Human Regular (Humulin R) 0 units SC ACHS [facility] PRN Reason: Protocol Last Admin: 11/15/16 07:54 Dose: 10 u Insulin Lispro Protam/Lispro Human (Humalog Mix 75/25) 15 units SC BID [facility] Last Admin: 11/15/16 09:47 Dose: 15 units Lactobacillus Acidophilus (Bacid Acidophilus) 1 cap PO BID [facility] Last Admin: 11/15/16 09:44 Dose: 1 cap Megestrol Acetate (Megace) 800 mg PO DAILY [facility] Last Admin: 11/15/16 09:48 Dose: 800 mg Ondansetron HCl (Zofran Inj) 4 mg IVP Q4 PRN PRN Reason: Nausea/Vomiting Pantoprazole Sodium (Protonix Ec Tab) 40 mg PO DAILY [facility] Last Admin: 11/15/16 09:45 Dose: 40 mg Rifaximin (Xifaxan) 550 mg PO BID [facility] Last Admin: 11/15/16 09:46 Dose: 550 mg Sodium Bicarbonate (Sodium Bicarbonate Tab) 1,300 mg PO QID [facility] Last Admin: 11/15/16 09:45 Dose: 1,300 mg Vancomycin HCl (Vancocin (Oral/Rectal Use)) 250 mg PO Q6 [facility] Last Admin: 11/15/16 09:49 Dose: 250 mg - Labs Labs: 11/15/16 06:00 11/15/16 06:00 PT 11.8 SECONDS (9.6-11.2) H 11/05/16 20:38 INR 1.13 (0.92-1.08) H 11/05/16 20:38 APTT 26.4 SECONDS (23.3-32.5) 11/05/16 20:38 - Constitutional Appears: Well, Non-toxic, No Acute Distress - Head Exam Head Exam: NORMAL INSPECTION - Eye Exam Eye Exam: Normal appearance - ENT Exam ENT Exam: Mucous Membranes Moist - Respiratory Exam Respiratory Exam: NORMAL BREATHING PATTERN - Cardiovascular Exam Cardiovascular Exam: REGULAR RHYTHM, +S1, +S2 - GI/Abdominal Exam GI & Abdominal Exam: Soft - Extremities Exam Extremities Exam: Normal Inspection - Neurological Exam Neurological Exam: Alert, Oriented x3 - Psychiatric Exam Psychiatric exam: Flat Affect - Skin Skin Exam: Dry, Warm Assessment and Plan - Assessment and Plan (Free Text) Plan: sri/ckd/NAG acidosis/diarrhea/chronic c diff colitis/dm renal function stable continue oral bicarb mild hyperkalemia with hyperglycemia, medical management,
[2016-11-15] MEDS: Fluconazole IV 100mg/50 ml NS 50 ML IVPB SCH (12:19)
[2016-11-15] MEDS: Insulin Detemir 100 Units/ml Inj SC SCH (22:03)
[2016-11-16] MEDS: Vancomycin 500 mg (Oral/Rectal USE) PO SCH ×4 (04:26→21:54)
[2016-11-16] MEDS: Insulin Regular 100 units/ml SC SCH ×4 (07:47→21:40)
[2016-11-16] MEDS: metroNIDAZOLE 500mg/100ml NS 100 ML IVPB SCH ×3 (09:18→17:21)
[2016-11-16] MEDS: Pantoprazole 40 mg EC Tab PO SCH (09:19)
[2016-11-16] MEDS: Megestrol Acetate 40 mg/ml Cup PO SCH (09:19)
[2016-11-16] MEDS: Sodium Chloride 0.45% 1,000 ML IV SCH ×2 (09:21→11:37)
[2016-11-16] MEDS: Lactobacillus Acidophilus 500 MU Cap PO SCH ×2 (09:24→17:25)
[2016-11-16] MEDS: Insulin Lispro Mix 75/25 100 units/ml (HumaLog) 10ml SC SCH ×2 (09:28→17:17)
[2016-11-16] MEDS: Fluconazole IV 100mg/50 ml NS 50 ML IVPB SCH (10:48)
--- NOTE | 2016-11-16 13:20 | CP.PCM.PN ---
Subjective - Date & Time of Evaluation Date of Evaluation: 11/16/16 Time of Evaluation: 08:00 - Subjective Subjective: BETY eval in progress denies fever + LBM alert depressed weak NAD Objective - Vital Signs/Intake and Output Vital Signs (last 24 hours): Temp Pulse Resp BP Pulse Ox 97.7 F 93 H 20 122/91 H 100 11/16/16 08:10 11/16/16 08:10 11/16/16 08:10 11/16/16 08:10 11/16/16 08:10 Intake and Output: 11/16/16 11/16/16 06:59 18:59 Intake Total 600 Output Total 600 Balance 0 - Medications Medications: Current Medications Aspirin (Ecotrin) 81 mg PO DAILY [facility] Last Admin: 11/16/16 09:19 Dose: 81 mg Atorvastatin Calcium (Lipitor) 10 mg PO DAILY [facility] Last Admin: 11/16/16 09:20 Dose: 10 mg Dextrose (Dextrose 50% Inj) 0 ml IV STAT PRN; Protocol PRN Reason: Hyglycemia Protocol Dextrose (Glutose 15) 0 gm PO ONCE PRN; Protocol PRN Reason: Hypoglycemia Protocol Glucagon (Glucagen Diagnostic Kit) 0 mg IM STAT PRN; Protocol PRN Reason: Hypoglycemia Protocol Metronidazole (Flagyl 500mg/100ml Ns) 100 mls @ 100 mls/hr IVPB Q8 [facility] Last Admin: 11/16/16 09:18 Dose: 100 mls/hr Fluconazole (Diflucan Iv 100 Mg/50 Ml Ns) 50 mls @ 50 mls/hr IVPB DAILY [facility] Last Admin: 11/16/16 10:48 Dose: 50 mls/hr Sodium Chloride (Sodium Chloride 0.45%) 1,000 mls @ 150 mls/hr IV .Q6H40M [facility] Stop: 11/16/16 15:05 Last Admin: 11/16/16 11:37 Dose: 150 mls/hr Insulin Detemir (Levemir) 20 units SC HS [facility] Last Admin: 11/15/16 22:03 Dose: 20 u Insulin Human Regular (Humulin R) 0 units SC ACHS [facility] PRN Reason: Protocol Insulin Lispro Protam/Lispro Human (Humalog Mix 75/25) 15 units SC BID [facility] Last Admin: 11/16/16 09:28 Dose: 15 units Lactobacillus Acidophilus (Bacid Acidophilus) 1 cap PO BID [facility] Last Admin: 11/16/16 09:24 Dose: 1 cap Megestrol Acetate (Megace) 800 mg PO DAILY [facility] Last Admin: 11/16/16 09:19 Dose: 800 mg Ondansetron HCl (Zofran Inj) 4 mg IVP Q4 PRN PRN Reason: Nausea/Vomiting Pantoprazole Sodium (Protonix Ec Tab) 40 mg PO DAILY [facility] Last Admin: 11/16/16 09:19 Dose: 40 mg Rifaximin (Xifaxan) 550 mg PO BID [facility] Last Admin: 11/16/16 09:18 Dose: 550 mg Sodium Bicarbonate (Sodium Bicarbonate Tab) 1,300 mg PO QID [facility] Last Admin: 11/16/16 09:19 Dose: 1,300 mg Vancomycin HCl (Vancocin (Oral/Rectal Use)) 250 mg PO Q6 [facility] Last Admin: 11/16/16 09:20 Dose: 250 mg - Labs Labs: 11/15/16 06:00 11/15/16 06:00 PT 11.8 SECONDS (9.6-11.2) H 11/05/16 20:38 INR 1.13 (0.92-1.08) H 11/05/16 20:38 APTT 26.4 SECONDS (23.3-32.5) 11/05/16 20:38 - Constitutional Appears: Cachectic, Chronically Ill - Head Exam Head Exam: NORMOCEPHALIC - Eye Exam Eye Exam: PERRL. absent: Scleral icterus - ENT Exam ENT Exam: Mucous Membranes Dry - Neck Exam Neck Exam: absent: Lymphadenopathy - Respiratory Exam Respiratory Exam: Decreased Breath Sounds, Rhonchi - Cardiovascular Exam Cardiovascular Exam: REGULAR RHYTHM, +S1, +S2 - GI/Abdominal Exam GI & Abdominal Exam: Distended, Soft. absent: Tenderness - Rectal Exam Rectal Exam: Deferred - Extremities Exam Extremities Exam: absent: Calf Tenderness, Pedal Edema - Back Exam Back Exam: absent: CVA tenderness (L), CVA tenderness (R), paraspinal tenderness - Neurological Exam Neurological Exam: Alert, Awake, Oriented x3 Neuro motor strength exam: Left Upper Extremity: 3, Right Upper Extremity: 3, Left Lower Extremity: 3, Right Lower Extremity: 3 - Psychiatric Exam Psychiatric exam: Normal Mood - Skin Skin Exam: Dry, Intact Assessment and Plan (1) DKA (diabetic ketoacidoses) Status: Acute (2) Dehydration Status: Acute (3) Sepsis Status: Acute (4) BRITTNI (acute kidney injury) Status: Acute (5) Clostridium difficile infection Status: Acute (6) DVT prophylaxis Status: Acute (7) Diarrhea Status: Acute (8) History of hypercholesterolemia Status: Acute - Assessment and Plan (Free Text) Assessment: cont rx gu eval check urine AFB
[2016-11-16 15:22] LABS: RBC URINE 35 /hpf (0-3); URINE BILIRUBIN NEGATIVE (NEGATIVE); URINE BLOOD SMALL (NEGATIVE); URINE COLOR YELLOW (YELLOW); URINE GLUCOSE (UA) >=500 mg/dL (Normal); URINE KETONE NEGATIVE (NEGATIVE); URINE LEUKOCYTE ESTERASE LARGE Leu/uL (Negative); URINE PROTEIN 30 mg/dL (NEGATIVE); URINE UROBILINOGEN 0.2-1.0 mg/dL (0.2-1.0); WBC CLUMPS MANY /hpf; WBC URINE 1319 /hpf (0-5)
[2016-11-16] MEDS: Insulin Detemir 100 Units/ml Inj SC SCH (21:43)
[2016-11-17] MEDS: metroNIDAZOLE 500mg/100ml NS 100 ML IVPB SCH ×2 (02:00→09:35)
[2016-11-17] MEDS: Vancomycin 500 mg (Oral/Rectal USE) PO SCH ×3 (04:54→17:16)
[2016-11-17] MEDS ORDERED: Glucagon Recombinant 1 mg Inj IM PRN (05:25)
[2016-11-17] MEDS ORDERED: Insulin Regular 100 units/ml SC ONE (05:40)
--- NOTE | 2016-11-17 05:53 | CP.PCM.PCO ---
Addendum entered and electronically signed by Selin Smtih MD 11/17/16 06:31: Pt ABG returned at 6:30am- indicate metabolic acidosis:-DKA Pt is hemodynamically stable, clinically stable states he feels completely fine Nurse is aware for labs results, told to page Dr. Melgar, to consider ICU for insulin drip other labs still pending Original Note: <Selin Smith - Last Filed: 11/17/16 05:53> Physician Communication Note - Physician Communication Note Physician Communication Note: Pt's BS went from 323 to 500s overnight, DKA work up ordered Assessment/Plan - Problems Patient Problems: Problem List (Active/Current) Problem Status Onset Code BRITTNI (acute kidney injury) Acute N17.9 Cystitis Acute N30.90 DKA (diabetic ketoacidoses) Acute E13.10 Dehydration Acute E86.0 Incontinence of feces Acute R15.9 Malabsorption due to intolerance, not elsewhere classified Acute K90.49 Sepsis Acute A41.9 Sterile pyuria Acute N39.0 Diabetes mellitus type 2 in nonobese Chronic E11.9 Hyperkalemia Resolved E87.5 Hypernatremia Resolved E87.0 Metabolic acidosis Resolved E87.2 Assessment & Plan - Assessment and Plan (Free Text) Assessment: Pt had a midnight snack, at 2am BS was 393, at 5:30am BS was further elevated to 500 Labs to rule out DKA ordered 8 units of insulin given due for 15units at 6:30am Plan: Follow up labs if not in DKA, consider adjusting insulin regime or endocrine consult <Justin Melgar - Last Filed: 12/08/16 11:22> Assessment & Plan (1) Diabetes mellitus type 2 in nonobese Status: Chronic (2) DKA (diabetic ketoacidoses) Status: Acute (3) Dehydration Status: Acute (4) BRITTNI (acute kidney injury) Status: Acute (5) Clostridium difficile infection Status: Acute (6) Metabolic acidosis Status: Resolved (7) Incontinence of feces Status: Acute (8) Malabsorption due to intolerance, not elsewhere classified Status: Acute
[2016-11-17 06:13] LABS: ALB/GLOB RATIO 0.7 (1.0-2.1); ALKALINE PHOSPHATASE 247 U/L (38-126); ALT/SGPT 41 U/L (21-72); AST/SGOT 32 U/L (17-59); BILIRUBIN,TOTAL 0.1 mg/dl (0.2-1.3); BLOOD UREA NITROGEN 28 mg/dl (9-20); CALCIUM 8.7 mg/dL (8.4-10.2); CARBON DIOXIDE 20 mmol/L (22-30); CHLORIDE 119 mmol/L (98-107); GFR AFRICAN-AMERICAN 37; POTASSIUM 5.6 MMOL/L (3.6-5.0); SODIUM 147 mmol/l (132-148); TOTAL PROTEIN 7.5 G/DL (6.3-8.2)
[2016-11-17 06:13] LABS: ABG ALLEN TEST YES; ARTERIAL BLOOD GAS MODE ROOM AIR; CARBOXYHEMOGLOBIN 0.7 % (0.5-1.5)
[2016-11-17 06:20] LABS: GLUCOSE,RANDOM 512 mg/dL (75-110)
[2016-11-17 06:40] LABS: RBC URINE 121 /hpf (0-3); URINE BILIRUBIN NEGATIVE (NEGATIVE); URINE BLOOD SMALL (NEGATIVE); URINE COLOR YELLOW (YELLOW); URINE GLUCOSE (UA) >=500 mg/dL (Normal); URINE KETONE NEGATIVE (NEGATIVE); URINE LEUKOCYTE ESTERASE LARGE Leu/uL (Negative); URINE PROTEIN 100 mg/dL (NEGATIVE); URINE UROBILINOGEN 0.2-1.0 mg/dL (0.2-1.0); WBC CLUMPS MANY /hpf; WBC URINE 3132 /hpf (0-5)
[2016-11-17] MEDS ORDERED: Dextrose 5%/0.45% NS 1,000 ML IV SCH (06:45)
[2016-11-17] MEDS: Insulin Regular 100 units/ml SC SCH (07:01)
[2016-11-17] MEDS: Fluconazole IV 100mg/50 ml NS 50 ML IVPB SCH (09:34)
[2016-11-17] MEDS: Lactobacillus Acidophilus 500 MU Cap PO SCH ×2 (09:34→17:37)
[2016-11-17] MEDS: Insulin Lispro Mix 75/25 100 units/ml (HumaLog) 10ml SC SCH (09:36)
[2016-11-17] MEDS: Pantoprazole 40 mg EC Tab PO SCH (09:37)
[2016-11-17] MEDS: Megestrol Acetate 40 mg/ml Cup PO SCH (09:37)
[2016-11-17] MEDS ORDERED: Insulin Regular 100 units/ml SC SCH (09:43)
--- NOTE | 2016-11-17 09:55 | CP.PCM.PN ---
Subjective - Date & Time of Evaluation Date of Evaluation: 11/15/16 Time of Evaluation: 09:00 - Subjective Subjective: Patient continues to have a lot of loose stools. Continues to have chronic metabolic acidosis. Has elevated FBS. On accucheck Objective - Vital Signs/Intake and Output Vital Signs (last 24 hours): Temp Pulse Resp BP Pulse Ox 97.5 F L 100 H 18 129/95 H 100 11/17/16 08:08 11/17/16 08:08 11/17/16 08:08 11/17/16 08:08 11/17/16 08:08 - Medications Medications: Current Medications Aspirin (Ecotrin) 81 mg PO DAILY [facility] Last Admin: 11/17/16 09:35 Dose: 81 mg Atorvastatin Calcium (Lipitor) 10 mg PO DAILY [facility] Last Admin: 11/17/16 09:37 Dose: 10 mg Dextrose (Dextrose 50% Inj) 0 ml IV STAT PRN; Protocol PRN Reason: Hyglycemia Protocol Dextrose (Glutose 15) 0 gm PO ONCE PRN; Protocol PRN Reason: Hypoglycemia Protocol Dextrose (Dextrose 50% Inj) 0 ml IV STAT PRN; Protocol PRN Reason: Hyglycemia Protocol Dextrose (Glutose 15) 0 gm PO ONCE PRN; Protocol PRN Reason: Hypoglycemia Protocol Glucagon (Glucagen Diagnostic Kit) 0 mg IM STAT PRN; Protocol PRN Reason: Hypoglycemia Protocol Glucagon (Glucagen Diagnostic Kit) 0 mg IM STAT PRN; Protocol PRN Reason: Hypoglycemia Protocol Metronidazole (Flagyl 500mg/100ml Ns) 100 mls @ 100 mls/hr IVPB Q8 [facility] Last Admin: 11/17/16 09:35 Dose: 100 mls/hr Fluconazole (Diflucan Iv 100 Mg/50 Ml Ns) 50 mls @ 50 mls/hr IVPB DAILY [facility] Last Admin: 11/17/16 09:34 Dose: 50 mls/hr Dextrose/Sodium Chloride (Dextrose 5%/0.45% Ns 1000 Ml) 1,000 mls @ 150 mls/hr IV .Q6H40M [facility] Stop: 11/18/16 06:38 Last Admin: 11/17/16 07:04 Dose: 150 mls/hr Insulin Detemir (Levemir) 20 units SC HS [facility] Last Admin: 11/16/16 21:43 Dose: 20 u Insulin Human Regular (Humulin R) 0 units SC ACHS [facility] PRN Reason: Protocol Insulin Lispro Protam/Lispro Human (Humalog Mix 75/25) 15 units SC BID [facility] Last Admin: 11/17/16 09:36 Dose: 15 units Lactobacillus Acidophilus (Bacid Acidophilus) 1 cap PO BID [facility] Last Admin: 11/17/16 09:34 Dose: 1 cap Megestrol Acetate (Megace) 800 mg PO DAILY [facility] Last Admin: 11/17/16 09:37 Dose: 800 mg Ondansetron HCl (Zofran Inj) 4 mg IVP Q4 PRN PRN Reason: Nausea/Vomiting Pantoprazole Sodium (Protonix Ec Tab) 40 mg PO DAILY [facility] Last Admin: 11/17/16 09:37 Dose: 40 mg Rifaximin (Xifaxan) 550 mg PO BID [facility] Last Admin: 11/17/16 09:41 Dose: 550 mg Sodium Bicarbonate (Sodium Bicarbonate Tab) 1,300 mg PO QID [facility] Last Admin: 11/17/16 09:00 Dose: 1,300 mg Vancomycin HCl (Vancocin (Oral/Rectal Use)) 250 mg PO Q6 [facility] Last Admin: 11/17/16 09:40 Dose: 250 mg - Labs Labs: 11/15/16 06:00 11/17/16 05:45 PT 11.8 SECONDS (9.6-11.2) H 11/05/16 20:38 INR 1.13 (0.92-1.08) H 11/05/16 20:38 APTT 26.4 SECONDS (23.3-32.5) 11/05/16 20:38 - Head Exam Head Exam: NORMAL INSPECTION - Eye Exam Eye Exam: Normal appearance - ENT Exam ENT Exam: Mucous Membranes Moist - Respiratory Exam Respiratory Exam: Clear to Ausculation Bilateral - Cardiovascular Exam Cardiovascular Exam: REGULAR RHYTHM - GI/Abdominal Exam GI & Abdominal Exam: Normal Bowel Sounds - Neurological Exam Neurological Exam: Awake Assessment and Plan (1) Diabetes mellitus type 2 in nonobese Status: Chronic (2) DKA (diabetic ketoacidoses) Status: Acute (3) Dehydration Status: Acute (4) BRITTNI (acute kidney injury) Status: Acute (5) Clostridium difficile infection Status: Acute (6) Metabolic acidosis Status: Acute - Assessment and Plan (Free Text) Plan: Cont hydration Cont meds Con ttx Cont PT Hydrate renal follow up.
--- NOTE | 2016-11-17 10:01 | CP.PCM.PN ---
Subjective - Date & Time of Evaluation Date of Evaluation: 11/16/16 Time of Evaluation: 10:00 - Subjective Subjective: Patient remain stable. Has no chest pain or SOB. Has good appetite but still has a lot of loose stools. Has no fever. Stool for C diff on 11/13 and 11/14 are both negative. Objective - Vital Signs/Intake and Output Vital Signs (last 24 hours): Temp Pulse Resp BP Pulse Ox 97.5 F L 100 H 18 129/95 H 100 11/17/16 08:08 11/17/16 08:08 11/17/16 08:08 11/17/16 08:08 11/17/16 08:08 - Medications Medications: Current Medications Aspirin (Ecotrin) 81 mg PO DAILY [facility] Last Admin: 11/17/16 09:35 Dose: 81 mg Atorvastatin Calcium (Lipitor) 10 mg PO DAILY [facility] Last Admin: 11/17/16 09:37 Dose: 10 mg Dextrose (Dextrose 50% Inj) 0 ml IV STAT PRN; Protocol PRN Reason: Hyglycemia Protocol Dextrose (Glutose 15) 0 gm PO ONCE PRN; Protocol PRN Reason: Hypoglycemia Protocol Dextrose (Dextrose 50% Inj) 0 ml IV STAT PRN; Protocol PRN Reason: Hyglycemia Protocol Dextrose (Glutose 15) 0 gm PO ONCE PRN; Protocol PRN Reason: Hypoglycemia Protocol Glucagon (Glucagen Diagnostic Kit) 0 mg IM STAT PRN; Protocol PRN Reason: Hypoglycemia Protocol Glucagon (Glucagen Diagnostic Kit) 0 mg IM STAT PRN; Protocol PRN Reason: Hypoglycemia Protocol Metronidazole (Flagyl 500mg/100ml Ns) 100 mls @ 100 mls/hr IVPB Q8 [facility] Last Admin: 11/17/16 09:35 Dose: 100 mls/hr Fluconazole (Diflucan Iv 100 Mg/50 Ml Ns) 50 mls @ 50 mls/hr IVPB DAILY [facility] Last Admin: 11/17/16 09:34 Dose: 50 mls/hr Dextrose/Sodium Chloride (Dextrose 5%/0.45% Ns 1000 Ml) 1,000 mls @ 150 mls/hr IV .Q6H40M [facility] Stop: 11/18/16 06:38 Last Admin: 11/17/16 07:04 Dose: 150 mls/hr Insulin Detemir (Levemir) 20 units SC [facility] Last Admin: 11/16/16 21:43 Dose: 20 u Insulin Human Regular (Humulin R) 0 units SC ACHS [facility] PRN Reason: Protocol Insulin Lispro Protam/Lispro Human (Humalog Mix 75/25) 15 units SC BID [facility] Last Admin: 11/17/16 09:36 Dose: 15 units Lactobacillus Acidophilus (Bacid Acidophilus) 1 cap PO BID [facility] Last Admin: 11/17/16 09:34 Dose: 1 cap Megestrol Acetate (Megace) 800 mg PO DAILY [facility] Last Admin: 11/17/16 09:37 Dose: 800 mg Ondansetron HCl (Zofran Inj) 4 mg IVP Q4 PRN PRN Reason: Nausea/Vomiting Pantoprazole Sodium (Protonix Ec Tab) 40 mg PO DAILY [facility] Last Admin: 11/17/16 09:37 Dose: 40 mg Rifaximin (Xifaxan) 550 mg PO BID [facility] Last Admin: 11/17/16 09:41 Dose: 550 mg Sodium Bicarbonate (Sodium Bicarbonate Tab) 1,300 mg PO QID [facility] Last Admin: 11/17/16 09:00 Dose: 1,300 mg Vancomycin HCl (Vancocin (Oral/Rectal Use)) 250 mg PO Q6 [facility] Last Admin: 11/17/16 09:40 Dose: 250 mg - Labs Labs: 11/15/16 06:00 11/17/16 05:45 PT 11.8 SECONDS (9.6-11.2) H 11/05/16 20:38 INR 1.13 (0.92-1.08) H 11/05/16 20:38 APTT 26.4 SECONDS (23.3-32.5) 11/05/16 20:38 - Head Exam Head Exam: NORMAL INSPECTION - Eye Exam Eye Exam: Normal appearance - ENT Exam ENT Exam: Mucous Membranes Moist - Respiratory Exam Respiratory Exam: Clear to Ausculation Bilateral - Cardiovascular Exam Cardiovascular Exam: REGULAR RHYTHM - Neurological Exam Neurological Exam: Alert, Awake Assessment and Plan (1) Diabetes mellitus type 2 in nonobese Status: Chronic (2) DKA (diabetic ketoacidoses) Status: Acute (3) Dehydration Status: Acute (4) BRITTNI (acute kidney injury) Status: Acute (5) Clostridium difficile infection Status: Acute (6) Metabolic acidosis Status: Acute - Assessment and Plan (Free Text) Plan: Cont fluids cont accucheck with coverage cont meds follow up with GI and ID may need fecal transplant. bacid yogurt
--- NOTE | 2016-11-17 10:06 | CP.PCM.PN ---
Subjective - Date & Time of Evaluation Date of Evaluation: 11/17/16 Time of Evaluation: 10:04 - Subjective Subjective: Patient continues to have elevated FBS despite Insulin coverage. Has no fever Continues to have low CO2 in met acidosis. Objective - Vital Signs/Intake and Output Vital Signs (last 24 hours): Temp Pulse Resp BP Pulse Ox 97.5 F L 100 H 18 129/95 H 100 11/17/16 08:08 11/17/16 08:08 11/17/16 08:08 11/17/16 08:08 11/17/16 08:08 - Medications Medications: Current Medications Aspirin (Ecotrin) 81 mg PO DAILY [facility] Last Admin: 11/17/16 09:35 Dose: 81 mg Atorvastatin Calcium (Lipitor) 10 mg PO DAILY [facility] Last Admin: 11/17/16 09:37 Dose: 10 mg Dextrose (Dextrose 50% Inj) 0 ml IV STAT PRN; Protocol PRN Reason: Hyglycemia Protocol Dextrose (Glutose 15) 0 gm PO ONCE PRN; Protocol PRN Reason: Hypoglycemia Protocol Dextrose (Dextrose 50% Inj) 0 ml IV STAT PRN; Protocol PRN Reason: Hyglycemia Protocol Dextrose (Glutose 15) 0 gm PO ONCE PRN; Protocol PRN Reason: Hypoglycemia Protocol Glucagon (Glucagen Diagnostic Kit) 0 mg IM STAT PRN; Protocol PRN Reason: Hypoglycemia Protocol Glucagon (Glucagen Diagnostic Kit) 0 mg IM STAT PRN; Protocol PRN Reason: Hypoglycemia Protocol Fluconazole (Diflucan Iv 100 Mg/50 Ml Ns) 50 mls @ 50 mls/hr IVPB DAILY [facility] Last Admin: 11/17/16 09:34 Dose: 50 mls/hr Dextrose/Sodium Chloride (Dextrose 5%/0.45% Ns 1000 Ml) 1,000 mls @ 150 mls/hr IV .Q6H40M [facility] Stop: 11/18/16 06:38 Last Admin: 11/17/16 07:04 Dose: 150 mls/hr Insulin Detemir (Levemir) 20 units SC HS [facility] Last Admin: 11/16/16 21:43 Dose: 20 u Insulin Human Regular (Humulin R) 0 units SC ACHS [facility] PRN Reason: Protocol Insulin Lispro Protam/Lispro Human (Humalog Mix 75/25) 15 units SC BID [facility] Last Admin: 11/17/16 09:36 Dose: 15 units Lactobacillus Acidophilus (Bacid Acidophilus) 1 cap PO BID [facility] Last Admin: 11/17/16 09:34 Dose: 1 cap Megestrol Acetate (Megace) 800 mg PO DAILY [facility] Last Admin: 11/17/16 09:37 Dose: 800 mg Ondansetron HCl (Zofran Inj) 4 mg IVP Q4 PRN PRN Reason: Nausea/Vomiting Pantoprazole Sodium (Protonix Ec Tab) 40 mg PO DAILY [facility] Last Admin: 11/17/16 09:37 Dose: 40 mg Rifaximin (Xifaxan) 550 mg PO BID [facility] Last Admin: 11/17/16 09:41 Dose: 550 mg Sodium Bicarbonate (Sodium Bicarbonate Tab) 1,300 mg PO QID [facility] Last Admin: 11/17/16 09:00 Dose: 1,300 mg Vancomycin HCl (Vancocin (Oral/Rectal Use)) 250 mg PO Q6 [facility] Last Admin: 11/17/16 09:40 Dose: 250 mg - Labs Labs: 11/15/16 06:00 11/17/16 05:45 PT 11.8 SECONDS (9.6-11.2) H 11/05/16 20:38 INR 1.13 (0.92-1.08) H 11/05/16 20:38 APTT 26.4 SECONDS (23.3-32.5) 11/05/16 20:38 - Head Exam Head Exam: NORMAL INSPECTION - Eye Exam Eye Exam: Normal appearance - ENT Exam ENT Exam: Mucous Membranes Moist - Respiratory Exam Respiratory Exam: Clear to Ausculation Bilateral - Cardiovascular Exam Cardiovascular Exam: REGULAR RHYTHM - GI/Abdominal Exam GI & Abdominal Exam: Normal Bowel Sounds - Neurological Exam Neurological Exam: CN II-XII Intact, Oriented x3 Assessment and Plan (1) Diabetes mellitus type 2 in nonobese Status: Chronic (2) DKA (diabetic ketoacidoses) Status: Acute (3) Dehydration Status: Acute (4) BRITTNI (acute kidney injury) Status: Acute (5) Clostridium difficile infection Status: Acute (6) Metabolic acidosis Status: Acute - Assessment and Plan (Free Text) Plan: cont meds cont tx cont PT hydrate.
[2016-11-17] MEDS ORDERED: Sodium Chloride 0.45% 1,000 ML IV SCH (11:30)
[2016-11-17] MEDS: Sodium Chloride 0.45% 1,000 ML IV SCH (12:09)
--- NOTE | 2016-11-17 13:57 | CP.PCM.PN ---
Subjective - Date & Time of Evaluation Date of Evaluation: 11/17/16 Time of Evaluation: 10:20 - Subjective Subjective: Follow up Nephrology Consultation Note Assessment: Acute Kidney Injury likely due to pre-renal state and eventually leading to acute tubular necrosis (improving). Episodes of BRITTNI in past with resulting cr 1.5-1.7 Hypernatremia with dehydration non anion gap metabolic acidosis ? due to GI loss or impaired kidney function/ obstructive uropathy or combination of two and superimposed DKA Mild Hyperkalemia likely due to hyperglycemia, acidosis microscopic hematuria with Bacteriuria and b/l hydroureteronephrosis with bladder wall thickening on CT scan Clostridium difficille infection, DM, Anemia Plan No acute need for renal replacement therapy at this time. continue with hypotonic fluid as 0.45% saline @ 150 mL/hr. pt was also encourage to drink water. d/c cholestyramine as it also can contribute significantly to acidosis. continue with bicarb supplements 1300 mg QID. repeat Urine Na, K and chloride to check [facility] Patient not on ACEI/ARB due to recent BRITTNI and low BP Monitor Input/Output, daily weights and renal function with basic metabolic panel Urology follow up low K diet. Dose meds/antibiotics for reduced GFR. Avoid fleets enema/magnesium based laxatives. Avoid nephrotoxins/NSAIDs/ iodinated contrast (unless needed emergently) Glycemic control Further work up for as per primary team. discussed with team today Thanks for allowing me to participate in care of your patient. Will follow patient with you. Please call if any Qs Dr Aaron Reyes Office: [phone] Subjective: Noted events overnight. Patients feels okay. Denies chest pain, palpitation, shortness of breath, leg swelling. diarrhea is better but pt says he gets it when eats the food. Physical Examination: General Appearance: Comfortable, in no acute respiratory distress, co- operative. appears frail and cachexic Vitals reviewed and noted as below Lungs: Normal respiratory rate/effort. Breath sounds bilateral equal and clear Heart: Normal rate. s1s2 normal. No rub or gallop. Extremities: no edema. Neurological: Patient is alert, awake and oriented to person, place and time. No focal deficit. Strength bilateral appropriate and equal Skin: Warm and dry. Normal turgor. No rash. Palpitation: Normal elasticity for age Abdomen: Abdomen is soft. Bowel sounds +. There is no abdominal tenderness, no guarding/rigidity or organomegaly : kidney or bladder not palpable Labs/imaging reviewed. Past medical history, past surgical history, family history, social history, allergy reviewed and noted as below Echo normal LVEF Urine cx: yeast C diff + CT abdomen: b/l hydroureteronephrosis with bladder wall thickening Objective - Vital Signs/Intake and Output Vital Signs (last 24 hours): Temp Pulse Resp BP Pulse Ox 97.5 F L 100 H 18 129/95 H 100 11/17/16 08:08 11/17/16 08:08 11/17/16 08:08 11/17/16 08:08 11/17/16 08:08 - Medications Medications: Current Medications Aspirin (Ecotrin) 81 mg PO DAILY [facility] Last Admin: 11/17/16 09:35 Dose: 81 mg Atorvastatin Calcium (Lipitor) 10 mg PO DAILY [facility] Last Admin: 11/17/16 09:37 Dose: 10 mg Dextrose (Dextrose 50% Inj) 0 ml IV STAT PRN; Protocol PRN Reason: Hyglycemia Protocol Dextrose (Glutose 15) 0 gm PO ONCE PRN; Protocol PRN Reason: Hypoglycemia Protocol Dextrose (Dextrose 50% Inj) 0 ml IV STAT PRN; Protocol PRN Reason: Hyglycemia Protocol Dextrose (Glutose 15) 0 gm PO ONCE PRN; Protocol PRN Reason: Hypoglycemia Protocol Glucagon (Glucagen Diagnostic Kit) 0 mg IM STAT PRN; Protocol PRN Reason: Hypoglycemia Protocol Glucagon (Glucagen Diagnostic Kit) 0 mg IM STAT PRN; Protocol PRN Reason: Hypoglycemia Protocol Fluconazole (Diflucan Iv 100 Mg/50 Ml Ns) 50 mls @ 50 mls/hr IVPB DAILY [facility] Last Admin: 11/17/16 09:34 Dose: 50 mls/hr Sodium Chloride (Sodium Chloride 0.45%) 1,000 mls @ 150 mls/hr IV .Q6H40M [facility] Stop: 11/18/16 11:31 Last Admin: 11/17/16 12:10 Dose: 150 mls/hr Insulin Detemir (Levemir) 20 units SC [facility] Last Admin: 11/16/16 21:43 Dose: 20 u Insulin Human Regular (Humulin R) 0 units SC ACHS [facility] PRN Reason: Protocol Last Admin: 11/17/16 12:06 Dose: 18 u Insulin Lispro Protam/Lispro Human (Humalog Mix 75/25) 15 units SC BID [facility] Last Admin: 11/17/16 09:36 Dose: 15 units Lactobacillus Acidophilus (Bacid Acidophilus) 1 cap PO BID [facility] Last Admin: 11/17/16 09:34 Dose: 1 cap Megestrol Acetate (Megace) 800 mg PO DAILY [facility] Last Admin: 11/17/16 09:37 Dose: 800 mg Ondansetron HCl (Zofran Inj) 4 mg IVP Q4 PRN PRN Reason: Nausea/Vomiting Pantoprazole Sodium (Protonix Ec Tab) 40 mg PO DAILY [facility] Last Admin: 11/17/16 09:37 Dose: 40 mg Rifaximin (Xifaxan) 550 mg PO BID [facility] Last Admin: 11/17/16 09:41 Dose: 550 mg Sodium Bicarbonate (Sodium Bicarbonate Tab) 1,300 mg PO QID [facility] Last Admin: 11/17/16 09:00 Dose: 1,300 mg Vancomycin HCl (Vancocin (Oral/Rectal Use)) 250 mg PO Q6 [facility] Last Admin: 11/17/16 09:40 Dose: 250 mg - Labs Labs: 11/15/16 06:00 11/17/16 05:45 PT 11.8 SECONDS (9.6-11.2) H 11/05/16 20:38 INR 1.13 (0.92-1.08) H 11/05/16 20:38 APTT 26.4 SECONDS (23.3-32.5) 11/05/16 20:38
[2016-11-17 14:54] LABS: ARTERIAL BLOOD GAS HCO3 17.9 mmol/L (21-28); ARTERIAL BLOOD GAS O2 CAPACITY 13.6 mL/dL (16-24); ARTERIAL BLOOD GAS O2 CONTENT 13.5 ML/dL (15-23); ARTERIAL BLOOD GAS PH 7.38 (7.35-7.45); ARTERIAL BLOOD GAS PO2 156 mm/Hg (80-100); ARTERIAL BLOOD HGB O2 SAT 97.6 % (95.0-98.0); HHB 0.5 % (0.0-5.0); METHEMOGLOBIN 1.1 % (0.0-3.0)
[2016-11-17 14:59] LABS: ABG ALLEN TEST YES; ARTERIAL BLOOD GAS HCO3 17.9 mmol/L (21-28); ARTERIAL BLOOD GAS PH 7.38 (7.35-7.45); ARTERIAL BLOOD GAS PO2 156 mm/Hg (80-100)
[2016-11-17 15:00] LABS: DRAW SITE rb
[2016-11-17] MEDS ORDERED: Sodium Chloride 0.9% 1,000 ML IV SCH (15:00)
--- NOTE | 2016-11-17 15:11 | PCM.RRTMUL ---
<Miranda Perez - Last Filed: 11/17/16 15:20> PHP ENGINEER Nurse Assessment - Situation PHP ENGINEER Responder Arrival Time:: 14:37 Location:: [address] [place] [address] Room Number:: [id number] PHP ENGINEER Reason for Call: Hypotension PHP ENGINEER Called By: RN - IV IV Inserted during PHP ENGINEER?: No - Respiratory Oxygen Delivery Method:: Room Air Received Nebulizer Treatments:: No Was the Patient Ventilated with Bag/Mask 100% O2?: No Secretions Suctioned?: No Was the Patient Intubated?: No Was the Patient Placed on a Ventilator?: No - Medication Medications Administered During PHP ENGINEER :: fluid bolus 0.9 NSS 1 liter. - Diagnostic Test Ordered EKG:: Yes Chest X-Ray:: No CT Scan:: No - Stat Labs Ordered PHP ENGINEER Stat Labs Ordered:: CBC, PT/PTT, LACTIC ACID, ABG PHP ENGINEER Other Labs Ordered:: cmp, magnesium, phosphorus CPR started during PHP ENGINEER?: No - Vital Signs Blood Pressure:: 80/40 Pulse Rate:: 105 Respiratory Rate:: 20 Temperature:: 97 F Oxygen Saturation:: 100 - Sepsis Screen Part 1 Sepsis Screen Part 1: Hypotensive - Time PHP ENGINEER Ended Time PHP ENGINEER Ended:: 15:00 - Vital Signs at end of PHP ENGINEER Blood Pressure:: 98/62 Pulse Rate:: 104 Respiratory Rate:: 18 Temperature:: 97.7 F O2 Sat by Pulse Oximetry:: 100 - Recommendations 5) PHP ENGINEER Level of Care Recommendations: Remain in current setting Responder Note - Time PHP ENGINEER was called Time PHP ENGINEER was called:: 14:38 - Location Location: [address] Discovered by:: Nurse Primary Physician:: Justin Melgar - PHP ENGINEER Team PHP ENGINEER Leader:: Shannan Mclaughlin Resident:: Miranda Perez - Vital Signs at Initial Assessment Blood Pressure:: 80/40 Pulse Rate:: 105 Respiratory Rate:: 20 Temperature:: 97 F O2 Sat by Pulse Oximetry:: 100 - Chest Pain Chest Pain:(If answer is yes, complete next 2 questions): No - Seizure Seizure:: No - Neurological Status Neurological Status (Select all that apply):: Alert, Oriented - Respiratory Oxygen Flow Rate:: 2 Summary - Summary of Event Summary of Event: S: PHP ENGINEER was called by Nurse because Hypotension and dizziness. Patient was alert and oriented, but lethargic at the time of arrival. Patient was reporting dizziness, but denied chest pain, SOB, abdominal pain, nausea, or other complains. O: BP: 80/40, HR: 105, RR: 20, T: 97 F, O2 sat: 100 % in NC CV: RRR, normal S1, S2 respiratory: clear lung bilateral abdomen: soft, non distended, no tender extremities: no edema noted bilateral, radial and DP pulses present and bilateral. SCDs in place bilateral. neuro: Lethargic, but alert and oriented X 3 A: 46 y/o M with PMH HTN, hypercholesterolemia, seizures, diabetes admitted for DKA, dehydration, now being treated for C-diff infection who presented with Hypotension and dizziness most likely secondary to hypovolemia secondary to hyperglycemia and diarrheas. Plan: -NS 1 L bolus -Maintenance with NS 150 ml/hr x 2 L -EKG, ABG w/ lactic acid, Mg, BMP, PT/PTT/INR -EKG: did not show acute ST or T waves changes -EF on september, EF was 50-55 % -Transfer to Telemetry Outcomes - PHP ENGINEER Outcomes PHP ENGINEER Outcomes: After 1 L of NS IV bolus patient was feeling better, BP increased to 98/62 mmhg , and patient is going to be transfer to Telemetry for closer monitoring <Shannan Mclaughlin - Last Filed: 11/17/16 17:21> Attending/Attestation - Attestation I have personally seen and examined this patient.: Yes I have fully participated in the care of the patient.: Yes I have reviewed all pertinent clinical information: Yes Notes (Text): 11/17/16 17:18 Pt seen and examined with resident during the PHP ENGINEER. I agree with the above assessment and plan out lined in pt's note. Hypotension and Dizziness likely sec to Hypovolemia- pt had large amount of diarrhea. He has also been having very elevated glucose levels. - IVF hydration- NS bolus then cont IVF at 150 ml /hr - blood glucose control Pt's PMD - Dr Melgar informed of event, discussed case - rec to transfer pt to Telemetry for close monitoring
[2016-11-17 15:15] LABS: HEMATOCRIT 28.8 % (35.0-51.0); MEAN CELL VOLUME 88.4 fl (80.0-94.0); MEAN CORPUSCULAR HEMOGLOBIN 28.1 pg (27.0-31.0); MEAN CORPUSCULAR HGB CONC 31.8 g/dL (33.0-37.0); RED CELL DISTRIBUTION WIDTH 15.8 % (11.5-14.5); WHITE BLOOD COUNT 7.9 K/uL (4.8-10.8)
[2016-11-17 15:17] LABS: CALCIUM 8.4 mg/dL (8.4-10.2); MAGNESIUM 1.5 MG/DL (1.6-2.3); POTASSIUM 4.3 MMOL/L (3.6-5.0)
[2016-11-17] MEDS: Insulin Lispro (humaLOG) 100 Units/ml Inj SC SCH ×3 (17:14→22:10)
[2016-11-17] MEDS: Sodium Chloride 0.9% 1,000 ML IV SCH (17:17)
--- NOTE | 2016-11-17 19:15 | CON ---
DATE: 11/17/2016 ROOM: 415 HISTORY OF PRESENT ILLNESS: This is a 46-year-old male with known history of type 2 insulin-requirin g diabetes, presenting here with diabetic ketoacidosis and marked dehydration and received intensive insulin therapy and vigorous IV hydration at the ICU for many days and is now being referred for diab etic evaluation because of persistent hyperglycemic accelerations as noted thereof. PAST MEDICAL HISTORY: History of type 2 insulin-requiring diabetes on a combination of oral hypoglyc emic therapy, taking Januvia 100 mg daily and Actos at 15 mg daily with Levemir given as 30 units sub Q at bedtime daily as noted. However, the patient admits to very poor adherence and compliance to hi s aforementioned regimen and was apparently off insulin for a few weeks prior to admission. History of hypertension and dyslipidemia, history of seizure disorder on anti-seizure medication, history of diabetic retinopathy, polyneuropathy, and nephropathy as noted. FAMILY HISTORY: Positive for hypertension and diabetes. SOCIAL HISTORY: The patient has supportive family. No known substance use. REVIEW OF SYSTEMS: Admits to generalized body weakness with easy fatigability and tiredness and subo ptimal energy level. Also admits to dizziness and lightheadedness, worse on in the last few days imk or to admission. No recent chest pains or palpitations, but admits to paroxysmal nocturnal dyspnea, especially in the last few days prior to admission. His oral intake has been variable with nausea, d yspepsia, and supervening episodic vomiting episodes prompting this admission. Also, admits to marke d polyuria, nocturia, polydipsia with over 10 pounds or more weight loss in the last few weeks prior to admission. PHYSICAL EXAMINATION: GENERAL: This is a 46-year-old male with no apparent distress. VITAL SIGNS: Blood pressure of 130/80 with a subsequent drop to 80/60, so was transferred to the [facility] for closer hemodynamic monitoring, pulse of 100 beats per minute and regular, temperature 98, respirations 20. Height is 6 feet 3 inches, weight is ____ pounds. HEENT: Head normocephalic. Eyes anicteric with pink conjunctivae. Fundoscopy not possible at this time. Ears, nose and throat otherwise normal. NECK: Supple. Thyroid gland is normal size. No carotid bruits. No cervical adenopathy. CARDIOPULMONARY: Some adynamic precordium. S1, S2 is rapid and regular. LUNGS: Clear to auscultation. ABDOMEN: Flat, soft with positive bowel sounds. EXTREMITIES: No peripheral edema. Pulses are +2 bilaterally. LABORATORY DATA: The initial chemistries on admission showed a BUN of 85, sodium 145, potassium 6.9, chloride 111, CO2 is 8, glucose is 588 and creatinine is 4.2. The subsequent glucose levels have be en extremely fluctuating, ranging from 155 to over 500 mg/dL. His latest CO2 is 17 and still mildly acidotic as noted. ASSESSMENT: This is a 46-year-old male with uncontrolled and decompensated type 2 insulin-requiring diabetes, presenting here with diabetic ketoacidosis and dehydration related to very poor adherence t o his insulin regimen and oral hypoglycemic drug combination as given. He also has diabetic microvas cular complications of retinopathy, polyneuropathy, and nephropathy with progressive renal insufficie ncy as noted thereof. PLAN OF MANAGEMENT: Discussed with the patient and the staff. We will modify his current insulin re gimen and switch him over to a more physiologic basal and bolus insulin drug combination with Levemir to be increased to 30 units subQ at bedtime daily to start tonight. We will also add Humalog given as 12 units subQ t.i.d. before meals to start today at dinnertime as ordered. We will modify the cov erage scale to obviate hypoglycemia and detailed orders have been given. We will continue the IV hyd ration as ordered and supplement accordingly as needed. We will obtain a hemoglobin A1c which appare ntly was not done on admission to confirm his very poor outpatient metabolic control of his diabetic condition. Would highly recommended insulin pump for optimal metabolic control although the patient has very strong history of nonadherence and noncompliance to his insulin regimen and this will be a c oncern otherwise, although this would be the ideal therapeutic option for optimal metabolic control, also to delay the microvascular complications as noted. We will follow and advise accordingly. Claudia Adame MD cc: [id number] TT: 11/17/2016 19:14:12 Confirmation # [id number] Dictation # [id number]
[2016-11-17] MEDS ORDERED: Insulin Detemir 100 Units/ml Inj SC SCH (22:00)
[2016-11-18] MEDS: Enoxaparin 30 mg Syringe SC SCH ×2 (00:58→08:49)
[2016-11-18] MEDS: metroNIDAZOLE 500mg/100ml NS 100 ML IVPB SCH ×3 (00:59→16:25)
[2016-11-18] MEDS: Vancomycin 500 mg (Oral/Rectal USE) PO SCH ×5 (01:00→21:39)
[2016-11-18] MEDS: Sodium Chloride 0.9% 1,000 ML IV SCH ×3 (01:02→16:35)
--- NOTE | 2016-11-18 02:02 | CARD ---
APPROVED REPORT EKG Measurement Heart [id number] <Conclusion> Sinus tachycardia Otherwise normal ECG
[2016-11-18 07:23] LABS: ALB/GLOB RATIO 0.7 (1.0-2.1); ALKALINE PHOSPHATASE 217 U/L (38-126); ALT/SGPT 42 U/L (21-72); AST/SGOT 34 U/L (17-59); BILIRUBIN,TOTAL 0.1 mg/dl (0.2-1.3); BLOOD UREA NITROGEN 25 mg/dl (9-20); CALCIUM 8.2 mg/dL (8.4-10.2); CARBON DIOXIDE 19 mmol/L (22-30); CHLORIDE 119 mmol/L (98-107); CHOLESTEROL 75 mg/dL (0-199); GFR AFRICAN-AMERICAN 39; GLUCOSE,RANDOM 350 mg/dL (75-110); POTASSIUM 5.7 MMOL/L (3.6-5.0); SODIUM 147 mmol/l (132-148); TOTAL PROTEIN 7.1 G/DL (6.3-8.2)
[2016-11-18 07:44] LABS: THYROID STIMULATING HORMONE 3.52 mIU/ML (0.46-4.68)
[2016-11-18] MEDS: Insulin Lispro (humaLOG) 100 Units/ml Inj SC SCH ×9 (08:47→21:39)
[2016-11-18] MEDS: Pantoprazole 40 mg EC Tab PO SCH (08:49)
--- NOTE | 2016-11-18 08:54 | CP.PCM.PN ---
<Cassie Jones - Last Filed: 11/18/16 11:23> Subjective - Date & Time of Evaluation Date of Evaluation: 11/18/16 Time of Evaluation: 08:51 - Subjective Subjective: evaluated with attending. overnight events, [employer] for hypotension, continued metabolic acidosis. BM more formed x3-4 daily, occurs only after eating. Denies f/c, n/v, chest pain, SOB, abd pain. Tolerating PO. Objective - Vital Signs/Intake and Output Vital Signs (last 24 hours): Temp Pulse Resp BP Pulse Ox 98.1 F 108 H 20 145/97 H 100 11/18/16 08:17 11/18/16 08:17 11/18/16 08:17 11/18/16 08:17 11/18/16 08:17 - Medications Medications: Current Medications Aspirin (Ecotrin) 81 mg PO DAILY [facility] Last Admin: 11/17/16 09:35 Dose: 81 mg Atorvastatin Calcium (Lipitor) 10 mg PO DAILY [facility] Last Admin: 11/17/16 09:37 Dose: 10 mg Dextrose (Dextrose 50% Inj) 0 ml IV STAT PRN; Protocol PRN Reason: Hyglycemia Protocol Dextrose (Glutose 15) 0 gm PO ONCE PRN; Protocol PRN Reason: Hypoglycemia Protocol Dextrose (Dextrose 50% Inj) 0 ml IV STAT PRN; Protocol PRN Reason: Hyglycemia Protocol Dextrose (Glutose 15) 0 gm PO ONCE PRN; Protocol PRN Reason: Hypoglycemia Protocol Enoxaparin Sodium (Lovenox) 30 mg SC DAILY [facility] PRN Reason: Protocol Last Admin: 11/18/16 00:58 Dose: 30 mg Glucagon (Glucagen Diagnostic Kit) 0 mg IM STAT PRN; Protocol PRN Reason: Hypoglycemia Protocol Glucagon (Glucagen Diagnostic Kit) 0 mg IM STAT PRN; Protocol PRN Reason: Hypoglycemia Protocol Fluconazole (Diflucan Iv 100 Mg/50 Ml Ns) 50 mls @ 50 mls/hr IVPB DAILY [facility] Last Admin: 11/17/16 09:34 Dose: 50 mls/hr Sodium Chloride (Sodium Chloride 0.9%) 1,000 mls @ 999 mls/hr IV .Q1H1M [facility] Stop: 11/18/16 14:46 Last Admin: 11/17/16 15:14 Dose: 999 mls/hr Sodium Chloride (Sodium Chloride 0.9%) 1,000 mls @ 150 mls/hr IV .Q6H40M [facility] Stop: 11/18/16 14:49 Last Admin: 11/18/16 01:02 Dose: 150 mls/hr Metronidazole (Flagyl 500mg/100ml Ns) 100 mls @ 100 mls/hr IVPB Q8 [facility] Last Admin: 11/18/16 00:59 Dose: 100 mls/hr Insulin Detemir (Levemir) 30 units SC HS [facility] Last Admin: 11/17/16 22:12 Dose: 30 unit Insulin Human Lispro (Humalog) 12 units SC AC [facility] Last Admin: 11/18/16 08:47 Dose: 12 unit Insulin Human Lispro (Humalog) 0 units SC ACHS [facility] PRN Reason: Protocol Last Admin: 11/17/16 22:10 Dose: Not Given Lactobacillus Acidophilus (Bacid Acidophilus) 1 cap PO BID [facility] Last Admin: 11/17/16 17:37 Dose: 1 cap Megestrol Acetate (Megace) 800 mg PO DAILY [facility] Last Admin: 11/17/16 09:37 Dose: 800 mg Ondansetron HCl (Zofran Inj) 4 mg IVP Q4 PRN PRN Reason: Nausea/Vomiting Pantoprazole Sodium (Protonix Ec Tab) 40 mg PO DAILY [facility] Last Admin: 11/17/16 09:37 Dose: 40 mg Rifaximin (Xifaxan) 550 mg PO BID [facility] Last Admin: 11/17/16 17:17 Dose: 550 mg Sodium Bicarbonate (Sodium Bicarbonate Tab) 1,300 mg PO QID [facility] Last Admin: 11/18/16 00:59 Dose: 1,300 mg Vancomycin HCl (Vancocin (Oral/Rectal Use)) 250 mg PO Q6 [facility] Last Admin: 11/18/16 01:00 Dose: 250 mg - Labs Labs: 11/17/16 15:00 11/18/16 05:50 PT 13.5 SECONDS (9.6-11.2) H 11/17/16 14:50 INR 1.30 (0.92-1.08) H 11/17/16 14:50 APTT 26.0 SECONDS (23.3-32.5) 11/17/16 14:50 - Constitutional Appears: Non-toxic, No Acute Distress - Head Exam Head Exam: ATRAUMATIC, NORMAL INSPECTION - Eye Exam Eye Exam: Normal appearance - ENT Exam ENT Exam: Mucous Membranes Moist - Neck Exam Neck Exam: Normal Inspection - Respiratory Exam Respiratory Exam: Clear to Ausculation Bilateral - Cardiovascular Exam Cardiovascular Exam: REGULAR RHYTHM - GI/Abdominal Exam GI & Abdominal Exam: Soft, Normal Bowel Sounds - Extremities Exam Extremities Exam: Normal Inspection. absent: Pedal Edema - Back Exam Back Exam: NORMAL INSPECTION - Neurological Exam Neurological Exam: Alert, Oriented x3 - Skin Skin Exam: Dry, Warm Assessment and Plan (1) Clostridium difficile infection Assessment & Plan: -ID on board, appreciate input -GI on board, appreciate input. cleared for d/c -flagyl, vanc, rifaxamin -contact precautions -repeat c. diff neg -probiotic Status: Acute (2) Diabetes mellitus type 2 in nonobese Assessment & Plan: -levemir 30u HS -humalog 12u AC -accucheck -SSI -endo on board, appreciate input Status: Chronic (3) BRITTNI (acute kidney injury) Assessment & Plan: -Nephro on board, appreciate input -MIVF NS, 150cc/hr Status: Acute (4) Hypertension Assessment & Plan: -hold meds for hypotension Status: Chronic (5) Cystitis Assessment & Plan: -per US bladder -US renal: mild distension collecting system -CT abd/pelvis: b/l hydronephrosis -urine cx >100K CFU yeast -repeat urine cx <10K CFU GPC -ID on board, appreciate input - on board,appreciate input -US bladder, PVR Status: Acute (7) DVT prophylaxis Assessment & Plan: -lovenox Status: Acute (8) Metabolic acidosis Assessment & Plan: -2/2 diarrhea and BRITTNI -Nephro on board, appreciate input -NaHCO2 Status: Acute <Justin Melgar - Last Filed: 12/03/16 09:21> Objective - Vital Signs/Intake and Output Vital Signs (last 24 hours): Temp Pulse Resp BP Pulse Ox 97.7 F 92 H 20 129/93 H 100 12/03/16 08:26 12/03/16 08:26 12/03/16 08:26 12/03/16 08:26 12/03/16 08:26 - Medications Medications: Current Medications Aspirin (Ecotrin) 81 mg PO DAILY [facility] Last Admin: 11/27/16 09:20 Dose: 81 mg Atorvastatin Calcium (Lipitor) 10 mg PO DAILY [facility] Last Admin: 12/02/16 08:34 Dose: 10 mg Cholestyramine Resin (Questran) 4 gm PO BID [facility] Last Admin: 12/02/16 17:14 Dose: 4 gm Fluconazole (Diflucan Iv 100 Mg/50 Ml Ns) 50 mls @ 50 mls/hr IVPB DAILY [facility] Last Admin: 12/02/16 08:34 Dose: 50 mls/hr Lactated Ringer's (Lactated Ringer's) 1,000 mls @ 100 mls/hr IV .Q10H [facility] Last Admin: 12/03/16 00:08 Dose: Not Given Insulin Detemir (Levemir) 24 units SC HS [facility] Last Admin: 12/02/16 22:33 Dose: 24 units Insulin Human Lispro (Humalog) 0 units SC ACHS [facility] PRN Reason: Protocol Last Admin: 12/02/16 22:32 Dose: Not Given Insulin Human Lispro (Humalog) 8 units SC AC [facility] Last Admin: 12/02/16 17:16 Dose: 8 units Lactobacillus Acidophilus (Bacid Acidophilus) 1 cap PO BID [facility] Last Admin: 12/02/16 17:14 Dose: 1 cap Loperamide HCl (Imodium) 2 mg PO TID [facility] Last Admin: 12/02/16 17:14 Dose: 2 mg Megestrol Acetate (Megace) 800 mg PO DAILY [facility] Last Admin: 12/02/16 08:34 Dose: 800 mg Ondansetron HCl (Zofran Inj) 4 mg IVP Q4 PRN PRN Reason: Nausea/Vomiting Pantoprazole Sodium (Protonix Ec Tab) 40 mg PO DAILY [facility] Last Admin: 12/02/16 08:34 Dose: 40 mg - Labs Labs: 11/29/16 08:00 12/02/16 11:30 PT 13.5 SECONDS (9.6-11.2) H 11/17/16 14:50 INR 1.30 (0.92-1.08) H 11/17/16 14:50 APTT 26.0 SECONDS (23.3-32.5) 11/17/16 14:50 Assessment and Plan (1) Diabetes mellitus type 2 in nonobese Status: Chronic (2) DKA (diabetic ketoacidoses) Status: Acute (3) Dehydration Status: Acute (4) BRITTNI (acute kidney injury) Status: Acute (5) Clostridium difficile infection Status: Acute (6) Metabolic acidosis Status: Resolved - Assessment and Plan (Free Text) Plan: I was present during evaluation and discussed with Dr Cassie hughes plans of care Justin Melgar M.D.
[2016-11-18] MEDS: Fluconazole IV 100mg/50 ml NS 50 ML IVPB SCH (08:57)
[2016-11-18] MEDS: Lactobacillus Acidophilus 500 MU Cap PO SCH ×2 (09:00→16:25)
[2016-11-18] MEDS: Megestrol Acetate 40 mg/ml Cup PO SCH (09:00)
--- NOTE | 2016-11-18 13:17 | CP.PCM.PN ---
Subjective - Date & Time of Evaluation Date of Evaluation: 11/18/16 Time of Evaluation: 13:16 - Subjective Subjective: renal follow up note no events overnight Objective - Vital Signs/Intake and Output Vital Signs (last 24 hours): Temp Pulse Resp BP Pulse Ox 98.4 F 103 H 18 115/77 100 11/18/16 12:25 11/18/16 12:25 11/18/16 12:25 11/18/16 12:25 11/18/16 12:25 - Medications Medications: Current Medications Aspirin (Ecotrin) 81 mg PO DAILY [facility] Last Admin: 11/18/16 08:49 Dose: 81 mg Atorvastatin Calcium (Lipitor) 10 mg PO DAILY [facility] Last Admin: 11/18/16 08:49 Dose: 10 mg Dextrose (Dextrose 50% Inj) 0 ml IV STAT PRN; Protocol PRN Reason: Hyglycemia Protocol Dextrose (Glutose 15) 0 gm PO ONCE PRN; Protocol PRN Reason: Hypoglycemia Protocol Dextrose (Dextrose 50% Inj) 0 ml IV STAT PRN; Protocol PRN Reason: Hyglycemia Protocol Dextrose (Glutose 15) 0 gm PO ONCE PRN; Protocol PRN Reason: Hypoglycemia Protocol Enoxaparin Sodium (Lovenox) 30 mg SC DAILY [facility] PRN Reason: Protocol Last Admin: 11/18/16 08:49 Dose: 30 mg Glucagon (Glucagen Diagnostic Kit) 0 mg IM STAT PRN; Protocol PRN Reason: Hypoglycemia Protocol Glucagon (Glucagen Diagnostic Kit) 0 mg IM STAT PRN; Protocol PRN Reason: Hypoglycemia Protocol Fluconazole (Diflucan Iv 100 Mg/50 Ml Ns) 50 mls @ 50 mls/hr IVPB DAILY [facility] Last Admin: 11/18/16 08:57 Dose: 50 mls/hr Sodium Chloride (Sodium Chloride 0.9%) 1,000 mls @ 999 mls/hr IV .Q1H1M [facility] Stop: 11/18/16 14:46 Last Admin: 11/17/16 15:14 Dose: 999 mls/hr Sodium Chloride (Sodium Chloride 0.9%) 1,000 mls @ 150 mls/hr IV .Q6H40M [facility] Stop: 11/18/16 14:49 Last Admin: 11/18/16 08:50 Dose: 150 mls/hr Metronidazole (Flagyl 500mg/100ml Ns) 100 mls @ 100 mls/hr IVPB Q8 [facility] Last Admin: 11/18/16 08:58 Dose: 100 mls/hr Insulin Detemir (Levemir) 30 units SC HS [facility] Last Admin: 11/17/16 22:12 Dose: 30 unit Insulin Human Lispro (Humalog) 12 units SC AC [facility] Last Admin: 11/18/16 08:47 Dose: 12 unit Insulin Human Lispro (Humalog) 0 units SC ACHS [facility] PRN Reason: Protocol Last Admin: 11/18/16 08:52 Dose: 4 unit Lactobacillus Acidophilus (Bacid Acidophilus) 1 cap PO BID [facility] Last Admin: 11/18/16 09:00 Dose: 1 cap Megestrol Acetate (Megace) 800 mg PO DAILY [facility] Last Admin: 11/17/16 09:37 Dose: 800 mg Ondansetron HCl (Zofran Inj) 4 mg IVP Q4 PRN PRN Reason: Nausea/Vomiting Pantoprazole Sodium (Protonix Ec Tab) 40 mg PO DAILY [facility] Last Admin: 11/18/16 08:49 Dose: 40 mg Sodium Bicarbonate (Sodium Bicarbonate Tab) 1,300 mg PO QID [facility] Last Admin: 11/18/16 08:49 Dose: 1,300 mg Vancomycin HCl (Vancocin (Oral/Rectal Use)) 250 mg PO Q6 [facility] Last Admin: 11/18/16 01:00 Dose: 250 mg - Labs Labs: 11/17/16 15:00 11/18/16 05:50 PT 13.5 SECONDS (9.6-11.2) H 11/17/16 14:50 INR 1.30 (0.92-1.08) H 11/17/16 14:50 APTT 26.0 SECONDS (23.3-32.5) 11/17/16 14:50 - Constitutional Appears: Well, Non-toxic, No Acute Distress - Head Exam Head Exam: NORMAL INSPECTION - Eye Exam Eye Exam: Normal appearance - ENT Exam ENT Exam: Mucous Membranes Moist - Respiratory Exam Respiratory Exam: NORMAL BREATHING PATTERN - Cardiovascular Exam Cardiovascular Exam: +S1, +S2 - GI/Abdominal Exam GI & Abdominal Exam: Soft - Extremities Exam Extremities Exam: Normal Inspection - Neurological Exam Neurological Exam: Alert, Oriented x3 - Psychiatric Exam Psychiatric exam: Flat Affect, Normal Mood - Skin Skin Exam: Dry, Warm Assessment and Plan - Assessment and Plan (Free Text) Plan: sri/acidosis/c diff recurrent infection/hyperkalemia renal function is stable acidosis: continue oral bicarb hyperkalemia: medical management, hold potassium supplements abx per primary team
--- NOTE | 2016-11-18 13:28 | CP.PCM.PN ---
Subjective - Date & Time of Evaluation Date of Evaluation: 11/18/16 Time of Evaluation: 07:00 - Subjective Subjective: events noted ordered blood cultures Objective - Vital Signs/Intake and Output Vital Signs (last 24 hours): Temp Pulse Resp BP Pulse Ox 98.4 F 103 H 18 115/77 100 11/18/16 12:25 11/18/16 12:25 11/18/16 12:25 11/18/16 12:25 11/18/16 12:25 - Medications Medications: Current Medications Aspirin (Ecotrin) 81 mg PO DAILY [facility] Last Admin: 11/18/16 08:49 Dose: 81 mg Atorvastatin Calcium (Lipitor) 10 mg PO DAILY [facility] Last Admin: 11/18/16 08:49 Dose: 10 mg Dextrose (Dextrose 50% Inj) 0 ml IV STAT PRN; Protocol PRN Reason: Hyglycemia Protocol Dextrose (Glutose 15) 0 gm PO ONCE PRN; Protocol PRN Reason: Hypoglycemia Protocol Dextrose (Dextrose 50% Inj) 0 ml IV STAT PRN; Protocol PRN Reason: Hyglycemia Protocol Dextrose (Glutose 15) 0 gm PO ONCE PRN; Protocol PRN Reason: Hypoglycemia Protocol Enoxaparin Sodium (Lovenox) 30 mg SC DAILY [facility] PRN Reason: Protocol Last Admin: 11/18/16 08:49 Dose: 30 mg Glucagon (Glucagen Diagnostic Kit) 0 mg IM STAT PRN; Protocol PRN Reason: Hypoglycemia Protocol Glucagon (Glucagen Diagnostic Kit) 0 mg IM STAT PRN; Protocol PRN Reason: Hypoglycemia Protocol Fluconazole (Diflucan Iv 100 Mg/50 Ml Ns) 50 mls @ 50 mls/hr IVPB DAILY [facility] Last Admin: 11/18/16 08:57 Dose: 50 mls/hr Sodium Chloride (Sodium Chloride 0.9%) 1,000 mls @ 999 mls/hr IV .Q1H1M [facility] Stop: 11/18/16 14:46 Last Admin: 11/17/16 15:14 Dose: 999 mls/hr Sodium Chloride (Sodium Chloride 0.9%) 1,000 mls @ 150 mls/hr IV .Q6H40M [facility] Stop: 11/18/16 14:49 Last Admin: 11/18/16 08:50 Dose: 150 mls/hr Metronidazole (Flagyl 500mg/100ml Ns) 100 mls @ 100 mls/hr IVPB Q8 [facility] Last Admin: 11/18/16 08:58 Dose: 100 mls/hr Insulin Detemir (Levemir) 30 units SC HS [facility] Last Admin: 11/17/16 22:12 Dose: 30 unit Insulin Human Lispro (Humalog) 12 units SC AC [facility] Last Admin: 11/18/16 08:47 Dose: 12 unit Insulin Human Lispro (Humalog) 0 units SC ACHS [facility] PRN Reason: Protocol Last Admin: 11/18/16 08:52 Dose: 4 unit Lactobacillus Acidophilus (Bacid Acidophilus) 1 cap PO BID [facility] Last Admin: 11/18/16 09:00 Dose: 1 cap Megestrol Acetate (Megace) 800 mg PO DAILY [facility] Last Admin: 11/17/16 09:37 Dose: 800 mg Ondansetron HCl (Zofran Inj) 4 mg IVP Q4 PRN PRN Reason: Nausea/Vomiting Pantoprazole Sodium (Protonix Ec Tab) 40 mg PO DAILY [facility] Last Admin: 11/18/16 08:49 Dose: 40 mg Sodium Bicarbonate (Sodium Bicarbonate Tab) 1,300 mg PO QID [facility] Last Admin: 11/18/16 08:49 Dose: 1,300 mg Vancomycin HCl (Vancocin (Oral/Rectal Use)) 250 mg PO Q6 [facility] Last Admin: 11/18/16 01:00 Dose: 250 mg - Labs Labs: 11/17/16 15:00 11/18/16 05:50 PT 13.5 SECONDS (9.6-11.2) H 11/17/16 14:50 INR 1.30 (0.92-1.08) H 11/17/16 14:50 APTT 26.0 SECONDS (23.3-32.5) 11/17/16 14:50 Assessment and Plan (1) DKA (diabetic ketoacidoses) Status: Acute (2) Dehydration Status: Acute (3) Sepsis Status: Acute (4) BRITTNI (acute kidney injury) Status: Acute (5) Clostridium difficile infection Status: Acute (6) DVT prophylaxis Status: Acute (7) Diarrhea Status: Acute (8) History of hypercholesterolemia Status: Acute
--- NOTE | 2016-11-18 15:29 | PN ---
DATE: 11/18/2016 ROOM: 415 This is a 46-year-old male with recent uncontrolled type 2 insulin-requiring diabetes, now being foll owed closely for metabolic management. His glycemic levels are fluctuating as noted and the latest chemistries showed a BUN of 25, sodium 14 7, potassium 5.7, chloride 119, CO2 is 19, glucose is 350 and creatinine is 2.2. His A1c level is 10 .6%, which is quite elevated and indicative of suboptimal metabolic control of his diabetic condition even prior to this admission. His latest glucose levels have ranged from 285-346 mg/dL. So at this time, we will modify once again his basal and bolus insulin regimen to optimize his metabo lic control as noted. We will increase the Levemir to 40 units subQ at bedtime daily to start tonigh t. We will also increase the Humalog to 14 units subQ t.i.d. before meals to start at dinnertime tod ay as ordered. We will continue the low-dose correction scale using Humalog insulin as given. We wi ll titrate incrementally as indicated to optimize metabolic control. We will also obtain serial chem istries and supplement accordingly as needed. We will follow. Claudia Adame MD cc: [id number] TT: 11/18/2016 15:29:04 Confirmation # [id number] Dictation # [id number]
[2016-11-18 17:12] LABS: CORTISOL AM 7.1 ug/dL (4.46-22.7)
[2016-11-18] MEDS ORDERED: Insulin Detemir 100 Units/ml Inj SC SCH (22:00)
[2016-11-19] MEDS: Vancomycin 500 mg (Oral/Rectal USE) PO SCH ×3 (04:45→21:46)
--- NOTE | 2016-11-19 06:56 | CP.PCM.PN ---
<Cassie Jones - Last Filed: 11/19/16 09:02> Subjective - Date & Time of Evaluation Date of Evaluation: 11/19/16 Time of Evaluation: 06:56 - Subjective Subjective: evaluated with attending. no overnight events. BM less formed x3 yesterday, occurs only after eating. Denies f/c, n/v, chest pain, SOB, abd pain. Tolerating PO. BS elevated Objective - Vital Signs/Intake and Output Vital Signs (last 24 hours): Temp Pulse Resp BP Pulse Ox 98.8 F 109 H 20 127/79 100 11/19/16 01:00 11/19/16 01:00 11/19/16 01:00 11/19/16 01:00 11/19/16 01:00 - Medications Medications: Current Medications Aspirin (Ecotrin) 81 mg PO DAILY [facility] Last Admin: 11/18/16 08:49 Dose: 81 mg Atorvastatin Calcium (Lipitor) 10 mg PO DAILY [facility] Last Admin: 11/18/16 08:49 Dose: 10 mg Dextrose (Dextrose 50% Inj) 0 ml IV STAT PRN; Protocol PRN Reason: Hyglycemia Protocol Dextrose (Glutose 15) 0 gm PO ONCE PRN; Protocol PRN Reason: Hypoglycemia Protocol Dextrose (Dextrose 50% Inj) 0 ml IV STAT PRN; Protocol PRN Reason: Hyglycemia Protocol Dextrose (Glutose 15) 0 gm PO ONCE PRN; Protocol PRN Reason: Hypoglycemia Protocol Enoxaparin Sodium (Lovenox) 30 mg SC DAILY [facility] PRN Reason: Protocol Last Admin: 11/18/16 08:49 Dose: 30 mg Glucagon (Glucagen Diagnostic Kit) 0 mg IM STAT PRN; Protocol PRN Reason: Hypoglycemia Protocol Glucagon (Glucagen Diagnostic Kit) 0 mg IM STAT PRN; Protocol PRN Reason: Hypoglycemia Protocol Fluconazole (Diflucan Iv 100 Mg/50 Ml Ns) 50 mls @ 50 mls/hr IVPB DAILY [facility] Last Admin: 11/18/16 08:57 Dose: 50 mls/hr Metronidazole (Flagyl 500mg/100ml Ns) 100 mls @ 100 mls/hr IVPB Q8 [facility] Last Admin: 11/18/16 16:25 Dose: 100 mls/hr Insulin Detemir (Levemir) 40 units SC HS [facility] Last Admin: 11/18/16 21:40 Dose: 40 u Insulin Human Lispro (Humalog) 0 units SC ACHS [facility] PRN Reason: Protocol Last Admin: 11/18/16 21:39 Dose: 3 unit Insulin Human Lispro (Humalog) 14 units SC AC [facility] Last Admin: 11/18/16 17:00 Dose: 14 unit Lactobacillus Acidophilus (Bacid Acidophilus) 1 cap PO BID [facility] Last Admin: 11/18/16 16:25 Dose: 1 cap Megestrol Acetate (Megace) 800 mg PO DAILY [facility] Last Admin: 11/18/16 09:00 Dose: Not Given Ondansetron HCl (Zofran Inj) 4 mg IVP Q4 PRN PRN Reason: Nausea/Vomiting Pantoprazole Sodium (Protonix Ec Tab) 40 mg PO DAILY [facility] Last Admin: 11/18/16 08:49 Dose: 40 mg Sodium Bicarbonate (Sodium Bicarbonate Tab) 1,300 mg PO QID [facility] Last Admin: 11/18/16 21:38 Dose: 1,300 mg Vancomycin HCl (Vancocin (Oral/Rectal Use)) 250 mg PO Q6 [facility] Last Admin: 11/19/16 04:45 Dose: 250 mg - Labs Labs: 11/17/16 15:00 11/18/16 05:50 PT 13.5 SECONDS (9.6-11.2) H 11/17/16 14:50 INR 1.30 (0.92-1.08) H 11/17/16 14:50 APTT 26.0 SECONDS (23.3-32.5) 11/17/16 14:50 - Constitutional Appears: Non-toxic, No Acute Distress - Head Exam Head Exam: ATRAUMATIC, NORMAL INSPECTION - Eye Exam Eye Exam: Normal appearance - ENT Exam ENT Exam: Mucous Membranes Moist - Neck Exam Neck Exam: Normal Inspection - Respiratory Exam Respiratory Exam: Clear to Ausculation Bilateral - Cardiovascular Exam Cardiovascular Exam: REGULAR RHYTHM - GI/Abdominal Exam GI & Abdominal Exam: Soft, Normal Bowel Sounds - Extremities Exam Extremities Exam: Normal Inspection. absent: Pedal Edema - Back Exam Back Exam: NORMAL INSPECTION - Neurological Exam Neurological Exam: Alert, Oriented x3 - Skin Skin Exam: Dry, Warm Assessment and Plan (1) Clostridium difficile infection Assessment & Plan: -ID on board, appreciate input -GI on board, appreciate input. cleared for d/c -flagyl, vanc, rifaxamin -contact precautions -repeat c. diff neg x2 -repeat c. diff 3rd time pending -probiotic Status: Acute (2) Diabetes mellitus type 2 in nonobese Assessment & Plan: -increased levemir 30u to 40u HS -increased humalog 12u to 14u to 16u AC -accucheck -SSI -carb control diet -endo on board, appreciate input Status: Chronic (3) Metabolic acidosis Assessment & Plan: -2/2 diarrhea and BRITTNI -Nephro on board, appreciate input -NaHCO2 -renal diet -MIVF 1/2NS 150cc/hr Status: Acute (4) BRITTNI (acute kidney injury) Assessment & Plan: -Nephro on board, appreciate input -MIVF 1/2NS 150cc/hr Status: Acute (5) Hypertension Assessment & Plan: -hold meds for hypotension Status: Chronic (6) Cystitis Assessment & Plan: -per US bladder -US renal: mild distension collecting system -CT abd/pelvis: b/l hydronephrosis -urine cx >100K CFU yeast -repeat urine cx <10K CFU GPC -ID on board, appreciate input - on board,appreciate input -US bladder, PVR Status: Acute (7) Hypernatremia Assessment & Plan: -Nephro on board, appreciate input -stop NS -MIVF 1/2NS 150cc/hr Status: Acute (8) Hyperkalemia Assessment & Plan: -improved -Nephro on board, appreciate input -MIVF 1/2NS 150cc/hr Status: Resolved (9) DVT prophylaxis Assessment & Plan: -lovenox Status: Acute <Justin Melgar - Last Filed: 12/10/16 07:35> Objective - Vital Signs/Intake and Output Vital Signs (last 24 hours): Temp Pulse Resp BP Pulse Ox 98.1 F 92 H 20 131/90 100 12/08/16 07:51 12/08/16 07:51 12/08/16 07:51 12/08/16 07:51 12/08/16 07:51 - Medications Medications: Current Medications Aspirin (Ecotrin) 81 mg PO DAILY [facility] Last Admin: 12/06/16 09:08 Dose: 81 mg Atorvastatin Calcium (Lipitor) 10 mg PO DAILY [facility] Last Admin: 12/08/16 08:26 Dose: 10 mg Cholestyramine Resin (Questran) 4 gm PO BID [facility] Last Admin: 12/08/16 08:27 Dose: 4 gm Fluconazole (Diflucan Iv 100 Mg/50 Ml Ns) 50 mls @ 50 mls/hr IVPB DAILY [facility] Last Admin: 12/08/16 08:21 Dose: 50 mls/hr Insulin Detemir (Levemir) 40 units SC HS [facility] Insulin Human Lispro (Humalog) 0 units SC ACHS [facility] PRN Reason: Protocol Last Admin: 12/08/16 08:25 Dose: Not Given Insulin Human Lispro (Humalog) 20 units SC AC [facility] Last Admin: 12/08/16 08:24 Dose: 20 units Lactic Acid (Lac-Hydrin 12% Cream (140 G)) 1 ea TOP BID [facility] Last Admin: 12/08/16 08:25 Dose: 1 applic Lactobacillus Acidophilus (Bacid Acidophilus) 1 cap PO BID [facility] Last Admin: 12/08/16 08:19 Dose: 1 cap Loperamide HCl (Imodium) 2 mg PO Q6 [facility] Last Admin: 12/08/16 08:59 Dose: 2 mg Megestrol Acetate (Megace) 800 mg PO DAILY [facility] Last Admin: 12/08/16 08:26 Dose: 800 mg Ondansetron HCl (Zofran Inj) 4 mg IVP Q4 PRN PRN Reason: Nausea/Vomiting Pantoprazole Sodium (Protonix Ec Tab) 40 mg PO DAILY [facility] Last Admin: 12/08/16 08:27 Dose: 40 mg - Labs Labs: 12/08/16 07:48 12/08/16 07:48 PT 13.5 SECONDS (9.6-11.2) H 11/17/16 14:50 INR 1.30 (0.92-1.08) H 11/17/16 14:50 APTT 26.0 SECONDS (23.3-32.5) 11/17/16 14:50 Assessment and Plan (1) Diabetes mellitus type 2 in nonobese Status: Chronic (2) DKA (diabetic ketoacidoses) Status: Acute (3) Dehydration Status: Acute (4) BRITTNI (acute kidney injury) Status: Acute (5) Clostridium difficile infection Status: Acute (6) Metabolic acidosis Status: Resolved (7) Incontinence of feces Status: Acute (8) Malabsorption due to intolerance, not elsewhere classified Status: Acute - Assessment and Plan (Free Text) Plan: Discussed events with Dr Matthews. Justin Melgar M.D.
[2016-11-19 06:59] LABS: HEMATOCRIT 30.1 % (35.0-51.0); MEAN CELL VOLUME 87.1 fl (80.0-94.0); MEAN CORPUSCULAR HEMOGLOBIN 28.3 pg (27.0-31.0); MEAN CORPUSCULAR HGB CONC 32.5 g/dL (33.0-37.0); RED CELL DISTRIBUTION WIDTH 15.5 % (11.5-14.5); WHITE BLOOD COUNT 8.7 K/uL (4.8-10.8)
[2016-11-19 07:09] LABS: ALKALINE PHOSPHATASE 208 U/L (38-126); ALT/SGPT 43 U/L (21-72); AST/SGOT 47 U/L (17-59); BILIRUBIN,TOTAL < 0.1 mg/dl (0.2-1.3); BLOOD UREA NITROGEN 23 mg/dl (9-20); CALCIUM 8.9 mg/dL (8.4-10.2); CARBON DIOXIDE 21 mmol/L (22-30); CHLORIDE 123 mmol/L (98-107); GFR AFRICAN-AMERICAN 44; GLUCOSE,RANDOM 205 mg/dL (75-110); POTASSIUM 5.1 MMOL/L (3.6-5.0); SODIUM 154 mmol/l (132-148); TOTAL PROTEIN 7.3 G/DL (6.3-8.2)
[2016-11-19 07:15] LABS: ALB/GLOB RATIO 0.7 (1.0-2.1)
[2016-11-19] MEDS: Insulin Lispro (humaLOG) 100 Units/ml Inj SC SCH ×4 (08:00→21:44)
[2016-11-19] MEDS ORDERED: Insulin Lispro (humaLOG) 100 Units/ml Inj SC SCH ×2 (08:16→16:30)
[2016-11-19] MEDS: Megestrol Acetate 40 mg/ml Cup PO SCH (09:00)
[2016-11-19] MEDS: Fluconazole IV 100mg/50 ml NS 50 ML IVPB SCH (09:25)
[2016-11-19] MEDS: Lactobacillus Acidophilus 500 MU Cap PO SCH ×2 (09:35→16:42)
[2016-11-19] MEDS: Pantoprazole 40 mg EC Tab PO SCH (09:37)
[2016-11-19] MEDS: Enoxaparin 30 mg Syringe SC SCH (09:38)
[2016-11-19] MEDS: metroNIDAZOLE 500mg/100ml NS 100 ML IVPB SCH ×3 (10:35→16:43)
--- NOTE | 2016-11-19 14:31 | CP.PCM.PN ---
Subjective - Date & Time of Evaluation Date of Evaluation: 11/19/16 Time of Evaluation: 10:00 - Subjective Subjective: repeatr cultures neg thus far Objective - Vital Signs/Intake and Output Vital Signs (last 24 hours): Temp Pulse Resp BP Pulse Ox 97.9 F 108 H 18 112/78 100 11/19/16 12:09 11/19/16 12:09 11/19/16 12:09 11/19/16 12:09 11/19/16 12:09 - Medications Medications: Current Medications Aspirin (Ecotrin) 81 mg PO DAILY [facility] Last Admin: 11/19/16 09:37 Dose: 81 mg Atorvastatin Calcium (Lipitor) 10 mg PO DAILY [facility] Last Admin: 11/19/16 09:37 Dose: 10 mg Dextrose (Dextrose 50% Inj) 0 ml IV STAT PRN; Protocol PRN Reason: Hyglycemia Protocol Dextrose (Glutose 15) 0 gm PO ONCE PRN; Protocol PRN Reason: Hypoglycemia Protocol Dextrose (Dextrose 50% Inj) 0 ml IV STAT PRN; Protocol PRN Reason: Hyglycemia Protocol Dextrose (Glutose 15) 0 gm PO ONCE PRN; Protocol PRN Reason: Hypoglycemia Protocol Enoxaparin Sodium (Lovenox) 30 mg SC DAILY [facility] PRN Reason: Protocol Last Admin: 11/19/16 09:38 Dose: 30 mg Glucagon (Glucagen Diagnostic Kit) 0 mg IM STAT PRN; Protocol PRN Reason: Hypoglycemia Protocol Glucagon (Glucagen Diagnostic Kit) 0 mg IM STAT PRN; Protocol PRN Reason: Hypoglycemia Protocol Fluconazole (Diflucan Iv 100 Mg/50 Ml Ns) 50 mls @ 50 mls/hr IVPB DAILY [facility] Last Admin: 11/19/16 09:25 Dose: 50 mls/hr Metronidazole (Flagyl 500mg/100ml Ns) 100 mls @ 100 mls/hr IVPB Q8 [facility] Last Admin: 11/19/16 10:35 Dose: 100 mls/hr Sodium Chloride (Sodium Chloride 0.45%) 1,000 mls @ 150 mls/hr IV .Q6H40M [facility] Stop: 11/20/16 08:13 Insulin Detemir (Levemir) 40 units SC HS [facility] Last Admin: 11/18/16 21:40 Dose: 40 u Insulin Human Lispro (Humalog) 0 units SC ACHS [facility] PRN Reason: Protocol Last Admin: 11/19/16 13:30 Dose: 5 unit Insulin Human Lispro (Humalog) 16 units SC AC [facility] Last Admin: 11/19/16 13:29 Dose: 16 unit Lactobacillus Acidophilus (Bacid Acidophilus) 1 cap PO BID [facility] Last Admin: 11/19/16 09:35 Dose: 1 cap Megestrol Acetate (Megace) 800 mg PO DAILY [facility] Last Admin: 11/19/16 09:00 Dose: Not Given Ondansetron HCl (Zofran Inj) 4 mg IVP Q4 PRN PRN Reason: Nausea/Vomiting Pantoprazole Sodium (Protonix Ec Tab) 40 mg PO DAILY [facility] Last Admin: 11/19/16 09:37 Dose: 40 mg Sodium Bicarbonate (Sodium Bicarbonate Tab) 1,300 mg PO QID [facility] Last Admin: 11/19/16 13:34 Dose: 1,300 mg Vancomycin HCl (Vancocin (Oral/Rectal Use)) 250 mg PO Q6 [facility] Last Admin: 11/19/16 10:34 Dose: 250 mg - Labs Labs: 11/19/16 05:40 11/19/16 05:40 PT 13.5 SECONDS (9.6-11.2) H 11/17/16 14:50 INR 1.30 (0.92-1.08) H 11/17/16 14:50 APTT 26.0 SECONDS (23.3-32.5) 11/17/16 14:50 Assessment and Plan (1) DKA (diabetic ketoacidoses) Status: Acute (2) Dehydration Status: Acute (3) Sepsis Status: Acute (4) BRITTNI (acute kidney injury) Status: Acute (5) Clostridium difficile infection Status: Acute (6) DVT prophylaxis Status: Acute (7) Diarrhea Status: Acute (8) History of hypercholesterolemia Status: Acute
--- NOTE | 2016-11-19 16:37 | PN ---
DATE: 11/19/2016 ROOM: 415 SUBJECTIVE: This is a 46-year-old male with recent uncontrolled type 2 insulin-requiring diabetes, n ow being followed closely for metabolic management because of recent hyperglycemic accelerations as n oted thereof. He has tremendous increased insulin resistance with supervening increased insulin requ irements as noted thereof. His latest glucose levels today have ranged from 212-342 and 369 mg/dL. It was over 500 at bedtime last night and 463 at dinnertime last night as noted. His latest chemistr ies showed a BUN of 23, sodium 154, potassium 5.1, chloride , CO2 of 21, glucose 205 and creatin ine 2.0. So, at this time, we will modify once again his basal and bolus insulin regimens to optimiz e metabolic control. We will increase the Humalog to 20 units subQ t.i.d. before meals to start dinn ertime today as ordered. We will also increase the basal insulin to Levemir given as 44 units subQ a t bedtime daily to start tonight. We will titrate incrementally as indicated to optimize metabolic c ontrol. We will also continue the low-dose correction scale using Humalog insulin as given and detai led orders have been given. We will obtain serial chemistries and supplement accordingly as needed. We will follow. Claudia Adame MD cc: [id number] TT: 11/19/2016 16:37:18 Confirmation # [id number] Dictation # [id number]
--- NOTE | 2016-11-19 18:08 | CP.PCM.PN ---
Subjective - Date & Time of Evaluation Date of Evaluation: 11/19/16 Time of Evaluation: 06:00 - Subjective Subjective: apears comfortable Objective - Vital Signs/Intake and Output Vital Signs (last 24 hours): Temp Pulse Resp BP Pulse Ox 97.4 F L 110 H 18 99/66 L 100 11/19/16 15:59 11/19/16 15:59 11/19/16 15:59 11/19/16 15:59 11/19/16 15:59 - Medications Medications: Current Medications Aspirin (Ecotrin) 81 mg PO DAILY [facility] Last Admin: 11/19/16 09:37 Dose: 81 mg Atorvastatin Calcium (Lipitor) 10 mg PO DAILY [facility] Last Admin: 11/19/16 09:37 Dose: 10 mg Dextrose (Dextrose 50% Inj) 0 ml IV STAT PRN; Protocol PRN Reason: Hyglycemia Protocol Dextrose (Glutose 15) 0 gm PO ONCE PRN; Protocol PRN Reason: Hypoglycemia Protocol Dextrose (Dextrose 50% Inj) 0 ml IV STAT PRN; Protocol PRN Reason: Hyglycemia Protocol Dextrose (Glutose 15) 0 gm PO ONCE PRN; Protocol PRN Reason: Hypoglycemia Protocol Enoxaparin Sodium (Lovenox) 30 mg SC DAILY [facility] PRN Reason: Protocol Last Admin: 11/19/16 09:38 Dose: 30 mg Glucagon (Glucagen Diagnostic Kit) 0 mg IM STAT PRN; Protocol PRN Reason: Hypoglycemia Protocol Glucagon (Glucagen Diagnostic Kit) 0 mg IM STAT PRN; Protocol PRN Reason: Hypoglycemia Protocol Fluconazole (Diflucan Iv 100 Mg/50 Ml Ns) 50 mls @ 50 mls/hr IVPB DAILY [facility] Last Admin: 11/19/16 09:25 Dose: 50 mls/hr Metronidazole (Flagyl 500mg/100ml Ns) 100 mls @ 100 mls/hr IVPB Q8 [facility] Last Admin: 11/19/16 16:43 Dose: 100 mls/hr Sodium Chloride (Sodium Chloride 0.45%) 1,000 mls @ 150 mls/hr IV .Q6H40M [facility] Stop: 11/20/16 08:13 Insulin Detemir (Levemir) 44 units SC HS [facility] Insulin Human Lispro (Humalog) 0 units SC ACHS [facility] PRN Reason: Protocol Last Admin: 11/19/16 16:44 Dose: Not Given Insulin Human Lispro (Humalog) 20 units SC AC [facility] Last Admin: 11/19/16 16:43 Dose: Not Given Lactobacillus Acidophilus (Bacid Acidophilus) 1 cap PO BID [facility] Last Admin: 11/19/16 16:42 Dose: 1 cap Megestrol Acetate (Megace) 800 mg PO DAILY [facility] Last Admin: 11/19/16 09:00 Dose: Not Given Ondansetron HCl (Zofran Inj) 4 mg IVP Q4 PRN PRN Reason: Nausea/Vomiting Pantoprazole Sodium (Protonix Ec Tab) 40 mg PO DAILY [facility] Last Admin: 11/19/16 09:37 Dose: 40 mg Sodium Bicarbonate (Sodium Bicarbonate Tab) 1,300 mg PO QID [facility] Last Admin: 11/19/16 13:34 Dose: 1,300 mg Vancomycin HCl (Vancocin (Oral/Rectal Use)) 250 mg PO Q6 [facility] Last Admin: 11/19/16 10:34 Dose: 250 mg - Labs Labs: 11/19/16 05:40 11/19/16 05:40 PT 13.5 SECONDS (9.6-11.2) H 11/17/16 14:50 INR 1.30 (0.92-1.08) H 11/17/16 14:50 APTT 26.0 SECONDS (23.3-32.5) 11/17/16 14:50 - Respiratory Exam Respiratory Exam: NORMAL BREATHING PATTERN Additional comments: lungs clear - Cardiovascular Exam Cardiovascular Exam: REGULAR RHYTHM - Extremities Exam Additional comments: no edema Assessment and Plan - Assessment and Plan (Free Text) Assessment: Hypernatremia. ckd stable met.acidosis improved with bicarb Cdiff colitis DM Plan: Continue with IVFs Continue to monitor renal function & serum sodium
[2016-11-19] MEDS: Sodium Chloride 0.45% 1,000 ML IV SCH (21:47)
[2016-11-19] MEDS ORDERED: Insulin Detemir 100 Units/ml Inj SC SCH (22:00)
[2016-11-20] MEDS: Vancomycin 500 mg (Oral/Rectal USE) PO SCH ×3 (04:00→21:52)
[2016-11-20 07:25] LABS: ALB/GLOB RATIO 0.7 (1.0-2.1); ALKALINE PHOSPHATASE 200 U/L (38-126); ALT/SGPT 45 U/L (21-72); AST/SGOT 33 U/L (17-59); BILIRUBIN,TOTAL < 0.1 mg/dl (0.2-1.3); BLOOD UREA NITROGEN 27 mg/dl (9-20); CALCIUM 8.3 mg/dL (8.4-10.2); CARBON DIOXIDE 20 mmol/L (22-30); CHLORIDE 115 mmol/L (98-107); GFR AFRICAN-AMERICAN 44; GLUCOSE,RANDOM 230 mg/dL (75-110); MAGNESIUM 1.6 MG/DL (1.6-2.3); PHOSPHOROUS 4.2 mg/dl (2.5-4.5); POTASSIUM 4.7 MMOL/L (3.6-5.0); SODIUM 144 mmol/l (132-148); TOTAL PROTEIN 6.8 G/DL (6.3-8.2)
[2016-11-20] MEDS: Fluconazole IV 100mg/50 ml NS 50 ML IVPB SCH (09:00)
[2016-11-20] MEDS: Lactobacillus Acidophilus 500 MU Cap PO SCH ×2 (09:00→17:00)
[2016-11-20] MEDS: Pantoprazole 40 mg EC Tab PO SCH (09:00)
[2016-11-20] MEDS: metroNIDAZOLE 500mg/100ml NS 100 ML IVPB SCH ×2 (09:00→17:00)
[2016-11-20] MEDS: Enoxaparin 30 mg Syringe SC SCH (09:00)
[2016-11-20] MEDS: Megestrol Acetate 40 mg/ml Cup PO SCH (09:00)
[2016-11-20 19:47] LABS: MEAN CELL VOLUME 88.8 fl (80.0-94.0); MEAN CORPUSCULAR HGB CONC 31.5 g/dL (33.0-37.0); RED CELL DISTRIBUTION WIDTH 15.7 % (11.5-14.5); WHITE BLOOD COUNT 7.4 K/uL (4.8-10.8)
[2016-11-20] MEDS: Insulin Lispro (humaLOG) 100 Units/ml Inj SC SCH (21:42)
--- NOTE | 2016-11-20 21:52 | PN ---
DATE: 11/20/2016 ROOM: 415. SUBJECTIVE: This is a 46-year-old male with recent uncontrolled type 2 insulin-requiring diabetes, n ow being followed closely for metabolic management. He presented here with marked hyperglycemic acce lerations with the initiation of a basal and bolus insulin drug combination as given. His glucose va lues today have ranged from 130 to 147 and 172 mg/dL. It was 340 at bedtime last night. The latest chemistries showed a BUN of 23, sodium 154, potassium 5.1, chloride 123, CO2 21, glucose 205 and crea tinine 2.0. So, at this time, we will continue the same basal and bolus insulin regimen to allow for dose equilibration. We actually lowered the Levemir down to 40 units subQ at bedtime daily to start tonight. We will lower the Humalog now to 16 units subQ t.i.d. before meals as ordered to start jean carlos rrow morning as given. We will continue the low-dose correction scale using Humalog insulin as given . We will titrate incrementally as indicated to optimize metabolic control. We will follow and lorena booth accordingly. Claudia Adame MD cc: [id number] TT: 11/20/2016 21:51:53 Confirmation # [id number] Dictation # [id number]
[2016-11-20] MEDS ORDERED: Insulin Detemir 100 Units/ml Inj SC SCH (22:00)
[2016-11-20] MEDS: Sodium Chloride 0.45% 1,000 ML IV SCH (23:37)
[2016-11-21] MEDS: metroNIDAZOLE 500mg/100ml NS 100 ML IVPB SCH ×3 (01:08→17:58)
[2016-11-21] MEDS: Vancomycin 500 mg (Oral/Rectal USE) PO SCH ×4 (04:09→21:34)
[2016-11-21] MEDS ORDERED: Insulin Lispro (humaLOG) 100 Units/ml Inj SC SCH (07:30)
--- NOTE | 2016-11-21 08:57 | CP.PCM.PN ---
Subjective - Date & Time of Evaluation Date of Evaluation: 11/21/16 Time of Evaluation: 08:56 - Subjective Subjective: patient feels a lot better. has no diarrhea Has no chest pain recent stool exams are both negative for C diff. Objective - Vital Signs/Intake and Output Vital Signs (last 24 hours): Temp Pulse Resp BP Pulse Ox 98.0 F 104 H 20 111/79 100 11/21/16 08:26 11/21/16 08:26 11/21/16 08:26 11/21/16 08:26 11/21/16 08:26 - Medications Medications: Current Medications Aspirin (Ecotrin) 81 mg PO DAILY [facility] Last Admin: 11/21/16 04:18 Dose: 81 mg Atorvastatin Calcium (Lipitor) 10 mg PO DAILY [facility] Last Admin: 11/20/16 09:00 Dose: 10 mg Dextrose (Dextrose 50% Inj) 0 ml IV STAT PRN; Protocol PRN Reason: Hyglycemia Protocol Dextrose (Glutose 15) 0 gm PO ONCE PRN; Protocol PRN Reason: Hypoglycemia Protocol Dextrose (Dextrose 50% Inj) 0 ml IV STAT PRN; Protocol PRN Reason: Hyglycemia Protocol Dextrose (Glutose 15) 0 gm PO ONCE PRN; Protocol PRN Reason: Hypoglycemia Protocol Glucagon (Glucagen Diagnostic Kit) 0 mg IM STAT PRN; Protocol PRN Reason: Hypoglycemia Protocol Glucagon (Glucagen Diagnostic Kit) 0 mg IM STAT PRN; Protocol PRN Reason: Hypoglycemia Protocol Fluconazole (Diflucan Iv 100 Mg/50 Ml Ns) 50 mls @ 50 mls/hr IVPB DAILY [facility] Last Admin: 11/20/16 09:00 Dose: 50 mls/hr Metronidazole (Flagyl 500mg/100ml Ns) 100 mls @ 100 mls/hr IVPB Q8 [facility] Last Admin: 11/21/16 01:08 Dose: 100 mls/hr Insulin Detemir (Levemir) 40 units SC HS [facility] Last Admin: 11/20/16 21:39 Dose: 40 units Insulin Human Lispro (Humalog) 0 units SC ACHS [facility] PRN Reason: Protocol Last Admin: 11/20/16 21:42 Dose: 2 unit Insulin Human Lispro (Humalog) 16 units SC AC [facility] Last Admin: 11/21/16 06:31 Dose: 16 units Lactobacillus Acidophilus (Bacid Acidophilus) 1 cap PO BID [facility] Last Admin: 11/20/16 17:00 Dose: 1 cap Megestrol Acetate (Megace) 800 mg PO DAILY [facility] Last Admin: 11/20/16 09:00 Dose: 800 mg Ondansetron HCl (Zofran Inj) 4 mg IVP Q4 PRN PRN Reason: Nausea/Vomiting Pantoprazole Sodium (Protonix Ec Tab) 40 mg PO DAILY [facility] Last Admin: 11/20/16 09:00 Dose: 40 mg Sodium Bicarbonate (Sodium Bicarbonate Tab) 1,300 mg PO QID [facility] Last Admin: 11/20/16 21:47 Dose: 1,300 mg Vancomycin HCl (Vancocin (Oral/Rectal Use)) 250 mg PO Q6 [facility] Last Admin: 11/21/16 04:09 Dose: 250 mg - Labs Labs: 11/20/16 04:00 11/20/16 04:00 PT 13.5 SECONDS (9.6-11.2) H 11/17/16 14:50 INR 1.30 (0.92-1.08) H 11/17/16 14:50 APTT 26.0 SECONDS (23.3-32.5) 11/17/16 14:50 - Head Exam Head Exam: NORMAL INSPECTION - Eye Exam Eye Exam: Normal appearance - ENT Exam ENT Exam: Mucous Membranes Moist - Respiratory Exam Respiratory Exam: Clear to Ausculation Bilateral - Cardiovascular Exam Cardiovascular Exam: REGULAR RHYTHM - GI/Abdominal Exam GI & Abdominal Exam: Normal Bowel Sounds Assessment and Plan (1) Diabetes mellitus type 2 in nonobese Status: Chronic (2) DKA (diabetic ketoacidoses) Status: Acute (3) Dehydration Status: Acute (4) BRITTNI (acute kidney injury) Status: Acute (5) Clostridium difficile infection Status: Acute (6) Metabolic acidosis Status: Resolved - Assessment and Plan (Free Text) Plan: cont meds cont hydration po antibiotics Pt eval
--- NOTE | 2016-11-21 08:58 | CP.PCM.PN ---
Subjective - Date & Time of Evaluation Date of Evaluation: 11/20/16 Time of Evaluation: 09:00 - Subjective Subjective: Patient remains stable. Still with some loose stools Has no fever. Objective - Vital Signs/Intake and Output Vital Signs (last 24 hours): Temp Pulse Resp BP Pulse Ox 98.0 F 104 H 20 111/79 100 11/21/16 08:26 11/21/16 08:26 11/21/16 08:26 11/21/16 08:26 11/21/16 08:26 - Medications Medications: Current Medications Aspirin (Ecotrin) 81 mg PO DAILY [facility] Last Admin: 11/21/16 04:18 Dose: 81 mg Atorvastatin Calcium (Lipitor) 10 mg PO DAILY [facility] Last Admin: 11/20/16 09:00 Dose: 10 mg Dextrose (Dextrose 50% Inj) 0 ml IV STAT PRN; Protocol PRN Reason: Hyglycemia Protocol Dextrose (Glutose 15) 0 gm PO ONCE PRN; Protocol PRN Reason: Hypoglycemia Protocol Dextrose (Dextrose 50% Inj) 0 ml IV STAT PRN; Protocol PRN Reason: Hyglycemia Protocol Dextrose (Glutose 15) 0 gm PO ONCE PRN; Protocol PRN Reason: Hypoglycemia Protocol Glucagon (Glucagen Diagnostic Kit) 0 mg IM STAT PRN; Protocol PRN Reason: Hypoglycemia Protocol Glucagon (Glucagen Diagnostic Kit) 0 mg IM STAT PRN; Protocol PRN Reason: Hypoglycemia Protocol Fluconazole (Diflucan Iv 100 Mg/50 Ml Ns) 50 mls @ 50 mls/hr IVPB DAILY [facility] Last Admin: 11/20/16 09:00 Dose: 50 mls/hr Metronidazole (Flagyl 500mg/100ml Ns) 100 mls @ 100 mls/hr IVPB Q8 [facility] Last Admin: 11/21/16 01:08 Dose: 100 mls/hr Insulin Detemir (Levemir) 40 units SC HS [facility] Last Admin: 11/20/16 21:39 Dose: 40 units Insulin Human Lispro (Humalog) 0 units SC ACHS [facility] PRN Reason: Protocol Last Admin: 11/20/16 21:42 Dose: 2 unit Insulin Human Lispro (Humalog) 16 units SC AC [facility] Last Admin: 11/21/16 06:31 Dose: 16 units Lactobacillus Acidophilus (Bacid Acidophilus) 1 cap PO BID [facility] Last Admin: 11/20/16 17:00 Dose: 1 cap Megestrol Acetate (Megace) 800 mg PO DAILY [facility] Last Admin: 11/20/16 09:00 Dose: 800 mg Ondansetron HCl (Zofran Inj) 4 mg IVP Q4 PRN PRN Reason: Nausea/Vomiting Pantoprazole Sodium (Protonix Ec Tab) 40 mg PO DAILY [facility] Last Admin: 11/20/16 09:00 Dose: 40 mg Sodium Bicarbonate (Sodium Bicarbonate Tab) 1,300 mg PO QID [facility] Last Admin: 11/20/16 21:47 Dose: 1,300 mg Vancomycin HCl (Vancocin (Oral/Rectal Use)) 250 mg PO Q6 [facility] Last Admin: 11/21/16 04:09 Dose: 250 mg - Labs Labs: 11/20/16 04:00 11/20/16 04:00 PT 13.5 SECONDS (9.6-11.2) H 11/17/16 14:50 INR 1.30 (0.92-1.08) H 11/17/16 14:50 APTT 26.0 SECONDS (23.3-32.5) 11/17/16 14:50 - Head Exam Head Exam: NORMAL INSPECTION - Eye Exam Eye Exam: Normal appearance - Respiratory Exam Respiratory Exam: Decreased Breath Sounds - Cardiovascular Exam Cardiovascular Exam: REGULAR RHYTHM - GI/Abdominal Exam GI & Abdominal Exam: Normal Bowel Sounds Assessment and Plan (1) Diabetes mellitus type 2 in nonobese Status: Chronic (2) DKA (diabetic ketoacidoses) Status: Acute (3) Dehydration Status: Acute (4) BRITTNI (acute kidney injury) Status: Acute (5) Clostridium difficile infection Status: Acute (6) Metabolic acidosis Status: Resolved - Assessment and Plan (Free Text) Plan: cont meds hydrate encouraged increase intake pearl with bulk forming foods.
[2016-11-21] MEDS: Pantoprazole 40 mg EC Tab PO SCH (09:06)
[2016-11-21] MEDS: Megestrol Acetate 40 mg/ml Cup PO SCH (09:06)
[2016-11-21] MEDS: Fluconazole IV 100mg/50 ml NS 50 ML IVPB SCH (09:09)
[2016-11-21] MEDS: Lactobacillus Acidophilus 500 MU Cap PO SCH ×2 (09:09→17:58)
[2016-11-21] MEDS: Insulin Lispro (humaLOG) 100 Units/ml Inj SC SCH ×6 (09:15→21:31)
--- NOTE | 2016-11-21 12:37 | PN ---
DATE: 11/21/2016 ROOM: 415. This is a 46-year-old male with recent uncontrolled type 2 insulin-requiring diabetes, presenting her e with diabetic ketoacidosis and dehydration and has since then improved clinically and metabolically with the initiation of vigorous IV hydration and intensive insulin therapy, initially using an insul in pump infusion as noted. He has since then improved metabolically and the latest glucose values have ranged from 98-102 and 10 4 mg/dL. His latest chemistries include a BUN of 27, sodium 144, potassium 4.7, chloride 115, CO2 20 , glucose 230 and creatinine 2.0. So at this time, we will modify once again his basal and bolus insulin regimen and change the Levemir to 34 units subQ at bedtime daily to start tonight. We will also lower the Humalog to 12 units subQ t.i.d. before meals to start at dinnertime today as ordered. We will titrate incrementally as indic ated to optimize metabolic control. We will follow. Claudia Adame MD cc: [id number] TT: 11/21/2016 12:36:58 Confirmation # [id number] Dictation # [id number] en
--- NOTE | 2016-11-21 12:48 | CP.PCM.PN ---
Subjective - Date & Time of Evaluation Date of Evaluation: 11/21/16 Time of Evaluation: 08:00 - Subjective Subjective: less diarrhea await gi EVAL FOR COLONOSCOPY C DIFF NEGATIVE Objective - Vital Signs/Intake and Output Vital Signs (last 24 hours): Temp Pulse Resp BP Pulse Ox 98.0 F 104 H 20 111/79 100 11/21/16 08:26 11/21/16 09:00 11/21/16 08:26 11/21/16 08:26 11/21/16 08:26 - Medications Medications: Current Medications Aspirin (Ecotrin) 81 mg PO DAILY [facility] Last Admin: 11/21/16 09:05 Dose: 81 mg Atorvastatin Calcium (Lipitor) 10 mg PO DAILY [facility] Last Admin: 11/21/16 09:06 Dose: 10 mg Dextrose (Dextrose 50% Inj) 0 ml IV STAT PRN; Protocol PRN Reason: Hyglycemia Protocol Dextrose (Glutose 15) 0 gm PO ONCE PRN; Protocol PRN Reason: Hypoglycemia Protocol Dextrose (Dextrose 50% Inj) 0 ml IV STAT PRN; Protocol PRN Reason: Hyglycemia Protocol Dextrose (Glutose 15) 0 gm PO ONCE PRN; Protocol PRN Reason: Hypoglycemia Protocol Glucagon (Glucagen Diagnostic Kit) 0 mg IM STAT PRN; Protocol PRN Reason: Hypoglycemia Protocol Glucagon (Glucagen Diagnostic Kit) 0 mg IM STAT PRN; Protocol PRN Reason: Hypoglycemia Protocol Fluconazole (Diflucan Iv 100 Mg/50 Ml Ns) 50 mls @ 50 mls/hr IVPB DAILY [facility] Last Admin: 11/21/16 09:09 Dose: 50 mls/hr Metronidazole (Flagyl 500mg/100ml Ns) 100 mls @ 100 mls/hr IVPB Q8 [facility] Last Admin: 11/21/16 09:04 Dose: 100 mls/hr Insulin Detemir (Levemir) 34 units SC HS [facility] Insulin Human Lispro (Humalog) 0 units SC ACHS [facility] PRN Reason: Protocol Last Admin: 11/21/16 12:35 Dose: Not Given Insulin Human Lispro (Humalog) 12 units SC AC [facility] Last Admin: 11/21/16 12:36 Dose: 12 units Lactobacillus Acidophilus (Bacid Acidophilus) 1 cap PO BID [facility] Last Admin: 11/21/16 09:09 Dose: 1 cap Megestrol Acetate (Megace) 800 mg PO DAILY [facility] Last Admin: 11/21/16 09:06 Dose: 800 mg Ondansetron HCl (Zofran Inj) 4 mg IVP Q4 PRN PRN Reason: Nausea/Vomiting Pantoprazole Sodium (Protonix Ec Tab) 40 mg PO DAILY [facility] Last Admin: 11/21/16 09:06 Dose: 40 mg Sodium Bicarbonate (Sodium Bicarbonate Tab) 1,300 mg PO QID [facility] Last Admin: 11/21/16 12:36 Dose: 1,300 mg Vancomycin HCl (Vancocin (Oral/Rectal Use)) 250 mg PO Q6 [facility] Last Admin: 11/21/16 09:05 Dose: 250 mg - Labs Labs: 11/20/16 04:00 11/20/16 04:00 PT 13.5 SECONDS (9.6-11.2) H 11/17/16 14:50 INR 1.30 (0.92-1.08) H 11/17/16 14:50 APTT 26.0 SECONDS (23.3-32.5) 11/17/16 14:50 - Constitutional Appears: Non-toxic, Cachectic, Chronically Ill - Head Exam Head Exam: NORMOCEPHALIC - Eye Exam Eye Exam: PERRL. absent: Scleral icterus - ENT Exam ENT Exam: Mucous Membranes Dry - Neck Exam Neck Exam: absent: Lymphadenopathy - Respiratory Exam Respiratory Exam: Decreased Breath Sounds, Rhonchi - Cardiovascular Exam Cardiovascular Exam: REGULAR RHYTHM, +S1, +S2 - GI/Abdominal Exam GI & Abdominal Exam: Distended, Soft - Rectal Exam Rectal Exam: Deferred - Exam Exam: NORMAL INSPECTION - Back Exam Back Exam: absent: CVA tenderness (L), CVA tenderness (R) - Neurological Exam Neurological Exam: Alert, Awake, Oriented x3 - Psychiatric Exam Psychiatric exam: Flat Affect - Skin Skin Exam: Dry Assessment and Plan (1) DKA (diabetic ketoacidoses) Status: Acute (2) Dehydration Status: Acute (3) Sepsis Status: Acute (4) BRITTNI (acute kidney injury) Status: Acute (5) Clostridium difficile infection Status: Acute (6) DVT prophylaxis Status: Acute (7) Diarrhea Status: Acute (8) History of hypercholesterolemia Status: Acute - Assessment and Plan (Free Text) Assessment: CONSIDER GI EVAL FOR MALIGNANCY
--- NOTE | 2016-11-21 16:56 | CP.PCM.PN ---
Subjective - Date & Time of Evaluation Date of Evaluation: 11/21/16 Time of Evaluation: 16:55 - Subjective Subjective: Follow up Nephrology Consultation Note Assessment: Acute Kidney Injury likely due to pre-renal state and eventually leading to acute tubular necrosis (improving). Episodes of BRITTNI in past with resulting cr 1.5-1.7 Hypernatremia with dehydration non anion gap metabolic acidosis ? due to GI loss or impaired kidney function/ obstructive uropathy or combination of two and superimposed DKA Mild Hyperkalemia likely due to hyperglycemia, acidosis microscopic hematuria with Bacteriuria and b/l hydroureteronephrosis with bladder wall thickening on CT scan Clostridium difficille infection, DM, Anemia Plan No acute need for renal replacement therapy at this time. continue with hypotonic fluid as 0.45% saline @ 100 mL/hr. pt was also encourage to drink water. d/c cholestyramine as it also can contribute significantly to acidosis. continue with bicarb supplements 1300 mg QID. Patient not on ACEI/ARB due to recent BRITTNI and low BP Monitor Input/Output, daily weights and renal function with basic metabolic panel. ordered for repeat BMP today and in AM Urology follow up low K diet. Dose meds/antibiotics for reduced GFR. Avoid fleets enema/magnesium based laxatives. Avoid nephrotoxins/NSAIDs/ iodinated contrast (unless needed emergently) Glycemic control Further work up for as per primary team. discussed with team today Thanks for allowing me to participate in care of your patient. Will follow patient with you. Please call if any Qs Dr Aaron Reyes Office: [phone] Subjective: Noted events overnight. Patients feels okay. Denies chest pain, palpitation, shortness of breath, leg swelling. diarrhea is better. c/o dizziness when stands Physical Examination: General Appearance: Comfortable, in no acute respiratory distress, co- operative. appears frail and cachexic Vitals reviewed and noted as below Lungs: Normal respiratory rate/effort. Breath sounds bilateral equal and clear Heart: Normal rate. s1s2 normal. No rub or gallop. Extremities: no edema. Neurological: Patient is alert, awake and oriented to person, place and time. No focal deficit. Strength bilateral appropriate and equal Skin: Warm and dry. Normal turgor. No rash. Palpitation: Normal elasticity for age Abdomen: Abdomen is soft. Bowel sounds +. There is no abdominal tenderness, no guarding/rigidity or organomegaly : kidney or bladder not palpable Labs/imaging reviewed. Past medical history, past surgical history, family history, social history, allergy reviewed and noted as below Echo normal LVEF Urine cx: yeast C diff + CT abdomen: b/l hydroureteronephrosis with bladder wall thickening Objective - Vital Signs/Intake and Output Vital Signs (last 24 hours): Temp Pulse Resp BP Pulse Ox 98.6 F 98 H 20 79/52 L 99 11/21/16 12:52 11/21/16 12:52 11/21/16 12:52 11/21/16 15:26 11/21/16 12:52 - Medications Medications: Current Medications Aspirin (Ecotrin) 81 mg PO DAILY [facility] Last Admin: 11/21/16 09:05 Dose: 81 mg Atorvastatin Calcium (Lipitor) 10 mg PO DAILY [facility] Last Admin: 11/21/16 09:06 Dose: 10 mg Dextrose (Dextrose 50% Inj) 0 ml IV STAT PRN; Protocol PRN Reason: Hyglycemia Protocol Dextrose (Glutose 15) 0 gm PO ONCE PRN; Protocol PRN Reason: Hypoglycemia Protocol Dextrose (Dextrose 50% Inj) 0 ml IV STAT PRN; Protocol PRN Reason: Hyglycemia Protocol Dextrose (Glutose 15) 0 gm PO ONCE PRN; Protocol PRN Reason: Hypoglycemia Protocol Glucagon (Glucagen Diagnostic Kit) 0 mg IM STAT PRN; Protocol PRN Reason: Hypoglycemia Protocol Glucagon (Glucagen Diagnostic Kit) 0 mg IM STAT PRN; Protocol PRN Reason: Hypoglycemia Protocol Fluconazole (Diflucan Iv 100 Mg/50 Ml Ns) 50 mls @ 50 mls/hr IVPB DAILY [facility] Last Admin: 11/21/16 09:09 Dose: 50 mls/hr Metronidazole (Flagyl 500mg/100ml Ns) 100 mls @ 100 mls/hr IVPB Q8 [facility] Last Admin: 11/21/16 09:04 Dose: 100 mls/hr Sodium Chloride (Sodium Chloride 0.45%) 1,000 mls @ 100 mls/hr IV .Q10H [facility] Stop: 11/24/16 16:51 Insulin Detemir (Levemir) 34 units SC HS [facility] Insulin Human Lispro (Humalog) 0 units SC ACHS [facility] PRN Reason: Protocol Last Admin: 11/21/16 12:35 Dose: Not Given Insulin Human Lispro (Humalog) 12 units SC AC [facility] Last Admin: 11/21/16 12:36 Dose: 12 units Lactobacillus Acidophilus (Bacid Acidophilus) 1 cap PO BID [facility] Last Admin: 11/21/16 09:09 Dose: 1 cap Megestrol Acetate (Megace) 800 mg PO DAILY [facility] Last Admin: 11/21/16 09:06 Dose: 800 mg Ondansetron HCl (Zofran Inj) 4 mg IVP Q4 PRN PRN Reason: Nausea/Vomiting Pantoprazole Sodium (Protonix Ec Tab) 40 mg PO DAILY [facility] Last Admin: 11/21/16 09:06 Dose: 40 mg Sodium Bicarbonate (Sodium Bicarbonate Tab) 1,300 mg PO QID [facility] Last Admin: 11/21/16 12:36 Dose: 1,300 mg Vancomycin HCl (Vancocin (Oral/Rectal Use)) 250 mg PO Q6 [facility] Last Admin: 11/21/16 09:05 Dose: 250 mg - Labs Labs: 11/20/16 04:00 11/20/16 04:00 PT 13.5 SECONDS (9.6-11.2) H 11/17/16 14:50 INR 1.30 (0.92-1.08) H 11/17/16 14:50 APTT 26.0 SECONDS (23.3-32.5) 11/17/16 14:50
[2016-11-21 17:50] LABS: CALCIUM 7.9 mg/dL (8.4-10.2); POTASSIUM 4.5 MMOL/L (3.6-5.0)
[2016-11-21] MEDS: Sodium Chloride 0.45% 1,000 ML IV SCH (17:58)
[2016-11-21] MEDS ORDERED: Insulin Detemir 100 Units/ml Inj SC SCH (22:00)
[2016-11-21] MEDS ORDERED: Insulin Lispro (humaLOG) 100 Units/ml Inj SC ONE (23:50)
[2016-11-22] MEDS: metroNIDAZOLE 500mg/100ml NS 100 ML IVPB SCH ×3 (00:33→17:08)
[2016-11-22] MEDS: Vancomycin 500 mg (Oral/Rectal USE) PO SCH ×4 (03:43→21:59)
[2016-11-22] MEDS: Sodium Chloride 0.45% 1,000 ML IV SCH ×3 (03:44→23:45)
[2016-11-22] MEDS: Dextrose 50% SYRINGE Inj (50 ml) IV PRN (05:54)
[2016-11-22] MEDS ORDERED: Insulin Lispro (humaLOG) 100 Units/ml Inj SC SCH ×2 (07:30)
[2016-11-22] MEDS: Lactobacillus Acidophilus 500 MU Cap PO SCH ×2 (09:00→17:05)
[2016-11-22] MEDS: Megestrol Acetate 40 mg/ml Cup PO SCH (09:01)
[2016-11-22] MEDS: Fluconazole IV 100mg/50 ml NS 50 ML IVPB SCH (09:02)
[2016-11-22] MEDS: Pantoprazole 40 mg EC Tab PO SCH (09:02)
[2016-11-22] MEDS: Insulin Lispro (humaLOG) 100 Units/ml Inj SC SCH ×5 (09:03→21:54)
--- NOTE | 2016-11-22 12:12 | PN ---
DATE: 11/22/2016 LOCATION: Room 411. SUBJECTIVE: This is a 46-year-old male with recent uncontrolled type 2 insulin-requiring diabetes, n ow being followed closely for metabolic management. His glycemic levels are still fluctuating also b ecause of the variability of his oral intake as noted. The latest glucose levels have ranged from 13 0-147 and 390 mg/dL. His latest chemistry showed a BUN of 28, sodium 140, potassium 4.5, chloride 11 4, CO2 18, glucose 381 and creatinine 2.0. He is not on IV Solu-Medrol medication as noted. So at t his time, we will modify once again his basal and bolus insulin regimen to higher dose of Levemir at 44 units subQ at bedtime daily to start tonight. We will also increase the Humalog back to 20 units subQ t.i.d. before meals as ordered. We will titrate incrementally as indicated to optimize metaboli c control. We will follow. Claudia Adame MD cc: [id number] TT: 11/22/2016 12:12:06 Confirmation # [id number] Dictation # [id number] aníbal
--- NOTE | 2016-11-22 13:49 | CP.PCM.PN ---
Subjective - Date & Time of Evaluation Date of Evaluation: 11/22/16 Time of Evaluation: 15:00 - Subjective Subjective: Still feels weak Objective - Vital Signs/Intake and Output Vital Signs (last 24 hours): Temp Pulse Resp BP Pulse Ox 97.4 F L 93 H 18 121/83 100 11/22/16 12:45 11/22/16 12:45 11/22/16 12:45 11/22/16 12:45 11/22/16 12:45 Intake and Output: 11/22/16 11/22/16 06:59 18:59 Intake Total 2500 Output Total 1600 Balance 900 - Medications Medications: Current Medications Aspirin (Ecotrin) 81 mg PO DAILY [facility] Last Admin: 11/22/16 09:02 Dose: 81 mg Atorvastatin Calcium (Lipitor) 10 mg PO DAILY [facility] Last Admin: 11/22/16 09:02 Dose: 10 mg Dextrose (Dextrose 50% Inj) 0 ml IV STAT PRN; Protocol PRN Reason: Hyglycemia Protocol Last Admin: 11/22/16 05:54 Dose: 50 ml Dextrose (Glutose 15) 0 gm PO ONCE PRN; Protocol PRN Reason: Hypoglycemia Protocol Glucagon (Glucagen Diagnostic Kit) 0 mg IM STAT PRN; Protocol PRN Reason: Hypoglycemia Protocol Fluconazole (Diflucan Iv 100 Mg/50 Ml Ns) 50 mls @ 50 mls/hr IVPB DAILY [facility] Last Admin: 11/22/16 09:02 Dose: 50 mls/hr Metronidazole (Flagyl 500mg/100ml Ns) 100 mls @ 100 mls/hr IVPB Q8 [facility] Last Admin: 11/22/16 09:01 Dose: 100 mls/hr Sodium Chloride (Sodium Chloride 0.45%) 1,000 mls @ 100 mls/hr IV .Q10H [facility] Stop: 11/24/16 16:51 Last Admin: 11/22/16 03:44 Dose: 100 mls/hr Insulin Detemir (Levemir) 44 units SC HS [facility] Insulin Human Lispro (Humalog) 0 units SC ACHS [facility] PRN Reason: Protocol Last Admin: 11/22/16 09:08 Dose: Not Given Insulin Human Lispro (Humalog) 20 units SC AC [facility] Last Admin: 11/22/16 12:28 Dose: 20 units Lactobacillus Acidophilus (Bacid Acidophilus) 1 cap PO BID [facility] Last Admin: 11/22/16 09:00 Dose: 1 cap Megestrol Acetate (Megace) 800 mg PO DAILY [facility] Last Admin: 11/22/16 09:01 Dose: 800 mg Ondansetron HCl (Zofran Inj) 4 mg IVP Q4 PRN PRN Reason: Nausea/Vomiting Pantoprazole Sodium (Protonix Ec Tab) 40 mg PO DAILY [facility] Last Admin: 11/22/16 09:02 Dose: 40 mg Sodium Bicarbonate (Sodium Bicarbonate Tab) 1,300 mg PO QID [facility] Last Admin: 11/22/16 12:29 Dose: 1,300 mg Vancomycin HCl (Vancocin (Oral/Rectal Use)) 250 mg PO Q6 [facility] Last Admin: 11/22/16 09:04 Dose: 250 mg - Labs Labs: 11/20/16 04:00 11/21/16 17:33 PT 13.5 SECONDS (9.6-11.2) H 11/17/16 14:50 INR 1.30 (0.92-1.08) H 11/17/16 14:50 APTT 26.0 SECONDS (23.3-32.5) 11/17/16 14:50 - Respiratory Exam Respiratory Exam: NORMAL BREATHING PATTERN - Cardiovascular Exam Cardiovascular Exam: REGULAR RHYTHM - Extremities Exam Additional comments: No edema Assessment and Plan - Assessment and Plan (Free Text) Assessment: Stable CKD Hypernatremia resolved K+ is controlled C.diff colitis Plan: Continue current Mx Monitor renal function
[2016-11-22 14:21] LABS: RBC URINE 14 /hpf (0-3); URINE BACTERIA MOD (<OCC); URINE BILIRUBIN NEGATIVE (NEGATIVE); URINE BLOOD SMALL (NEGATIVE); URINE COLOR YELLOW (YELLOW); URINE GLUCOSE (UA) 50 mg/dL (Normal); URINE KETONE NEGATIVE (NEGATIVE); URINE LEUKOCYTE ESTERASE LARGE Leu/uL (Negative); URINE PROTEIN 30 mg/dL (NEGATIVE); URINE UROBILINOGEN 0.2-1.0 mg/dL (0.2-1.0); WBC CLUMPS MANY /hpf; WBC URINE 954 /hpf (0-5)
[2016-11-22 14:36] LABS: CALCIUM 8.8 mg/dL (8.4-10.2); MAGNESIUM 1.7 MG/DL (1.6-2.3); PHOSPHOROUS 4.1 mg/dl (2.5-4.5)
[2016-11-22] MEDS ORDERED: Insulin Detemir 100 Units/ml Inj SC SCH (22:00)
[2016-11-23] MEDS: metroNIDAZOLE 500mg/100ml NS 100 ML IVPB SCH ×3 (01:05→16:38)
[2016-11-23] MEDS: Vancomycin 500 mg (Oral/Rectal USE) PO SCH ×4 (03:33→22:48)
[2016-11-23] MEDS: Insulin Lispro (humaLOG) 100 Units/ml Inj SC SCH ×7 (06:55→22:44)
[2016-11-23] MEDS: Pantoprazole 40 mg EC Tab PO SCH (08:38)
[2016-11-23] MEDS: Lactobacillus Acidophilus 500 MU Cap PO SCH ×2 (08:38→16:34)
[2016-11-23] MEDS: Megestrol Acetate 40 mg/ml Cup PO SCH (08:39)
[2016-11-23] MEDS: Fluconazole IV 100mg/50 ml NS 50 ML IVPB SCH (08:41)
--- NOTE | 2016-11-23 08:56 | CP.PCM.PN ---
Subjective - Date & Time of Evaluation Date of Evaluation: 11/22/16 Time of Evaluation: 09:40 - Subjective Subjective: Patient was noted to have episode of hyperglycemia more than 500 last night. Objective - Vital Signs/Intake and Output Vital Signs (last 24 hours): Temp Pulse Resp BP Pulse Ox 98.2 F 93 H 18 124/85 100 11/23/16 07:59 11/23/16 07:59 11/23/16 07:59 11/23/16 07:59 11/23/16 07:59 - Medications Medications: Current Medications Aspirin (Ecotrin) 81 mg PO DAILY [facility] Last Admin: 11/23/16 08:40 Dose: 81 mg Atorvastatin Calcium (Lipitor) 10 mg PO DAILY [facility] Last Admin: 11/23/16 08:39 Dose: 10 mg Dextrose (Dextrose 50% Inj) 0 ml IV STAT PRN; Protocol PRN Reason: Hyglycemia Protocol Last Admin: 11/22/16 05:54 Dose: 50 ml Dextrose (Glutose 15) 0 gm PO ONCE PRN; Protocol PRN Reason: Hypoglycemia Protocol Glucagon (Glucagen Diagnostic Kit) 0 mg IM STAT PRN; Protocol PRN Reason: Hypoglycemia Protocol Fluconazole (Diflucan Iv 100 Mg/50 Ml Ns) 50 mls @ 50 mls/hr IVPB DAILY [facility] Last Admin: 11/23/16 08:41 Dose: 50 mls/hr Metronidazole (Flagyl 500mg/100ml Ns) 100 mls @ 100 mls/hr IVPB Q8 [facility] Last Admin: 11/23/16 08:40 Dose: 100 mls/hr Sodium Chloride (Sodium Chloride 0.45%) 1,000 mls @ 100 mls/hr IV .Q10H [facility] Stop: 11/24/16 16:51 Last Admin: 11/22/16 23:45 Dose: 100 mls/hr Insulin Detemir (Levemir) 44 units SC HS [facility] Last Admin: 11/22/16 21:55 Dose: 44 units Insulin Human Lispro (Humalog) 20 units SC AC [facility] Last Admin: 11/23/16 08:39 Dose: 20 units Insulin Human Lispro (Humalog) 0 units SC ACHS [facility] PRN Reason: Protocol Last Admin: 11/23/16 06:55 Dose: 2 units Lactobacillus Acidophilus (Bacid Acidophilus) 1 cap PO BID [facility] Last Admin: 11/23/16 08:38 Dose: 1 cap Megestrol Acetate (Megace) 800 mg PO DAILY [facility] Last Admin: 11/23/16 08:39 Dose: 800 mg Ondansetron HCl (Zofran Inj) 4 mg IVP Q4 PRN PRN Reason: Nausea/Vomiting Pantoprazole Sodium (Protonix Ec Tab) 40 mg PO DAILY [facility] Last Admin: 11/23/16 08:38 Dose: 40 mg Sodium Bicarbonate (Sodium Bicarbonate Tab) 1,300 mg PO QID [facility] Last Admin: 11/23/16 08:38 Dose: 1,300 mg Vancomycin HCl (Vancocin (Oral/Rectal Use)) 250 mg PO Q6 [facility] Last Admin: 11/23/16 03:33 Dose: 250 mg - Labs Labs: 11/20/16 04:00 11/22/16 13:00 PT 13.5 SECONDS (9.6-11.2) H 11/17/16 14:50 INR 1.30 (0.92-1.08) H 11/17/16 14:50 APTT 26.0 SECONDS (23.3-32.5) 11/17/16 14:50 - Head Exam Head Exam: NORMAL INSPECTION - Eye Exam Eye Exam: Normal appearance - ENT Exam ENT Exam: Mucous Membranes Moist - Cardiovascular Exam Cardiovascular Exam: REGULAR RHYTHM - GI/Abdominal Exam GI & Abdominal Exam: Normal Bowel Sounds - Neurological Exam Neurological Exam: CN II-XII Intact, Oriented x3 - Psychiatric Exam Psychiatric exam: Normal Mood Assessment and Plan (1) Diabetes mellitus type 2 in nonobese Status: Chronic (2) DKA (diabetic ketoacidoses) Status: Acute (3) Dehydration Status: Acute (4) BRITTNI (acute kidney injury) Status: Acute (5) Clostridium difficile infection Status: Acute (6) Metabolic acidosis Status: Resolved - Assessment and Plan (Free Text) Plan: cont meds cont hydration cont PT
[2016-11-23] MEDS: Dextrose 50% SYRINGE Inj (50 ml) IV PRN (11:23)
--- NOTE | 2016-11-23 13:38 | CP.PCM.PN ---
Subjective - Date & Time of Evaluation Date of Evaluation: 11/23/16 Time of Evaluation: 09:00 - Subjective Subjective: glu > 500 + sterile pyuria AFB neg - consider cystoscopy to r/o malignancy weak and bedridden needs watermaster care poor prognosis Objective - Vital Signs/Intake and Output Vital Signs (last 24 hours): Temp Pulse Resp BP Pulse Ox 97.5 F L 98 H 18 128/86 100 11/23/16 11:57 11/23/16 11:57 11/23/16 11:57 11/23/16 11:57 11/23/16 11:57 - Medications Medications: Current Medications Aspirin (Ecotrin) 81 mg PO DAILY [facility] Last Admin: 11/23/16 08:40 Dose: 81 mg Atorvastatin Calcium (Lipitor) 10 mg PO DAILY [facility] Last Admin: 11/23/16 08:39 Dose: 10 mg Dextrose (Dextrose 50% Inj) 0 ml IV STAT PRN; Protocol PRN Reason: Hyglycemia Protocol Last Admin: 11/23/16 11:23 Dose: 50 ml Dextrose (Glutose 15) 0 gm PO ONCE PRN; Protocol PRN Reason: Hypoglycemia Protocol Glucagon (Glucagen Diagnostic Kit) 0 mg IM STAT PRN; Protocol PRN Reason: Hypoglycemia Protocol Fluconazole (Diflucan Iv 100 Mg/50 Ml Ns) 50 mls @ 50 mls/hr IVPB DAILY [facility] Last Admin: 11/23/16 08:41 Dose: 50 mls/hr Metronidazole (Flagyl 500mg/100ml Ns) 100 mls @ 100 mls/hr IVPB Q8 [facility] Last Admin: 11/23/16 08:40 Dose: 100 mls/hr Sodium Chloride (Sodium Chloride 0.45%) 1,000 mls @ 100 mls/hr IV .Q10H [facility] Stop: 11/24/16 16:51 Last Admin: 11/22/16 23:45 Dose: 100 mls/hr Insulin Detemir (Levemir) 40 units SC HS [facility] Insulin Human Lispro (Humalog) 0 units SC ACHS [facility] PRN Reason: Protocol Last Admin: 11/23/16 11:25 Dose: Not Given Insulin Human Lispro (Humalog) 12 units SC AC [facility] Lactobacillus Acidophilus (Bacid Acidophilus) 1 cap PO BID [facility] Last Admin: 11/23/16 08:38 Dose: 1 cap Megestrol Acetate (Megace) 800 mg PO DAILY [facility] Last Admin: 11/23/16 08:39 Dose: 800 mg Ondansetron HCl (Zofran Inj) 4 mg IVP Q4 PRN PRN Reason: Nausea/Vomiting Pantoprazole Sodium (Protonix Ec Tab) 40 mg PO DAILY [facility] Last Admin: 11/23/16 08:38 Dose: 40 mg Sodium Bicarbonate (Sodium Bicarbonate Tab) 1,300 mg PO QID [facility] Last Admin: 11/23/16 08:38 Dose: 1,300 mg Vancomycin HCl (Vancocin (Oral/Rectal Use)) 250 mg PO Q6 [facility] Last Admin: 11/23/16 10:14 Dose: 250 mg - Labs Labs: 11/20/16 04:00 11/22/16 13:00 PT 13.5 SECONDS (9.6-11.2) H 11/17/16 14:50 INR 1.30 (0.92-1.08) H 11/17/16 14:50 APTT 26.0 SECONDS (23.3-32.5) 11/17/16 14:50 - Constitutional Appears: Non-toxic, Older Than Stated Age - Head Exam Head Exam: NORMOCEPHALIC - Eye Exam Eye Exam: PERRL. absent: Scleral icterus - ENT Exam ENT Exam: Mucous Membranes Dry - Neck Exam Neck Exam: absent: Lymphadenopathy - Respiratory Exam Respiratory Exam: Decreased Breath Sounds - Cardiovascular Exam Cardiovascular Exam: REGULAR RHYTHM - GI/Abdominal Exam GI & Abdominal Exam: Distended, Soft - Rectal Exam Rectal Exam: Deferred - Exam Exam: NORMAL INSPECTION - Extremities Exam Extremities Exam: absent: Calf Tenderness, Pedal Edema - Back Exam Back Exam: absent: CVA tenderness (L), CVA tenderness (R) - Neurological Exam Neurological Exam: Alert, Awake, Oriented x3 Neuro motor strength exam: Left Upper Extremity: 3, Right Upper Extremity: 3, Left Lower Extremity: 3, Right Lower Extremity: 3 - Psychiatric Exam Psychiatric exam: Depressed - Skin Skin Exam: Dry Assessment and Plan (1) DKA (diabetic ketoacidoses) Status: Acute (2) Dehydration Status: Acute (3) Sepsis Status: Acute (4) BRITTNI (acute kidney injury) Status: Acute (5) Clostridium difficile infection Status: Acute (6) DVT prophylaxis Status: Acute (7) Diarrhea Status: Acute (8) History of hypercholesterolemia Status: Acute - Assessment and Plan (Free Text) Plan: need eval r/o malignancy
--- NOTE | 2016-11-23 13:39 | CP.PCM.PCO ---
Physician Communication Note - Physician Communication Note Physician Communication Note: + sterile pyuria AFB neg - consider cystoscopy to r/o malignancy
--- NOTE | 2016-11-23 14:17 | PN ---
DATE: 11/23/2016 ROOM: 411 This is a 46-year-old male with recent uncontrolled type 2 insulin-requiring diabetes, now presenting here with hyperglycemic accelerations and supervening episodic bouts of symptomatic hypoglycemia rel ated to his variable oral intake as noted thereof. Today also near lunchtime, he once again dropped his glucose levels to the mid-30s with hyperadrenergic and neuroglycopenic manifestations relieved by D50 bolus injections as given by the nursing staff. His latest chemistry showed a BUN of 25, sodium 143, potassium 4.0, chloride 116, CO2 18, glucose 158 and creatinine 1.7. So at this time, will modify once again his basal and bolus insulin regimen and lower the Humalog to 12 units subQ t.i.d. before meals to start at dinnertime today as ordered. Will also lower the Levem ir to 40 units subQ at bedtime daily to start tonight. Will continue the same low-dose correction sc [place] using Humalog insulin as given to obviate hypoglycemia, and detailed orders have been given. Lele dial obtain serial chemistries and supplement accordingly as needed. Will follow. Claudia Adame MD cc: [id number] TT: 11/23/2016 14:16:19 Confirmation # [id number] Dictation # [id number] [email or web address]
[2016-11-23] MEDS: Sodium Chloride 0.45% 1,000 ML IV SCH (16:41)
[2016-11-23] MEDS ORDERED: Insulin Detemir 100 Units/ml Inj SC SCH (22:00)
[2016-11-24] MEDS: metroNIDAZOLE 500mg/100ml NS 100 ML IVPB SCH (01:46)
[2016-11-24] MEDS: Vancomycin 500 mg (Oral/Rectal USE) PO SCH ×4 (04:05→22:17)
[2016-11-24] MEDS: Sodium Chloride 0.45% 1,000 ML IV SCH ×2 (05:04→17:28)
[2016-11-24] MEDS: Insulin Lispro (humaLOG) 100 Units/ml Inj SC SCH ×7 (07:14→22:16)
[2016-11-24] MEDS: Fluconazole IV 100mg/50 ml NS 50 ML IVPB SCH (09:21)
[2016-11-24] MEDS: Megestrol Acetate 40 mg/ml Cup PO SCH (09:23)
[2016-11-24] MEDS: Pantoprazole 40 mg EC Tab PO SCH (09:23)
[2016-11-24] MEDS: Lactobacillus Acidophilus 500 MU Cap PO SCH ×2 (09:28→17:29)
--- NOTE | 2016-11-24 11:24 | CP.PCM.PN ---
Subjective - Date & Time of Evaluation Date of Evaluation: 11/24/16 Time of Evaluation: 11:20 - Subjective Subjective: 46 YEAR OLD MALE WITH MULTIPLE MED PROBLEMS, I WAS CALLED TODAY TO PROCEDE WITH CYSTOSCOPY. wILL SCHEDULE FOR CYSTO AT NEXT AVAILABLE OR DATE. MARILU Objective - Vital Signs/Intake and Output Vital Signs (last 24 hours): Temp Pulse Resp BP Pulse Ox 98.1 F 113 H 18 107/76 100 11/24/16 08:39 11/24/16 08:39 11/24/16 08:39 11/24/16 08:39 11/24/16 08:39 - Medications Medications: Current Medications Aspirin (Ecotrin) 81 mg PO DAILY [facility] Last Admin: 11/24/16 09:22 Dose: 81 mg Atorvastatin Calcium (Lipitor) 10 mg PO DAILY [facility] Last Admin: 11/24/16 09:22 Dose: 10 mg Dextrose (Dextrose 50% Inj) 0 ml IV STAT PRN; Protocol PRN Reason: Hyglycemia Protocol Last Admin: 11/23/16 11:23 Dose: 50 ml Dextrose (Glutose 15) 0 gm PO ONCE PRN; Protocol PRN Reason: Hypoglycemia Protocol Glucagon (Glucagen Diagnostic Kit) 0 mg IM STAT PRN; Protocol PRN Reason: Hypoglycemia Protocol Fluconazole (Diflucan Iv 100 Mg/50 Ml Ns) 50 mls @ 50 mls/hr IVPB DAILY [facility] Last Admin: 11/24/16 09:21 Dose: 50 mls/hr Sodium Chloride (Sodium Chloride 0.45%) 1,000 mls @ 100 mls/hr IV .Q10H [facility] Stop: 11/24/16 16:51 Last Admin: 11/24/16 05:04 Dose: 100 mls/hr Insulin Detemir (Levemir) 40 units SC HS [facility] Last Admin: 11/23/16 22:45 Dose: 40 units Insulin Human Lispro (Humalog) 0 units SC ACHS [facility] PRN Reason: Protocol Last Admin: 11/24/16 07:14 Dose: 4 units Insulin Human Lispro (Humalog) 12 units SC AC [facility] Last Admin: 11/24/16 07:15 Dose: 12 units Lactobacillus Acidophilus (Bacid Acidophilus) 1 cap PO BID [facility] Last Admin: 11/24/16 09:28 Dose: 1 cap Megestrol Acetate (Megace) 800 mg PO DAILY [facility] Last Admin: 11/24/16 09:23 Dose: 800 mg Ondansetron HCl (Zofran Inj) 4 mg IVP Q4 PRN PRN Reason: Nausea/Vomiting Pantoprazole Sodium (Protonix Ec Tab) 40 mg PO DAILY [facility] Last Admin: 11/24/16 09:23 Dose: 40 mg Sodium Bicarbonate (Sodium Bicarbonate Tab) 1,300 mg PO QID [facility] Last Admin: 11/24/16 09:23 Dose: 1,300 mg Vancomycin HCl (Vancocin (Oral/Rectal Use)) 250 mg PO Q6 [facility] Last Admin: 11/24/16 09:24 Dose: 250 mg - Labs Labs: 11/20/16 04:00 11/22/16 13:00 PT 13.5 SECONDS (9.6-11.2) H 11/17/16 14:50 INR 1.30 (0.92-1.08) H 11/17/16 14:50 APTT 26.0 SECONDS (23.3-32.5) 11/17/16 14:50
--- NOTE | 2016-11-24 12:20 | CP.PCM.PN ---
Subjective - Date & Time of Evaluation Date of Evaluation: 11/24/16 Time of Evaluation: 08:00 - Subjective Subjective: events noted iv rx in progress for cysto Objective - Vital Signs/Intake and Output Vital Signs (last 24 hours): Temp Pulse Resp BP Pulse Ox 98.1 F 113 H 18 107/76 100 11/24/16 08:39 11/24/16 08:39 11/24/16 08:39 11/24/16 08:39 11/24/16 08:39 - Medications Medications: Current Medications Aspirin (Ecotrin) 81 mg PO DAILY [facility] Last Admin: 11/24/16 09:22 Dose: 81 mg Atorvastatin Calcium (Lipitor) 10 mg PO DAILY [facility] Last Admin: 11/24/16 09:22 Dose: 10 mg Dextrose (Dextrose 50% Inj) 0 ml IV STAT PRN; Protocol PRN Reason: Hyglycemia Protocol Last Admin: 11/23/16 11:23 Dose: 50 ml Dextrose (Glutose 15) 0 gm PO ONCE PRN; Protocol PRN Reason: Hypoglycemia Protocol Glucagon (Glucagen Diagnostic Kit) 0 mg IM STAT PRN; Protocol PRN Reason: Hypoglycemia Protocol Fluconazole (Diflucan Iv 100 Mg/50 Ml Ns) 50 mls @ 50 mls/hr IVPB DAILY [facility] Last Admin: 11/24/16 09:21 Dose: 50 mls/hr Sodium Chloride (Sodium Chloride 0.45%) 1,000 mls @ 100 mls/hr IV .Q10H [facility] Stop: 11/24/16 16:51 Last Admin: 11/24/16 05:04 Dose: 100 mls/hr Insulin Detemir (Levemir) 40 units SC HS [facility] Last Admin: 11/23/16 22:45 Dose: 40 units Insulin Human Lispro (Humalog) 0 units SC ACHS [facility] PRN Reason: Protocol Last Admin: 11/24/16 07:14 Dose: 4 units Insulin Human Lispro (Humalog) 12 units SC AC [facility] Last Admin: 11/24/16 07:15 Dose: 12 units Lactobacillus Acidophilus (Bacid Acidophilus) 1 cap PO BID [facility] Last Admin: 11/24/16 09:28 Dose: 1 cap Megestrol Acetate (Megace) 800 mg PO DAILY [facility] Last Admin: 11/24/16 09:23 Dose: 800 mg Ondansetron HCl (Zofran Inj) 4 mg IVP Q4 PRN PRN Reason: Nausea/Vomiting Pantoprazole Sodium (Protonix Ec Tab) 40 mg PO DAILY [facility] Last Admin: 11/24/16 09:23 Dose: 40 mg Sodium Bicarbonate (Sodium Bicarbonate Tab) 1,300 mg PO QID [facility] Last Admin: 11/24/16 09:23 Dose: 1,300 mg Vancomycin HCl (Vancocin (Oral/Rectal Use)) 250 mg PO Q6 [facility] Last Admin: 11/24/16 09:24 Dose: 250 mg - Labs Labs: 11/20/16 04:00 11/22/16 13:00 PT 13.5 SECONDS (9.6-11.2) H 11/17/16 14:50 INR 1.30 (0.92-1.08) H 11/17/16 14:50 APTT 26.0 SECONDS (23.3-32.5) 11/17/16 14:50 Assessment and Plan (1) DKA (diabetic ketoacidoses) Status: Acute (2) Dehydration Status: Acute (3) Sepsis Status: Acute (4) BRITTNI (acute kidney injury) Status: Acute (5) Clostridium difficile infection Status: Acute (6) DVT prophylaxis Status: Acute (7) Diarrhea Status: Acute (8) History of hypercholesterolemia Status: Acute
[2016-11-24] MEDS ORDERED: Insulin Detemir 100 Units/ml Inj SC SCH (22:00)
[2016-11-25] MEDS: Sodium Chloride 0.45% 1,000 ML IV SCH ×2 (03:30→18:57)
[2016-11-25] MEDS: Vancomycin 500 mg (Oral/Rectal USE) PO SCH ×4 (03:34→21:14)
[2016-11-25 07:47] LABS: MEAN CELL VOLUME 88.4 fl (80.0-94.0); MEAN CORPUSCULAR HGB CONC 32.8 g/dL (33.0-37.0); WHITE BLOOD COUNT 5.9 K/uL (4.8-10.8)
[2016-11-25 08:11] LABS: ALB/GLOB RATIO 0.7 (1.0-2.1); ALKALINE PHOSPHATASE 226 U/L (38-126); ALT/SGPT 29 U/L (21-72); AST/SGOT 26 U/L (17-59); BILIRUBIN,TOTAL < 0.1 mg/dl (0.2-1.3); BLOOD UREA NITROGEN 38 mg/dl (9-20); CALCIUM 8.5 mg/dL (8.4-10.2); CARBON DIOXIDE 21 mmol/L (22-30); CHLORIDE 111 mmol/L (98-107); GFR AFRICAN-AMERICAN 42; POTASSIUM 4.7 MMOL/L (3.6-5.0); SODIUM 142 mmol/l (132-148); TOTAL PROTEIN 7.4 G/DL (6.3-8.2)
[2016-11-25 08:17] LABS: GLUCOSE,RANDOM 566 mg/dL (75-110)
[2016-11-25] MEDS: Insulin Lispro (humaLOG) 100 Units/ml Inj SC SCH ×7 (08:37→22:08)
[2016-11-25] MEDS: Lactobacillus Acidophilus 500 MU Cap PO SCH ×2 (08:38→17:04)
[2016-11-25] MEDS: Fluconazole IV 100mg/50 ml NS 50 ML IVPB SCH (08:38)
[2016-11-25] MEDS: Megestrol Acetate 40 mg/ml Cup PO SCH (08:39)
--- NOTE | 2016-11-25 08:47 | PN ---
DATE: 11/24/2016 ROOM: 658 This is a 46-year-old male with recent uncontrolled type 2 insulin-requiring diabetes, now being foll owed closely for metabolic management. His glycemic levels are still fluctuating with the variabilit y of his oral intake as noted. His latest glucose values have ranged from 123-240 and 375 mg/dL. It was 240-330 at bedtime last night. His latest chemistry showed a BUN of 25, sodium 143, potassium 4 .0, chloride 116, CO2 of 18, glucose 158, creatinine 1.7. We will repeat the chemistries and supplem ent accordingly as needed. We will also modify his basal and bolus insulin regimen and increase the Humalog to 14 units subQ t.i.d. before meals to start at dinnertime today as ordered. We will titrat e incrementally as indicated to optimize metabolic control. We will also increase the basal insulin with Levemir to be increased to 44 units subQ at bedtime daily to start tonight. We will continue th e low-dose correction scale using Humalog insulin as ordered to obviate hypoglycemia and detailed ord ers have been given. We will follow and advise accordingly. Claudia Adame MD cc: [phone] TT: 11/24/2016 16:58:31 Confirmation # [id number] Dictation # [id number] sn
--- NOTE | 2016-11-25 10:05 | CP.PCM.PN ---
Subjective - Date & Time of Evaluation Date of Evaluation: 11/25/16 Time of Evaluation: 10:03 - Subjective Subjective: Pt ate breakfast ,pt re schueled for fiday 12 noon.[place] Objective - Vital Signs/Intake and Output Vital Signs (last 24 hours): Temp Pulse Resp BP Pulse Ox 98.6 F 109 H 20 106/76 97 11/25/16 07:52 11/25/16 07:52 11/25/16 07:52 11/25/16 07:52 11/25/16 07:52 - Medications Medications: Current Medications Aspirin (Ecotrin) 81 mg PO DAILY [facility] Last Admin: 11/25/16 08:39 Dose: 81 mg Atorvastatin Calcium (Lipitor) 10 mg PO DAILY [facility] Last Admin: 11/25/16 08:39 Dose: 10 mg Dextrose (Dextrose 50% Inj) 0 ml IV STAT PRN; Protocol PRN Reason: Hyglycemia Protocol Last Admin: 11/23/16 11:23 Dose: 50 ml Dextrose (Glutose 15) 0 gm PO ONCE PRN; Protocol PRN Reason: Hypoglycemia Protocol Glucagon (Glucagen Diagnostic Kit) 0 mg IM STAT PRN; Protocol PRN Reason: Hypoglycemia Protocol Fluconazole (Diflucan Iv 100 Mg/50 Ml Ns) 50 mls @ 50 mls/hr IVPB DAILY [facility] Last Admin: 11/25/16 08:38 Dose: 50 mls/hr Insulin Detemir (Levemir) 44 units SC HS [facility] Last Admin: 11/24/16 22:18 Dose: 44 u Insulin Human Lispro (Humalog) 0 units SC ACHS [facility] PRN Reason: Protocol Last Admin: 11/25/16 08:37 Dose: Not Given Insulin Human Lispro (Humalog) 14 units SC AC [facility] Last Admin: 11/25/16 08:38 Dose: 14 unit Lactobacillus Acidophilus (Bacid Acidophilus) 1 cap PO BID [facility] Last Admin: 11/25/16 08:38 Dose: 1 cap Megestrol Acetate (Megace) 800 mg PO DAILY [facility] Last Admin: 11/25/16 08:39 Dose: 800 mg Ondansetron HCl (Zofran Inj) 4 mg IVP Q4 PRN PRN Reason: Nausea/Vomiting Pantoprazole Sodium (Protonix Ec Tab) 40 mg PO DAILY [facility] Last Admin: 11/24/16 09:23 Dose: 40 mg Sodium Bicarbonate (Sodium Bicarbonate Tab) 1,300 mg PO QID [facility] Last Admin: 11/25/16 08:40 Dose: 1,300 mg Vancomycin HCl (Vancocin (Oral/Rectal Use)) 250 mg PO Q6 [facility] Last Admin: 11/25/16 03:34 Dose: 250 mg - Labs Labs: 11/25/16 06:45 11/25/16 06:45 PT 13.5 SECONDS (9.6-11.2) H 11/17/16 14:50 INR 1.30 (0.92-1.08) H 11/17/16 14:50 APTT 26.0 SECONDS (23.3-32.5) 11/17/16 14:50
[2016-11-25] MEDS: Pantoprazole 40 mg EC Tab PO SCH (10:28)
--- NOTE | 2016-11-25 10:51 | CP.PCM.PN ---
<RobertAlbertogabino - Last Filed: 11/25/16 10:48> Subjective - Date & Time of Evaluation Date of Evaluation: 11/25/16 Time of Evaluation: 10:48 - Subjective Subjective: evaluated with attending. no overnight events. BM more formed x3 yesterday, occurs only after eating. Denies f/c, n/v, chest pain, SOB, abd pain. Tolerating PO. NPO. cystoscopy planned for today Objective - Vital Signs/Intake and Output Vital Signs (last 24 hours): Temp Pulse Resp BP Pulse Ox 98.6 F 109 H 20 106/76 97 11/25/16 07:52 11/25/16 07:52 11/25/16 07:52 11/25/16 07:52 11/25/16 07:52 - Medications Medications: Current Medications Aspirin (Ecotrin) 81 mg PO DAILY [facility] Last Admin: 11/25/16 08:39 Dose: 81 mg Atorvastatin Calcium (Lipitor) 10 mg PO DAILY [facility] Last Admin: 11/25/16 08:39 Dose: 10 mg Dextrose (Dextrose 50% Inj) 0 ml IV STAT PRN; Protocol PRN Reason: Hyglycemia Protocol Last Admin: 11/23/16 11:23 Dose: 50 ml Dextrose (Glutose 15) 0 gm PO ONCE PRN; Protocol PRN Reason: Hypoglycemia Protocol Glucagon (Glucagen Diagnostic Kit) 0 mg IM STAT PRN; Protocol PRN Reason: Hypoglycemia Protocol Fluconazole (Diflucan Iv 100 Mg/50 Ml Ns) 50 mls @ 50 mls/hr IVPB DAILY [facility] Last Admin: 11/25/16 08:38 Dose: 50 mls/hr Insulin Detemir (Levemir) 44 units SC HS [facility] Last Admin: 11/24/16 22:18 Dose: 44 u Insulin Human Lispro (Humalog) 0 units SC ACHS [facility] PRN Reason: Protocol Last Admin: 11/25/16 08:37 Dose: Not Given Insulin Human Lispro (Humalog) 14 units SC AC [facility] Last Admin: 11/25/16 08:38 Dose: 14 unit Lactobacillus Acidophilus (Bacid Acidophilus) 1 cap PO BID [facility] Last Admin: 11/25/16 08:38 Dose: 1 cap Megestrol Acetate (Megace) 800 mg PO DAILY [facility] Last Admin: 11/25/16 08:39 Dose: 800 mg Ondansetron HCl (Zofran Inj) 4 mg IVP Q4 PRN PRN Reason: Nausea/Vomiting Pantoprazole Sodium (Protonix Ec Tab) 40 mg PO DAILY [facility] Last Admin: 11/25/16 10:28 Dose: 40 mg Sodium Bicarbonate (Sodium Bicarbonate Tab) 1,300 mg PO QID [facility] Last Admin: 11/25/16 08:40 Dose: 1,300 mg Vancomycin HCl (Vancocin (Oral/Rectal Use)) 250 mg PO Q6 [facility] Last Admin: 11/25/16 10:29 Dose: 250 mg - Labs Labs: 11/25/16 06:45 11/25/16 06:45 PT 13.5 SECONDS (9.6-11.2) H 11/17/16 14:50 INR 1.30 (0.92-1.08) H 11/17/16 14:50 APTT 26.0 SECONDS (23.3-32.5) 11/17/16 14:50 - Constitutional Appears: Non-toxic, No Acute Distress - Head Exam Head Exam: ATRAUMATIC, NORMAL INSPECTION - Eye Exam Eye Exam: Normal appearance - ENT Exam ENT Exam: Mucous Membranes Moist - Neck Exam Neck Exam: Normal Inspection - Respiratory Exam Respiratory Exam: Clear to Ausculation Bilateral - Cardiovascular Exam Cardiovascular Exam: REGULAR RHYTHM - GI/Abdominal Exam GI & Abdominal Exam: Soft. absent: Tenderness - Extremities Exam Extremities Exam: Normal Inspection - Back Exam Back Exam: NORMAL INSPECTION - Neurological Exam Neurological Exam: Alert, Oriented x3 - Skin Skin Exam: Dry, Warm Assessment and Plan (1) Clostridium difficile infection Assessment & Plan: -ID on board, appreciate input -GI on board, appreciate input. cleared for d/c -flagyl, vanc, rifaxamin -contact precautions -repeat c. diff neg x3 -probiotic Status: Acute (2) Diabetes mellitus type 2 in nonobese Assessment & Plan: -levemir 44u HS -humalog 14u AC -accucheck -SSI -carb control diet -endo on board, appreciate input Status: Chronic (3) BRITTNI (acute kidney injury) Assessment & Plan: -Nephro on board, appreciate input -MIVF 1/2NS 150cc/hr Status: Acute (4) Hypertension Assessment & Plan: -hold meds for hypotension Status: Chronic (5) Cystitis Assessment & Plan: -per US bladder -US renal: mild distension collecting system -CT abd/pelvis: b/l hydronephrosis -urine cx >100K CFU yeast -repeat urine cx <10K CFU GPC -ID on board, appreciate input - on board,appreciate input -US bladder, PVR -cysto for today, rescheduled to Fri d/t pt eating. resume diet for now Status: Acute (6) Sterile pyuria Status: Acute (7) DVT prophylaxis Assessment & Plan: -lovenox Status: Acute (8) Metabolic acidosis Assessment & Plan: -2/2 diarrhea and BRITTNI -Nephro on board, appreciate input -NaHCO2 -renal diet -MIVF 1/2NS 150cc/hr Status: Acute (9) Hypernatremia Status: Resolved (10) Hyperkalemia Status: Resolved <Justin Melgar - Last Filed: 12/10/16 07:38> Objective - Vital Signs/Intake and Output Vital Signs (last 24 hours): Temp Pulse Resp BP Pulse Ox 98.7 F 99 H 20 110/76 100 12/10/16 00:21 12/10/16 00:21 12/10/16 00:21 12/10/16 00:21 12/10/16 00:21 - Medications Medications: Current Medications Aspirin (Ecotrin) 81 mg PO DAILY [facility] Last Admin: 12/06/16 09:08 Dose: 81 mg Atorvastatin Calcium (Lipitor) 10 mg PO DAILY [facility] Last Admin: 12/09/16 08:56 Dose: 10 mg Cholestyramine Resin (Questran) 4 gm PO BID [facility] Last Admin: 12/09/16 16:41 Dose: 4 gm Fluconazole (Diflucan Iv 100 Mg/50 Ml Ns) 50 mls @ 50 mls/hr IVPB DAILY [facility] Last Admin: 12/09/16 11:34 Dose: 50 mls/hr Insulin Detemir (Levemir) 40 units SC HS [facility] Last Admin: 12/09/16 22:04 Dose: 40 units Insulin Human Lispro (Humalog) 0 units SC ACHS [facility] PRN Reason: Protocol Last Admin: 12/09/16 22:05 Dose: 2 unit Insulin Lispro Protam/Lispro Human (Humalog Mix 75/25) 5 units SC BIDAC [facility] Last Admin: 12/09/16 16:41 Dose: 5 units Lactic Acid (Lac-Hydrin 12% Lotion (225 G)) 1 applic TOP BID [facility] Last Admin: 12/09/16 16:42 Dose: 1 applic Lactobacillus Acidophilus (Bacid Acidophilus) 1 cap PO BID [facility] Last Admin: 12/09/16 16:45 Dose: 1 cap Loperamide HCl (Imodium) 2 mg PO Q6 [facility] Last Admin: 12/10/16 04:45 Dose: 2 mg Megestrol Acetate (Megace) 800 mg PO DAILY [facility] Last Admin: 12/09/16 08:56 Dose: 800 mg Ondansetron HCl (Zofran Inj) 4 mg IVP Q4 PRN PRN Reason: Nausea/Vomiting Pantoprazole Sodium (Protonix Ec Tab) 40 mg PO DAILY [facility] Last Admin: 12/09/16 08:56 Dose: 40 mg - Labs Labs: 12/10/16 05:40 12/08/16 07:48 PT 13.5 SECONDS (9.6-11.2) H 11/17/16 14:50 INR 1.30 (0.92-1.08) H 11/17/16 14:50 APTT 26.0 SECONDS (23.3-32.5) 11/17/16 14:50 Assessment and Plan (1) Diabetes mellitus type 2 in nonobese Status: Chronic (2) DKA (diabetic ketoacidoses) Status: Acute (3) Dehydration Status: Acute (4) BRITTNI (acute kidney injury) Status: Acute (5) Clostridium difficile infection Status: Acute (6) Metabolic acidosis Status: Resolved - Assessment and Plan (Free Text) Plan: I was present during evaluation and discussed with Dr Cassie hughes plans of care Justin Melgar M.D.
--- NOTE | 2016-11-25 11:00 | CP.PCM.PN ---
Subjective - Date & Time of Evaluation Date of Evaluation: 11/25/16 Time of Evaluation: 10:59 - Subjective Subjective: Patient and bed awake consciousness Reported to have adequate appetite No nausea or vomiting reported Chest clear Heart no rubs Abdomen soft Extremity no edema Serum creatinine and the lab reviewed and appeared to be stable Patient recover partially from acute kidney injury Continue monitoring Objective - Vital Signs/Intake and Output Vital Signs (last 24 hours): Temp Pulse Resp BP Pulse Ox 98.6 F 109 H 20 106/76 97 11/25/16 07:52 11/25/16 07:52 11/25/16 07:52 11/25/16 07:52 11/25/16 07:52 - Medications Medications: Current Medications Aspirin (Ecotrin) 81 mg PO DAILY [facility] Last Admin: 11/25/16 08:39 Dose: 81 mg Atorvastatin Calcium (Lipitor) 10 mg PO DAILY [facility] Last Admin: 11/25/16 08:39 Dose: 10 mg Dextrose (Dextrose 50% Inj) 0 ml IV STAT PRN; Protocol PRN Reason: Hyglycemia Protocol Last Admin: 11/23/16 11:23 Dose: 50 ml Dextrose (Glutose 15) 0 gm PO ONCE PRN; Protocol PRN Reason: Hypoglycemia Protocol Glucagon (Glucagen Diagnostic Kit) 0 mg IM STAT PRN; Protocol PRN Reason: Hypoglycemia Protocol Fluconazole (Diflucan Iv 100 Mg/50 Ml Ns) 50 mls @ 50 mls/hr IVPB DAILY [facility] Last Admin: 11/25/16 08:38 Dose: 50 mls/hr Insulin Detemir (Levemir) 44 units SC HS [facility] Last Admin: 11/24/16 22:18 Dose: 44 u Insulin Human Lispro (Humalog) 0 units SC ACHS [facility] PRN Reason: Protocol Last Admin: 11/25/16 08:37 Dose: Not Given Insulin Human Lispro (Humalog) 14 units SC AC [facility] Last Admin: 11/25/16 08:38 Dose: 14 unit Lactobacillus Acidophilus (Bacid Acidophilus) 1 cap PO BID [facility] Last Admin: 11/25/16 08:38 Dose: 1 cap Megestrol Acetate (Megace) 800 mg PO DAILY [facility] Last Admin: 11/25/16 08:39 Dose: 800 mg Ondansetron HCl (Zofran Inj) 4 mg IVP Q4 PRN PRN Reason: Nausea/Vomiting Pantoprazole Sodium (Protonix Ec Tab) 40 mg PO DAILY [facility] Last Admin: 11/25/16 10:28 Dose: 40 mg Sodium Bicarbonate (Sodium Bicarbonate Tab) 1,300 mg PO QID [facility] Last Admin: 11/25/16 08:40 Dose: 1,300 mg Vancomycin HCl (Vancocin (Oral/Rectal Use)) 250 mg PO Q6 [facility] Last Admin: 11/25/16 10:29 Dose: 250 mg - Labs Labs: 11/25/16 06:45 11/25/16 06:45 PT 13.5 SECONDS (9.6-11.2) H 11/17/16 14:50 INR 1.30 (0.92-1.08) H 11/17/16 14:50 APTT 26.0 SECONDS (23.3-32.5) 11/17/16 14:50
--- NOTE | 2016-11-25 14:50 | PN ---
DATE: 11/25/2016 LOCATION: Room 658. This is a 46-year-old male with recent uncontrolled type 2 insulin-requiring diabetes, once again had extremes of glycemic accelerations as noted overnight with glucose levels ranging from 439-566 mg/dL . His glucose levels last night ranged from 240-304 mg/dL. His latest chemistry showed a BUN of 38, sodium 142, potassium 4.7, chloride 111, CO2 21, glucose 2.1. So at this time, we will modify once again his basal and bolus insulin regimen and increase the Humalog to 20 units subQ t.i.d. befo re meals as ordered. We will also be increasing the basal insulin with Levemir to be given 60 units subQ at bedtime daily to start tonight. We will titrate incrementally as indicated to optimize metab olic control. Continue the low-dose correction scale using Humalog insulin as given . Will foll ow. Claudia Adame MD cc: [phone] TT: 11/25/2016 14:49:46 Confirmation # [id number] Dictation # [id number] aníbal
--- NOTE | 2016-11-25 18:08 | PN ---
DATE: 11/25/2016 ENDO FOLLOWUP NOTE ROOM: 658. SUBJECTIVE: This is a 46-year-old male with recent uncontrolled type 2 insulin-requiring diabetes, n ow being followed closely for metabolic management. He continues to have extremes of glycemic fluctu ation as noted, especially overnight with glucose levels ranging from 304-439 mg/dL. LABORATORY DATA: His latest chemistry showed a BUN of 38, sodium 142, potassium 4.7, chloride 111, C O2 of 21, glucose 566, and creatinine 2.1. So, at this time, we will modify once again his basal and bolus insulin regimen, and increase the Hum alog to 20 units subQ t.i.d. before meals to start today at dinner. We will also increase the basal insulin to Levemir given as 60 units subQ at bedtime daily to start tonight. We will continue the lo w-dose correction scale using Humalog insulin as given. We will also titrate incrementally as indica josh to optimize metabolic control. We will follow. Claudia Adame MD cc: [phone] TT: 11/25/2016 18:07:42 Confirmation # [id number] Dictation # [id number] terrence
[2016-11-25] MEDS ORDERED: Insulin Detemir 100 Units/ml Inj SC SCH (22:00)
[2016-11-26] MEDS: Vancomycin 500 mg (Oral/Rectal USE) PO SCH ×4 (03:14→21:40)
[2016-11-26] MEDS: Sodium Chloride 0.45% 1,000 ML IV SCH (03:14)
[2016-11-26] MEDS: Insulin Lispro (humaLOG) 100 Units/ml Inj SC SCH ×7 (06:51→21:33)
[2016-11-26] MEDS: Lactobacillus Acidophilus 500 MU Cap PO SCH ×2 (08:45→16:48)
[2016-11-26] MEDS: Fluconazole IV 100mg/50 ml NS 50 ML IVPB SCH (08:45)
[2016-11-26] MEDS: Pantoprazole 40 mg EC Tab PO SCH (08:46)
[2016-11-26] MEDS: Megestrol Acetate 40 mg/ml Cup PO SCH (08:46)
--- NOTE | 2016-11-26 10:22 | CP.PCM.PN ---
Subjective - Date & Time of Evaluation Date of Evaluation: 11/26/16 Time of Evaluation: 10:19 - Subjective Subjective: Patient and bed Appeared to be comfortable no acute distress Chest clear Heart no rubs Abdomen soft Laboratory reviewed serum creatinine going up 2.1 Impression and plan Bilateral hydronephrosis patient scheduled to go for urological procedures and cystoscope on Thursday as noted by the urologist Give monitoring kidney Function Objective - Vital Signs/Intake and Output Vital Signs (last 24 hours): Temp Pulse Resp BP Pulse Ox 97.9 F 114 H 20 117/75 100 11/26/16 07:50 11/26/16 07:50 11/26/16 07:50 11/26/16 07:50 11/26/16 07:50 - Medications Medications: Current Medications Aspirin (Ecotrin) 81 mg PO DAILY [facility] Last Admin: 11/26/16 08:45 Dose: 81 mg Atorvastatin Calcium (Lipitor) 10 mg PO DAILY [facility] Last Admin: 11/26/16 08:46 Dose: 10 mg Dextrose (Dextrose 50% Inj) 0 ml IV STAT PRN; Protocol PRN Reason: Hyglycemia Protocol Last Admin: 11/23/16 11:23 Dose: 50 ml Dextrose (Glutose 15) 0 gm PO ONCE PRN; Protocol PRN Reason: Hypoglycemia Protocol Glucagon (Glucagen Diagnostic Kit) 0 mg IM STAT PRN; Protocol PRN Reason: Hypoglycemia Protocol Fluconazole (Diflucan Iv 100 Mg/50 Ml Ns) 50 mls @ 50 mls/hr IVPB DAILY [facility] Last Admin: 11/26/16 08:45 Dose: 50 mls/hr Insulin Detemir (Levemir) 60 units SC HS [facility] Insulin Human Lispro (Humalog) 0 units SC ACHS [facility] PRN Reason: Protocol Last Admin: 11/26/16 06:51 Dose: 5 units Insulin Human Lispro (Humalog) 20 units SC AC [facility] Last Admin: 11/26/16 08:46 Dose: 20 u Lactobacillus Acidophilus (Bacid Acidophilus) 1 cap PO BID [facility] Last Admin: 11/26/16 08:45 Dose: 1 cap Megestrol Acetate (Megace) 800 mg PO DAILY [facility] Last Admin: 11/26/16 08:46 Dose: 800 mg Ondansetron HCl (Zofran Inj) 4 mg IVP Q4 PRN PRN Reason: Nausea/Vomiting Pantoprazole Sodium (Protonix Ec Tab) 40 mg PO DAILY [facility] Last Admin: 11/26/16 08:46 Dose: 40 mg Sodium Bicarbonate (Sodium Bicarbonate Tab) 1,300 mg PO QID [facility] Last Admin: 11/26/16 08:47 Dose: 1,300 mg Vancomycin HCl (Vancocin (Oral/Rectal Use)) 250 mg PO Q6 [facility] Last Admin: 11/26/16 03:14 Dose: 250 mg - Labs Labs: 11/25/16 06:45 11/25/16 06:45 PT 13.5 SECONDS (9.6-11.2) H 11/17/16 14:50 INR 1.30 (0.92-1.08) H 11/17/16 14:50 APTT 26.0 SECONDS (23.3-32.5) 11/17/16 14:50
--- NOTE | 2016-11-26 14:28 | CP.PCM.PN ---
<Cassie Jones - Last Filed: 11/26/16 14:25> Subjective - Date & Time of Evaluation Date of Evaluation: 11/26/16 Time of Evaluation: 14:26 - Subjective Subjective: d/w attending. no overnight events. BM well formed x3 yesterday, occurs only after eating. Denies f/c, n/v, chest pain, SOB, abd pain. Tolerating PO. NPO. cystoscopy rescheduled for Thursday Objective - Vital Signs/Intake and Output Vital Signs (last 24 hours): Temp Pulse Resp BP Pulse Ox 97.9 F 114 H 20 117/75 100 11/26/16 07:50 11/26/16 07:50 11/26/16 07:50 11/26/16 07:50 11/26/16 07:50 - Medications Medications: Current Medications Aspirin (Ecotrin) 81 mg PO DAILY [facility] Last Admin: 11/26/16 08:45 Dose: 81 mg Atorvastatin Calcium (Lipitor) 10 mg PO DAILY [facility] Last Admin: 11/26/16 08:46 Dose: 10 mg Dextrose (Dextrose 50% Inj) 0 ml IV STAT PRN; Protocol PRN Reason: Hyglycemia Protocol Last Admin: 11/23/16 11:23 Dose: 50 ml Dextrose (Glutose 15) 0 gm PO ONCE PRN; Protocol PRN Reason: Hypoglycemia Protocol Glucagon (Glucagen Diagnostic Kit) 0 mg IM STAT PRN; Protocol PRN Reason: Hypoglycemia Protocol Fluconazole (Diflucan Iv 100 Mg/50 Ml Ns) 50 mls @ 50 mls/hr IVPB DAILY [facility] Last Admin: 11/26/16 08:45 Dose: 50 mls/hr Insulin Detemir (Levemir) 60 units SC HS [facility] Insulin Human Lispro (Humalog) 0 units SC ACHS [facility] PRN Reason: Protocol Last Admin: 11/26/16 12:53 Dose: 2 units Insulin Human Lispro (Humalog) 20 units SC AC [facility] Last Admin: 11/26/16 12:53 Dose: 20 u Lactobacillus Acidophilus (Bacid Acidophilus) 1 cap PO BID [facility] Last Admin: 11/26/16 08:45 Dose: 1 cap Megestrol Acetate (Megace) 800 mg PO DAILY [facility] Last Admin: 11/26/16 08:46 Dose: 800 mg Ondansetron HCl (Zofran Inj) 4 mg IVP Q4 PRN PRN Reason: Nausea/Vomiting Pantoprazole Sodium (Protonix Ec Tab) 40 mg PO DAILY [facility] Last Admin: 11/26/16 08:46 Dose: 40 mg Sodium Bicarbonate (Sodium Bicarbonate Tab) 1,300 mg PO QID [facility] Last Admin: 11/26/16 12:53 Dose: 1,300 mg Vancomycin HCl (Vancocin (Oral/Rectal Use)) 250 mg PO Q6 [facility] Last Admin: 11/26/16 10:30 Dose: 250 mg - Labs Labs: 11/25/16 06:45 11/25/16 06:45 PT 13.5 SECONDS (9.6-11.2) H 11/17/16 14:50 INR 1.30 (0.92-1.08) H 11/17/16 14:50 APTT 26.0 SECONDS (23.3-32.5) 11/17/16 14:50 - Constitutional Appears: Non-toxic, No Acute Distress - Head Exam Head Exam: NORMAL INSPECTION - Eye Exam Eye Exam: Normal appearance - ENT Exam ENT Exam: Mucous Membranes Moist - Neck Exam Neck Exam: Normal Inspection - Respiratory Exam Respiratory Exam: Clear to Ausculation Bilateral - Cardiovascular Exam Cardiovascular Exam: REGULAR RHYTHM - GI/Abdominal Exam GI & Abdominal Exam: Soft. absent: Tenderness - Extremities Exam Extremities Exam: Normal Inspection - Back Exam Back Exam: NORMAL INSPECTION - Neurological Exam Neurological Exam: Alert, Oriented x3 - Skin Skin Exam: Dry, Warm Assessment and Plan (1) Clostridium difficile infection Assessment & Plan: -ID on board, appreciate input -GI on board, appreciate input. cleared for d/c -contact precautions -repeat c. diff neg x3 -probiotic Status: Acute (2) Diabetes mellitus type 2 in nonobese Assessment & Plan: -levemir 60u HS -humalog 20u AC -accucheck -SSI -carb control diet -endo on board, appreciate input Status: Chronic (3) BRITTNI (acute kidney injury) Assessment & Plan: -Nephro on board, appreciate input Status: Acute (4) Hypertension Assessment & Plan: -hold meds for hypotension Status: Chronic (5) Cystitis Assessment & Plan: -per US bladder -US renal: mild distension collecting system -CT abd/pelvis: b/l hydronephrosis -urine cx >100K CFU yeast -repeat urine cx <10K CFU GPC -ID on board, appreciate input - on board,appreciate input -US bladder, PVR -cysto rescheduled to Fri -vanc/diflucan Status: Acute (6) Sterile pyuria Status: Acute (7) DVT prophylaxis Assessment & Plan: -lovenox Status: Acute (8) Metabolic acidosis Assessment & Plan: -2/2 diarrhea and BRITTNI -Nephro on board, appreciate input -NaHCO2 -renal diet Status: Resolved <Justin Melgar - Last Filed: 12/10/16 07:37> Objective - Vital Signs/Intake and Output Vital Signs (last 24 hours): Temp Pulse Resp BP Pulse Ox 98.7 F 99 H 20 110/76 100 12/10/16 00:21 12/10/16 00:21 12/10/16 00:21 12/10/16 00:21 12/10/16 00:21 - Medications Medications: Current Medications Aspirin (Ecotrin) 81 mg PO DAILY [facility] Last Admin: 12/06/16 09:08 Dose: 81 mg Atorvastatin Calcium (Lipitor) 10 mg PO DAILY [facility] Last Admin: 12/09/16 08:56 Dose: 10 mg Cholestyramine Resin (Questran) 4 gm PO BID [facility] Last Admin: 12/09/16 16:41 Dose: 4 gm Fluconazole (Diflucan Iv 100 Mg/50 Ml Ns) 50 mls @ 50 mls/hr IVPB DAILY [facility] Last Admin: 12/09/16 11:34 Dose: 50 mls/hr Insulin Detemir (Levemir) 40 units SC HS [facility] Last Admin: 12/09/16 22:04 Dose: 40 units Insulin Human Lispro (Humalog) 0 units SC ACHS [facility] PRN Reason: Protocol Last Admin: 12/09/16 22:05 Dose: 2 unit Insulin Lispro Protam/Lispro Human (Humalog Mix 75/25) 5 units SC BIDAC [facility] Last Admin: 12/09/16 16:41 Dose: 5 units Lactic Acid (Lac-Hydrin 12% Lotion (225 G)) 1 applic TOP BID [facility] Last Admin: 12/09/16 16:42 Dose: 1 applic Lactobacillus Acidophilus (Bacid Acidophilus) 1 cap PO BID [facility] Last Admin: 12/09/16 16:45 Dose: 1 cap Loperamide HCl (Imodium) 2 mg PO Q6 [facility] Last Admin: 12/10/16 04:45 Dose: 2 mg Megestrol Acetate (Megace) 800 mg PO DAILY [facility] Last Admin: 12/09/16 08:56 Dose: 800 mg Ondansetron HCl (Zofran Inj) 4 mg IVP Q4 PRN PRN Reason: Nausea/Vomiting Pantoprazole Sodium (Protonix Ec Tab) 40 mg PO DAILY [facility] Last Admin: 12/09/16 08:56 Dose: 40 mg - Labs Labs: 12/10/16 05:40 12/08/16 07:48 PT 13.5 SECONDS (9.6-11.2) H 11/17/16 14:50 INR 1.30 (0.92-1.08) H 11/17/16 14:50 APTT 26.0 SECONDS (23.3-32.5) 11/17/16 14:50 Assessment and Plan (1) Diabetes mellitus type 2 in nonobese Status: Chronic (2) DKA (diabetic ketoacidoses) Status: Acute (3) Dehydration Status: Acute (4) BRITTNI (acute kidney injury) Status: Acute (5) Clostridium difficile infection Status: Acute (6) Metabolic acidosis Status: Resolved - Assessment and Plan (Free Text) Plan: I was present during evaluation and discussed with Dr Cassie hughes plans of care and mgt Justin Melgar M.D.
--- NOTE | 2016-11-26 18:47 | PN ---
DATE: 11/26/2016 ROOM: 658 This is a 46-year-old male with recent uncontrolled type 2 insulin-requiring diabetes, now being foll owed closely for metabolic management. His glycemic levels are fluctuating as his oral intake remain s quite variable as noted. The glucose values today have ranged from 139-210 mg/dL. It was 377 prebreakfast this morning as not ed. It was also 176-143 last night as noted. So at this time, to allow for dose equilibration, we will continue the same basal and bolus insulin r egimen as given with Humalog given as 20 units subQ t.i.d. before meals as ordered. We will continue the basal insulin given as Levemir at 60 units subQ at bedtime daily as ordered. We will titrate in crementally as indicated to optimize metabolic control. We will follow. Claudia Adame MD cc: [id number] TT: 11/26/2016 18:46:40 Confirmation # [id number] Dictation # [id number] en
[2016-11-26] MEDS ORDERED: Insulin Detemir 100 Units/ml Inj SC SCH (22:00)
[2016-11-27] MEDS: Vancomycin 500 mg (Oral/Rectal USE) PO SCH ×4 (03:24→23:38)
[2016-11-27] MEDS: Insulin Lispro (humaLOG) 100 Units/ml Inj SC SCH ×6 (07:26→23:40)
[2016-11-27 08:12] LABS: BLOOD UREA NITROGEN 33 mg/dl (9-20); CALCIUM 9.1 mg/dL (8.4-10.2); CARBON DIOXIDE 24 mmol/L (22-30); CHLORIDE 109 mmol/L (98-107); GFR AFRICAN-AMERICAN > 60; GLUCOSE,RANDOM 48 mg/dL (75-110); POTASSIUM 4.1 MMOL/L (3.6-5.0); SODIUM 143 mmol/l (132-148)
[2016-11-27] MEDS ORDERED: Dextrose 50% SYRINGE Inj (50 ml) IVP STA (08:45)
--- NOTE | 2016-11-27 08:58 | CP.PCM.PN ---
<Cassie Jones - Last Filed: 11/27/16 08:54> Subjective - Date & Time of Evaluation Date of Evaluation: 11/27/16 Time of Evaluation: 08:54 - Subjective Subjective: evaluated with attending. no overnight events. BM well formed x3 yesterday, occurs only after eating. Denies f/c, n/v, chest pain, SOB, abd pain. Tolerating PO. cystoscopy rescheduled for tomorrow. NPO after MN, pt aware Objective - Vital Signs/Intake and Output Vital Signs (last 24 hours): Temp Pulse Resp BP Pulse Ox 97.5 F L 94 H 20 124/84 100 11/27/16 07:42 11/27/16 07:42 11/27/16 07:42 11/27/16 07:42 11/27/16 07:42 - Medications Medications: Current Medications Aspirin (Ecotrin) 81 mg PO DAILY [facility] Last Admin: 11/26/16 08:45 Dose: 81 mg Atorvastatin Calcium (Lipitor) 10 mg PO DAILY [facility] Last Admin: 11/26/16 08:46 Dose: 10 mg Dextrose (Dextrose 50% Inj) 0 ml IV STAT PRN; Protocol PRN Reason: Hyglycemia Protocol Last Admin: 11/23/16 11:23 Dose: 50 ml Dextrose (Glutose 15) 0 gm PO ONCE PRN; Protocol PRN Reason: Hypoglycemia Protocol Glucagon (Glucagen Diagnostic Kit) 0 mg IM STAT PRN; Protocol PRN Reason: Hypoglycemia Protocol Fluconazole (Diflucan Iv 100 Mg/50 Ml Ns) 50 mls @ 50 mls/hr IVPB DAILY [facility] Last Admin: 11/26/16 08:45 Dose: 50 mls/hr Insulin Detemir (Levemir) 60 units SC HS [facility] Last Admin: 11/26/16 21:39 Dose: 60 u Insulin Human Lispro (Humalog) 0 units SC ACHS [facility] PRN Reason: Protocol Last Admin: 11/27/16 07:26 Dose: Not Given Insulin Human Lispro (Humalog) 20 units SC AC [facility] Last Admin: 11/27/16 08:53 Dose: Not Given Lactobacillus Acidophilus (Bacid Acidophilus) 1 cap PO BID [facility] Last Admin: 11/26/16 16:48 Dose: 1 cap Megestrol Acetate (Megace) 800 mg PO DAILY [facility] Last Admin: 11/26/16 08:46 Dose: 800 mg Ondansetron HCl (Zofran Inj) 4 mg IVP Q4 PRN PRN Reason: Nausea/Vomiting Pantoprazole Sodium (Protonix Ec Tab) 40 mg PO DAILY [facility] Last Admin: 11/26/16 08:46 Dose: 40 mg Sodium Bicarbonate (Sodium Bicarbonate Tab) 1,300 mg PO QID [facility] Last Admin: 11/26/16 21:39 Dose: 1,300 mg Vancomycin HCl (Vancocin (Oral/Rectal Use)) 250 mg PO Q6 [facility] Last Admin: 11/27/16 03:24 Dose: 250 mg - Labs Labs: 11/25/16 06:45 11/27/16 07:00 PT 13.5 SECONDS (9.6-11.2) H 11/17/16 14:50 INR 1.30 (0.92-1.08) H 11/17/16 14:50 APTT 26.0 SECONDS (23.3-32.5) 11/17/16 14:50 - Constitutional Appears: Non-toxic, No Acute Distress - Head Exam Head Exam: ATRAUMATIC, NORMAL INSPECTION - Eye Exam Eye Exam: Normal appearance - ENT Exam ENT Exam: Mucous Membranes Moist - Neck Exam Neck Exam: Normal Inspection - Respiratory Exam Respiratory Exam: Clear to Ausculation Bilateral, NORMAL BREATHING PATTERN - Cardiovascular Exam Cardiovascular Exam: REGULAR RHYTHM - GI/Abdominal Exam GI & Abdominal Exam: Soft - Extremities Exam Extremities Exam: Normal Inspection - Back Exam Back Exam: NORMAL INSPECTION - Neurological Exam Neurological Exam: Alert, Oriented x3 - Skin Skin Exam: Dry, Warm Assessment and Plan (1) Clostridium difficile infection Assessment & Plan: -ID on board, appreciate input -GI on board, appreciate input. cleared for d/c -contact precautions -repeat c. diff neg x3 -probiotic Status: Acute (2) Diabetes mellitus type 2 in nonobese Assessment & Plan: -levemir 60u HS -humalog 20u AC -accucheck -SSI -carb control diet -endo on board, appreciate input Status: Chronic (3) BRITTNI (acute kidney injury) Assessment & Plan: -Nephro on board, appreciate input Status: Acute (4) Hypertension Assessment & Plan: -hold meds for hypotension Status: Chronic (5) Cystitis Assessment & Plan: -per US bladder -US renal: mild distension collecting system -CT abd/pelvis: b/l hydronephrosis -urine cx >100K CFU yeast -repeat urine cx <10K CFU GPC -ID on board, appreciate input - on board,appreciate input -US bladder, PVR -cysto rescheduled to Fri -vanc/diflucan Status: Acute (6) Sterile pyuria Status: Acute (7) DVT prophylaxis Assessment & Plan: -lovenox held d/t pyuria and cystoscopy for tomorrow Status: Acute <Justin Melgar L - Last Filed: 12/10/16 07:38> Objective - Vital Signs/Intake and Output Vital Signs (last 24 hours): Temp Pulse Resp BP Pulse Ox 98.7 F 99 H 20 110/76 100 12/10/16 00:21 12/10/16 00:21 12/10/16 00:21 12/10/16 00:21 12/10/16 00:21 - Medications Medications: Current Medications Aspirin (Ecotrin) 81 mg PO DAILY [facility] Last Admin: 12/06/16 09:08 Dose: 81 mg Atorvastatin Calcium (Lipitor) 10 mg PO DAILY [facility] Last Admin: 12/09/16 08:56 Dose: 10 mg Cholestyramine Resin (Questran) 4 gm PO BID [facility] Last Admin: 12/09/16 16:41 Dose: 4 gm Fluconazole (Diflucan Iv 100 Mg/50 Ml Ns) 50 mls @ 50 mls/hr IVPB DAILY [facility] Last Admin: 12/09/16 11:34 Dose: 50 mls/hr Insulin Detemir (Levemir) 40 units SC HS [facility] Last Admin: 12/09/16 22:04 Dose: 40 units Insulin Human Lispro (Humalog) 0 units SC ACHS [facility] PRN Reason: Protocol Last Admin: 12/09/16 22:05 Dose: 2 unit Insulin Lispro Protam/Lispro Human (Humalog Mix 75/25) 5 units SC BIDAC [facility] Last Admin: 12/09/16 16:41 Dose: 5 units Lactic Acid (Lac-Hydrin 12% Lotion (225 G)) 1 applic TOP BID [facility] Last Admin: 12/09/16 16:42 Dose: 1 applic Lactobacillus Acidophilus (Bacid Acidophilus) 1 cap PO BID [facility] Last Admin: 12/09/16 16:45 Dose: 1 cap Loperamide HCl (Imodium) 2 mg PO Q6 [facility] Last Admin: 12/10/16 04:45 Dose: 2 mg Megestrol Acetate (Megace) 800 mg PO DAILY [facility] Last Admin: 12/09/16 08:56 Dose: 800 mg Ondansetron HCl (Zofran Inj) 4 mg IVP Q4 PRN PRN Reason: Nausea/Vomiting Pantoprazole Sodium (Protonix Ec Tab) 40 mg PO DAILY [facility] Last Admin: 12/09/16 08:56 Dose: 40 mg - Labs Labs: 12/10/16 05:40 12/08/16 07:48 PT 13.5 SECONDS (9.6-11.2) H 11/17/16 14:50 INR 1.30 (0.92-1.08) H 11/17/16 14:50 APTT 26.0 SECONDS (23.3-32.5) 11/17/16 14:50 Assessment and Plan (1) Diabetes mellitus type 2 in nonobese Status: Chronic (2) DKA (diabetic ketoacidoses) Status: Acute (3) Dehydration Status: Acute (4) BRITTNI (acute kidney injury) Status: Acute (5) Clostridium difficile infection Status: Acute (6) Metabolic acidosis Status: Resolved - Assessment and Plan (Free Text) Plan: I was present during evaluation and discussed with Dr Cassie hughes plans of care and mgt Justin Melgar M.D.
[2016-11-27] MEDS: Fluconazole IV 100mg/50 ml NS 50 ML IVPB SCH (09:20)
[2016-11-27] MEDS: Megestrol Acetate 40 mg/ml Cup PO SCH (09:20)
[2016-11-27] MEDS: Pantoprazole 40 mg EC Tab PO SCH (09:21)
[2016-11-27] MEDS: Lactobacillus Acidophilus 500 MU Cap PO SCH ×2 (09:26→17:22)
--- NOTE | 2016-11-27 17:13 | PN ---
DATE: 11/27/2016 LOCATION: In [facility]. SUBJECTIVE: This is a 46-year-old male with recent uncontrolled type 2 insulin-requiring diabetes wi th extremes of glycemic fluctuations and ranging from marked hypoglycemia with associated neuroglycop enic and hyperadrenergic manifestations of the same, and fluctuating extremely hyperglycemic accelera tions with glucose values over 400 mg/dL. LABORATORY DATA: Today's glucose level was 31 mg/dL at 8:30 a.m. His latest chemistry showed a BUN of 33, sodium 142, potassium 4.1, chloride 109, CO2 24, glucose 48, and creatinine 1.5. His glucose levels have ranged from 209 to 242 mg/dL by noontime today. ASSESSMENT AND PLAN: So, at this time, we will modify once again his basal and bolus insulin regimen and lower the Humalog to 10 units subcutaneous t.i.d. before meals as ordered, to start at dinnertim e today, and continue the low-dose correction scale using Humalog insulin as given. Will titrate inc rementally as indicated to optimize metabolic control. We will also lower the basal insulin, so with Levemir down to 30 units subcutaneous at bedtime daily, to start tonight. Will obtain serial chemis tries and supplement accordingly as needed. Will follow. Claudia Adame MD cc: [phone] TT: 11/27/2016 17:13:18 Confirmation # [id number] Dictation # [id number] dn
[2016-11-27] MEDS ORDERED: Insulin Detemir 100 Units/ml Inj SC SCH (22:00)
[2016-11-27] MEDS: Dextrose 5%/0.45% NS 1,000 ML IV SCH (23:56)
[2016-11-28] MEDS: Vancomycin 500 mg (Oral/Rectal USE) PO SCH ×4 (04:30→22:17)
[2016-11-28 07:36] LABS: HEMATOCRIT 31.1 % (35.0-51.0); MEAN CELL VOLUME 86.6 fl (80.0-94.0); MEAN CORPUSCULAR HEMOGLOBIN 28.2 pg (27.0-31.0); MEAN CORPUSCULAR HGB CONC 32.6 g/dL (33.0-37.0); WHITE BLOOD COUNT 7.8 K/uL (4.8-10.8)
[2016-11-28 07:53] LABS: CALCIUM 8.9 mg/dL (8.4-10.2)
[2016-11-28] MEDS: Insulin Lispro (humaLOG) 100 Units/ml Inj SC SCH ×7 (09:28→22:02)
[2016-11-28] MEDS: Lactobacillus Acidophilus 500 MU Cap PO SCH ×2 (09:28→18:10)
[2016-11-28] MEDS: Megestrol Acetate 40 mg/ml Cup PO SCH ×2 (09:29→13:37)
[2016-11-28] MEDS: Pantoprazole 40 mg EC Tab PO SCH (09:29)
[2016-11-28] MEDS: Fluconazole IV 100mg/50 ml NS 50 ML IVPB SCH (09:31)
[2016-11-28] MEDS ORDERED: cefTRIAXone (Rocephin) 1 gm Inj ONE (09:43)
[2016-11-28] MEDS ORDERED: Propofol 10 mg/ml Inj (20 ML) ONE (09:48)
[2016-11-28] MEDS ORDERED: Midazolam 2 MG/2 ML VIAL ONE (09:49)
[2016-11-28] MEDS ORDERED: Chlorhexidine Gluconate 2OZ GEL TP ONE (09:59)
[2016-11-28] MEDS ORDERED: cefTRIAXone (Rocephin) 1 gm Inj IVPB ONE (10:05)
--- NOTE | 2016-11-28 10:38 | PCM.SURG1 ---
Surgeon's Initial Post Op Note - Surgeon's Notes Surgeon: Lázaro Senior Quality Technician: kirby Type of Anesthesia: General Mask Anesthesia Administered By: staff Pre-Operative Diagnosis: PYURIA Operative Findings: WHITE exudate in bladder consistant with fungal infection Post-Operative Diagnosis: pyuria Operation Performed: cystoscopy Specimen/Specimens Removed: none Estimated Blood Loss: EBL {In ML}: 0 Blood Products Given: N/A Drains Used: No Drains Post-Op Condition: Good Date of Surgery/Procedure: 11/28/16 Time of Surgery/Procedure: 10:39 (white exudateconsistant with fungal colinazation)
[2016-11-28] MEDS ORDERED: HYDROmorphone 0.5 mg/0.5 ml ISec IVP PRN (11:03)
--- NOTE | 2016-11-28 11:32 | OP ---
PROCEDURE DATE: 11/28/2016 PREOPERATIVE DIAGNOSIS: Chronic pyuria. POSTOPERATIVE DIAGNOSES: Pyuria with whitish exudate in the bladder consistent with fungal colonizat ion. PROCEDURE: Prior to the procedure, a detailed informed consent was obtained from the patient. The r isks and possible complications of this procedure were explained to the patient. He was identified, brought into the room and a timeout was taken according to the rules and regulations of [facility]. The patient then received prophylactic antibiotic, gentamicin 160, and was cystoscop ed with a #21 Olympus panendoscope. The pendulous and membranous urethra was normal. The prostatic urethra showed no evidence of obstruction. There was slight injection of the prostatic urethra. The bladder was entered atraumatically. There was a white exudate on the base of the bladder consistent with fungal colonization. There was also a lot of whitish debris within the bladder. This was irri gated free. The bladder mucosa appeared normal. There was no evidence of urothelial tumors or stone s. There was clear efflux from both ureteral orifices. 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 He is already on Diflucan. Suggest discussing wit h IUV for possible further therapy. Cornel Sesay MD cc: [phone] TT: 11/28/2016 11:31:12 aníbal
[2016-11-28] MEDS ORDERED: Lactated Ringer's 500 ML IV ONE (11:35)
--- NOTE | 2016-11-28 11:40 | CON ---
DATE: 11/14/2016 CHIEF COMPLAINT: Pyuria. HISTORY OF PRESENT ILLNESS: The patient was admitted to the [facility] with multipl e medical problems. He is diabetic and has had significant weight loss. The patient has significant pyuria despite negative urine C and S. CT scan is negative except for slight fullness in the collect ing system. The patient has significant pyuria on urinalysis. He denies dysuria, urinary frequency or any difficulty in urination. REVIEW OF SYSTEMS: RESPIRATORY: The patient has no shortness of breath. CARDIAC: The patient complains of lightheadedness when standing. He has no palpitations or chest pa in. GASTROINTESTINAL: There are no GI complaints. GENITOURINARY: The patient is voiding well without difficulties. He said he has no pyuria, no histo ry of previous instrumentation or infection. ORTHOPEDIC HISTORY: The patient has weakness in lower extremities, has difficulty standing, weakness in upper extremities. INTEGUMENT AND NEUROLOGIC: History is negative. PHYSICAL EXAMINATION: VITAL SIGNS: Within normal limits. HEENT: Within normal limits. NECK: Supple. There are no bruits, nodes, or masses. LUNGS: Clear bilaterally. There are no rales or rhonchi syndrome. HEART: Normal sinus rhythm. There is no cardiomegaly. ABDOMEN: Soft, nontender. The bladder is not palpably distended. GENITOURINARY: Penis, testicles, epididymis, and cord are normal. RECTAL: Shows a 2+ non-nodular prostate without induration. Rectal sphincter tone is good. I have also reviewed the patient's laboratory data, CAT scan films and report and other x-ray reports . IMPRESSION: Chronic pyuria. PLAN: Discussed with ID. At their recommendation, we will proceed with cystoscopy to rule out calcu li or a lesion within the bladder. The patient signed the appropriate informed consent. Cornel Sesay MD cc: [phone] TT: 11/28/2016 11:39:21 Confirmation # [id number] Dictation # [id number] aníbal
--- NOTE | 2016-11-28 12:26 | CP.PCM.PN ---
Subjective - Date & Time of Evaluation Date of Evaluation: 11/28/16 Time of Evaluation: 11:30 - Subjective Subjective: Follow up Nephrology Consultation Note Assessment: Acute Kidney Injury likely due to pre-renal state and eventually leading to acute tubular necrosis (improved). Episodes of BRITTNI in past with resulting cr 1.5 -1.7 Hypernatremia with dehydration: improved non anion gap metabolic acidosis ? due to GI loss or impaired kidney function/ obstructive uropathy or combination of two and superimposed DKA: IMPROVED Mild Hyperkalemia likely due to hyperglycemia, acidosis: IMPROVED microscopic hematuria with Bacteriuria and b/l hydroureteronephrosis with bladder wall thickening on CT scan s/p cystoscopy 11/28/16 Clostridium difficille infection, DM, Anemia Plan renal function improved and stabilized. may continue with IVF, encourage oral intake. glycemic control continue with bicarb supplementation. may be able to decrease depending upon bicarb level his cholestyramine was d/c as it also can contribute significantly to acidosis Patient not on ACEI/ARB due to recent BRITTNI and low BP Dose meds/antibiotics for reduced GFR. Avoid fleets enema/magnesium based laxatives. Avoid nephrotoxins/NSAIDs/ iodinated contrast (unless needed emergently) Further work up for as per primary team. Thanks for allowing me to participate in care of your patient. Please call if any Qs Dr Aaron Reyes Office: [phone] Subjective: Noted events overnight. Patients seen in PACU post cystoscopy and sleepy Physical Examination: General Appearance: Comfortable, in no acute respiratory distress, Vitals reviewed and noted as below Lungs: Normal respiratory rate/effort. Breath sounds bilateral equal and clear Heart: Normal rate. s1s2 normal. No rub or gallop. Extremities: no edema. Neurological: Patient is sleepy, seen in PACU. Skin: Warm and dry. Normal turgor. No rash. Palpitation: Normal elasticity for age Abdomen: Abdomen is soft. Bowel sounds +. There is no abdominal tenderness, no guarding/rigidity or organomegaly : kidney or bladder not palpable Labs/imaging reviewed. Past medical history, past surgical history, family history, social history, allergy reviewed and noted as below Echo normal LVEF Urine cx: yeast C diff + CT abdomen: b/l hydroureteronephrosis with bladder wall thickening Objective - Vital Signs/Intake and Output Vital Signs (last 24 hours): Temp Pulse Resp BP Pulse Ox 97.8 F 102 H 19 130/94 H 100 11/28/16 11:35 11/28/16 11:35 11/28/16 11:35 11/28/16 11:35 11/28/16 11:35 Intake and Output: 11/28/16 11/28/16 06:59 18:59 Intake Total 100 Output Total 100 Balance 0 - Medications Medications: Current Medications Aspirin (Ecotrin) 81 mg PO DAILY [facility] Last Admin: 11/27/16 09:20 Dose: 81 mg Atorvastatin Calcium (Lipitor) 10 mg PO DAILY [facility] Last Admin: 11/28/16 09:29 Dose: Not Given Dextrose (Dextrose 50% Inj) 0 ml IV STAT PRN; Protocol PRN Reason: Hyglycemia Protocol Last Admin: 11/23/16 11:23 Dose: 50 ml Dextrose (Glutose 15) 0 gm PO ONCE PRN; Protocol PRN Reason: Hypoglycemia Protocol Glucagon (Glucagen Diagnostic Kit) 0 mg IM STAT PRN; Protocol PRN Reason: Hypoglycemia Protocol Hydromorphone HCl (Dilaudid) 0.5 mg IVP Q15M PRN PRN Reason: Pain, moderate (4-7) Stop: 11/28/16 13:04 Fluconazole (Diflucan Iv 100 Mg/50 Ml Ns) 50 mls @ 50 mls/hr IVPB DAILY [facility] Last Admin: 11/28/16 09:31 Dose: 50 mls/hr Dextrose/Sodium Chloride (Dextrose 5%/0.45% Ns 1000 Ml) 1,000 mls @ 100 mls/hr IV .Q10H [facility] Stop: 11/28/16 19:14 Last Admin: 11/27/16 23:56 Dose: 100 mls/hr Lactated Ringer's (Lactated Ringer's) 1,000 mls @ 100 mls/hr IV .Q10H [facility] Insulin Detemir (Levemir) 30 units SC HS [facility] Last Admin: 11/27/16 23:40 Dose: 30 unit Insulin Human Lispro (Humalog) 0 units SC ACHS [facility] PRN Reason: Protocol Last Admin: 11/28/16 09:28 Dose: Not Given Insulin Human Lispro (Humalog) 10 units SC AC [facility] Last Admin: 11/28/16 09:28 Dose: Not Given Lactobacillus Acidophilus (Bacid Acidophilus) 1 cap PO BID [facility] Last Admin: 11/28/16 09:28 Dose: Not Given Megestrol Acetate (Megace) 800 mg PO DAILY [facility] Last Admin: 11/28/16:29 Dose: Not Given Ondansetron HCl (Zofran Inj) 4 mg IVP Q4 PRN PRN Reason: Nausea/Vomiting Pantoprazole Sodium (Protonix Ec Tab) 40 mg PO DAILY [facility] Last Admin: 11/28/16:29 Dose: Not Given Sodium Bicarbonate (Sodium Bicarbonate Tab) 1,300 mg PO QID [facility] Last Admin: 11/28/16:29 Dose: Not Given Vancomycin HCl (Vancocin (Oral/Rectal Use)) 250 mg PO Q6 [facility] Last Admin: 11/28/16 09:29 Dose: Not Given - Labs Labs: 11/28/16 06:00 11/28/16 06:00 PT 13.5 SECONDS (9.6-11.2) H 11/17/16 14:50 INR 1.30 (0.92-1.08) H 11/17/16 14:50 APTT 26.0 SECONDS (23.3-32.5) 11/17/16 14:50
--- NOTE | 2016-11-28 12:38 | CP.PCM.PN ---
Subjective - Date & Time of Evaluation Date of Evaluation: 11/28/16 Time of Evaluation: 08:00 - Subjective Subjective: afebrile s/p cysto lbm x 1 today rx in progress Objective - Vital Signs/Intake and Output Vital Signs (last 24 hours): Temp Pulse Resp BP Pulse Ox 97.8 F 102 H 19 130/94 H 100 11/28/16 11:35 11/28/16 11:35 11/28/16 11:35 11/28/16 11:35 11/28/16 11:35 Intake and Output: 11/28/16 11/28/16 06:59 18:59 Intake Total 100 Output Total 100 Balance 0 - Medications Medications: Current Medications Aspirin (Ecotrin) 81 mg PO DAILY [facility] Last Admin: 11/27/16 09:20 Dose: 81 mg Atorvastatin Calcium (Lipitor) 10 mg PO DAILY [facility] Last Admin: 11/28/16 09:29 Dose: Not Given Dextrose (Dextrose 50% Inj) 0 ml IV STAT PRN; Protocol PRN Reason: Hyglycemia Protocol Last Admin: 11/23/16 11:23 Dose: 50 ml Dextrose (Glutose 15) 0 gm PO ONCE PRN; Protocol PRN Reason: Hypoglycemia Protocol Glucagon (Glucagen Diagnostic Kit) 0 mg IM STAT PRN; Protocol PRN Reason: Hypoglycemia Protocol Hydromorphone HCl (Dilaudid) 0.5 mg IVP Q15M PRN PRN Reason: Pain, moderate (4-7) Stop: 11/28/16 13:04 Fluconazole (Diflucan Iv 100 Mg/50 Ml Ns) 50 mls @ 50 mls/hr IVPB DAILY [facility] Last Admin: 11/28/16 09:31 Dose: 50 mls/hr Dextrose/Sodium Chloride (Dextrose 5%/0.45% Ns 1000 Ml) 1,000 mls @ 100 mls/hr IV .Q10H [facility] Stop: 11/28/16 19:14 Last Admin: 11/27/16 23:56 Dose: 100 mls/hr Lactated Ringer's (Lactated Ringer's) 1,000 mls @ 100 mls/hr IV .Q10H [facility] Insulin Detemir (Levemir) 40 units SC HS [facility] Insulin Human Lispro (Humalog) 0 units SC ACHS [facility] PRN Reason: Protocol Last Admin: 11/28/16 09:28 Dose: Not Given Insulin Human Lispro (Humalog) 14 units SC [facility] Lactobacillus Acidophilus (Bacid Acidophilus) 1 cap PO BID [facility] Last Admin: 11/28/16 09:28 Dose: Not Given Megestrol Acetate (Megace) 800 mg PO DAILY [facility] Last Admin: 11/28/16 09:29 Dose: Not Given Ondansetron HCl (Zofran Inj) 4 mg IVP Q4 PRN PRN Reason: Nausea/Vomiting Pantoprazole Sodium (Protonix Ec Tab) 40 mg PO DAILY [facility] Last Admin: 11/28/16 09:29 Dose: Not Given Sodium Bicarbonate (Sodium Bicarbonate Tab) 1,300 mg PO QID [facility] Last Admin: 11/28/16 09:29 Dose: Not Given Vancomycin HCl (Vancocin (Oral/Rectal Use)) 250 mg PO Q6 [facility] Last Admin: 11/28/16 09:29 Dose: Not Given - Labs Labs: 11/28/16 06:00 11/28/16 06:00 PT 13.5 SECONDS (9.6-11.2) H 11/17/16 14:50 INR 1.30 (0.92-1.08) H 11/17/16 14:50 APTT 26.0 SECONDS (23.3-32.5) 11/17/16 14:50 - Constitutional Appears: Non-toxic, Chronically Ill - Head Exam Head Exam: NORMOCEPHALIC - Eye Exam Eye Exam: PERRL. absent: Scleral icterus - ENT Exam ENT Exam: Mucous Membranes Dry - Neck Exam Neck Exam: absent: Lymphadenopathy - Respiratory Exam Respiratory Exam: Decreased Breath Sounds, Rhonchi - Cardiovascular Exam Cardiovascular Exam: REGULAR RHYTHM, +S1, +S2 - GI/Abdominal Exam GI & Abdominal Exam: Distended, Soft. absent: Tenderness - Rectal Exam Rectal Exam: Deferred - Exam Exam: NORMAL INSPECTION - Extremities Exam Extremities Exam: absent: Pedal Edema - Back Exam Back Exam: absent: CVA tenderness (L), CVA tenderness (R) - Neurological Exam Neurological Exam: Alert, Awake, Oriented x3 Assessment and Plan (1) DKA (diabetic ketoacidoses) Status: Acute (2) Dehydration Status: Acute (3) Sepsis Status: Acute (4) BRITTNI (acute kidney injury) Status: Acute (5) Clostridium difficile infection Status: Acute (6) DVT prophylaxis Status: Acute (7) Diarrhea Status: Acute (8) History of hypercholesterolemia Status: Acute
--- NOTE | 2016-11-28 12:49 | PN ---
DATE: 11/28/2016 ROOM: 658. SUBJECTIVE: This is a 46-year-old male with recent uncontrolled type 2 insulin-requiring diabetes wi th extremes of glycemic fluctuations and also concomitant variability of his oral intake and is now b einarayan followed closely for metabolic management. His glycemic levels today are quite elevated as note d. His glucose values have ranged from 214-320 mg/dL. It was 262-305 last night as noted. His late st chemistries showed a BUN of 32, sodium 143, potassium 5.0, chloride 108, CO2 24, glucose 365 and c reatinine 1.6. So at this time, we will modify once again to a slightly higher dose titration of his basal and bolus insulin regimen as ordered. We will increase the Humalog to 14 units subQ t.i.d. be fore meals to start at dinnertime today as ordered. We will also increase the basal insulin with Lev emiliano to be given as 40 units subQ at bedtime daily as given. We will titrate incrementally as indica josh to optimize metabolic control. We will also obtain serial chemistries and supplement accordingly as needed. We will follow. Claudia Adame MD cc: [id number] TT: 11/28/2016 12:48:07 Confirmation # [id number] Dictation # [id number] aníbal
[2016-11-28] MEDS: Dextrose 5%/0.45% NS 1,000 ML IV SCH (13:34)
[2016-11-28] MEDS: Lactated Ringer's 1,000 ML IV SCH ×2 (13:35→22:02)
--- NOTE | 2016-11-28 14:51 | CP.PCM.PN ---
<Cassie Jones - Last Filed: 11/28/16 14:48> Subjective - Date & Time of Evaluation Date of Evaluation: 11/28/16 Time of Evaluation: 14:48 - Subjective Subjective: evaluated with attending. no overnight events. BM well formed x3 yesterday, occurs only after eating. Denies f/c, n/v, chest pain, SOB, abd pain. Tolerating PO. cystoscopy today Objective - Vital Signs/Intake and Output Vital Signs (last 24 hours): Temp Pulse Resp BP Pulse Ox 97.8 F 102 H 19 130/94 H 100 11/28/16 11:35 11/28/16 11:35 11/28/16 11:35 11/28/16 11:35 11/28/16 11:35 Intake and Output: 11/28/16 11/28/16 06:59 18:59 Intake Total 100 Output Total 100 Balance 0 - Medications Medications: Current Medications Aspirin (Ecotrin) 81 mg PO DAILY [facility] Last Admin: 11/27/16 09:20 Dose: 81 mg Atorvastatin Calcium (Lipitor) 10 mg PO DAILY [facility] Last Admin: 11/28/16 13:37 Dose: 10 mg Dextrose (Dextrose 50% Inj) 0 ml IV STAT PRN; Protocol PRN Reason: Hyglycemia Protocol Last Admin: 11/23/16 11:23 Dose: 50 ml Dextrose (Glutose 15) 0 gm PO ONCE PRN; Protocol PRN Reason: Hypoglycemia Protocol Glucagon (Glucagen Diagnostic Kit) 0 mg IM STAT PRN; Protocol PRN Reason: Hypoglycemia Protocol Fluconazole (Diflucan Iv 100 Mg/50 Ml Ns) 50 mls @ 50 mls/hr IVPB DAILY [facility] Last Admin: 11/28/16 09:31 Dose: 50 mls/hr Dextrose/Sodium Chloride (Dextrose 5%/0.45% Ns 1000 Ml) 1,000 mls @ 100 mls/hr IV .Q10H [facility] Stop: 11/28/16 19:14 Last Admin: 11/28/16 13:34 Dose: Not Given Lactated Ringer's (Lactated Ringer's) 1,000 mls @ 100 mls/hr IV .Q10H [facility] Last Admin: 11/28/16 13:35 Dose: Not Given Insulin Detemir (Levemir) 40 units SC HS [facility] Insulin Human Lispro (Humalog) 0 units SC ACHS [facility] PRN Reason: Protocol Last Admin: 11/28/16 12:38 Dose: 2 units Insulin Human Lispro (Humalog) 14 units SC AC [facility] Lactobacillus Acidophilus (Bacid Acidophilus) 1 cap PO BID [facility] Last Admin: 11/28/16 09:28 Dose: Not Given Megestrol Acetate (Megace) 800 mg PO DAILY [facility] Last Admin: 11/28/16 13:37 Dose: 800 mg Ondansetron HCl (Zofran Inj) 4 mg IVP Q4 PRN PRN Reason: Nausea/Vomiting Pantoprazole Sodium (Protonix Ec Tab) 40 mg PO DAILY [facility] Last Admin: 11/28/16 09:29 Dose: Not Given Sodium Bicarbonate (Sodium Bicarbonate Tab) 1,300 mg PO QID [facility] Last Admin: 11/28/16 13:37 Dose: 1,300 mg Vancomycin HCl (Vancocin (Oral/Rectal Use)) 250 mg PO Q6 [facility] Last Admin: 11/28/16 09:29 Dose: Not Given - Labs Labs: 11/28/16 06:00 11/28/16 06:00 PT 13.5 SECONDS (9.6-11.2) H 11/17/16 14:50 INR 1.30 (0.92-1.08) H 11/17/16 14:50 APTT 26.0 SECONDS (23.3-32.5) 11/17/16 14:50 - Constitutional Appears: Non-toxic, No Acute Distress - Head Exam Head Exam: NORMAL INSPECTION - Eye Exam Eye Exam: Normal appearance - ENT Exam ENT Exam: Mucous Membranes Moist - Neck Exam Neck Exam: Normal Inspection - Respiratory Exam Respiratory Exam: Clear to Ausculation Bilateral - Cardiovascular Exam Cardiovascular Exam: REGULAR RHYTHM - GI/Abdominal Exam GI & Abdominal Exam: Soft - Extremities Exam Extremities Exam: Normal Inspection - Back Exam Back Exam: NORMAL INSPECTION - Neurological Exam Neurological Exam: Alert, Oriented x3 - Skin Skin Exam: Dry, Warm Assessment and Plan (1) Clostridium difficile infection Status: Acute (2) Diabetes mellitus type 2 in nonobese Status: Chronic (3) BRITTNI (acute kidney injury) Status: Acute (4) Hypertension Status: Chronic (5) Cystitis Status: Acute (6) Sterile pyuria Status: Acute (7) DVT prophylaxis Status: Acute - Assessment and Plan (Free Text) Assessment: -s/p cysto with urology. white exudate likely fungal -vanc/diflucan -ID on board -nepho on board <Justin Melgar - Last Filed: 12/10/16 07:39> Objective - Vital Signs/Intake and Output Vital Signs (last 24 hours): Temp Pulse Resp BP Pulse Ox 98.7 F 99 H 20 110/76 100 12/10/16 00:21 12/10/16 00:21 12/10/16 00:21 12/10/16 00:21 12/10/16 00:21 - Medications Medications: Current Medications Aspirin (Ecotrin) 81 mg PO DAILY [facility] Last Admin: 12/06/16 09:08 Dose: 81 mg Atorvastatin Calcium (Lipitor) 10 mg PO DAILY [facility] Last Admin: 12/09/16 08:56 Dose: 10 mg Cholestyramine Resin (Questran) 4 gm PO BID [facility] Last Admin: 12/09/16 16:41 Dose: 4 gm Fluconazole (Diflucan Iv 100 Mg/50 Ml Ns) 50 mls @ 50 mls/hr IVPB DAILY [facility] Last Admin: 12/09/16 11:34 Dose: 50 mls/hr Insulin Detemir (Levemir) 40 units SC HS [facility] Last Admin: 12/09/16 22:04 Dose: 40 units Insulin Human Lispro (Humalog) 0 units SC ACHS [facility] PRN Reason: Protocol Last Admin: 12/09/16 22:05 Dose: 2 unit Insulin Lispro Protam/Lispro Human (Humalog Mix 75/25) 5 units SC BIDAC [facility] Last Admin: 12/09/16 16:41 Dose: 5 units Lactic Acid (Lac-Hydrin 12% Lotion (225 G)) 1 applic TOP BID [facility] Last Admin: 12/09/16 16:42 Dose: 1 applic Lactobacillus Acidophilus (Bacid Acidophilus) 1 cap PO BID [facility] Last Admin: 12/09/16 16:45 Dose: 1 cap Loperamide HCl (Imodium) 2 mg PO Q6 [facility] Last Admin: 12/10/16 04:45 Dose: 2 mg Megestrol Acetate (Megace) 800 mg PO DAILY [facility] Last Admin: 12/09/16 08:56 Dose: 800 mg Ondansetron HCl (Zofran Inj) 4 mg IVP Q4 PRN PRN Reason: Nausea/Vomiting Pantoprazole Sodium (Protonix Ec Tab) 40 mg PO DAILY [facility] Last Admin: 12/09/16 08:56 Dose: 40 mg - Labs Labs: 12/10/16 05:40 12/08/16 07:48 PT 13.5 SECONDS (9.6-11.2) H 11/17/16 14:50 INR 1.30 (0.92-1.08) H 11/17/16 14:50 APTT 26.0 SECONDS (23.3-32.5) 11/17/16 14:50 Assessment and Plan (1) Diabetes mellitus type 2 in nonobese Status: Chronic (2) DKA (diabetic ketoacidoses) Status: Acute (3) Dehydration Status: Acute (4) BRITTNI (acute kidney injury) Status: Acute (5) Clostridium difficile infection Status: Acute (6) Metabolic acidosis Status: Resolved - Assessment and Plan (Free Text) Plan: Discussed with Dr Cassie hughes plans of care Justin Melgar M.D.
[2016-11-28] MEDS: Insulin Detemir 100 Units/ml Inj SC SCH (22:15)
[2016-11-29] MEDS: Lactated Ringer's 1,000 ML IV SCH ×2 (00:07→08:02)
[2016-11-29] MEDS: Vancomycin 500 mg (Oral/Rectal USE) PO SCH ×4 (04:32→22:56)
[2016-11-29] MEDS: Lactobacillus Acidophilus 500 MU Cap PO SCH ×2 (08:22→16:21)
[2016-11-29] MEDS: Insulin Lispro (humaLOG) 100 Units/ml Inj SC SCH ×5 (08:23→22:59)
[2016-11-29] MEDS: Pantoprazole 40 mg EC Tab PO SCH (08:25)
[2016-11-29] MEDS: Megestrol Acetate 40 mg/ml Cup PO SCH (08:25)
[2016-11-29] MEDS: Fluconazole IV 100mg/50 ml NS 50 ML IVPB SCH (08:51)
[2016-11-29 09:40] LABS: ALB/GLOB RATIO 0.7 (1.0-2.1); BILIRUBIN,TOTAL 0.1 mg/dl (0.2-1.3); POTASSIUM 4.3 MMOL/L (3.6-5.0); TOTAL PROTEIN 7.9 G/DL (6.3-8.2)
[2016-11-29 09:42] LABS: HEMATOCRIT 30.7 % (35.0-51.0); MEAN CELL VOLUME 87.7 fl (80.0-94.0); MEAN CORPUSCULAR HEMOGLOBIN 28.3 pg (27.0-31.0); MEAN CORPUSCULAR HGB CONC 32.3 g/dL (33.0-37.0); RED CELL DISTRIBUTION WIDTH 16.3 % (11.5-14.5); WHITE BLOOD COUNT 8.1 K/uL (4.8-10.8)
--- NOTE | 2016-11-29 09:44 | PN ---
DATE: 11/29/2016 ROOM: ____ SUBJECTIVE: This is a 46-year-old male with recent uncontrolled type 2 insulin-requiring diabetes wh o continues to have extremes of glycemic fluctuations because also of the variability of his oral int robby as noted thereof. His glucose values today have ranged from 172 - 246 mg/dL. His latest manager enrollment ry showed a BUN of 32, sodium 143, potassium 5.0, chloride 108, CO2 24, glucose 365 and creatinine 1. 6. So, at this time, we will continue the same basal and bolus insulin regimen to allow for dose equ ilibration and keep him on the Humalog given as 14 units subQ t.i.d. before meals as ordered. We claudy l also continue the same basal insulin given as Levemir as 40 units subQ at bedtime daily as given. We will continue the low-dose correction scale using Humalog insulin as ordered. We will titrate inc rementally as indicated to optimize metabolic control. We will follow. Claudia Adame MD cc: [id number] TT: 11/29/2016 09:43:13 Confirmation # [id number] Dictation # [id number] jn
--- NOTE | 2016-11-29 11:54 | CP.PCM.PN ---
Subjective - Date & Time of Evaluation Date of Evaluation: 11/29/16 Time of Evaluation: 11:53 - Subjective Subjective: Still with loose stools Recent stool for C diff were negative x 3 Has no fever. Very debilitated. Objective - Vital Signs/Intake and Output Vital Signs (last 24 hours): Temp Pulse Resp BP Pulse Ox 97.7 F 113 H 20 110/77 100 11/29/16 07:44 11/29/16 07:44 11/29/16 07:44 11/29/16 07:44 11/29/16 07:44 - Medications Medications: Current Medications Aspirin (Ecotrin) 81 mg PO DAILY [facility] Last Admin: 11/27/16 09:20 Dose: 81 mg Atorvastatin Calcium (Lipitor) 10 mg PO DAILY [facility] Last Admin: 11/29/16 08:25 Dose: 10 mg Cholestyramine Resin (Questran) 4 gm PO QID [facility] Dextrose (Dextrose 50% Inj) 0 ml IV STAT PRN; Protocol PRN Reason: Hyglycemia Protocol Last Admin: 11/23/16 11:23 Dose: 50 ml Dextrose (Glutose 15) 0 gm PO ONCE PRN; Protocol PRN Reason: Hypoglycemia Protocol Glucagon (Glucagen Diagnostic Kit) 0 mg IM STAT PRN; Protocol PRN Reason: Hypoglycemia Protocol Fluconazole (Diflucan Iv 100 Mg/50 Ml Ns) 50 mls @ 50 mls/hr IVPB DAILY [facility] Last Admin: 11/29/16 08:51 Dose: 50 mls/hr Lactated Ringer's (Lactated Ringer's) 1,000 mls @ 100 mls/hr IV .Q10H [facility] Last Admin: 11/29/16 08:02 Dose: Not Given Insulin Detemir (Levemir) 40 units SC HS [facility] Last Admin: 11/28/16 22:15 Dose: 40 units Insulin Human Lispro (Humalog) 14 units SC AC [facility] Last Admin: 11/29/16 08:24 Dose: 14 unit Insulin Human Lispro (Humalog) 0 units SC ACHS [facility] PRN Reason: Protocol Lactobacillus Acidophilus (Bacid Acidophilus) 1 cap PO BID [facility] Last Admin: 11/29/16 08:22 Dose: 1 cap Megestrol Acetate (Megace) 800 mg PO DAILY [facility] Last Admin: 11/29/16 08:25 Dose: 800 mg Ondansetron HCl (Zofran Inj) 4 mg IVP Q4 PRN PRN Reason: Nausea/Vomiting Pantoprazole Sodium (Protonix Ec Tab) 40 mg PO DAILY [facility] Last Admin: 11/29/16 08:25 Dose: 40 mg Sodium Bicarbonate (Sodium Bicarbonate Tab) 1,300 mg PO QID [facility] Last Admin: 11/29/16 08:23 Dose: 1,300 mg Vancomycin HCl (Vancocin (Oral/Rectal Use)) 250 mg PO Q6 [facility] Last Admin: 11/29/16 04:32 Dose: 250 mg - Labs Labs: 11/29/16 08:00 11/29/16 08:00 PT 13.5 SECONDS (9.6-11.2) H 11/17/16 14:50 INR 1.30 (0.92-1.08) H 11/17/16 14:50 APTT 26.0 SECONDS (23.3-32.5) 11/17/16 14:50 - Head Exam Head Exam: NORMAL INSPECTION - Eye Exam Eye Exam: Normal appearance - ENT Exam ENT Exam: Mucous Membranes Dry - Respiratory Exam Respiratory Exam: Clear to Ausculation Bilateral - Cardiovascular Exam Cardiovascular Exam: REGULAR RHYTHM - GI/Abdominal Exam GI & Abdominal Exam: Normal Bowel Sounds - Neurological Exam Neurological Exam: Altered, Awake Assessment and Plan (1) Diabetes mellitus type 2 in nonobese Status: Chronic (2) DKA (diabetic ketoacidoses) Status: Acute (3) Dehydration Status: Acute (4) BRITTNI (acute kidney injury) Status: Acute (5) Clostridium difficile infection Status: Acute (6) Metabolic acidosis Status: Resolved - Assessment and Plan (Free Text) Plan: Cont hydration cont po antibiotics check labs monitor cbc cmp
[2016-11-29] MEDS ORDERED: Cholestyramine 4 gm/Pkt UD PO SCH (13:00)
--- NOTE | 2016-11-29 13:30 | CP.PCM.PN ---
Subjective - Date & Time of Evaluation Date of Evaluation: 11/29/16 Time of Evaluation: 13:28 - Subjective Subjective: pt on commode Objective - Vital Signs/Intake and Output Vital Signs (last 24 hours): Temp Pulse Resp BP Pulse Ox 97.7 F 113 H 20 110/77 100 11/29/16 07:44 11/29/16 07:44 11/29/16 07:44 11/29/16 07:44 11/29/16 07:44 - Medications Medications: Current Medications Aspirin (Ecotrin) 81 mg PO DAILY [facility] Last Admin: 11/27/16 09:20 Dose: 81 mg Atorvastatin Calcium (Lipitor) 10 mg PO DAILY [facility] Last Admin: 11/29/16 08:25 Dose: 10 mg Cholestyramine Resin (Questran) 4 gm PO QID [facility] Last Admin: 11/29/16 12:58 Dose: 4 gm Dextrose (Dextrose 50% Inj) 0 ml IV STAT PRN; Protocol PRN Reason: Hyglycemia Protocol Last Admin: 11/23/16 11:23 Dose: 50 ml Dextrose (Glutose 15) 0 gm PO ONCE PRN; Protocol PRN Reason: Hypoglycemia Protocol Glucagon (Glucagen Diagnostic Kit) 0 mg IM STAT PRN; Protocol PRN Reason: Hypoglycemia Protocol Fluconazole (Diflucan Iv 100 Mg/50 Ml Ns) 50 mls @ 50 mls/hr IVPB DAILY [facility] Last Admin: 11/29/16 08:51 Dose: 50 mls/hr Lactated Ringer's (Lactated Ringer's) 1,000 mls @ 100 mls/hr IV .Q10H [facility] Last Admin: 11/29/16 08:02 Dose: Not Given Insulin Detemir (Levemir) 40 units SC HS [facility] Last Admin: 11/28/16 22:15 Dose: 40 units Insulin Human Lispro (Humalog) 14 units SC AC [facility] Last Admin: 11/29/16 12:57 Dose: 14 unit Insulin Human Lispro (Humalog) 0 units SC ACHS [facility] PRN Reason: Protocol Last Admin: 11/29/16 12:58 Dose: Not Given Lactobacillus Acidophilus (Bacid Acidophilus) 1 cap PO BID [facility] Last Admin: 11/29/16 08:22 Dose: 1 cap Megestrol Acetate (Megace) 800 mg PO DAILY [facility] Last Admin: 11/29/16 08:25 Dose: 800 mg Ondansetron HCl (Zofran Inj) 4 mg IVP Q4 PRN PRN Reason: Nausea/Vomiting Pantoprazole Sodium (Protonix Ec Tab) 40 mg PO DAILY [facility] Last Admin: 11/29/16 08:25 Dose: 40 mg Sodium Bicarbonate (Sodium Bicarbonate Tab) 1,300 mg PO QID [facility] Last Admin: 11/29/16 12:57 Dose: 1,300 mg Vancomycin HCl (Vancocin (Oral/Rectal Use)) 250 mg PO Q6 [facility] Last Admin: 11/29/16 10:00 Dose: 250 mg - Labs Labs: 11/29/16 08:00 11/29/16 08:00 PT 13.5 SECONDS (9.6-11.2) H 11/17/16 14:50 INR 1.30 (0.92-1.08) H 11/17/16 14:50 APTT 26.0 SECONDS (23.3-32.5) 11/17/16 14:50 - Constitutional Appears: Non-toxic - Head Exam Head Exam: ATRAUMATIC - Eye Exam Eye Exam: Normal appearance - ENT Exam Additional comments: poor dentition - Neck Exam Neck Exam: Normal Inspection - Cardiovascular Exam Cardiovascular Exam: +S1, +S2 - GI/Abdominal Exam GI & Abdominal Exam: Soft - Extremities Exam Additional comments: no edema - Neurological Exam Additional comments: follows commands - Psychiatric Exam Psychiatric exam: Normal Affect - Skin Skin Exam: Normal Color Assessment and Plan - Assessment and Plan (Free Text) Assessment: Assessment: BRITTNI/Hypernatremia/Acidosis/ Hyperkalemia/ Obstructive uropathy /C.Diff Plan -renal function seems to be at baseline, can continue ivf to make up for gi losses on abx for c.diff will d/c oral hco3 supplement given elevated hco3 today if there is any further rise in na wiill need to switch ivf to hypotonic fluids
[2016-11-29] MEDS: Cholestyramine 4 gm/Pkt UD PO SCH (17:56)
[2016-11-29] MEDS: Insulin Detemir 100 Units/ml Inj SC SCH (22:56)
[2016-11-30] MEDS: Vancomycin 500 mg (Oral/Rectal USE) PO SCH ×2 (05:01→10:00)
[2016-11-30] MEDS: Fluconazole IV 100mg/50 ml NS 50 ML IVPB SCH (08:32)
[2016-11-30] MEDS: Insulin Lispro (humaLOG) 100 Units/ml Inj SC SCH ×7 (08:33→21:43)
[2016-11-30] MEDS: Cholestyramine 4 gm/Pkt UD PO SCH ×2 (08:37→16:30)
[2016-11-30] MEDS: Megestrol Acetate 40 mg/ml Cup PO SCH (08:37)
[2016-11-30] MEDS: Pantoprazole 40 mg EC Tab PO SCH (08:37)
[2016-11-30] MEDS: Lactobacillus Acidophilus 500 MU Cap PO SCH ×2 (08:43→16:27)
[2016-11-30] MEDS: Lactated Ringer's 1,000 ML IV SCH ×3 (10:00→23:00)
--- NOTE | 2016-11-30 11:21 | PN ---
DATE: 11/30/2016 ROOM: 658 This is a 46-year-old male with recent uncontrolled type 2 insulin-requiring diabetes, now being foll owed closely for metabolic management. He continues to have extremes of glycemic fluctuations once a gain and had an wool shearer hypoglycemic episode with a glucose of 43 mg/dL. Mild neuroglycopenic and hyperadrenergic manifestations were relieved after D50 bolus injection. His latest chemistry showed a BUN of 34, sodium 148, potassium 4.3, chloride 109, CO2 29, glucose 189 and creatinine 1.7. His glucose values have ranged from 160-321-447 at bedtime last night as noted. So at this time, to allow for dose equilibration since we just had a recent dose modification salome gonzalez, we will continue the same Humalog given as 14 units subQ t.i.d. before meals as ordered. We claudy l also continue the same basal insulin with Levemir given as 40 units subQ at bedtime daily to start tonight. We will titrate incrementally as indicated to optimize metabolic control. We will follow. Claudia Adame MD cc: [id number] TT: 11/30/2016 11:20:47 Confirmation # [id number] Dictation # [id number] en
--- NOTE | 2016-11-30 12:17 | CP.PCM.PN ---
Subjective - Date & Time of Evaluation Date of Evaluation: 11/30/16 Time of Evaluation: 12:15 - Subjective Subjective: Remains stable Has no chest pain or SOB Afebrile Still with loose stools Objective - Vital Signs/Intake and Output Vital Signs (last 24 hours): Temp Pulse Resp BP Pulse Ox 97.7 F 110 H 20 96/64 L 100 11/30/16 08:11 11/30/16 08:11 11/30/16 08:11 11/30/16 08:11 11/30/16 08:11 - Medications Medications: Current Medications Aspirin (Ecotrin) 81 mg PO DAILY [facility] Last Admin: 11/27/16 09:20 Dose: 81 mg Atorvastatin Calcium (Lipitor) 10 mg PO DAILY [facility] Last Admin: 11/30/16 08:37 Dose: 10 mg Cholestyramine Resin (Questran) 4 gm PO BID [facility] Last Admin: 11/30/16 08:37 Dose: 4 gm Dextrose (Dextrose 50% Inj) 0 ml IV STAT PRN; Protocol PRN Reason: Hyglycemia Protocol Last Admin: 11/23/16 11:23 Dose: 50 ml Dextrose (Glutose 15) 0 gm PO ONCE PRN; Protocol PRN Reason: Hypoglycemia Protocol Glucagon (Glucagen Diagnostic Kit) 0 mg IM STAT PRN; Protocol PRN Reason: Hypoglycemia Protocol Fluconazole (Diflucan Iv 100 Mg/50 Ml Ns) 50 mls @ 50 mls/hr IVPB [facility]ILY [facility] Last Admin: 11/30/16 08:32 Dose: 50 mls/hr Lactated Ringer's (Lactated Ringer's) 1,000 mls @ 100 mls/hr IV .Q10H [facility] Last Admin: 11/29/16 08:02 Dose: Not Given Insulin Detemir (Levemir) 40 units SC HS [facility] Last Admin: 11/29/16 22:56 Dose: 40 units Insulin Human Lispro (Humalog) 14 units SC AC [facility] Last Admin: 11/30/16 08:33 Dose: 14 unit Insulin Human Lispro (Humalog) 0 units SC ACHS [facility] PRN Reason: Protocol Last Admin: 11/30/16 08:35 Dose: Not Given Lactobacillus Acidophilus (Bacid Acidophilus) 1 cap PO BID [facility] Last Admin: 11/30/16 08:43 Dose: 1 cap Megestrol Acetate (Megace) 800 mg PO DAILY [facility] Last Admin: 11/30/16 08:37 Dose: 800 mg Ondansetron HCl (Zofran Inj) 4 mg IVP Q4 PRN PRN Reason: Nausea/Vomiting Pantoprazole Sodium (Protonix Ec Tab) 40 mg PO DAILY [facility] Last Admin: 11/30/16 08:37 Dose: 40 mg - Labs Labs: 11/29/16 08:00 11/29/16 08:00 PT 13.5 SECONDS (9.6-11.2) H 11/17/16 14:50 INR 1.30 (0.92-1.08) H 11/17/16 14:50 APTT 26.0 SECONDS (23.3-32.5) 11/17/16 14:50 - Head Exam Head Exam: NORMAL INSPECTION - Eye Exam Eye Exam: Normal appearance - ENT Exam ENT Exam: Mucous Membranes Moist - Respiratory Exam Respiratory Exam: Clear to Ausculation Bilateral - Cardiovascular Exam Cardiovascular Exam: REGULAR RHYTHM - GI/Abdominal Exam GI & Abdominal Exam: Normal Bowel Sounds Assessment and Plan (1) Diabetes mellitus type 2 in nonobese Status: Chronic (2) DKA (diabetic ketoacidoses) Status: Acute (3) Dehydration Status: Acute (4) BRITTNI (acute kidney injury) Status: Acute (5) Clostridium difficile infection Status: Acute (6) Metabolic acidosis Status: Resolved - Assessment and Plan (Free Text) Plan: cont meds cont tx cont encourage po fluids and increase intake.
--- NOTE | 2016-11-30 14:38 | CP.PCM.PN ---
Subjective - Date & Time of Evaluation Date of Evaluation: 11/30/16 Time of Evaluation: 09:00 - Subjective Subjective: BRITTNI/Hypernatremia/Acidosis/ Hyperkalemia/ Obstructive uropathy /C.Diff LESS DIARRHEA EVAL IN PROGRESS S/P CYSTO DENIES FEVER Objective - Vital Signs/Intake and Output Vital Signs (last 24 hours): Temp Pulse Resp BP Pulse Ox 97.7 F 110 H 20 96/64 L 100 11/30/16 08:11 11/30/16 08:11 11/30/16 08:11 11/30/16 08:11 11/30/16 08:11 - Medications Medications: Current Medications Aspirin (Ecotrin) 81 mg PO DAILY [facility] Last Admin: 11/27/16 09:20 Dose: 81 mg Atorvastatin Calcium (Lipitor) 10 mg PO DAILY [facility] Last Admin: 11/30/16 08:37 Dose: 10 mg Cholestyramine Resin (Questran) 4 gm PO BID [facility] Last Admin: 11/30/16 08:37 Dose: 4 gm Dextrose (Dextrose 50% Inj) 0 ml IV STAT PRN; Protocol PRN Reason: Hyglycemia Protocol Last Admin: 11/23/16 11:23 Dose: 50 ml Dextrose (Glutose 15) 0 gm PO ONCE PRN; Protocol PRN Reason: Hypoglycemia Protocol Glucagon (Glucagen Diagnostic Kit) 0 mg IM STAT PRN; Protocol PRN Reason: Hypoglycemia Protocol Fluconazole (Diflucan Iv 100 Mg/50 Ml Ns) 50 mls @ 50 mls/hr IVPB DAILY [facility] Last Admin: 11/30/16 08:32 Dose: 50 mls/hr Lactated Ringer's (Lactated Ringer's) 1,000 mls @ 100 mls/hr IV .Q10H [facility] Last Admin: 11/29/16 08:02 Dose: Not Given Insulin Detemir (Levemir) 40 units SC HS [facility] Last Admin: 11/29/16 22:56 Dose: 40 units Insulin Human Lispro (Humalog) 14 units SC AC [facility] Last Admin: 11/30/16 12:25 Dose: 14 unit Insulin Human Lispro (Humalog) 0 units SC ACHS [facility] PRN Reason: Protocol Last Admin: 11/30/16 12:26 Dose: Not Given Lactobacillus Acidophilus (Bacid Acidophilus) 1 cap PO BID [facility] Last Admin: 11/30/16 08:43 Dose: 1 cap Megestrol Acetate (Megace) 800 mg PO DAILY [facility] Last Admin: 11/30/16 08:37 Dose: 800 mg Ondansetron HCl (Zofran Inj) 4 mg IVP Q4 PRN PRN Reason: Nausea/Vomiting Pantoprazole Sodium (Protonix Ec Tab) 40 mg PO DAILY [facility] Last Admin: 11/30/16 08:37 Dose: 40 mg - Labs Labs: 11/29/16 08:00 11/29/16 08:00 PT 13.5 SECONDS (9.6-11.2) H 11/17/16 14:50 INR 1.30 (0.92-1.08) H 11/17/16 14:50 APTT 26.0 SECONDS (23.3-32.5) 11/17/16 14:50 - Constitutional Appears: Non-toxic, Chronically Ill - Eye Exam Eye Exam: PERRL Pupil Exam: NORMAL ACCOMODATION - ENT Exam ENT Exam: TM's Normal Bilaterally - Neck Exam Neck Exam: absent: Lymphadenopathy - Respiratory Exam Respiratory Exam: Clear to Ausculation Bilateral - Cardiovascular Exam Cardiovascular Exam: REGULAR RHYTHM, +S1, +S2 - GI/Abdominal Exam GI & Abdominal Exam: Distended, Soft. absent: Tenderness - Rectal Exam Rectal Exam: Deferred - Exam Exam: NORMAL INSPECTION - Extremities Exam Extremities Exam: absent: Pedal Edema - Back Exam Back Exam: absent: CVA tenderness (L), CVA tenderness (R) - Neurological Exam Neurological Exam: Alert, Awake, Oriented x3 - Psychiatric Exam Psychiatric exam: Normal Mood - Skin Skin Exam: Dry Assessment and Plan (1) DKA (diabetic ketoacidoses) Status: Acute (2) Dehydration Status: Acute (3) Sepsis Status: Acute (4) BRITTNI (acute kidney injury) Status: Acute (5) Clostridium difficile infection Status: Acute (6) DVT prophylaxis Status: Acute (7) Diarrhea Status: Acute (8) History of hypercholesterolemia Status: Acute
[2016-11-30] MEDS ORDERED: Insulin Detemir 100 Units/ml Inj SC SCH (22:00)
[2016-12-01] MEDS: Fluconazole IV 100mg/50 ml NS 50 ML IVPB SCH (08:38)
[2016-12-01] MEDS: Lactobacillus Acidophilus 500 MU Cap PO SCH ×2 (08:38→16:18)
[2016-12-01] MEDS: Insulin Lispro (humaLOG) 100 Units/ml Inj SC SCH ×7 (08:39→21:43)
[2016-12-01] MEDS: Megestrol Acetate 40 mg/ml Cup PO SCH (08:40)
[2016-12-01] MEDS: Pantoprazole 40 mg EC Tab PO SCH (08:40)
[2016-12-01] MEDS: Cholestyramine 4 gm/Pkt UD PO SCH ×2 (08:41→16:18)
--- NOTE | 2016-12-01 11:29 | PN ---
DATE: 11/30/2016 ENDO FOLLOWUP NOTE ROOM: 658. SUBJECTIVE: This is a 46-year-old male who continues to have extremes of glycemic fluctuations, and currently now being followed closely for metabolic management. His oral intake remains quite variabl e, as per the nursing staff, and the latest glucose levels overnight have ranged from 52-168 and 203 mg/dL. LABORATORY DATA: The latest chemistry showed a BUN of 34, sodium 148, potassium 4.3, chloride 109, C O2 of 29, glucose 189 and creatinine 1.7. So, at this time, we will modify, once again, his basal and bolus insulin regimen, and lower the Kenzie log to 8 units subQ t.i.d. before meals to start at lunchtime today as ordered. We will also lower t he basal insulin with Levemir to be given as 24 units subQ at bedtime daily as ordered. We will cont inue the low-dose correction scale using Humalog insulin as given. We will obtain serial chemistries and supplement accordingly as needed. We will follow. Claudia Adame MD cc: [id number] TT: 12/01/2016 11:29:21 Confirmation # [id number] Dictation # [id number] terrence
[2016-12-01] MEDS: Lactated Ringer's 1,000 ML IV SCH (12:22)
--- NOTE | 2016-12-01 13:11 | CP.PCM.PN ---
Subjective - Date & Time of Evaluation Date of Evaluation: 12/01/16 Time of Evaluation: 07:00 - Subjective Subjective: DISCUSSED ON ROUNDS DR MICHEL FOUND FUNGUS BALL INSIDE BLADDER PT CURRENTLY ON DIFLUCAN WILL NEED TO CONT THIS FOR 6-8 WEEKS WITH WEEKLY LFT'S AND U/A Objective - Vital Signs/Intake and Output Vital Signs (last 24 hours): Temp Pulse Resp BP Pulse Ox 98.5 F 100 H 20 108/76 100 12/01/16 08:12 12/01/16 08:12 12/01/16 08:12 12/01/16 08:12 12/01/16 08:12 - Medications Medications: Current Medications Aspirin (Ecotrin) 81 mg PO DAILY [facility] Last Admin: 11/27/16 09:20 Dose: 81 mg Atorvastatin Calcium (Lipitor) 10 mg PO DAILY [facility] Last Admin: 12/01/16 08:40 Dose: 10 mg Cholestyramine Resin (Questran) 4 gm PO BID [facility] Last Admin: 12/01/16 08:41 Dose: 4 gm Dextrose (Dextrose 50% Inj) 0 ml IV STAT PRN; Protocol PRN Reason: Hyglycemia Protocol Last Admin: 11/23/16 11:23 Dose: 50 ml Dextrose (Glutose 15) 0 gm PO ONCE PRN; Protocol PRN Reason: Hypoglycemia Protocol Glucagon (Glucagen Diagnostic Kit) 0 mg IM STAT PRN; Protocol PRN Reason: Hypoglycemia Protocol Fluconazole (Diflucan Iv 100 Mg/50 Ml Ns) 50 mls @ 50 mls/hr IVPB DAILY [facility] Last Admin: 12/01/16 08:38 Dose: 50 mls/hr Lactated Ringer's (Lactated Ringer's) 1,000 mls @ 100 mls/hr IV .Q10H [facility] Last Admin: 12/01/16 12:22 Dose: 100 mls/hr Insulin Detemir (Levemir) 24 units SC HS [facility] Insulin Human Lispro (Humalog) 0 units SC ACHS [facility] PRN Reason: Protocol Last Admin: 12/01/16 12:20 Dose: Not Given Insulin Human Lispro (Humalog) 8 units SC AC [facility] Last Admin: 12/01/16 12:22 Dose: 8 units Lactobacillus Acidophilus (Bacid Acidophilus) 1 cap PO BID [facility] Last Admin: 12/01/16 08:38 Dose: 1 cap Megestrol Acetate (Megace) 800 mg PO DAILY [facility] Last Admin: 12/01/16 08:40 Dose: 800 mg Ondansetron HCl (Zofran Inj) 4 mg IVP Q4 PRN PRN Reason: Nausea/Vomiting Pantoprazole Sodium (Protonix Ec Tab) 40 mg PO DAILY [facility] Last Admin: 12/01/16 08:40 Dose: 40 mg - Labs Labs: 11/29/16 08:00 11/29/16 08:00 PT 13.5 SECONDS (9.6-11.2) H 11/17/16 14:50 INR 1.30 (0.92-1.08) H 11/17/16 14:50 APTT 26.0 SECONDS (23.3-32.5) 11/17/16 14:50 - Constitutional Appears: Non-toxic, Cachectic, Chronically Ill - Head Exam Head Exam: NORMOCEPHALIC - Eye Exam Eye Exam: PERRL. absent: Scleral icterus - ENT Exam ENT Exam: Mucous Membranes Dry - Neck Exam Neck Exam: absent: Lymphadenopathy - Respiratory Exam Respiratory Exam: Decreased Breath Sounds - Cardiovascular Exam Cardiovascular Exam: REGULAR RHYTHM - GI/Abdominal Exam GI & Abdominal Exam: Distended, Soft. absent: Tenderness - Rectal Exam Rectal Exam: Deferred - Exam Exam: NORMAL INSPECTION - Extremities Exam Extremities Exam: absent: Pedal Edema - Back Exam Back Exam: absent: CVA tenderness (L), CVA tenderness (R) - Neurological Exam Neurological Exam: Alert, Awake, Oriented x3 Assessment and Plan (1) DKA (diabetic ketoacidoses) Status: Acute (2) Dehydration Status: Acute (3) Sepsis Status: Acute (4) BRITTNI (acute kidney injury) Status: Acute (5) Clostridium difficile infection Status: Acute (6) DVT prophylaxis Status: Acute (7) Diarrhea Status: Acute (8) History of hypercholesterolemia Status: Acute
--- NOTE | 2016-12-01 14:09 | CP.PCM.PN ---
Subjective - Date & Time of Evaluation Date of Evaluation: 12/01/16 Time of Evaluation: 02:00 - Subjective Subjective: Feels better but continues to have diarrhea Objective - Vital Signs/Intake and Output Vital Signs (last 24 hours): Temp Pulse Resp BP Pulse Ox 98.5 F 100 H 20 108/76 100 12/01/16 08:12 12/01/16 08:12 12/01/16 08:12 12/01/16 08:12 12/01/16 08:12 - Medications Medications: Current Medications Aspirin (Ecotrin) 81 mg PO DAILY [facility] Last Admin: 11/27/16 09:20 Dose: 81 mg Atorvastatin Calcium (Lipitor) 10 mg PO DAILY [facility] Last Admin: 12/01/16 08:40 Dose: 10 mg Cholestyramine Resin (Questran) 4 gm PO BID [facility] Last Admin: 12/01/16 08:41 Dose: 4 gm Dextrose (Dextrose 50% Inj) 0 ml IV STAT PRN; Protocol PRN Reason: Hyglycemia Protocol Last Admin: 11/23/16 11:23 Dose: 50 ml Dextrose (Glutose 15) 0 gm PO ONCE PRN; Protocol PRN Reason: Hypoglycemia Protocol Glucagon (Glucagen Diagnostic Kit) 0 mg IM STAT PRN; Protocol PRN Reason: Hypoglycemia Protocol Fluconazole (Diflucan Iv 100 Mg/50 Ml Ns) 50 mls @ 50 mls/hr IVPB DAILY [facility] Last Admin: 12/01/16 08:38 Dose: 50 mls/hr Lactated Ringer's (Lactated Ringer's) 1,000 mls @ 100 mls/hr IV .Q10H [facility] Last Admin: 12/01/16 12:22 Dose: 100 mls/hr Insulin Detemir (Levemir) 24 units SC HS [facility] Insulin Human Lispro (Humalog) 0 units SC ACHS [facility] PRN Reason: Protocol Last Admin: 12/01/16 12:20 Dose: Not Given Insulin Human Lispro (Humalog) 8 units SC AC [facility] Last Admin: 12/01/16 12:22 Dose: 8 units Lactobacillus Acidophilus (Bacid Acidophilus) 1 cap PO BID [facility] Last Admin: 12/01/16 08:38 Dose: 1 cap Megestrol Acetate (Megace) 800 mg PO DAILY [facility] Last Admin: 12/01/16 08:40 Dose: 800 mg Ondansetron HCl (Zofran Inj) 4 mg IVP Q4 PRN PRN Reason: Nausea/Vomiting Pantoprazole Sodium (Protonix Ec Tab) 40 mg PO DAILY [facility] Last Admin: 12/01/16 08:40 Dose: 40 mg - Labs Labs: 11/29/16 08:00 11/29/16 08:00 PT 13.5 SECONDS (9.6-11.2) H 11/17/16 14:50 INR 1.30 (0.92-1.08) H 11/17/16 14:50 APTT 26.0 SECONDS (23.3-32.5) 11/17/16 14:50 - Respiratory Exam Additional comments: Lungs clear - Cardiovascular Exam Cardiovascular Exam: REGULAR RHYTHM - GI/Abdominal Exam GI & Abdominal Exam: Soft - Extremities Exam Additional comments: No edema Assessment and Plan - Assessment and Plan (Free Text) Assessment: BRITTNI . renal function is stable NAG metabolic acidosis improving C.diff colitis Plan: Continue to monitor renal function
[2016-12-01] MEDS: Insulin Detemir 100 Units/ml Inj SC SCH (21:57)
[2016-12-02] MEDS: Lactated Ringer's 1,000 ML IV SCH ×3 (05:00→22:31)
[2016-12-02] MEDS: Insulin Lispro (humaLOG) 100 Units/ml Inj SC SCH ×8 (07:00→22:32)
[2016-12-02] MEDS: Fluconazole IV 100mg/50 ml NS 50 ML IVPB SCH (08:34)
[2016-12-02] MEDS: Pantoprazole 40 mg EC Tab PO SCH (08:34)
[2016-12-02] MEDS: Megestrol Acetate 40 mg/ml Cup PO SCH (08:34)
[2016-12-02] MEDS: Cholestyramine 4 gm/Pkt UD PO SCH ×2 (08:34→17:14)
[2016-12-02] MEDS: Lactobacillus Acidophilus 500 MU Cap PO SCH ×2 (08:40→17:14)
--- NOTE | 2016-12-02 11:02 | CP.PCM.PN ---
Subjective - Date & Time of Evaluation Date of Evaluation: 12/02/16 Time of Evaluation: 11:01 - Subjective Subjective: No significant changes reported overnight Patient receiving treatment as noted by the ID Kidney function appears to be stable Continue monitoring No more sodium bicarbonate. Objective - Vital Signs/Intake and Output Vital Signs (last 24 hours): Temp Pulse Resp BP Pulse Ox 97.9 F 94 H 20 127/92 H 100 12/02/16 08:37 12/02/16 08:37 12/02/16 08:37 12/02/16 08:37 12/02/16 08:37 - Medications Medications: Current Medications Aspirin (Ecotrin) 81 mg PO DAILY [facility] Last Admin: 11/27/16 09:20 Dose: 81 mg Atorvastatin Calcium (Lipitor) 10 mg PO DAILY [facility] Last Admin: 12/02/16 08:34 Dose: 10 mg Cholestyramine Resin (Questran) 4 gm PO BID [facility] Last Admin: 12/02/16 08:34 Dose: 4 gm Fluconazole (Diflucan Iv 100 Mg/50 Ml Ns) 50 mls @ 50 mls/hr IVPB DAILY [facility] Last Admin: 12/02/16 08:34 Dose: 50 mls/hr Lactated Ringer's (Lactated Ringer's) 1,000 mls @ 100 mls/hr IV .Q10H [facility] Last Admin: 12/02/16 05:00 Dose: Not Given Insulin Detemir (Levemir) 24 units SC HS [facility] Last Admin: 12/01/16 21:57 Dose: 24 units Insulin Human Lispro (Humalog) 0 units SC ACHS [facility] PRN Reason: Protocol Last Admin: 12/02/16 07:00 Dose: Not Given Insulin Human Lispro (Humalog) 8 units SC AC [facility] Last Admin: 12/02/16 08:35 Dose: 8 units Lactobacillus Acidophilus (Bacid Acidophilus) 1 cap PO BID [facility] Last Admin: 12/02/16 08:40 Dose: 1 cap Loperamide HCl (Imodium) 2 mg PO TID [facility] Megestrol Acetate (Megace) 800 mg PO DAILY [facility] Last Admin: 12/02/16 08:34 Dose: 800 mg Ondansetron HCl (Zofran Inj) 4 mg IVP Q4 PRN PRN Reason: Nausea/Vomiting Pantoprazole Sodium (Protonix Ec Tab) 40 mg PO DAILY [facility] Last Admin: 12/02/16 08:34 Dose: 40 mg - Labs Labs: 11/29/16 08:00 11/29/16 08:00 PT 13.5 SECONDS (9.6-11.2) H 11/17/16 14:50 INR 1.30 (0.92-1.08) H 11/17/16 14:50 APTT 26.0 SECONDS (23.3-32.5) 11/17/16 14:50
[2016-12-02 12:31] LABS: ALB/GLOB RATIO 0.7 (1.0-2.1); ALKALINE PHOSPHATASE 109 U/L (38-126); ALT/SGPT 33 U/L (21-72); AST/SGOT 23 U/L (17-59); BILIRUBIN,TOTAL 0.1 mg/dl (0.2-1.3); BLOOD UREA NITROGEN 27 mg/dl (9-20); CALCIUM 8.9 mg/dL (8.4-10.2); CARBON DIOXIDE 20 mmol/L (22-30); CHLORIDE 110 mmol/L (98-107); GFR AFRICAN-AMERICAN > 60; GLUCOSE,RANDOM 229 mg/dL (75-110); POTASSIUM 4.4 MMOL/L (3.6-5.0); SODIUM 141 mmol/l (132-148); TOTAL PROTEIN 8.1 G/DL (6.3-8.2)
--- NOTE | 2016-12-02 15:05 | PN ---
DATE: 12/02/2016 ROOM: 658 This is a 46-year-old male with recent uncontrolled type 2 insulin-requiring diabetes, now being foll owed closely for metabolic management. His glycemic levels today have improved remarkably with also the improved oral intake as per the nursing staff. His latest glucose levels have ranged from 105-201 and 272 mg/dL. His latest chemistries include a B UN of 27, sodium 141, potassium 4.4, chloride 110, CO2 20, glucose 229 and creatinine 1.3. So at this time, to allow for dose equilibration, will continue the same basal and bolus insulin sumanth men as given with Humalog given as 8 units subQ t.i.d. before meals. Will also continue the Levemir given as basal insulin at 24 units subQ at bedtime daily as given. Will titrate incrementally as ind icated to optimize metabolic control. Will follow and advise accordingly. Claudia Adame MD cc: [id number] TT: 12/02/2016 15:04:32 Confirmation # [id number] Dictation # [id number] [email or web address]
[2016-12-02] MEDS: Insulin Detemir 100 Units/ml Inj SC SCH (22:33)
[2016-12-03] MEDS: Lactated Ringer's 1,000 ML IV SCH ×2 (00:08→12:14)
[2016-12-03] MEDS: Insulin Lispro (humaLOG) 100 Units/ml Inj SC SCH ×7 (08:11→21:30)
--- NOTE | 2016-12-03 09:24 | CP.PCM.PN ---
Subjective - Date & Time of Evaluation Date of Evaluation: 12/02/16 Time of Evaluation: 10:00 - Subjective Subjective: Patient still had loose stools So far he had negative stool for C diff x 3 Very debilitated. Objective - Vital Signs/Intake and Output Vital Signs (last 24 hours): Temp Pulse Resp BP Pulse Ox 97.7 F 92 H 20 129/93 H 100 12/03/16 08:26 12/03/16 08:26 12/03/16 08:26 12/03/16 08:26 12/03/16 08:26 - Medications Medications: Current Medications Aspirin (Ecotrin) 81 mg PO DAILY [facility] Last Admin: 11/27/16 09:20 Dose: 81 mg Atorvastatin Calcium (Lipitor) 10 mg PO DAILY [facility] Last Admin: 12/02/16 08:34 Dose: 10 mg Cholestyramine Resin (Questran) 4 gm PO BID [facility] Last Admin: 12/02/16 17:14 Dose: 4 gm Fluconazole (Diflucan Iv 100 Mg/50 Ml Ns) 50 mls @ 50 mls/hr IVPB DAILY [facility] Last Admin: 12/02/16 08:34 Dose: 50 mls/hr Lactated Ringer's (Lactated Ringer's) 1,000 mls @ 100 mls/hr IV .Q10H [facility] Last Admin: 12/03/16 00:08 Dose: Not Given Insulin Detemir (Levemir) 24 units SC HS [facility] Last Admin: 12/02/16 22:33 Dose: 24 units Insulin Human Lispro (Humalog) 0 units SC ACHS [facility] PRN Reason: Protocol Last Admin: 12/02/16 22:32 Dose: Not Given Insulin Human Lispro (Humalog) 8 units SC AC [facility] Last Admin: 12/02/16 17:16 Dose: 8 units Lactobacillus Acidophilus (Bacid Acidophilus) 1 cap PO BID [facility] Last Admin: 12/02/16 17:14 Dose: 1 cap Loperamide HCl (Imodium) 2 mg PO TID [facility] Last Admin: 12/02/16 17:14 Dose: 2 mg Megestrol Acetate (Megace) 800 mg PO DAILY [facility] Last Admin: 12/02/16 08:34 Dose: 800 mg Ondansetron HCl (Zofran Inj) 4 mg IVP Q4 PRN PRN Reason: Nausea/Vomiting Pantoprazole Sodium (Protonix Ec Tab) 40 mg PO DAILY [facility] Last Admin: 12/02/16 08:34 Dose: 40 mg - Labs Labs: 11/29/16 08:00 12/02/16 11:30 PT 13.5 SECONDS (9.6-11.2) H 11/17/16 14:50 INR 1.30 (0.92-1.08) H 11/17/16 14:50 APTT 26.0 SECONDS (23.3-32.5) 11/17/16 14:50 - Head Exam Head Exam: NORMAL INSPECTION - Eye Exam Eye Exam: Normal appearance - Respiratory Exam Respiratory Exam: Clear to Ausculation Bilateral - Cardiovascular Exam Cardiovascular Exam: REGULAR RHYTHM - GI/Abdominal Exam GI & Abdominal Exam: Normal Bowel Sounds - Neurological Exam Neurological Exam: Awake, Oriented x3 Assessment and Plan (1) Diabetes mellitus type 2 in nonobese Status: Chronic (2) DKA (diabetic ketoacidoses) Status: Acute (3) Dehydration Status: Acute (4) BRITTNI (acute kidney injury) Status: Acute (5) Clostridium difficile infection Status: Acute (6) Metabolic acidosis Status: Resolved (7) Incontinence of feces Status: Acute (8) Malabsorption due to intolerance, not elsewhere classified Status: Acute - Assessment and Plan (Free Text) Plan: start lomotil tid add potatoes banana and apple juice to diet cont meds hydrate phys therapy arrange for discharge.
[2016-12-03] MEDS: Fluconazole IV 100mg/50 ml NS 50 ML IVPB SCH (11:07)
[2016-12-03] MEDS: Cholestyramine 4 gm/Pkt UD PO SCH ×2 (11:08→18:07)
[2016-12-03] MEDS: Pantoprazole 40 mg EC Tab PO SCH (11:08)
[2016-12-03] MEDS: Megestrol Acetate 40 mg/ml Cup PO SCH (11:10)
--- NOTE | 2016-12-03 11:42 | CP.PCM.PN ---
<Cassie Jones - Last Filed: 12/03/16 11:39> Subjective - Date & Time of Evaluation Date of Evaluation: 12/03/16 Time of Evaluation: 11:39 - Subjective Subjective: d/w attending. no overnight events. BM x3, well formed. tolerating PO. Objective - Vital Signs/Intake and Output Vital Signs (last 24 hours): Temp Pulse Resp BP Pulse Ox 97.7 F 92 H 20 129/93 H 100 12/03/16 08:26 12/03/16 08:26 12/03/16 08:26 12/03/16 08:26 12/03/16 08:26 - Medications Medications: Current Medications Aspirin (Ecotrin) 81 mg PO DAILY [facility] Last Admin: 11/27/16 09:20 Dose: 81 mg Atorvastatin Calcium (Lipitor) 10 mg PO DAILY [facility] Last Admin: 12/03/16 11:08 Dose: 10 mg Cholestyramine Resin (Questran) 4 gm PO BID [facility] Last Admin: 12/03/16 11:08 Dose: 4 gm Fluconazole (Diflucan Iv 100 Mg/50 Ml Ns) 50 mls @ 50 mls/hr IVPB DAILY [facility] Last Admin: 12/03/16 11:07 Dose: 50 mls/hr Lactated Ringer's (Lactated Ringer's) 1,000 mls @ 100 mls/hr IV .Q10H [facility] Last Admin: 12/03/16 00:08 Dose: Not Given Insulin Detemir (Levemir) 24 units SC HS [facility] Last Admin: 12/02/16 22:33 Dose: 24 units Insulin Human Lispro (Humalog) 0 units SC ACHS [facility] PRN Reason: Protocol Last Admin: 12/03/16 08:13 Dose: Not Given Insulin Human Lispro (Humalog) 8 units SC AC [facility] Last Admin: 12/03/16 08:11 Dose: 8 units Lactic Acid (Lac-Hydrin 12% Cream (140 G)) 1 ea TOP BID [facility] Lactobacillus Acidophilus (Bacid Acidophilus) 1 cap PO BID [facility] Last Admin: 12/02/16 17:14 Dose: 1 cap Loperamide HCl (Imodium) 2 mg PO Q6 [facility] Megestrol Acetate (Megace) 800 mg PO DAILY [facility] Last Admin: 12/03/16 11:10 Dose: 800 mg Ondansetron HCl (Zofran Inj) 4 mg IVP Q4 PRN PRN Reason: Nausea/Vomiting Pantoprazole Sodium (Protonix Ec Tab) 40 mg PO DAILY [facility] Last Admin: 12/03/16 11:08 Dose: 40 mg - Labs Labs: 11/29/16 08:00 12/02/16 11:30 PT 13.5 SECONDS (9.6-11.2) H 11/17/16 14:50 INR 1.30 (0.92-1.08) H 11/17/16 14:50 APTT 26.0 SECONDS (23.3-32.5) 11/17/16 14:50 - Constitutional Appears: Non-toxic, No Acute Distress - Eye Exam Eye Exam: Normal appearance - ENT Exam ENT Exam: Mucous Membranes Moist - Neck Exam Neck Exam: Normal Inspection - Respiratory Exam Respiratory Exam: NORMAL BREATHING PATTERN - Cardiovascular Exam Cardiovascular Exam: REGULAR RHYTHM - GI/Abdominal Exam GI & Abdominal Exam: Soft - Extremities Exam Extremities Exam: Normal Inspection - Neurological Exam Neurological Exam: Alert, Oriented x3 - Skin Skin Exam: Dry, Warm Assessment and Plan (1) Clostridium difficile infection Status: Acute (2) Diabetes mellitus type 2 in nonobese Status: Chronic (3) BRITTNI (acute kidney injury) Status: Acute (4) Hypertension Status: Chronic (5) Cystitis Status: Acute (6) Sterile pyuria Status: Acute (7) DVT prophylaxis Status: Acute - Assessment and Plan (Free Text) Assessment: -increase loperamide to decrease BM frequency -IV abx -ID on board, appreciate input -nephro on board, appreciate input -PT/OT -c/w home meds <Justin Melgar - Last Filed: 12/10/16 07:50> Objective - Vital Signs/Intake and Output Vital Signs (last 24 hours): Temp Pulse Resp BP Pulse Ox 98.7 F 99 H 20 110/76 100 12/10/16 00:21 12/10/16 00:21 12/10/16 00:21 12/10/16 00:21 12/10/16 00:21 - Medications Medications: Current Medications Aspirin (Ecotrin) 81 mg PO DAILY [facility] Last Admin: 12/06/16 09:08 Dose: 81 mg Atorvastatin Calcium (Lipitor) 10 mg PO DAILY [facility] Last Admin: 12/09/16 08:56 Dose: 10 mg Cholestyramine Resin (Questran) 4 gm PO BID [facility] Last Admin: 12/09/16 16:41 Dose: 4 gm Fluconazole (Diflucan Iv 100 Mg/50 Ml Ns) 50 mls @ 50 mls/hr IVPB DAILY [facility] Last Admin: 12/09/16 11:34 Dose: 50 mls/hr Insulin Detemir (Levemir) 40 units SC HS [facility] Last Admin: 12/09/16 22:04 Dose: 40 units Insulin Human Lispro (Humalog) 0 units SC ACHS [facility] PRN Reason: Protocol Last Admin: 12/09/16 22:05 Dose: 2 unit Insulin Lispro Protam/Lispro Human (Humalog Mix 75/25) 5 units SC BIDAC [facility] Last Admin: 12/09/16 16:41 Dose: 5 units Lactic Acid (Lac-Hydrin 12% Lotion (225 G)) 1 applic TOP BID [facility] Last Admin: 12/09/16 16:42 Dose: 1 applic Lactobacillus Acidophilus (Bacid Acidophilus) 1 cap PO BID [facility] Last Admin: 12/09/16 16:45 Dose: 1 cap Loperamide HCl (Imodium) 2 mg PO Q6 [facility] Last Admin: 12/10/16 04:45 Dose: 2 mg Megestrol Acetate (Megace) 800 mg PO DAILY [facility] Last Admin: 12/09/16 08:56 Dose: 800 mg Ondansetron HCl (Zofran Inj) 4 mg IVP Q4 PRN PRN Reason: Nausea/Vomiting Pantoprazole Sodium (Protonix Ec Tab) 40 mg PO DAILY [facility] Last Admin: 12/09/16 08:56 Dose: 40 mg - Labs Labs: 12/10/16 05:40 12/10/16 05:40 PT 13.5 SECONDS (9.6-11.2) H 11/17/16 14:50 INR 1.30 (0.92-1.08) H 11/17/16 14:50 APTT 26.0 SECONDS (23.3-32.5) 11/17/16 14:50 - Constitutional Appears: No Acute Distress - Eye Exam Eye Exam: Normal appearance - ENT Exam ENT Exam: Mucous Membranes Dry - GI/Abdominal Exam GI & Abdominal Exam: Normal Bowel Sounds - Neurological Exam Neurological Exam: Awake, Oriented x3 Assessment and Plan (1) Diabetes mellitus type 2 in nonobese Status: Chronic (2) DKA (diabetic ketoacidoses) Status: Acute (3) Dehydration Status: Acute (4) BRITTNI (acute kidney injury) Status: Acute (5) Clostridium difficile infection Status: Acute (6) Metabolic acidosis Status: Resolved - Assessment and Plan (Free Text) Plan: cont meds cont tx discussed with Dr Matthews
[2016-12-03] MEDS: Lactobacillus Acidophilus 500 MU Cap PO SCH ×2 (12:07→18:03)
--- NOTE | 2016-12-03 15:31 | PN ---
DATE: 12/03/2016 ROOM: 658 SUBJECTIVE: This is a 46-year-old male with recent uncontrolled type 2 insulin-requiring diabetes wi th extremes of glycemic fluctuations also because of the variability of his oral intake and is now be ing followed closely for metabolic management. His glycemic levels are fluctuating, but improved, an d the latest glucose levels today have ranged from 189 - 202 mg/dL. It was 292 at bedtime last night . The latest chemistries showed a BUN of 27, sodium 141, potassium 4.4, chloride 110, CO2 20, glucos e 229 and creatinine 1.3. So, at this time, we will continue the same basal and bolus insulin regime n to allow for dose equilibration and keep him on the Levemir given as 24 units subQ at bedtime daily as ordered. We will also continue the Humalog given as 8 units subQ t.i.d. before meals as given. We will titrate incrementally as indicated to optimize metabolic control. We will follow and advise accordingly. Claudia Adame MD cc: [id number] TT: 12/03/2016 15:29:59 Confirmation # [id number] Dictation # [id number] jn
[2016-12-03] MEDS: Ammonium Lactate 12% Cream (140 g) TOP SCH (18:09)
--- NOTE | 2016-12-03 20:54 | CP.PCM.PN ---
Subjective - Date & Time of Evaluation Date of Evaluation: 12/02/16 Time of Evaluation: 19:00 - Subjective Subjective: formed bowel movements Objective - Vital Signs/Intake and Output Vital Signs (last 24 hours): Temp Pulse Resp BP Pulse Ox 98.4 F 96 H 20 135/93 H 100 12/03/16 16:18 12/03/16 16:18 12/03/16 16:18 12/03/16 16:18 12/03/16 16:18 - Medications Medications: Current Medications Aspirin (Ecotrin) 81 mg PO DAILY [facility] Last Admin: 11/27/16 09:20 Dose: 81 mg Atorvastatin Calcium (Lipitor) 10 mg PO DAILY [facility] Last Admin: 12/03/16 11:08 Dose: 10 mg Cholestyramine Resin (Questran) 4 gm PO BID [facility] Last Admin: 12/03/16 18:07 Dose: 4 gm Fluconazole (Diflucan Iv 100 Mg/50 Ml Ns) 50 mls @ 50 mls/hr IVPB DAILY [facility] Last Admin: 12/03/16 11:07 Dose: 50 mls/hr Lactated Ringer's (Lactated Ringer's) 1,000 mls @ 100 mls/hr IV .Q10H [facility] Last Admin: 12/03/16 12:14 Dose: Not Given Insulin Detemir (Levemir) 24 units SC HS [facility] Last Admin: 12/02/16 22:33 Dose: 24 units Insulin Human Lispro (Humalog) 0 units SC ACHS [facility] PRN Reason: Protocol Last Admin: 12/03/16 17:30 Dose: 6 units Insulin Human Lispro (Humalog) 8 units SC AC [facility] Last Admin: 12/03/16 17:30 Dose: 8 units Lactic Acid (Lac-Hydrin 12% Cream (140 G)) 1 ea TOP BID [facility] Last Admin: 12/03/16 18:09 Dose: 1 applic Lactobacillus Acidophilus (Bacid Acidophilus) 1 cap PO BID [facility] Last Admin: 12/03/16 18:03 Dose: 1 cap Loperamide HCl (Imodium) 2 mg PO Q6 [facility] Last Admin: 12/03/16 18:07 Dose: 2 mg Megestrol Acetate (Megace) 800 mg PO DAILY [facility] Last Admin: 12/03/16 11:10 Dose: 800 mg Ondansetron HCl (Zofran Inj) 4 mg IVP Q4 PRN PRN Reason: Nausea/Vomiting Pantoprazole Sodium (Protonix Ec Tab) 40 mg PO DAILY [facility] Last Admin: 12/03/16 11:08 Dose: 40 mg - Labs Labs: 11/29/16 08:00 12/02/16 11:30 PT 13.5 SECONDS (9.6-11.2) H 11/17/16 14:50 INR 1.30 (0.92-1.08) H 11/17/16 14:50 APTT 26.0 SECONDS (23.3-32.5) 11/17/16 14:50 - GI/Abdominal Exam GI & Abdominal Exam: Soft, Normal Bowel Sounds Assessment and Plan - Assessment and Plan (Free Text) Assessment: 46 yo male with cdiff diarrhea improving cdiff negative dc planning when able
[2016-12-03] MEDS: Insulin Detemir 100 Units/ml Inj SC SCH (21:29)
[2016-12-04] MEDS ORDERED: Insulin Lispro (humaLOG) 100 Units/ml Inj SC STA ×2 (06:55→11:32)
[2016-12-04] MEDS: Insulin Lispro (humaLOG) 100 Units/ml Inj SC SCH ×5 (07:07→22:00)
[2016-12-04 07:56] LABS: HEMATOCRIT 32.9 % (35.0-51.0); MEAN CORPUSCULAR HEMOGLOBIN 28.5 pg (27.0-31.0); MEAN CORPUSCULAR HGB CONC 30.9 g/dL (33.0-37.0); RED CELL DISTRIBUTION WIDTH 15.2 % (11.5-14.5); WHITE BLOOD COUNT 9.2 K/uL (4.8-10.8)
[2016-12-04 07:57] LABS: MEAN CELL VOLUME 92.3 fl (80.0-94.0)
[2016-12-04 08:10] LABS: CALCIUM 8.7 mg/dL (8.4-10.2); POTASSIUM 5.6 MMOL/L (3.6-5.0)
[2016-12-04] MEDS: Lactobacillus Acidophilus 500 MU Cap PO SCH ×2 (09:37→16:11)
[2016-12-04] MEDS: Pantoprazole 40 mg EC Tab PO SCH (09:37)
[2016-12-04] MEDS: Megestrol Acetate 40 mg/ml Cup PO SCH (09:37)
[2016-12-04] MEDS: Cholestyramine 4 gm/Pkt UD PO SCH ×2 (09:37→16:12)
[2016-12-04] MEDS: Ammonium Lactate 12% Cream (140 g) TOP SCH ×2 (09:43→16:17)
[2016-12-04] MEDS: Fluconazole IV 100mg/50 ml NS 50 ML IVPB SCH (10:13)
--- NOTE | 2016-12-04 11:26 | CP.PCM.PN ---
<Allan Robin - Last Filed: 12/04/16 16:17> Subjective - Date & Time of Evaluation Date of Evaluation: 12/04/16 Time of Evaluation: 09:23 - Subjective Subjective: Patient seen and examined at bedside with attending. Patient states feeling well. No overnight complaints. Continues to have normal stools. Patient participated in PT this morning, continues to be debilitated. Objective - Vital Signs/Intake and Output Vital Signs (last 24 hours): Temp Pulse Resp BP Pulse Ox 97.6 F 100 H 20 148/99 H 100 12/04/16 09:00 12/04/16 07:40 12/04/16 07:40 12/04/16 07:40 12/04/16 07:40 - Medications Medications: Current Medications Aspirin (Ecotrin) 81 mg PO DAILY [facility] Last Admin: 11/27/16 09:20 Dose: 81 mg Atorvastatin Calcium (Lipitor) 10 mg PO DAILY [facility] Last Admin: 12/04/16 09:37 Dose: 10 mg Cholestyramine Resin (Questran) 4 gm PO BID [facility] Last Admin: 12/04/16 09:37 Dose: 4 gm Fluconazole (Diflucan Iv 100 Mg/50 Ml Ns) 50 mls @ 50 mls/hr IVPB DAILY [facility] Last Admin: 12/04/16 10:13 Dose: 50 mls/hr Lactated Ringer's (Lactated Ringer's) 1,000 mls @ 100 mls/hr IV .Q10H [facility] Last Admin: 12/03/16 12:14 Dose: Not Given Insulin Detemir (Levemir) 24 units SC HS [facility] Last Admin: 12/03/16 21:29 Dose: 24 units Insulin Human Lispro (Humalog) 0 units SC ACHS [facility] PRN Reason: Protocol Last Admin: 12/04/16 07:07 Dose: Not Given Insulin Human Lispro (Humalog) 8 units SC AC [facility] Last Admin: 12/04/16 08:37 Dose: 8 units Lactic Acid (Lac-Hydrin 12% Cream (140 G)) 1 ea TOP BID [facility] Last Admin: 12/04/16 09:43 Dose: 1 applic Lactobacillus Acidophilus (Bacid Acidophilus) 1 cap PO BID [facility] Last Admin: 12/04/16 09:37 Dose: 1 cap Loperamide HCl (Imodium) 2 mg PO Q6 [facility] Last Admin: 12/04/16 09:37 Dose: 2 mg Megestrol Acetate (Megace) 800 mg PO DAILY [facility] Last Admin: 12/04/16 09:37 Dose: 800 mg Ondansetron HCl (Zofran Inj) 4 mg IVP Q4 PRN PRN Reason: Nausea/Vomiting Pantoprazole Sodium (Protonix Ec Tab) 40 mg PO DAILY [facility] Last Admin: 12/04/16 09:37 Dose: 40 mg - Labs Labs: 12/04/16 06:45 12/04/16 06:45 PT 13.5 SECONDS (9.6-11.2) H 11/17/16 14:50 INR 1.30 (0.92-1.08) H 11/17/16 14:50 APTT 26.0 SECONDS (23.3-32.5) 11/17/16 14:50 - Constitutional Appears: Non-toxic, No Acute Distress - Head Exam Head Exam: ATRAUMATIC, NORMAL INSPECTION, NORMOCEPHALIC - Eye Exam Eye Exam: Normal appearance - Respiratory Exam Respiratory Exam: Clear to Ausculation Bilateral, NORMAL BREATHING PATTERN - Cardiovascular Exam Cardiovascular Exam: REGULAR RHYTHM, RRR, +S1, +S2 - GI/Abdominal Exam GI & Abdominal Exam: Soft, Normal Bowel Sounds. absent: Tenderness - Neurological Exam Neurological Exam: Alert, Awake, Oriented x3 - Psychiatric Exam Psychiatric exam: Normal Affect, Normal Mood - Skin Skin Exam: Dry, Intact, Warm Assessment and Plan (1) Clostridium difficile infection Status: Acute (2) Cystitis Status: Acute (3) Diabetes mellitus type 2 in nonobese Status: Chronic (4) BRITTNI (acute kidney injury) Status: Acute (5) Sterile pyuria Status: Acute (6) Hypertension Status: Chronic (7) DVT prophylaxis Status: Acute - Assessment and Plan (Free Text) Plan: -C. diff resolved -Clinically improved -on IV abx -ID on board, appreciate input, will need 2 wks of Diflucan therapy -nephro on board, appreciate input -PT/OT, continues to be debilitated, will need safe discharge -body shop worker on board -c/w home meds <Justin Melgar - Last Filed: 12/10/16 07:54> Objective - Vital Signs/Intake and Output Vital Signs (last 24 hours): Temp Pulse Resp BP Pulse Ox 98.7 F 99 H 20 110/76 100 12/10/16 00:21 12/10/16 00:21 12/10/16 00:21 12/10/16 00:21 12/10/16 00:21 - Medications Medications: Current Medications Aspirin (Ecotrin) 81 mg PO DAILY [facility] Last Admin: 12/06/16 09:08 Dose: 81 mg Atorvastatin Calcium (Lipitor) 10 mg PO DAILY [facility] Last Admin: 12/09/16 08:56 Dose: 10 mg Cholestyramine Resin (Questran) 4 gm PO BID [facility] Last Admin: 12/09/16 16:41 Dose: 4 gm Fluconazole (Diflucan Iv 100 Mg/50 Ml Ns) 50 mls @ 50 mls/hr IVPB DAILY [facility] Last Admin: 12/09/16 11:34 Dose: 50 mls/hr Insulin Detemir (Levemir) 40 units SC HS [facility] Last Admin: 12/09/16 22:04 Dose: 40 units Insulin Human Lispro (Humalog) 0 units SC ACHS [facility] PRN Reason: Protocol Last Admin: 12/09/16 22:05 Dose: 2 unit Insulin Lispro Protam/Lispro Human (Humalog Mix 75/25) 5 units SC BIDAC [facility] Last Admin: 12/09/16 16:41 Dose: 5 units Lactic Acid (Lac-Hydrin 12% Lotion (225 G)) 1 applic TOP BID [facility] Last Admin: 12/09/16 16:42 Dose: 1 applic Lactobacillus Acidophilus (Bacid Acidophilus) 1 cap PO BID [facility] Last Admin: 12/09/16 16:45 Dose: 1 cap Loperamide HCl (Imodium) 2 mg PO Q6 [facility] Last Admin: 12/10/16 04:45 Dose: 2 mg Megestrol Acetate (Megace) 800 mg PO DAILY [facility] Last Admin: 12/09/16 08:56 Dose: 800 mg Ondansetron HCl (Zofran Inj) 4 mg IVP Q4 PRN PRN Reason: Nausea/Vomiting Pantoprazole Sodium (Protonix Ec Tab) 40 mg PO DAILY [facility] Last Admin: 12/09/16 08:56 Dose: 40 mg - Labs Labs: 12/10/16 05:40 12/10/16 05:40 PT 13.5 SECONDS (9.6-11.2) H 11/17/16 14:50 INR 1.30 (0.92-1.08) H 11/17/16 14:50 APTT 26.0 SECONDS (23.3-32.5) 11/17/16 14:50 Assessment and Plan (1) Diabetes mellitus type 2 in nonobese Status: Chronic (2) DKA (diabetic ketoacidoses) Status: Acute (3) Dehydration Status: Acute (4) BRITTNI (acute kidney injury) Status: Acute (5) Clostridium difficile infection Status: Acute (6) Metabolic acidosis Status: Resolved - Assessment and Plan (Free Text) Plan: I was present during evaluation and discussed with Dr Robin rfe plans of care and mgt
[2016-12-04] MEDS: Lactated Ringer's 1,000 ML IV SCH (16:11)
[2016-12-04] MEDS ORDERED: Insulin Lispro (humaLOG) 100 Units/ml Inj SC SCH (16:30)
--- NOTE | 2016-12-04 20:54 | PN ---
DATE: 12/04/2016 ROOM: 654. SUBJECTIVE: This is a 46-year-old male with recent uncontrolled type 2 insulin-requiring diabetes, n ow with supervening hyperglycemic accelerations overnight and glucose levels ranging from 366-964 mg/ dL. His latest chemistry showed a BUN of 33, Sodium 136, potassium 5.6, chloride 107, CO2 17, glucos e 964 and creatinine 1.7. So, at this time, we will modify once again his basal and bolus insulin re gimen and increase the Levemir to 30 units subQ at bedtime daily to start tonight. We will also incr ease the Humalog to 12 units subQ t.i.d. before meals as given. We will titrate incrementally as ind icated to optimize metabolic control. We will also continue the vigorous IV hydration as ordered to replenish the lost fluids and electrolytes as needed. We will follow. Claudia Adame MD cc: [id number] TT: 12/04/2016 20:54:01 Confirmation # [id number] Dictation # [id number] terrence
[2016-12-04] MEDS: Insulin Detemir 100 Units/ml Inj SC SCH (23:00)
[2016-12-05] MEDS: Insulin Lispro (humaLOG) 100 Units/ml Inj SC SCH ×7 (07:50→21:48)
[2016-12-05 08:20] LABS: HEMATOCRIT 29.2 % (35.0-51.0); MEAN CELL VOLUME 87.5 fl (80.0-94.0); RED CELL DISTRIBUTION WIDTH 14.7 % (11.5-14.5); WHITE BLOOD COUNT 10.9 K/uL (4.8-10.8)
[2016-12-05 08:33] LABS: CALCIUM 9.6 mg/dL (8.4-10.2); POTASSIUM 5.1 MMOL/L (3.6-5.0)
[2016-12-05] MEDS: Lactobacillus Acidophilus 500 MU Cap PO SCH ×2 (08:55→16:30)
[2016-12-05] MEDS: Fluconazole IV 100mg/50 ml NS 50 ML IVPB SCH (08:56)
[2016-12-05] MEDS: Megestrol Acetate 40 mg/ml Cup PO SCH (08:58)
[2016-12-05] MEDS: Cholestyramine 4 gm/Pkt UD PO SCH ×2 (08:58→16:33)
[2016-12-05] MEDS: Pantoprazole 40 mg EC Tab PO SCH (08:58)
[2016-12-05] MEDS: Ammonium Lactate 12% Cream (140 g) TOP SCH (08:58)
--- NOTE | 2016-12-05 14:06 | CP.PCM.PN ---
Subjective - Date & Time of Evaluation Date of Evaluation: 12/05/16 Time of Evaluation: 14:00 - Subjective Subjective: no overnight complaints Objective - Vital Signs/Intake and Output Vital Signs (last 24 hours): Temp Pulse Resp BP Pulse Ox 97.8 F 94 H 18 128/91 H 100 12/05/16 07:38 12/05/16 07:38 12/05/16 07:38 12/05/16 07:38 12/05/16 07:38 - Medications Medications: Current Medications Aspirin (Ecotrin) 81 mg PO DAILY [facility] Last Admin: 11/27/16 09:20 Dose: 81 mg Atorvastatin Calcium (Lipitor) 10 mg PO DAILY [facility] Last Admin: 12/05/16 08:59 Dose: 10 mg Cholestyramine Resin (Questran) 4 gm PO BID [facility] Last Admin: 12/05/16 08:58 Dose: 4 gm Fluconazole (Diflucan Iv 100 Mg/50 Ml Ns) 50 mls @ 50 mls/hr IVPB DAILY [facility] Last Admin: 12/05/16 08:56 Dose: 50 mls/hr Lactated Ringer's (Lactated Ringer's) 1,000 mls @ 100 mls/hr IV .Q10H [facility] Last Admin: 12/04/16 16:11 Dose: 100 mls/hr Insulin Detemir (Levemir) 30 units SC HS [facility] Last Admin: 12/04/16 23:00 Dose: 30 units Insulin Human Lispro (Humalog) 0 units SC ACHS [facility] PRN Reason: Protocol Last Admin: 12/05/16 11:26 Dose: Not Given Insulin Human Lispro (Humalog) 10 units SC AC [facility] Last Admin: 12/05/16 11:25 Dose: 10 units Lactic Acid (Lac-Hydrin 12% Cream (140 G)) 1 ea TOP BID [facility] Last Admin: 12/05/16 08:58 Dose: 1 applic Lactobacillus Acidophilus (Bacid Acidophilus) 1 cap PO BID [facility] Last Admin: 12/05/16 08:55 Dose: 1 cap Loperamide HCl (Imodium) 2 mg PO Q6 [facility] Last Admin: 12/05/16 10:15 Dose: 2 mg Megestrol Acetate (Megace) 800 mg PO DAILY [facility] Last Admin: 12/05/16 08:58 Dose: 800 mg Ondansetron HCl (Zofran Inj) 4 mg IVP Q4 [facility] PRN Reason: Nausea/Vomiting Pantoprazole Sodium (Protonix Ec Tab) 40 mg PO DAILY [facility] Last Admin: 12/05/16 08:58 Dose: 40 mg - Labs Labs: 12/05/16 07:30 12/05/16 07:40 PT 13.5 SECONDS (9.6-11.2) H 11/17/16 14:50 INR 1.30 (0.92-1.08) H 11/17/16 14:50 APTT 26.0 SECONDS (23.3-32.5) 11/17/16 14:50 - GI/Abdominal Exam GI & Abdominal Exam: Soft, Normal Bowel Sounds Assessment and Plan - Assessment and Plan (Free Text) Assessment: 46 yo male with cdiff diarrhea resolving/resolved dc planning when able
--- NOTE | 2016-12-05 14:36 | CP.PCM.PN ---
<Allan Robin - Last Filed: 12/05/16 14:32> Subjective - Date & Time of Evaluation Date of Evaluation: 12/05/16 Time of Evaluation: 11:32 - Subjective Subjective: Patient seen and examined at bedside with attending. Patient states feeling well. No overnight complaints. Continues to have normal stools. Patient participated in PT this morning, continues to be debilitated. Sugars have been labile. Patient continues to feel week. Objective - Vital Signs/Intake and Output Vital Signs (last 24 hours): Temp Pulse Resp BP Pulse Ox 97.8 F 94 H 18 128/91 H 100 12/05/16 07:38 12/05/16 07:38 12/05/16 07:38 12/05/16 07:38 12/05/16 07:38 - Medications Medications: Current Medications Aspirin (Ecotrin) 81 mg PO DAILY [facility] Last Admin: 11/27/16 09:20 Dose: 81 mg Atorvastatin Calcium (Lipitor) 10 mg PO DAILY [facility] Last Admin: 12/05/16 08:59 Dose: 10 mg Cholestyramine Resin (Questran) 4 gm PO BID [facility] Last Admin: 12/05/16 08:58 Dose: 4 gm Fluconazole (Diflucan Iv 100 Mg/50 Ml Ns) 50 mls @ 50 mls/hr IVPB DAILY [facility] Last Admin: 12/05/16 08:56 Dose: 50 mls/hr Lactated Ringer's (Lactated Ringer's) 1,000 mls @ 100 mls/hr IV .Q10H [facility] Last Admin: 12/04/16 16:11 Dose: 100 mls/hr Insulin Detemir (Levemir) 30 units SC HS [facility] Last Admin: 12/04/16 23:00 Dose: 30 units Insulin Human Lispro (Humalog) 0 units SC ACHS [facility] PRN Reason: Protocol Last Admin: 12/05/16 11:26 Dose: Not Given Insulin Human Lispro (Humalog) 10 units SC AC [facility] Last Admin: 12/05/16 11:25 Dose: 10 units Lactic Acid (Lac-Hydrin 12% Cream (140 G)) 1 ea TOP BID [facility] Last Admin: 12/05/16 08:58 Dose: 1 applic Lactobacillus Acidophilus (Bacid Acidophilus) 1 cap PO BID [facility] Last Admin: 12/05/16 08:55 Dose: 1 cap Loperamide HCl (Imodium) 2 mg PO Q6 [facility] Last Admin: 12/05/16 10:15 Dose: 2 mg Megestrol Acetate (Megace) 800 mg PO DAILY [facility] Last Admin: 12/05/16 08:58 Dose: 800 mg Ondansetron HCl (Zofran Inj) 4 mg IVP Q4 PRN PRN Reason: Nausea/Vomiting Pantoprazole Sodium (Protonix Ec Tab) 40 mg PO DAILY [facility] Last Admin: 12/05/16 08:58 Dose: 40 mg - Labs Labs: 12/05/16 07:30 12/05/16 07:40 PT 13.5 SECONDS (9.6-11.2) H 11/17/16 14:50 INR 1.30 (0.92-1.08) H 11/17/16 14:50 APTT 26.0 SECONDS (23.3-32.5) 11/17/16 14:50 - Constitutional Appears: Well, Non-toxic, Unkempt - Head Exam Head Exam: ATRAUMATIC, NORMAL INSPECTION, NORMOCEPHALIC - Eye Exam Eye Exam: Normal appearance - Neck Exam Neck Exam: Normal Inspection - Respiratory Exam Respiratory Exam: Clear to Ausculation Bilateral, NORMAL BREATHING PATTERN - Cardiovascular Exam Cardiovascular Exam: REGULAR RHYTHM, +S1, +S2. absent: Murmur - GI/Abdominal Exam GI & Abdominal Exam: Soft, Normal Bowel Sounds. absent: Tenderness - Extremities Exam Extremities Exam: Normal Inspection - Back Exam Back Exam: NORMAL INSPECTION - Neurological Exam Neurological Exam: Alert, Awake, Oriented x3 - Psychiatric Exam Psychiatric exam: Normal Affect, Normal Mood - Skin Skin Exam: Dry, Intact, Normal Color, Warm Assessment and Plan (1) Clostridium difficile infection Status: Acute (2) Cystitis Status: Acute (3) Diabetes mellitus type 2 in nonobese Status: Chronic (4) BRITTNI (acute kidney injury) Status: Acute (5) Sterile pyuria Status: Acute (6) Hypertension Status: Chronic (7) DVT prophylaxis Status: Acute - Assessment and Plan (Free Text) Plan: -C. diff resolved -Clinically improved, though continues to have generalized weakness and glucose is labile/not controlled. -Endocrinology on board, consider a therapy for home and consideration of finances -on IV abx -ID on board, appreciate input, will need 2 wks of Diflucan therapy -nephro on board, appreciate input -PT/OT, continues to be debilitated, will need safe discharge. Noted to have decrease in BP during session. -toll transmission worker on board -c/w home meds <Justin Melgar - Last Filed: 12/10/16 07:55> Objective - Vital Signs/Intake and Output Vital Signs (last 24 hours): Temp Pulse Resp BP Pulse Ox 98.7 F 99 H 20 110/76 100 12/10/16 00:21 12/10/16 00:21 12/10/16 00:21 12/10/16 00:21 12/10/16 00:21 - Medications Medications: Current Medications Aspirin (Ecotrin) 81 mg PO DAILY [facility] Last Admin: 12/06/16 09:08 Dose: 81 mg Atorvastatin Calcium (Lipitor) 10 mg PO DAILY [facility] Last Admin: 12/09/16 08:56 Dose: 10 mg Cholestyramine Resin (Questran) 4 gm PO BID [facility] Last Admin: 12/09/16 16:41 Dose: 4 gm Fluconazole (Diflucan Iv 100 Mg/50 Ml Ns) 50 mls @ 50 mls/hr IVPB DAILY [facility] Last Admin: 12/09/16 11:34 Dose: 50 mls/hr Insulin Detemir (Levemir) 40 units SC HS [facility] Last Admin: 12/09/16 22:04 Dose: 40 units Insulin Human Lispro (Humalog) 0 units SC ACHS [facility] PRN Reason: Protocol Last Admin: 12/09/16 22:05 Dose: 2 unit Insulin Lispro Protam/Lispro Human (Humalog Mix 75/25) 5 units SC BIDAC [facility] Last Admin: 12/09/16 16:41 Dose: 5 units Lactic Acid (Lac-Hydrin 12% Lotion (225 G)) 1 applic TOP BID [facility] Last Admin: 12/09/16 16:42 Dose: 1 applic Lactobacillus Acidophilus (Bacid Acidophilus) 1 cap PO BID [facility] Last Admin: 12/09/16 16:45 Dose: 1 cap Loperamide HCl (Imodium) 2 mg PO Q6 [facility] Last Admin: 12/10/16 04:45 Dose: 2 mg Megestrol Acetate (Megace) 800 mg PO DAILY [facility] Last Admin: 12/09/16 08:56 Dose: 800 mg Ondansetron HCl (Zofran Inj) 4 mg IVP Q4 PRN PRN Reason: Nausea/Vomiting Pantoprazole Sodium (Protonix Ec Tab) 40 mg PO DAILY [facility] Last Admin: 12/09/16 08:56 Dose: 40 mg - Labs Labs: 12/10/16 05:40 12/10/16 05:40 PT 13.5 SECONDS (9.6-11.2) H 11/17/16 14:50 INR 1.30 (0.92-1.08) H 11/17/16 14:50 APTT 26.0 SECONDS (23.3-32.5) 11/17/16 14:50 Assessment and Plan (1) Diabetes mellitus type 2 in nonobese Status: Chronic (2) DKA (diabetic ketoacidoses) Status: Acute (3) Dehydration Status: Acute (4) BRITTNI (acute kidney injury) Status: Acute (5) Clostridium difficile infection Status: Acute (6) Metabolic acidosis Status: Resolved - Assessment and Plan (Free Text) Plan: I was present during evaluation and discussed with Dr Curry re plans of care Justin Melgar M.D.
[2016-12-05] MEDS: Lactated Ringer's 1,000 ML IV SCH ×2 (16:32→21:38)
--- NOTE | 2016-12-05 18:49 | PN ---
DATE: 12/05/2016 ROOM: 654. SUBJECTIVE: This is a 46-year-old male with recent uncontrolled type 2 insulin-requiring diabetes wi th marked glycemic fluctuations ____ . His glycemic levels are fluctuating, but much improved overni ght as noted today. His glucose levels have ranged from 170 - 268 mg/dL. His latest chemistry showe d a BUN of 35, sodium 143, potassium 5.1, chloride 112, CO2 of 22, glucose 214 and creatinine 1.6. S o, at this time, we will continue the same basal and bolus insulin regimen to allow for dose equilibr ation and keep her on the Humalog at 10 units subQ t.i.d. before meals as ordered. We will continue also the basal insulin given as Levemir at 30 units subQ at bedtime daily as given. We will titrate incrementally as indicated to optimize metabolic control. We will follow. Claudia Adame MD cc: [phone] TT: 12/05/2016 18:48:24 Confirmation # [id number] Dictation # [id number] terrence
[2016-12-05] MEDS: Insulin Detemir 100 Units/ml Inj SC SCH (21:39)
[2016-12-06] MEDS: Insulin Lispro (humaLOG) 100 Units/ml Inj SC SCH ×7 (07:35→22:01)
[2016-12-06] MEDS: Ammonium Lactate 12% Cream (140 g) TOP SCH ×2 (09:00→16:34)
[2016-12-06] MEDS: Fluconazole IV 100mg/50 ml NS 50 ML IVPB SCH (09:04)
[2016-12-06] MEDS: Megestrol Acetate 40 mg/ml Cup PO SCH (09:07)
[2016-12-06] MEDS: Cholestyramine 4 gm/Pkt UD PO SCH ×2 (09:07→16:31)
[2016-12-06] MEDS: Pantoprazole 40 mg EC Tab PO SCH (09:08)
[2016-12-06] MEDS: Lactobacillus Acidophilus 500 MU Cap PO SCH ×2 (09:13→16:28)
[2016-12-06] MEDS: Lactated Ringer's 1,000 ML IV SCH ×2 (09:19→20:42)
--- NOTE | 2016-12-06 18:49 | CP.PCM.PN ---
Subjective - Date & Time of Evaluation Date of Evaluation: 12/06/16 Time of Evaluation: 18:45 - Subjective Subjective: Follow up Nephrology Consultation Note Assessment: BRITTNI likely due to pre-renal state and eventually leading to ATN (improved). Episodes of BRITTNI in past with resulting cr 1.5-1.7 NAGMA ? due to GI loss or impaired kidney function/obstructive uropathy or combination of two and superimposed DKA: IMPROVED microscopic hematuria with Bacteriuria and b/l hydroureteronephrosis with bladder wall thickening s/p cystoscopy 11/28/16 Clostridium difficille infection, DM, Anemia Plan renal function improved and stabilized with some intermittent fluctuation glycemic control his cholestyramine was restarted, monitor serum bicarb level, if acidosis worsens then reconsider to d/c it. may need bicarb supplementation Patient not on ACEI/ARB due to recent BRITTNI and mostly low BP Dose meds/antibiotics for improved GFR. Avoid fleets enema/magnesium based laxatives. Avoid nephrotoxins/NSAIDs/ iodinated contrast (unless needed emergently) Further work up for as per primary team. Thanks for allowing me to participate in care of your patient. Please call if any Qs Dr Aaron Reyes Office: [phone] Subjective: Noted events overnight. Patient denies any complaints. no CP/SOB/ pain abdomen or urinary complaints Physical Examination: General Appearance: Comfortable, in no acute respiratory distress, Vitals reviewed and noted as below Lungs: Normal respiratory rate/effort. Breath sounds bilateral equal and clear Heart: Normal rate. s1s2 normal. No rub or gallop. Extremities: no edema. Neurological: Patient is AO x 3 no apparent deficit. Skin: Warm and dry. Normal turgor. No rash. Palpitation: Normal elasticity for age Abdomen: Abdomen is soft. Bowel sounds +. There is no abdominal tenderness, no guarding/rigidity or organomegaly : kidney or bladder not palpable Labs/imaging reviewed. Past medical history, past surgical history, family history, social history, allergy reviewed and noted as below Echo normal LVEF Urine cx: yeast C diff + CT abdomen: b/l hydroureteronephrosis with bladder wall thickening Objective - Vital Signs/Intake and Output Vital Signs (last 24 hours): Temp Pulse Resp BP Pulse Ox 98.7 F 92 H 20 145/98 H 100 12/06/16 16:31 06/03/17 16:31 12/06/16 16:31 12/06/16 16:31 12/06/16 16:31 - Medications Medications: Current Medications Aspirin (Ecotrin) 81 mg PO DAILY [facility] Last Admin: 12/06/16 09:08 Dose: 81 mg Atorvastatin Calcium (Lipitor) 10 mg PO DAILY [facility] Last Admin: 12/06/16 09:08 Dose: 10 mg Cholestyramine Resin (Questran) 4 gm PO BID [facility] Last Admin: 12/06/16 16:31 Dose: 4 gm Fluconazole (Diflucan Iv 100 Mg/50 Ml Ns) 50 mls @ 50 mls/hr IVPB DAILY [facility] Last Admin: 12/06/16 09:04 Dose: 50 mls/hr Lactated Ringer's (Lactated Ringer's) 1,000 mls @ 100 mls/hr IV .Q10H [facility] Last Admin: 12/06/16 09:19 Dose: 100 mls/hr Insulin Detemir (Levemir) 30 units SC HS [facility] Last Admin: 12/05/16 21:39 Dose: 30 units Insulin Human Lispro (Humalog) 0 units SC ACHS [facility] PRN Reason: Protocol Last Admin: 12/06/16 11:30 Dose: 15 units Insulin Human Lispro (Humalog) 10 units SC AC [facility] Last Admin: 12/06/16 16:29 Dose: 10 units Lactic Acid (Lac-Hydrin 12% Cream (140 G)) 1 ea TOP BID [facility] Last Admin: 12/06/16 16:34 Dose: 1 applic Lactobacillus Acidophilus (Bacid Acidophilus) 1 cap PO BID [facility] Last Admin: 12/06/16 16:28 Dose: 1 cap Loperamide HCl (Imodium) 2 mg PO Q6 [facility] Last Admin: 12/06/16 16:31 Dose: 2 mg Megestrol Acetate (Megace) 800 mg PO DAILY [facility] Last Admin: 12/06/16 09:07 Dose: 800 mg Ondansetron HCl (Zofran Inj) 4 mg IVP Q4 PRN PRN Reason: Nausea/Vomiting Pantoprazole Sodium (Protonix Ec Tab) 40 mg PO DAILY [facility] Last Admin: 12/06/16 09:08 Dose: 40 mg - Labs Labs: 12/05/16 07:30 12/05/16 07:40 PT 13.5 SECONDS (9.6-11.2) H 11/17/16 14:50 INR 1.30 (0.92-1.08) H 11/17/16 14:50 APTT 26.0 SECONDS (23.3-32.5) 11/17/16 14:50
[2016-12-06] MEDS: Insulin Detemir 100 Units/ml Inj SC SCH (22:00)
[2016-12-07] MEDS: Lactated Ringer's 1,000 ML IV SCH (06:00)
[2016-12-07] MEDS: Cholestyramine 4 gm/Pkt UD PO SCH ×2 (09:57→16:50)
[2016-12-07] MEDS: Megestrol Acetate 40 mg/ml Cup PO SCH (09:58)
[2016-12-07] MEDS: Ammonium Lactate 12% Cream (140 g) TOP SCH ×2 (09:59→16:49)
[2016-12-07] MEDS: Pantoprazole 40 mg EC Tab PO SCH (09:59)
[2016-12-07] MEDS: Insulin Lispro (humaLOG) 100 Units/ml Inj SC SCH ×7 (10:02→22:35)
[2016-12-07] MEDS: Fluconazole IV 100mg/50 ml NS 50 ML IVPB SCH (10:27)
[2016-12-07] MEDS: Lactobacillus Acidophilus 500 MU Cap PO SCH ×2 (10:27→16:45)
--- NOTE | 2016-12-07 11:43 | PN ---
DATE: 12/07/2016 ROOM: 654 This is a 46-year-old male with recent uncontrolled type 2 insulin-requiring diabetes, now being foll owed closely for metabolic management. His glycemic levels continue to fluctuate as noted overnight with glucose values ranging from 260-365 and 384 mg/dL. His oral intake continues to be quite variable as per the nursing staff. He remains hemodynamically stable at this time. So for now, we will modify once again his basal and bolus insulin regimen and increase the Levemir to 34 units subQ at bedtime daily to start tonight. We will also increase the Humalog to 14 units subQ t.i.d. before meals to start at lunchtime today as ordered. We will continue the IV hydration as gi adalgisa. We will also continue the low-dose correction scale using Humalog insulin as given. We will ti trate incrementally as indicated to optimize metabolic control. We will obtain serial chemistries an d supplement accordingly as needed. We will follow. Claudia Adame MD cc: [phone] TT: 12/07/2016 11:41:55 Confirmation # [id number] Dictation # [id number] en
--- NOTE | 2016-12-07 12:53 | CP.PCM.PN ---
Subjective - Date & Time of Evaluation Date of Evaluation: 12/07/16 Time of Evaluation: 08:00 - Subjective Subjective: Patient states feeling well. No overnight complaints. Continues to have normal stools. Patient participated in PT this morning, continues to be debilitated. Sugars have been labile. Patient continues to feel week. Objective - Vital Signs/Intake and Output Vital Signs (last 24 hours): Temp Pulse Resp BP Pulse Ox 98.3 F 91 H 20 136/96 H 100 12/07/16 08:14 12/07/16 08:14 12/07/16 08:14 12/07/16 08:14 12/07/16 08:14 - Medications Medications: Current Medications Aspirin (Ecotrin) 81 mg PO DAILY [facility] Last Admin: 12/06/16 09:08 Dose: 81 mg Atorvastatin Calcium (Lipitor) 10 mg PO DAILY [facility] Last Admin: 12/07/16 09:58 Dose: 10 mg Cholestyramine Resin (Questran) 4 gm PO BID [facility] Last Admin: 12/07/16 09:57 Dose: 4 gm Fluconazole (Diflucan Iv 100 Mg/50 Ml Ns) 50 mls @ 50 mls/hr IVPB DAILY [facility] Last Admin: 12/07/16 10:27 Dose: 50 mls/hr Lactated Ringer's (Lactated Ringer's) 1,000 mls @ 100 mls/hr IV .Q10H [facility] Last Admin: 12/07/16 06:00 Dose: 100 mls/hr Insulin Detemir (Levemir) 34 units SC HS [facility] Insulin Human Lispro (Humalog) 14 units SC AC [facility] Last Admin: 12/07/16 12:30 Dose: 14 units Insulin Human Lispro (Humalog) 0 units SC ACHS [facility] PRN Reason: Protocol Last Admin: 12/07/16 12:32 Dose: Not Given Lactic Acid (Lac-Hydrin 12% Cream (140 G)) 1 ea TOP BID [facility] Last Admin: 12/07/16 09:59 Dose: 1 applic Lactobacillus Acidophilus (Bacid Acidophilus) 1 cap PO BID [facility] Last Admin: 12/07/16 10:27 Dose: 1 cap Loperamide HCl (Imodium) 2 mg PO Q6 [facility] Last Admin: 12/07/16 09:58 Dose: 2 mg Megestrol Acetate (Megace) 800 mg PO DAILY [facility] Last Admin: 12/07/16 09:58 Dose: 800 mg Ondansetron HCl (Zofran Inj) 4 mg IVP Q4 PRN PRN Reason: Nausea/Vomiting Pantoprazole Sodium (Protonix Ec Tab) 40 mg PO DAILY [facility] Last Admin: 12/07/16 09:59 Dose: 40 mg - Labs Labs: 12/05/16 07:30 12/05/16 07:40 PT 13.5 SECONDS (9.6-11.2) H 11/17/16 14:50 INR 1.30 (0.92-1.08) H 11/17/16 14:50 APTT 26.0 SECONDS (23.3-32.5) 11/17/16 14:50 - Constitutional Appears: Non-toxic, Cachectic, Chronically Ill - Head Exam Head Exam: NORMOCEPHALIC - Eye Exam Eye Exam: PERRL. absent: Scleral icterus - ENT Exam ENT Exam: Mucous Membranes Dry - Neck Exam Neck Exam: absent: Lymphadenopathy - Respiratory Exam Respiratory Exam: Decreased Breath Sounds, Rhonchi - Cardiovascular Exam Cardiovascular Exam: REGULAR RHYTHM, +S1, +S2 - GI/Abdominal Exam GI & Abdominal Exam: Distended, Soft. absent: Tenderness - Rectal Exam Rectal Exam: Deferred - Exam Exam: NORMAL INSPECTION - Extremities Exam Extremities Exam: absent: Pedal Edema - Back Exam Back Exam: absent: CVA tenderness (L), CVA tenderness (R), paraspinal tenderness - Neurological Exam Neurological Exam: Alert, Awake, Oriented x3 - Psychiatric Exam Psychiatric exam: Normal Mood - Skin Skin Exam: Dry Assessment and Plan (1) DKA (diabetic ketoacidoses) Status: Acute (2) Dehydration Status: Acute (3) Sepsis Status: Acute (4) BRITTNI (acute kidney injury) Status: Acute (5) Clostridium difficile infection Status: Acute (6) DVT prophylaxis Status: Acute (7) Diarrhea Status: Acute (8) History of hypercholesterolemia Status: Acute
--- NOTE | 2016-12-07 16:49 | CP.PCM.PN ---
Subjective - Date & Time of Evaluation Date of Evaluation: 12/07/16 Time of Evaluation: 16:48 - Subjective Subjective: Follow up Nephrology Consultation Note Assessment: BRITTNI likely due to pre-renal state and eventually leading to ATN (improved). Episodes of BRITTNI in past with resulting cr 1.5-1.7 NAGMA ? due to GI loss or impaired kidney function/obstructive uropathy or combination of two and superimposed DKA: IMPROVED microscopic hematuria with Bacteriuria and b/l hydroureteronephrosis with bladder wall thickening s/p cystoscopy 11/28/16 Clostridium diff infection, DM, Anemia Plan renal function improved and stabilized with some intermittent fluctuation glycemic control his cholestyramine was restarted, monitor serum bicarb level, if acidosis worsens then reconsider to d/c it. may need bicarb supplementation Patient not on ACEI/ARB due to recent BRITTNI and mostly low BP, also with dizziness on standing Dose meds/antibiotics for improved GFR. Avoid fleets enema/magnesium based laxatives. Avoid nephrotoxins/NSAIDs/ iodinated contrast (unless needed emergently) Further work up for as per primary team. Thanks for allowing me to participate in care of your patient. Please call if any Qs Dr Aaron Reyes Office: [phone] Subjective: Noted events overnight. Patient denies any complaints. no CP/SOB/ pain abdomen or urinary complaints. sometime has dizziness on standing Physical Examination: General Appearance: Comfortable, in no acute respiratory distress, Vitals reviewed and noted as below Lungs: Normal respiratory rate/effort. Breath sounds bilateral equal and clear Heart: Normal rate. s1s2 normal. No rub or gallop. Extremities: no edema. Neurological: Patient is AO x 3 no apparent deficit. Skin: Warm and dry. Normal turgor. No rash. Palpitation: Normal elasticity for age Abdomen: Abdomen is soft. Bowel sounds +. There is no abdominal tenderness, no guarding/rigidity or organomegaly : kidney or bladder not palpable Labs/imaging reviewed. Past medical history, past surgical history, family history, social history, allergy reviewed and noted as below Echo normal LVEF Urine cx: yeast C diff + CT abdomen: b/l hydroureteronephrosis with bladder wall thickening Objective - Vital Signs/Intake and Output Vital Signs (last 24 hours): Temp Pulse Resp BP Pulse Ox 98.3 F 91 H 20 136/96 H 100 12/07/16 08:14 12/07/16 08:14 12/07/16 08:14 12/07/16 08:14 12/07/16 08:14 - Medications Medications: Current Medications Aspirin (Ecotrin) 81 mg PO DAILY [facility] Last Admin: 12/06/16 09:08 Dose: 81 mg Atorvastatin Calcium (Lipitor) 10 mg PO DAILY [facility] Last Admin: 12/07/16 09:58 Dose: 10 mg Cholestyramine Resin (Questran) 4 gm PO BID [facility] Last Admin: 12/07/16 09:57 Dose: 4 gm Fluconazole (Diflucan Iv 100 Mg/50 Ml Ns) 50 mls @ 50 mls/hr IVPB DAILY [facility] Last Admin: 12/07/16 10:27 Dose: 50 mls/hr Insulin Detemir (Levemir) 34 units SC HS [facility] Insulin Human Lispro (Humalog) 14 units SC AC [facility] Last Admin: 12/07/16 12:30 Dose: 14 units Insulin Human Lispro (Humalog) 0 units SC ACHS [facility] PRN Reason: Protocol Last Admin: 12/07/16 12:32 Dose: Not Given Lactic Acid (Lac-Hydrin 12% Cream (140 G)) 1 ea TOP BID [facility] Last Admin: 12/07/16 09:59 Dose: 1 applic Lactobacillus Acidophilus (Bacid Acidophilus) 1 cap PO BID [facility] Last Admin: 12/07/16 10:27 Dose: 1 cap Loperamide HCl (Imodium) 2 mg PO Q6 [facility] Last Admin: 12/07/16 09:58 Dose: 2 mg Megestrol Acetate (Megace) 800 mg PO DAILY [facility] Last Admin: 12/07/16 09:58 Dose: 800 mg Ondansetron HCl (Zofran Inj) 4 mg IVP Q4 PRN PRN Reason: Nausea/Vomiting Pantoprazole Sodium (Protonix Ec Tab) 40 mg PO DAILY [facility] Last Admin: 12/07/16 09:59 Dose: 40 mg - Labs Labs: 12/05/16 07:30 12/05/16 07:40 PT 13.5 SECONDS (9.6-11.2) H 11/17/16 14:50 INR 1.30 (0.92-1.08) H 11/17/16 14:50 APTT 26.0 SECONDS (23.3-32.5) 11/17/16 14:50
[2016-12-07] MEDS ORDERED: Insulin Detemir 100 Units/ml Inj SC SCH (22:00)
[2016-12-08 08:01] LABS: BASO % 0.3 % (0.0-2.0); EOS # 0.1 K/uL (0.0-0.7); EOS % 0.6 % (0.0-4.0); HEMATOCRIT 29.2 % (35.0-51.0); LYMPH # 1.5 K/uL (1.0-4.3); LYMPH % 14.3 % (20.0-40.0); MEAN CORPUSCULAR HEMOGLOBIN 28.2 pg (27.0-31.0); MEAN CORPUSCULAR HGB CONC 32.4 g/dL (33.0-37.0); MEAN PLATELET VOLUME 7.9 fl (7.2-11.7); MONO # 0.7 K/uL (0.0-0.8); NEUT # 8.2 K/uL (1.8-7.0); NEUT % 77.8 % (50.0-75.0); NRBC % 0.1 % (0.0-0.0); RED CELL DISTRIBUTION WIDTH 15.1 % (11.5-14.5); WHITE BLOOD COUNT 10.6 K/uL (4.8-10.8)
[2016-12-08] MEDS: Lactobacillus Acidophilus 500 MU Cap PO SCH ×2 (08:19→17:10)
[2016-12-08] MEDS: Fluconazole IV 100mg/50 ml NS 50 ML IVPB SCH (08:21)
[2016-12-08 08:22] LABS: ALB/GLOB RATIO 0.7 (1.0-2.1); BILIRUBIN,TOTAL 0.1 mg/dl (0.2-1.3); CALCIUM 9.1 mg/dL (8.4-10.2); POTASSIUM 4.6 MMOL/L (3.6-5.0); TOTAL PROTEIN 8.1 G/DL (6.3-8.2)
[2016-12-08] MEDS: Insulin Lispro (humaLOG) 100 Units/ml Inj SC SCH ×8 (08:24→22:10)
[2016-12-08] MEDS: Ammonium Lactate 12% Cream (140 g) TOP SCH ×2 (08:25→17:19)
[2016-12-08] MEDS: Megestrol Acetate 40 mg/ml Cup PO SCH (08:26)
--- NOTE | 2016-12-08 08:26 | PN ---
DATE: 12/06/2016 LOCATION: Room 654 This is a [id number] with ____ at this times with extremes of glycemic fluctuations ____ over t he last day or so. His glucose values today have ranged from 165-295 mg/dL. His latest chemistry sh owed a BUN of 35, sodium 143, potassium 5.1, chloride 104, CO2 22, glucose 214, and creatinine 1.6. So at this time we will continue the same basal and bolus insulin regimen to allow for dose equilibra tion and keep him on the Levemir given as 30 units subQ ____ We will continue the Humalog given as 10 units subQ t.i.d. ____ Claudia Adame MD cc: [id number] TT: 12/06/2016 10:44:34 Confirmation # [id number] Dictation # [id number] terrence
[2016-12-08] MEDS: Cholestyramine 4 gm/Pkt UD PO SCH ×2 (08:27→17:12)
[2016-12-08] MEDS: Pantoprazole 40 mg EC Tab PO SCH (08:27)
--- NOTE | 2016-12-08 11:38 | CP.PCM.PN ---
Subjective - Date & Time of Evaluation Date of Evaluation: 12/08/16 Time of Evaluation: 11:37 - Subjective Subjective: still very weak stools are soft Has no chest pain or SOB Objective - Vital Signs/Intake and Output Vital Signs (last 24 hours): Temp Pulse Resp BP Pulse Ox 98.1 F 92 H 20 131/90 100 12/08/16 07:51 12/08/16 07:51 12/08/16 07:51 12/08/16 07:51 12/08/16 07:51 - Medications Medications: Current Medications Aspirin (Ecotrin) 81 mg PO DAILY [facility] Last Admin: 12/06/16 09:08 Dose: 81 mg Atorvastatin Calcium (Lipitor) 10 mg PO DAILY [facility] Last Admin: 12/08/16 08:26 Dose: 10 mg Cholestyramine Resin (Questran) 4 gm PO BID [facility] Last Admin: 12/08/16 08:27 Dose: 4 gm Fluconazole (Diflucan Iv 100 Mg/50 Ml Ns) 50 mls @ 50 mls/hr IVPB DAILY [facility] Last Admin: 12/08/16 08:21 Dose: 50 mls/hr Insulin Detemir (Levemir) 40 units SC HS [facility] Insulin Human Lispro (Humalog) 0 units SC ACHS [facility] PRN Reason: Protocol Last Admin: 12/08/16 08:25 Dose: Not Given Insulin Human Lispro (Humalog) 20 units SC AC [facility] Last Admin: 12/08/16 08:24 Dose: 20 units Lactic Acid (Lac-Hydrin 12% Cream (140 G)) 1 ea TOP BID [facility] Last Admin: 12/08/16 08:25 Dose: 1 applic Lactobacillus Acidophilus (Bacid Acidophilus) 1 cap PO BID [facility] Last Admin: 12/08/16 08:19 Dose: 1 cap Loperamide HCl (Imodium) 2 mg PO Q6 [facility] Last Admin: 12/08/16 08:59 Dose: 2 mg Megestrol Acetate (Megace) 800 mg PO DAILY [facility] Last Admin: 12/08/16 08:26 Dose: 800 mg Ondansetron HCl (Zofran Inj) 4 mg IVP Q4 PRN PRN Reason: Nausea/Vomiting Pantoprazole Sodium (Protonix Ec Tab) 40 mg PO DAILY [facility] Last Admin: 12/08/16 08:27 Dose: 40 mg - Labs Labs: 12/08/16 07:48 12/08/16 07:48 PT 13.5 SECONDS (9.6-11.2) H 11/17/16 14:50 INR 1.30 (0.92-1.08) H 11/17/16 14:50 APTT 26.0 SECONDS (23.3-32.5) 11/17/16 14:50 - Head Exam Head Exam: NORMAL INSPECTION - Eye Exam Eye Exam: Normal appearance - Respiratory Exam Respiratory Exam: Clear to Ausculation Bilateral - Cardiovascular Exam Cardiovascular Exam: REGULAR RHYTHM - GI/Abdominal Exam GI & Abdominal Exam: Normal Bowel Sounds - Neurological Exam Neurological Exam: Awake - Psychiatric Exam Psychiatric exam: Flat Affect Assessment and Plan (1) Diabetes mellitus type 2 in nonobese Status: Chronic (2) DKA (diabetic ketoacidoses) Status: Acute (3) Dehydration Status: Acute (4) BRITTNI (acute kidney injury) Status: Acute (5) Clostridium difficile infection Status: Acute (6) Metabolic acidosis Status: Resolved (7) Incontinence of feces Status: Acute (8) Malabsorption due to intolerance, not elsewhere classified Status: Acute (9) Physical debility Status: Acute - Assessment and Plan (Free Text) Plan: cont meds cont tx cont PT discharge plans
--- NOTE | 2016-12-08 11:39 | CP.PCM.PN ---
Subjective - Date & Time of Evaluation Date of Evaluation: 12/06/16 Time of Evaluation: 10:00 - Subjective Subjective: Patient was more awake Has no fever Has no chest pain or SOB afebrile. Objective - Vital Signs/Intake and Output Vital Signs (last 24 hours): Temp Pulse Resp BP Pulse Ox 98.1 F 92 H 20 131/90 100 12/08/16 07:51 12/08/16 07:51 12/08/16 07:51 12/08/16 07:51 12/08/16 07:51 - Medications Medications: Current Medications Aspirin (Ecotrin) 81 mg PO DAILY [facility] Last Admin: 12/06/16 09:08 Dose: 81 mg Atorvastatin Calcium (Lipitor) 10 mg PO DAILY [facility] Last Admin: 12/08/16 08:26 Dose: 10 mg Cholestyramine Resin (Questran) 4 gm PO BID [facility] Last Admin: 12/08/16 08:27 Dose: 4 gm Fluconazole (Diflucan Iv 100 Mg/50 Ml Ns) 50 mls @ 50 mls/hr IVPB DAILY [facility] Last Admin: 12/08/16 08:21 Dose: 50 mls/hr Insulin Detemir (Levemir) 40 units SC HS [facility] Insulin Human Lispro (Humalog) 0 units SC ACHS [facility] PRN Reason: Protocol Last Admin: 12/08/16 08:25 Dose: Not Given Insulin Human Lispro (Humalog) 20 units SC AC [facility] Last Admin: 12/08/16 08:24 Dose: 20 units Lactic Acid (Lac-Hydrin 12% Cream (140 G)) 1 ea TOP BID [facility] Last Admin: 12/08/16 08:25 Dose: 1 applic Lactobacillus Acidophilus (Bacid Acidophilus) 1 cap PO BID [facility] Last Admin: 12/08/16 08:19 Dose: 1 cap Loperamide HCl (Imodium) 2 mg PO Q6 [facility] Last Admin: 12/08/16 08:59 Dose: 2 mg Megestrol Acetate (Megace) 800 mg PO DAILY [facility] Last Admin: 12/08/16 08:26 Dose: 800 mg Ondansetron HCl (Zofran Inj) 4 mg IVP Q4 PRN PRN Reason: Nausea/Vomiting Pantoprazole Sodium (Protonix Ec Tab) 40 mg PO DAILY [facility] Last Admin: 12/08/16 08:27 Dose: 40 mg - Labs Labs: 12/08/16 07:48 12/08/16 07:48 PT 13.5 SECONDS (9.6-11.2) H 11/17/16 14:50 INR 1.30 (0.92-1.08) H 11/17/16 14:50 APTT 26.0 SECONDS (23.3-32.5) 11/17/16 14:50 - Head Exam Head Exam: NORMAL INSPECTION - Eye Exam Eye Exam: Normal appearance - ENT Exam ENT Exam: Mucous Membranes Moist - Respiratory Exam Respiratory Exam: Clear to Ausculation Bilateral - Cardiovascular Exam Cardiovascular Exam: REGULAR RHYTHM - GI/Abdominal Exam GI & Abdominal Exam: Normal Bowel Sounds - Psychiatric Exam Psychiatric exam: Flat Affect - Skin Skin Exam: Dry Assessment and Plan (1) Diabetes mellitus type 2 in nonobese Status: Chronic (2) DKA (diabetic ketoacidoses) Status: Acute (3) Dehydration Status: Acute (4) BRITTNI (acute kidney injury) Status: Acute (5) Clostridium difficile infection Status: Acute (6) Metabolic acidosis Status: Resolved (7) Incontinence of feces Status: Acute (8) Malabsorption due to intolerance, not elsewhere classified Status: Acute (9) Physical debility Status: Acute - Assessment and Plan (Free Text) Plan: contmeds adjust insulin cont hydration Phys therapy
--- NOTE | 2016-12-08 16:53 | PN ---
DATE: 12/08/2016 ROOM: 654 This is a 46-year-old male with recent uncontrolled type 2 insulin-requiring diabetes with extremes o f glycemic fluctuation and now once again has supervening marked hyperglycemic accelerations overnigh t with glucose values ranging from 490 to 498 and over 500 mg/dL last night. His glucose values toda y have ranged from 95 to 342 and 481 mg/dL. His latest chemistries include a BUN of 35, sodium 136, potassium 4.6, chloride 108, CO2 of 20, glucose 481 and creatinine 1.6. So, at this time, we will modify once again his basal and bolus insulin regimen and increase the Leve breezy to 40 units subQ at bedtime daily to start tonight. We will also increase the Humalog to 20 unit s subQ t.i.d. before meals to start at breakfast time today as ordered. As his glucose values improv e, we will cut him down once again to 14 units subQ t.i.d. before meals as ordered. We will titrate incrementally as indicated to optimize metabolic control. We will follow. Claudia Adame MD cc: [id number] TT: 12/08/2016 16:53:09 Confirmation # [id number] Dictation # [id number]
[2016-12-08] MEDS: Insulin Detemir 100 Units/ml Inj SC SCH (22:08)
[2016-12-09] MEDS: Pantoprazole 40 mg EC Tab PO SCH (08:56)
[2016-12-09] MEDS: Cholestyramine 4 gm/Pkt UD PO SCH ×2 (08:56→16:41)
[2016-12-09] MEDS: Megestrol Acetate 40 mg/ml Cup PO SCH (08:56)
[2016-12-09] MEDS: Insulin Lispro (humaLOG) 100 Units/ml Inj SC SCH ×6 (08:57→22:05)
[2016-12-09] MEDS: Lactobacillus Acidophilus 500 MU Cap PO SCH ×2 (09:03→16:45)
[2016-12-09] MEDS: Ammonium Lactate 12% Cream (140 g) TOP SCH (09:03)
[2016-12-09] MEDS: Fluconazole IV 100mg/50 ml NS 50 ML IVPB SCH (11:34)
--- NOTE | 2016-12-09 14:18 | CP.PCM.PN ---
<Allan Robin - Last Filed: 12/09/16 14:16> Subjective - Date & Time of Evaluation Date of Evaluation: 12/09/16 Time of Evaluation: 10:18 - Subjective Subjective: Patient seen and examined at bedside with attending. No overnight complaints. Continues to have normal stools. Sugars have been labile but improving. Patient continues to feel weak/debilitated. Objective - Vital Signs/Intake and Output Vital Signs (last 24 hours): Temp Pulse Resp BP Pulse Ox 98.3 F 99 H 18 102/71 100 12/09/16 07:41 12/09/16 07:41 12/09/16 07:41 12/09/16 07:41 12/09/16 07:41 - Medications Medications: Current Medications Aspirin (Ecotrin) 81 mg PO DAILY [facility] Last Admin: 12/06/16 09:08 Dose: 81 mg Atorvastatin Calcium (Lipitor) 10 mg PO DAILY [facility] Last Admin: 12/09/16 08:56 Dose: 10 mg Cholestyramine Resin (Questran) 4 gm PO BID [facility] Last Admin: 12/09/16 08:56 Dose: 4 gm Fluconazole (Diflucan Iv 100 Mg/50 Ml Ns) 50 mls @ 50 mls/hr IVPB DAILY [facility] Last Admin: 12/09/16 11:34 Dose: 50 mls/hr Insulin Detemir (Levemir) 40 units SC HS [facility] Last Admin: 12/08/16 22:08 Dose: 40 units Insulin Human Lispro (Humalog) 0 units SC ACHS [facility] PRN Reason: Protocol Last Admin: 12/09/16 11:36 Dose: Not Given Insulin Lispro Protam/Lispro Human (Humalog Mix 75/25) 5 units SC BIDAC [facility] Lactic Acid (Lac-Hydrin 12% Lotion (225 G)) 1 applic TOP BID [facility] Lactobacillus Acidophilus (Bacid Acidophilus) 1 cap PO BID [facility] Last Admin: 12/09/16 09:03 Dose: 1 cap Loperamide HCl (Imodium) 2 mg PO Q6 [facility] Last Admin: 12/09/16 09:03 Dose: 2 mg Megestrol Acetate (Megace) 800 mg PO DAILY [facility] Last Admin: 12/09/16 08:56 Dose: 800 mg Ondansetron HCl (Zofran Inj) 4 mg IVP Q4 PRN PRN Reason: Nausea/Vomiting Pantoprazole Sodium (Protonix Ec Tab) 40 mg PO DAILY [facility] Last Admin: 12/09/16 08:56 Dose: 40 mg - Labs Labs: 12/08/16 07:48 12/08/16 07:48 PT 13.5 SECONDS (9.6-11.2) H 11/17/16 14:50 INR 1.30 (0.92-1.08) H 11/17/16 14:50 APTT 26.0 SECONDS (23.3-32.5) 11/17/16 14:50 - Constitutional Appears: Non-toxic, No Acute Distress, Unkempt - Head Exam Head Exam: NORMAL INSPECTION - Eye Exam Eye Exam: Normal appearance - Respiratory Exam Respiratory Exam: Clear to Ausculation Bilateral, NORMAL BREATHING PATTERN - Cardiovascular Exam Cardiovascular Exam: REGULAR RHYTHM, +S1, +S2. absent: Murmur - GI/Abdominal Exam GI & Abdominal Exam: Soft, Normal Bowel Sounds. absent: Tenderness - Neurological Exam Neurological Exam: Alert, Awake - Psychiatric Exam Psychiatric exam: Normal Affect, Normal Mood - Skin Skin Exam: Dry, Normal Color, Warm Assessment and Plan (1) Clostridium difficile infection Status: Acute (2) Cystitis Status: Acute (3) Diabetes mellitus type 2 in nonobese Status: Chronic (4) BRITTNI (acute kidney injury) Status: Acute (5) Sterile pyuria Status: Acute (6) Hypertension Status: Chronic (7) DVT prophylaxis Status: Acute - Assessment and Plan (Free Text) Plan: -C. diff resolved, no diarrhea -Clinically improved, though continues to have generalized weakness and glucose is labile/not controlled. (though improvement noted) -Endocrinology on board, appreciate recommendations -will c/w Levemir 40U HS and 75/25 5U BID.Accuchecks ACHS -on IV abx -ID on board, appreciate input, will need 2 wks of Diflucan therapy -nephro on board, appreciate input -PT/OT, continues to be debilitated, will need safe discharge. -human services worker on board, dispo planning in progress -c/w home meds <Justin Melgar - Last Filed: 12/10/16 07:56> Objective - Vital Signs/Intake and Output Vital Signs (last 24 hours): Temp Pulse Resp BP Pulse Ox 98.7 F 99 H 20 110/76 100 12/10/16 00:21 12/10/16 00:21 12/10/16 00:21 12/10/16 00:21 12/10/16 00:21 - Medications Medications: Current Medications Aspirin (Ecotrin) 81 mg PO DAILY [facility] Last Admin: 12/06/16 09:08 Dose: 81 mg Atorvastatin Calcium (Lipitor) 10 mg PO DAILY [facility] Last Admin: 12/09/16 08:56 Dose: 10 mg Cholestyramine Resin (Questran) 4 gm PO BID [facility] Last Admin: 12/09/16 16:41 Dose: 4 gm Fluconazole (Diflucan Iv 100 Mg/50 Ml Ns) 50 mls @ 50 mls/hr IVPB DAILY [facility] Last Admin: 12/09/16 11:34 Dose: 50 mls/hr Insulin Detemir (Levemir) 40 units SC HS [facility] Last Admin: 12/09/16 22:04 Dose: 40 units Insulin Human Lispro (Humalog) 0 units SC ACHS [facility] PRN Reason: Protocol Last Admin: 12/09/16 22:05 Dose: 2 unit Insulin Lispro Protam/Lispro Human (Humalog Mix 75/25) 5 units SC BIDAC [facility] Last Admin: 12/09/16 16:41 Dose: 5 units Lactic Acid (Lac-Hydrin 12% Lotion (225 G)) 1 applic TOP BID [facility] Last Admin: 12/09/16 16:42 Dose: 1 applic Lactobacillus Acidophilus (Bacid Acidophilus) 1 cap PO BID [facility] Last Admin: 12/09/16 16:45 Dose: 1 cap Loperamide HCl (Imodium) 2 mg PO Q6 [facility] Last Admin: 12/10/16 04:45 Dose: 2 mg Megestrol Acetate (Megace) 800 mg PO DAILY [facility] Last Admin: 12/09/16 08:56 Dose: 800 mg Ondansetron HCl (Zofran Inj) 4 mg IVP Q4 PRN PRN Reason: Nausea/Vomiting Pantoprazole Sodium (Protonix Ec Tab) 40 mg PO DAILY [facility] Last Admin: 12/09/16 08:56 Dose: 40 mg - Labs Labs: 12/10/16 05:40 12/10/16 05:40 PT 13.5 SECONDS (9.6-11.2) H 11/17/16 14:50 INR 1.30 (0.92-1.08) H 11/17/16 14:50 APTT 26.0 SECONDS (23.3-32.5) 11/17/16 14:50 Assessment and Plan (1) Diabetes mellitus type 2 in nonobese Status: Chronic (2) DKA (diabetic ketoacidoses) Status: Acute (3) Dehydration Status: Acute (4) BRITTNI (acute kidney injury) Status: Acute (5) Clostridium difficile infection Status: Acute (6) Metabolic acidosis Status: Resolved - Assessment and Plan (Free Text) Plan: Discussed with Dr Lobito hughes plans of care and discharge plans.
--- NOTE | 2016-12-09 15:50 | PN ---
DATE: 12/09/2016 ROOM: 654 This is a 46-year-old male with recent uncontrolled type 2 insulin-requiring diabetes, now being foll owed closely for metabolic management. Today, he also has supervening hypotensive range episodes and has been started on midodrine at 2.5 mg b.i.d. as discussed with the nurse practitioner. His latest chemistry showed a BUN of 37, sodium 136, potassium 4.6, chloride 108, CO2 20, glucose 481 and creatinine 1.6. The subsequent glucose values have ranged from 109-231 and 262 mg/dL. So at this time, will continue the same basal and bolus insulin regimen to allow for dose equilibrati on and keep him on the Humalog given as 10 units t.i.d. and Levemir given as 40 units subQ at bedtime daily. However, today the primary physician has switched him over to a premixed insulin regimen gi adalgisa as Humalog 75/25 at 5 units b.i.d. Will observe his glycemic and metabolic response thereof. It would be actually ideal for the patient to be on an insulin pump which would give him continuous bas al insulin to obviate the extremes of glycemic fluctuations. However, he will have to discuss with h is insurance company whether they would improve the aforementioned use of an insulin pump which will actually control his glycemic profile better, not only for inpatient but also for outpatient diabetic management. Claudia Adame MD cc: [id number] TT: 12/09/2016 15:49:57 Confirmation # [id number] Dictation # [id number] [place]n
[2016-12-09 16:00] VITALS: RESP 20
[2016-12-09] MEDS: Insulin Lispro Mix 75/25 100 units/ml (HumaLog) 10ml SC SCH (16:41)
[2016-12-09] MEDS: Insulin Detemir 100 Units/ml Inj SC SCH (22:04)
[2016-12-10 00:21] VITALS: O2SAT 100
[2016-12-10 07:18] LABS: HEMATOCRIT 29.7 % (35.0-51.0); MEAN CELL VOLUME 86.5 fl (80.0-94.0); MEAN CORPUSCULAR HGB CONC 32.4 g/dL (33.0-37.0); RED CELL DISTRIBUTION WIDTH 15.2 % (11.5-14.5)
[2016-12-10 07:47] LABS: BLOOD UREA NITROGEN 29 mg/dl (9-20); CALCIUM 9.3 mg/dL (8.4-10.2); CARBON DIOXIDE 21 mmol/L (22-30); CHLORIDE 107 mmol/L (98-107); GFR AFRICAN-AMERICAN > 60; GLUCOSE,RANDOM 140 mg/dL (75-110); POTASSIUM 4.5 MMOL/L (3.6-5.0); SODIUM 139 mmol/l (132-148)
[2016-12-10] MEDS: Insulin Lispro Mix 75/25 100 units/ml (HumaLog) 10ml SC SCH (08:54)
[2016-12-10] MEDS: Insulin Lispro (humaLOG) 100 Units/ml Inj SC SCH ×2 (08:54→12:15)
[2016-12-10] MEDS: Cholestyramine 4 gm/Pkt UD PO SCH (08:55)
[2016-12-10] MEDS: Pantoprazole 40 mg EC Tab PO SCH (08:55)
[2016-12-10] MEDS: Megestrol Acetate 40 mg/ml Cup PO SCH (08:55)
[2016-12-10] MEDS: Fluconazole IV 100mg/50 ml NS 50 ML IVPB SCH (08:55)
[2016-12-10] MEDS: Lactobacillus Acidophilus 500 MU Cap PO SCH (08:59)
[2016-12-10 09:38] VITALS: BP 102/74; PULSE 96; TEMP 98.9
--- NOTE | 2016-12-10 15:50 | CP.PCM.DIS ---
Provider - Provider Date of Admission: 11/05/16 20:41 Attending physician: Justin Melgar MD Time Spent in preparation of Discharge (in minutes): 30 Diagnosis - Discharge Diagnosis (1) Clostridium difficile infection Status: Acute (2) Cystitis Status: Acute (3) Diabetes mellitus type 2 in nonobese Status: Chronic (4) BRITTNI (acute kidney injury) Status: Acute (5) Sterile pyuria Status: Acute (6) Hypertension Status: Chronic Hospital Course - Lab Results Lab Results: Micro Results 11/16/16 15:00 Other: Please Indicate Mycobacterial Culture - Preliminary 11/22/16 17:57 Urine Urine Culture - Final 10-50,000 CFU/ML. MULTIPLE SPECIES. PROBABLE CONTAMINATION. 11/18/16 14:45 Blood-Venous Blood Culture - Final NO GROWTH AFTER 5 DAYS 11/18/16 14:45 Blood-Venous Gram Stain - Final TEST NOT PERFORMED 11/18/16 14:45 Blood-Venous Blood Culture - Final NO GROWTH AFTER 5 DAYS 11/18/16 14:45 Blood-Venous Gram Stain - Final TEST NOT PERFORMED 11/18/16 21:02 Stool Ova and Parasite Concentrate Exam - Final 11/10/16 08:01 Urine Urine Culture - Final Gram Positive Cocci 11/09/16 15:15 Urine Urine Culture - Final Yeast Species 11/05/16 21:00 Blood-Venous Blood Culture - Final NO GROWTH AFTER 5 DAYS 11/05/16 21:00 Blood-Venous Gram Stain - Final TEST NOT PERFORMED 11/05/16 20:49 Blood-Venous Blood Culture - Final NO GROWTH AFTER 5 DAYS 11/05/16 20:49 Blood-Venous Gram Stain - Final 11/08/16 14:00 Naris MRSA Culture (Admit) - Final MRSA NOT DETECTED Most Recent Lab Values WBC 11.0 K/uL (4.8-10.8) H 12/10/16 05:40 RBC 3.43 Mil/uL (4.40-5.90) L 12/10/16 05:40 Hgb 9.6 g/dL (12.0-18.0) L 12/10/16 05:40 Hct 29.7 % (35.0-51.0) L 12/10/16 05:40 MCV 86.5 fl (80.0-94.0) 12/10/16 05:40 MCH 28.0 pg (27.0-31.0) 12/10/16 05:40 MCHC 32.4 g/dL (33.0-37.0) L 12/10/16 05:40 RDW 15.2 % (11.5-14.5) H 12/10/16 05:40 Plt Count 351 K/uL (130-400) 12/10/16 05:40 MPV 7.9 fl (7.2-11.7) 12/08/16 07:48 Neut % (Auto) 77.8 % (50.0-75.0) H 12/08/16 07:48 Lymph % (Auto) 14.3 % (20.0-40.0) L 12/08/16 07:48 Dorado % (Auto) 7.0 % (0.0-10.0) 12/08/16 07:48 Eos % (Auto) 0.6 % (0.0-4.0) 12/08/16 07:48 Baso % (Auto) 0.3 % (0.0-2.0) 12/08/16 07:48 Neut # 8.2 K/uL (1.8-7.0) H 12/08/16 07:48 Lymph # 1.5 K/uL (1.0-4.3) 12/08/16 07:48 Dorado # 0.7 K/uL (0.0-0.8) 12/08/16 07:48 Eos # 0.1 K/uL (0.0-0.7) 12/08/16 07:48 Baso # 0.0 K/uL (0.0-0.2) 12/08/16 07:48 Neutrophils % (Manual) 82 % (42-75) H 11/05/16 20:38 Band Neutrophils % 4 % (0-2) H 11/05/16 20:38 Lymphocytes % (Manual) 8 % (20-50) L 11/05/16 20:38 Monocytes % (Manual) 5 % (0-10) 11/05/16 20:38 Eosinophils % (Manual) 1 % (0-7) 11/05/16 20:38 Toxic Granulation Present 11/05/16 20:38 Platelet Estimate Normal (NORMAL) 11/05/16 20:38 Macrocytosis (manual) Slight 11/05/16 20:38 PT 13.5 SECONDS (9.6-11.2) H 11/17/16 14:50 INR 1.30 (0.92-1.08) H 11/17/16 14:50 APTT 26.0 SECONDS (23.3-32.5) 11/17/16 14:50 Puncture Site rb 11/17/16 14:46 pCO2 25 mm/Hg (35-45) L 11/17/16 14:46 pO2 156 mm/Hg (80-100) H 11/17/16 14:46 HCO3 17.9 mmol/L (21-28) L 11/17/16 14:46 ABG pH 7.38 (7.35-7.45) 11/17/16 14:46 ABG Total CO2 15.6 mmol/L (22-28) L 11/17/16 14:46 ABG O2 Saturation 99.5 % (95-98) H 11/17/16 14:46 ABG O2 Content 13.5 ML/dL (15-23) L 11/17/16 06:04 ABG Base Excess -9.0 mmol/L (-2.0-3.0) L 11/17/16 14:46 ABG Hemoglobin 9.6 g/dL (11.7-17.4) L 11/17/16 06:04 ABG Carboxyhemoglobin 0.7 % (0.5-1.5) 11/17/16 06:04 POC ABG HHb (Measured) 0.5 % (0.0-5.0) 11/17/16 06:04 ABG Methemoglobin 1.1 % (0.0-3.0) 11/17/16 06:04 ABG O2 Capacity 13.6 mL/dL (16-24) L 11/17/16 06:04 Kb Test Yes 11/17/16 14:46 ABG Potassium 4.2 mmol/L (3.6-5.2) 11/17/16 14:46 A-a O2 Difference 62.0 mm/Hg 11/17/16 14:46 Hgb O2 Saturation 97.6 % (95.0-98.0) 11/17/16 06:04 Sodium 144.0 mmol/L (132-148) 11/17/16 14:46 Chloride 111.0 mmol/L (98-107) H 11/05/16 20:00 Glucose 561 mg/dL (75-110) H* D 11/05/16 20:00 Lactate 1.2 mmol/L (0.7-2.1) 11/17/16 14:46 Liter Flow 3 11/17/16 14:46 Vent Mode Room air 11/17/16 06:04 FiO2 35 % 11/17/16 14:46 Blood Gas Comments 3l/m.nc,rb 11/17/16 06:04 Crit Value Called To Dr julio palm 11/05/16 20:00 Crit Value Called By Natalia 11/05/16 20:00 Crit Value Read Back N 11/17/16 06:04 Blood Gas Notified Time 201411/05/16 20:00 Sodium 139 mmol/l (132-148) 12/10/16 05:40 Potassium 4.5 MMOL/L (3.6-5.0) 12/10/16 05:40 Chloride 107 mmol/L (98-107) 12/10/16 05:40 Carbon Dioxide 21 mmol/L (22-30) L 12/10/16 05:40 Anion Gap 16 (10-20) 12/10/16 05:40 BUN 29 mg/dl (9-20) H 12/10/16 05:40 Creatinine 1.4 mg/dL (0.8-1.5) 12/10/16 05:40 Est GFR ( Amer) > 60 12/10/16 05:40 Est GFR (Non-Af Amer) 55 12/10/16 05:40 POC Glucose (mg/dL) 219 mg/dL (65-110) H 12/10/16 10:49 Random Glucose 140 mg/dL (75-110) H 12/10/16 05:40 Hemoglobin A1c 10.6 % (4.2-6.5) H 11/18/16 05:50 Serum Osmolality 397 mosm/kg (272-300) H 11/17/16 05:45 Lactic Acid 0.8 MMOL/L (0.7-2.1) 11/17/16 05:45 Calcium 9.3 mg/dL (8.4-10.2) 12/10/16 05:40 Phosphorus 4.1 mg/dl (2.5-4.5) 11/22/16 13:00 Magnesium 1.7 MG/DL (1.6-2.3) 11/22/16 13:00 Total Bilirubin 0.1 mg/dl (0.2-1.3) L 12/08/16 07:48 AST 15 U/L (17-59) L D 12/08/16 07:48 ALT 20 U/L (21-72) L D 12/08/16 07:48 Alkaline Phosphatase 165 U/L (38-126) H D 12/08/16 07:48 Troponin I < 0.0120 ng/mL (0.00-0.120) 11/05/16 20:38 Total Protein 8.1 G/DL (6.3-8.2) 12/08/16 07:48 Albumin 3.3 g/dL (3.5-5.0) L 12/08/16 07:48 Globulin 4.7 gm/dL (2.2-3.9) H 12/08/16 07:48 Albumin/Globulin Ratio 0.7 (1.0-2.1) L 12/08/16 07:48 Triglycerides 41 mg/DL (0-149) D 11/18/16 05:50 Cholesterol 75 mg/dL (0-199) 11/18/16 05:50 LDL Cholesterol Direct < 30 mg/dL (0-129) 11/18/16 05:50 HDL Cholesterol 27 MG/DL (30-70) L 11/18/16 05:50 Carcinoembryonic Ag 10.8 ng/mL (0-3.0) H 11/10/16 05:40 CA 19-9 Antigen < 1.4 U/mL (0-37) 11/10/16 05:40 Procalcitonin 0.17 NG/ML (0.19-0.49) L 11/19/16 05:40 TSH 3rd Generation 3.52 mIU/ML (0.46-4.68) 11/18/16 05:50 Cortisol AM Sample 7.1 ug/dL (4.46-22.7) 11/18/16 05:50 Arterial Blood Potassium 4.2 mmol/L (3.6-5.2) 11/17/16 14:46 Urine Color Yellow (YELLOW) 11/22/16 12:25 Urine Clarity Cloudy (Clear) 11/22/16 12:25 Urine pH 6.0 (5.0-8.0) 11/22/16 12:25 Ur Specific Manti 1.005 (1.003-1.030) 11/22/16 12:25 Urine Protein 30 mg/dL (NEGATIVE) 11/22/16 12:25 Urine Glucose (UA) 50 mg/dL (Normal) 11/22/16 12:25 Urine Ketones Negative mg/dL (NEGATIVE) 11/22/16 12:25 Urine Blood Small (NEGATIVE) 11/22/16 12:25 Urine Nitrate Negative (NEGATIVE) 11/22/16 12:25 Urine Bilirubin Negative (NEGATIVE) 11/22/16 12:25 Urine Urobilinogen 0.2-1.0 mg/dL (0.2-1.0) 11/22/16 12:25 Ur Leukocyte Esterase Large Clark/uL (Negative) 11/22/16 12:25 Urine RBC (Auto) 14 /hpf (0-3) H 11/22/16 12:25 Urine WBC Clumps (Auto) Many /hpf (NONE) H 11/22/16 12:25 Urine Microscopic WBC 954 /hpf (0-5) H 11/22/16 12:25 Ur Squamous Epith Cells 1 /hpf (0-5) 11/09/16 15:15 Amorphous Sediment Moderate /ul (<OCC) H 11/22/16 12:25 Urine Bacteria Mod (<OCC) H 11/22/16 12:25 Urine Yeast (Budding) Mod /hpf (NEGATIVE) H 11/22/16 12:25 Ur Random Creatinine 21.1 mg/dL 11/09/16 15:15 U Random Total Protein 1944 mg/g creat (22-128) H 11/11/16 16:47 Ur Random Sodium 78 mmol/L 11/12/16 11:51 Ur Random Potassium 11.1 mmol/L 11/12/16 11:51 Urine Creatinine 48 mg/dL (20-370) 11/11/16 16:47 Urine Microalbumin 7.8 mg/dL 11/11/16 16:47 Microalb/Creat Ratio 162 (<30) H 11/11/16 16:47 Urine Chloride 87 mmol/L (32-290) 11/13/16 12:31 Stool Occult Blood Negative (NEGATIVE) 11/13/16 11:16 Serum Ketones Negative (NEGATIVE) 11/17/16 05:45 C.trachomatis RNA (TMA) Not detected (Not Detected) 11/07/16 12:00 C. difficile Ag & Toxin Negative (NEGATIVE) 11/25/16 02:00 HIV 1&2 Antibody Screen Negative (NEGATIVE) 11/06/16 04:20 N.gonorrhoeae RNA (TMA) Not detected (Not Detected) 11/07/16 12:00 - Hospital Course Hospital Course: 46 years male with hx of HTN, BRITTNI DM II presented 35 days ago with generalized weakness/dizziness noted to have hypotension and hyperglycemia. Patient was admitted to ICU for DKA due to UTI and non-compliance with medication. Patient was noted to have BRITTNI and fungiuria/sepsis. Nephro/Endocrine/ID/GI consulted throughout admission course. Patient slowly improved with labile glucose control and BP control. Patient's admission also complicated by C. Diff infection. Patient was very debilitated when first admitted. Patient continued to improve throughout course of admission with PT services. Patient to be discharged home today. Appropriate dispo planning has be formulated for successful discharge. Discharge Exam - Head Exam Head Exam: ATRAUMATIC, NORMAL INSPECTION, NORMOCEPHALIC - Eye Exam Eye Exam: Normal appearance - Respiratory Exam Respiratory Exam: Clear to PA & Lateral, NORMAL BREATHING PATTERN, UNREMARKABLE - Cardiovascular Exam Cardiovascular Exam: REGULAR RHYTHM, RRR, +S1, +S2 - GI/Abdominal Exam GI & Abdominal Exam: Normal Bowel Sounds, Soft. absent: Tenderness - Extremities Exam Extremities exam: normal inspection - Neurological Exam Neurological exam: Alert, Oriented x3 - Psychiatric Exam Psychiatric exam: Normal Affect, Normal Mood - Skin Skin Exam: Dry, Intact, Normal Color, Warm Discharge Plan - Discharge Medications Prescriptions: Cholestyramine [Questran] 4 gm PO BID #30 packet Fluconazole [Diflucan] 100 mg PO DAILY #10 tab Insulin Human (NPH)/Regular [Novolin 70/30 (70/30 units/ml) 10 ml] 10 units SC BID #1 unit Loperamide [Imodium] 2 mg PO Q6 #90 cap - Follow Up Plan Condition: STABLE Disposition: HOME/ ROUTINE Instructions: How to Check Your Blood Sugar (GEN), Diabetic Hypoglycemia (GEN) , Diabetic Hyperglycemia (DC) Referrals: Justin Melgar MD [Family Provider] -
--- NOTE | 2016-12-10 16:27 | PN ---
DATE: 12/10/2016 ROOM: 654 This is a 46-year-old male with recent uncontrolled type 2 insulin-requiring diabetes, now being foll owed closely for metabolic management. His glycemic levels are fluctuating as noted with overnight h yperglycemic accelerations as noted. His latest glucose levels have ranged from 153-219 today and it was 295-371 last night. His latest c hemistry showed a BUN of 29, sodium 139, potassium 4.5, chloride 107, CO2 21, glucose 140 and creatin ine 1.4. So at this time, as he has been switched over to premixed insulin regimen, he clearly needs a higher coverage regimen for postprandial accelerations of his glucose values as noted. We will increase the Humalog 75/25 to 10 units b.i.d. before meals as ordered. We will continue the basal insulin given as Levemir at 40 units subQ at bedtime daily as ordered. We will continue the low-dose correction sc [place] using Humalog insulin as given. We will titrate incrementally as indicated to optimize metabolic control. We will follow. Claudia Adame MD cc: [id number] TT: 12/10/2016 16:26:01 Confirmation # [id number] Dictation # [id number] en
[2016-12-10] MEDS ORDERED: Insulin Lispro Mix 75/25 100 units/ml (HumaLog) 10ml SC SCH (16:30)
== END 2016-12-10 16:13 | disposition home or self-care (01) | DRG 871 ==
LOC: H.ER 19:45 → H.ERHOLD 20:41 → H.ICU/CCU 23:38 → H.MEDSURG1 11-08 10:50 → H.TEL 11-17 18:08 → H.MEDSURG1 11-24 00:34
PROVIDERS: ADMIT Family Medicine; ATTEND Family Medicine
PROC: 0TJB8ZZ Inspection of Bladder, Via Natural or Artificial Opening Endoscopic (ICD-10-PCS; principal; 2016-11-28 10:00)
DX: A41.9 Sepsis, unspecified organism (principal); E13.10 Other specified diabetes mellitus with ketoacidosis without coma; N17.9 Acute kidney failure, unspecified; E87.0 Hyperosmolality and hypernatremia; I95.9 Hypotension, unspecified; A04.7 Enterocolitis due to Clostridium difficile; K90.9 Intestinal malabsorption, unspecified; N13.30 Unspecified hydronephrosis; N30.01 Acute cystitis with hematuria; E11.22 Type 2 diabetes mellitus with diabetic chronic kidney disease; E87.5 Hyperkalemia; E11.42 Type 2 diabetes mellitus with diabetic polyneuropathy; E11.319 Type 2 diabetes mellitus with unspecified diabetic retinopathy without macular edema; D64.9 Anemia, unspecified; E11.649 Type 2 diabetes mellitus with hypoglycemia without coma; E78.00 Pure hypercholesterolemia, unspecified; E78.5 Hyperlipidemia, unspecified; E86.0 Dehydration; E87.6 Hypokalemia; G40.909 Epilepsy, unspecified, not intractable, without status epilepticus; I12.9 Hypertensive chronic kidney disease with stage 1 through stage 4 chronic kidney disease, or unspecified chronic kidney disease; N18.9 Chronic kidney disease, unspecified; Z79.4 Long term (current) use of insulin; Z79.82 Long term (current) use of aspirin; Z91.11 Patient's noncompliance with dietary regimen; Z91.14 Patient's other noncompliance with medication regimen; Z96.41 Presence of insulin pump (external) (internal); E11.65 Type 2 diabetes mellitus with hyperglycemia; Z79.84 Long term (current) use of oral hypoglycemic drugs; R65.20 Severe sepsis without septic shock

== ENCOUNTER 2016-12-10 17:56 | Inpatient (IN) | payer OTHER, MEDICAID ==
[2016-12-10 17:57] VITALS: BMI 12.6
--- NOTE | 2016-12-10 19:17 | ED PDOC ---
HPI: General Adult Time Seen by Provider: 12/10/16 18:17 Chief Complaint (Nursing): Weakness/Neurological Deficit Chief Complaint (Provider): weakness History Per: Patient, EMS Additional Complaint(s): 46-year-old male presents to emergency department for evaluation of weakness. Patient states he was discharged from hospital today and when he got home he was too weak to walk into his home. He states when he got out of transport van his knees buckled and fell to the ground. He did not hit his head or pass out. Patient states his brother witnessed him fall and called ambulance for patient to be brought here. Patient states he feels too weak to go home. He denies any chest pain, shortness of breath or GREEN. Past Medical History Reviewed: Historical Data, Nursing Documentation, Vital Signs Vital Signs: Last Vital Signs Temp 98.5 F 12/10/16 18:01 Pulse 102 H 12/10/16 18:01 Resp 16 12/10/16 18:01 BP 118/68 12/10/16 18:01 Pulse Ox 100 12/10/16 19:17 - Medical History PMH: Diabetes, Fractures (left shoulder), HTN, Hypercholesterolemia, Seizures - Family History Family History: States: No Known Family Hx, Diabetes - Living Arrangements Living Arrangements: Alone - Social History Current smoker - smoking cessation education provided: No Alcohol: None Drugs: Denies - Home Medications Home Medications: Ambulatory Orders Medication Instructions Recorded Aspirin [Ecotrin] 81 mg PO DAILY #30 tabec 10/10/16 Atorvastatin [Lipitor] 10 mg PO DAILY #30 tab 10/10/16 Insulin Detemir [Levemir] 30 units SC HS #1 dev 10/10/16 Sucralfate [Carafate Oral Susp] 1 gm PO QID #40 udc 10/10/16 Cholestyramine [Questran] 4 gm PO BID #30 packet 12/10/16 Fluconazole [Diflucan] 100 mg PO DAILY #10 tab 12/10/16 Insulin Human (NPH)/Regular 10 units SC BID #1 unit 12/10/16 [Novolin 70/30 (70/30 units/ml) 10 ml] Loperamide [Imodium] 2 mg PO Q6 #90 cap 12/10/16 - Allergies Allergies/Adverse Reactions: Allergies Allergy/AdvReac Type Severity Reaction Status Date / Time No Known Allergies Allergy Verified 12/10/16 18:01 Review of Systems ROS Statement: Except As Marked, All Systems Reviewed And Found Negative Constitutional: Positive for: Weakness. Negative for: Fever Cardiovascular: Negative for: Chest Pain Respiratory: Negative for: Cough Gastrointestinal: Positive for: Nausea. Negative for: Vomiting Physical Exam - Reviewed Nursing Documentation Reviewed: Yes Vital Signs Reviewed: Yes - Physical Exam Appears: Positive for: Non-toxic, No Acute Distress. Negative for: Well ( patient appears unkempt) Skin: Negative for: Rash Eye Exam: Positive for: Normal appearance, EOMI, PERRL Cardiovascular/Chest: Positive for: Regular Rate, Rhythm Respiratory: Positive for: Normal Breath Sounds Extremity: Positive for: Normal ROM Neurologic/Psych: Positive for: Alert, Oriented - ECG Interpretation Of ECG: Normal sinus rhythm 91 bpm, no acute findings, reviewed by PA and ED attending O2 Sat by Pulse Oximetry: 100 Pulse Ox Interpretation: Normal Medical Decision Making Medical Decision Makin46 year old with generalized weakness Plan: EKG CXR CBC CMP Trop UA IVF Glucose is 308 - 5 units insulin subq ordered Disposition - Clinical Impression Clinical Impression: Weakness - Patient ED Disposition Is Patient to be Admitted: Transfer of Care - Disposition Disposition: Transfer of Care Disposition Time: 20:00 Condition: FAIR Patient Signed Over To: Brooklynn Hernandez Handoff Comments: Signed out pending diagnostic testing results
[2016-12-10] MEDS ORDERED: Insulin Regular 100 units/ml SC STA (19:23)
[2016-12-10] MEDS ORDERED: Sodium Chloride 0.9% 1,000 ML IV STA ×2 (19:23→21:57)
[2016-12-10] MEDS ORDERED: Insulin Regular 100 units/ml ONE (19:32)
[2016-12-10 19:56] LABS: BASO # 0.1 K/uL (0.0-0.2); BASO % 0.9 % (0.0-2.0); EOS # 0.1 K/uL (0.0-0.7); EOS % 0.7 % (0.0-4.0); HEMATOCRIT 29.2 % (35.0-51.0); LYMPH # 1.1 K/uL (1.0-4.3); LYMPH % 11.2 % (20.0-40.0); MEAN CELL VOLUME 88.2 fl (80.0-94.0); MEAN CORPUSCULAR HEMOGLOBIN 29.5 pg (27.0-31.0); MEAN CORPUSCULAR HGB CONC 33.4 g/dL (33.0-37.0); MEAN PLATELET VOLUME 7.9 fl (7.2-11.7); MONO # 0.7 K/uL (0.0-0.8); MONO % 7.2 % (0.0-10.0); NEUT # 8.1 K/uL (1.8-7.0); RED CELL DISTRIBUTION WIDTH 15.2 % (11.5-14.5); WHITE BLOOD COUNT 10.1 K/uL (4.8-10.8)
[2016-12-10 20:13] LABS: ALB/GLOB RATIO 0.8 (1.0-2.1); ALKALINE PHOSPHATASE 129 U/L (38-126); ALT/SGPT 20 U/L (21-72); AST/SGOT 26 U/L (17-59); BILIRUBIN,TOTAL 0.5 mg/dl (0.2-1.3); BLOOD UREA NITROGEN 36 mg/dl (9-20); CARBON DIOXIDE 20 mmol/L (22-30); CHLORIDE 104 mmol/L (98-107); GFR AFRICAN-AMERICAN > 60; SODIUM 134 mmol/l (132-148); TOTAL PROTEIN 8.5 G/DL (6.3-8.2)
[2016-12-10 20:47] LABS: GLUCOSE,RANDOM 453 mg/dL (75-110)
[2016-12-10 22:00] LABS: POTASSIUM 5.8 MMOL/L (3.6-5.0)
[2016-12-10 23:38] LABS: RBC URINE 41 /hpf (0-3); URINE BACTERIA OCC (<OCC); URINE BILIRUBIN NEGATIVE (NEGATIVE); URINE BLOOD SMALL (NEGATIVE); URINE COLOR YELLOW (YELLOW); URINE GLUCOSE (UA) >=500 mg/dL (Normal); URINE KETONE NEGATIVE (NEGATIVE); URINE LEUKOCYTE ESTERASE LARGE Leu/uL (Negative); URINE PROTEIN 30 mg/dL (NEGATIVE); URINE UROBILINOGEN 0.2-1.0 mg/dL (0.2-1.0); WBC CLUMPS MANY /hpf; WBC URINE 1129 /hpf (0-5)
--- NOTE | 2016-12-11 00:31 | ED PDOC ---
- Laboratory Results Result Diagrams: 12/10/16 19:40 12/11/16 01:04 - ECG O2 Sat by Pulse Oximetry: 100 - Progress ED Course And Treament: case endorsed to data analyst report writer from Jono SANCHES pending labs, re-eval Disposition - Clinical Impression Clinical Impression: Weakness - POA Present On Arrival: Poor Glycemic Control - Disposition Disposition: Transfer of Care Disposition Time: 06:05 Condition: FAIR Patient Signed Over To: Sami Castelan Handoff Comments: pending re-eval ED OBSERVATION Date of observation admission: 12/10/16 Time of observation admission: 20:00 - Observation admission statement Patient is being placed in observation because:: generalized weakness, hyperglycemia - Goals of Observation Goals of observation are:: administer IV fluids, insulin. Repeat sugar. Re-evaluate patient. - Progress Note Progress Note: 12/11/16 22:00 Patient resting comfortably; states he thought he could be discharged today but after stepping out of the cab he noted he still feels too weak. Glucose elevated on arrival, UTI noted (patient on Diflucan for white exudate in bladder consistent with fungal colonization found on cystoscopy as per chart ) 00:[address] Melgar, who states no indication for admission at this time; recommends stablizing glucose and discharge 00:30 Patient states he feels too weak to go home by himself. Spoke with Dr. Handy ED maintenance and operations supervisor, who states to keep patient in ED until am for observation 1:15 accucheck 286; patient given sandwich and jello as he states he has not eaten since discharge from ED earlier today 12/11/16 03:15 Patient sleeping; no distress 4:35 repeat accucheck 323; 4 units insulin ordered 12/11/16 05:44 repeat accucheck 367; 6 units insulin ordered
[2016-12-11] MEDS ORDERED: Insulin Regular 100 units/ml IV STA ×2 (04:37→05:43)
--- NOTE | 2016-12-11 06:11 | ED PDOC ---
- Laboratory Results Result Diagrams: 12/10/16 19:40 12/11/16 01:04 - ECG O2 Sat by Pulse Oximetry: 100 Medical Decision Making Medical Decision Makin Transfer of care of patient from [facility]eron[facility] to ri pending disposition. Patient was observed watching televsion all night, no acute distress or discomfort. Pending disposition, will endorse to day team Dr. Ann. Scribe Attestation: Documented by Josselin Parkinson acting as a scribe for Sami Castelan MD. Scribe Attestation: All medical record entries made by the Scribe were at my direction and personally dictated by me. I have reviewed the chart and agree that the record accurately reflects my personal performance of the history, physical exam, medical decision making, and the department course for this patient. I have also personally directed, reviewed, and agree with the discharge instructions and disposition. Disposition - Clinical Impression Clinical Impression: Weakness, Hyperglycemia - POA Present On Arrival: None - Disposition Disposition: Transfer of Care Disposition Time: 07:00 Condition: FAIR Patient Signed Over To: Margaret Ann Handoff Comments: pending disposition
[2016-12-11] MEDS ORDERED: Insulin Regular 100 units/ml SC STA (07:11)
--- NOTE | 2016-12-11 08:23 | ED PDOC ---
- Laboratory Results Result Diagrams: 12/10/16 19:40 12/11/16 01:04 - ECG O2 Sat by Pulse Oximetry: 100 Medical Decision Making Medical Decision Making: Patient seen by prior shift and signed out to me. Patient was discharged from hospital yesterday after lengthy admission for DKA and chronic fungal uti. He got home and then called transport because he reports he is too weak ( generalized fatigue). Labs at baseline. Insulin being given in ED overnight for DM. Pending SW consult for further evaluation. Last [id number] 8:02AM SW called 9:36AM Patient is pending SW and PT/OT eval 11:59AM PT reports that patient cannot perform ADLs without family support. Family unwilling/unable to provide this support per SW. PT does not think patient can be safely discharged alone. 1:27PM Spoke to Dr. Melgar and patient to be transferred [facility]/ observation for subacute rehab placement Disposition - Clinical Impression Clinical Impression: Weakness, Hyperglycemia - POA Present On Arrival: None - Disposition Disposition: Hospitalized as Observation Patient Disposition Time: 13:28 Condition: FAIR
--- NOTE | 2016-12-11 13:03 | RAD ---
HISTORY: Weakness. COMPARISON: 11/05/2016. FINDINGS: LUNGS: No active pulmonary disease. PLEURA: No significant pleural effusion identified, no pneumothorax apparent. CARDIOVASCULAR: Normal. OSSEOUS STRUCTURES: No significant abnormalities. VISUALIZED UPPER ABDOMEN: Normal. OTHER FINDINGS: None. IMPRESSION: No active disease. No significant interval change compared to the prior examination(s).
[2016-12-11] MEDS: Cholestyramine 4 gm/Pkt UD PO SCH (17:16)
[2016-12-11] MEDS: Sucralfate 1 gm/10 ml Oral Susp UD PO SCH ×2 (17:17→21:47)
[2016-12-11] MEDS: Insulin Lispro (humaLOG) 100 Units/ml Inj SC SCH ×2 (17:25→21:47)
[2016-12-11] MEDS: Insulin Lispro Mix 75/25 100 units/ml (HumaLog) 10ml SC SCH (17:27)
[2016-12-11] MEDS: Sodium Chloride 0.9% 1,000 ML IV SCH (17:30)
[2016-12-11] MEDS: Insulin Detemir 100 Units/ml Inj SC SCH (21:49)
[2016-12-12] MEDS: Insulin Lispro (humaLOG) 100 Units/ml Inj SC SCH ×4 (06:38→22:47)
[2016-12-12 06:45] LABS: HEMATOCRIT 33.1 % (35.0-51.0); MEAN CELL VOLUME 87.7 fl (80.0-94.0); MEAN CORPUSCULAR HEMOGLOBIN 28.3 pg (27.0-31.0); MEAN CORPUSCULAR HGB CONC 32.3 g/dL (33.0-37.0); RED CELL DISTRIBUTION WIDTH 15.3 % (11.5-14.5); WHITE BLOOD COUNT 10.4 K/uL (4.8-10.8)
[2016-12-12 07:04] LABS: ALB/GLOB RATIO 0.7 (1.0-2.1); ALKALINE PHOSPHATASE 162 U/L (38-126); ALT/SGPT 38 U/L (21-72); AST/SGOT 36 U/L (17-59); BILIRUBIN,TOTAL 0.2 mg/dl (0.2-1.3); BLOOD UREA NITROGEN 33 mg/dl (9-20); CALCIUM 9.4 mg/dL (8.4-10.2); CARBON DIOXIDE 20 mmol/L (22-30); CHLORIDE 108 mmol/L (98-107); GFR AFRICAN-AMERICAN > 60; POTASSIUM 5.2 MMOL/L (3.6-5.0); SODIUM 139 mmol/l (132-148); TOTAL PROTEIN 8.7 G/DL (6.3-8.2)
[2016-12-12 07:17] LABS: GLUCOSE,RANDOM 494 mg/dL (75-110)
--- NOTE | 2016-12-12 07:22 | CARD ---
APPROVED REPORT EKG Measurement Heart [id number] <Conclusion> Normal sinus rhythm Early repolarization Normal ECG
[2016-12-12 07:31] LABS: PARTIAL THROMBOPLASTIN TIME 26.4 Seconds (25.6-37.1)
[2016-12-12] MEDS: Sucralfate 1 gm/10 ml Oral Susp UD PO SCH ×4 (09:34→22:45)
[2016-12-12] MEDS: Sodium Chloride 0.9% 1,000 ML IV SCH ×4 (09:35→22:58)
[2016-12-12] MEDS: Insulin Lispro Mix 75/25 100 units/ml (HumaLog) 10ml SC SCH ×2 (09:35→17:21)
[2016-12-12] MEDS: Cholestyramine 4 gm/Pkt UD PO SCH ×2 (09:35→17:22)
--- NOTE | 2016-12-12 11:36 | CP.PCM.HP ---
<Allan Robin - Last Filed: 12/12/16 11:33> History of Present Illness - History of Present Illness History of Present Illness: 46 years male with PMHx of HTN, BRITTNI, DM II presented to ED with complaints of generalized weakness 1 day after being discharged from 35 day stay. Patient was noted to be hyperglycemic in ED, which was treated appropriately with insulin therapy. Patient was a unsafe discharge from ED due to his debilitiation. Patient was seen and evaluated with attending. Sitting upright in chair. Patient stated he was reluctant to participate in physical therapy. No acute events overnight. No chest pain, abdominal pain, diarrhea, fever, chills, headache, palpitations, back pain. PMH: HTN, hypercholesterolemia, seizures, diabetes PSH: denies allergies: NKDA SH: denied smoking, EtOH, drugs Present on Admission - Present on Admission Any Indicators Present on Admission: Yes History of Uncontrolled Diabetes: Yes Review of Systems - Review of Systems All systems: reviewed and no additional remarkable complaints except (mentioned in hpi) Past Patient History - Infectious Disease Hx of Infectious Diseases: None - Past Medical History & Family History Past Medical History?: Yes - Past Social History Smoking Status: Never Smoked - CARDIAC Hx Hypercholesterolemia: Yes Hx Hypertension: Yes - PULMONARY Hx Respiratory Disorders: No - NEUROLOGICAL Hx Seizures: Yes - HEENT Hx HEENT Problems: No - RENAL Hx Chronic Kidney Disease: No - ENDOCRINE/METABOLIC Hx Diabetes Mellitus Type 1: Yes - HEMATOLOGICAL/ONCOLOGICAL Hx Blood Disorders: No Hx Human Immunodeficiency Virus (HIV): No - INTEGUMENTARY Hx Dermatological Problems: No - MUSCULOSKELETAL/RHEUMATOLOGICAL Hx Falls: Yes Hx Fractures: Yes (left shoulder) - GASTROINTESTINAL Hx Clostridium Difficile: Yes Hx Diarrhea: Yes - GENITOURINARY/GYNECOLOGICAL Hx Genitourinary Disorders: No - PSYCHIATRIC Hx Psychophysiologic Disorder: No Hx Substance Use: No - SURGICAL HISTORY Hx Surgeries: No - ANESTHESIA Hx Anesthesia: No Meds Allergies/Adverse Reactions: Allergies Allergy/AdvReac Type Severity Reaction Status Date / Time No Known Allergies Allergy Verified 12/10/16 18:01 Physical Exam - Constitutional Appears: Non-toxic, No Acute Distress, Unkempt, Older Than Stated Age - Head Exam Head Exam: ATRAUMATIC, NORMAL INSPECTION, NORMOCEPHALIC - Eye Exam Eye Exam: Normal appearance - Neck Exam Neck exam: Positive for: Normal Inspection - Respiratory Exam Respiratory Exam: Clear to Auscultation Bilateral, NORMAL BREATHING PATTERN - Cardiovascular Exam Cardiovascular Exam: REGULAR RHYTHM, RRR, +S1, +S2 - GI/Abdominal Exam GI & Abdominal Exam: Normal Bowel Sounds, Soft. absent: Tenderness - Extremities Exam Extremities exam: Positive for: normal inspection - Neurological Exam Neurological exam: Alert, Oriented x3 - Psychiatric Exam Psychiatric exam: Normal Affect, Normal Mood - Skin Skin Exam: Dry, Intact, Normal Color, Warm Results - Vital Signs Recent Vital Signs: Last Vital Signs Temp 99 F 12/12/16 08:09 Pulse 118 H 12/12/16 08:09 Resp 20 12/12/16 08:09 BP 157/83 H 12/12/16 08:09 Pulse Ox 97 12/12/16 08:09 - Labs Result Diagrams: 12/12/16 05:40 12/12/16 05:40 Assessment & Plan (1) Weakness Status: Acute (2) Diabetes mellitus type 2 in nonobese Status: Chronic (3) Hypertension Status: Chronic - Assessment and Plan (Free Text) Plan: -will c/w Levemir HS and 75/25 BID -Accuchecks ACHS -c/w home meds -c/w IV fluids -PT/OT to evaluate will need safe discharge. -day care worker on board, dispo planning in progress <Justin Melgar - Last Filed: 12/14/16 13:50> Results - Vital Signs Recent Vital Signs: Last Vital Signs Temp 97.3 F L 12/14/16 07:16 Pulse 91 H 12/14/16 07:16 Resp 20 12/14/16 07:16 BP 122/83 12/14/16 07:16 Pulse Ox 100 12/14/16 07:16 - Labs Result Diagrams: 12/12/16 05:40 12/12/16 05:40 Labs: Laboratory Results - last 24 hr 12/13/16 12/13/16 12/14/16 15:49 21:23 05:25 POC Glucose (mg/dL) 201 H 306 H 94 12/14/16 12/14/16 07:19 10:52 POC Glucose (mg/dL) 64 L 379 H Assessment & Plan - Assessment and Plan (Free Text) Plan: I was present during evaluation and discussed with Dr Robin re plans of care Justin Melgar M.D.
[2016-12-12] MEDS: Vitamins A & D Oint UD Foilpak TOP SCH (17:22)
[2016-12-12] MEDS: Insulin Detemir 100 Units/ml Inj SC SCH (22:46)
[2016-12-13] MEDS: Insulin Lispro (humaLOG) 100 Units/ml Inj SC SCH ×3 (06:36→22:17)
[2016-12-13] MEDS: Sucralfate 1 gm/10 ml Oral Susp UD PO SCH ×4 (09:06→22:20)
[2016-12-13] MEDS: Vitamins A & D Oint UD Foilpak TOP SCH ×2 (09:08→17:20)
[2016-12-13] MEDS: Cholestyramine 4 gm/Pkt UD PO SCH ×2 (09:08→17:20)
[2016-12-13] MEDS: Insulin Lispro Mix 75/25 100 units/ml (HumaLog) 10ml SC SCH ×2 (09:26→17:17)
[2016-12-13] MEDS ORDERED: Insulin Lispro (humaLOG) 100 Units/ml Inj IVP ONE (11:10)
[2016-12-13] MEDS ORDERED: Insulin Lispro (humaLOG) 100 Units/ml Inj SC ONE (12:26)
[2016-12-13] MEDS: Sodium Chloride 0.9% 1,000 ML IV SCH ×3 (12:41→23:21)
[2016-12-13] MEDS: Insulin Detemir 100 Units/ml Inj SC SCH (22:16)
[2016-12-14 00:27] VITALS: O2SAT 100
[2016-12-14] MEDS: Sodium Chloride 0.9% 1,000 ML IV SCH (05:30)
[2016-12-14] MEDS: Insulin Lispro (humaLOG) 100 Units/ml Inj SC SCH ×4 (06:51→21:22)
[2016-12-14] MEDS: Sucralfate 1 gm/10 ml Oral Susp UD PO SCH ×4 (08:37→21:22)
[2016-12-14] MEDS: Cholestyramine 4 gm/Pkt UD PO SCH ×2 (08:38→16:36)
[2016-12-14] MEDS: Insulin Lispro Mix 75/25 100 units/ml (HumaLog) 10ml SC SCH ×2 (08:38→16:38)
[2016-12-14] MEDS: Vitamins A & D Oint UD Foilpak TOP SCH ×2 (08:39→16:39)
[2016-12-14] MEDS: Insulin Detemir 100 Units/ml Inj SC SCH (21:22)
[2016-12-15] MEDS: Insulin Lispro (humaLOG) 100 Units/ml Inj SC SCH ×3 (07:30→16:30)
[2016-12-15 07:32] VITALS: RESP 18; TEMP 98.4
[2016-12-15] MEDS: Cholestyramine 4 gm/Pkt UD PO SCH ×2 (08:41→17:55)
[2016-12-15] MEDS: Sucralfate 1 gm/10 ml Oral Susp UD PO SCH ×3 (08:41→17:53)
[2016-12-15] MEDS: Vitamins A & D Oint UD Foilpak TOP SCH ×2 (08:42→17:55)
[2016-12-15] MEDS: Insulin Lispro Mix 75/25 100 units/ml (HumaLog) 10ml SC SCH ×2 (09:00→17:54)
[2016-12-15 10:10] LABS: HEMATOCRIT 27.9 % (35.0-51.0); MEAN CELL VOLUME 88.1 fl (80.0-94.0); MEAN CORPUSCULAR HEMOGLOBIN 28.7 pg (27.0-31.0); MEAN CORPUSCULAR HGB CONC 32.6 g/dL (33.0-37.0); RED CELL DISTRIBUTION WIDTH 15.5 % (11.5-14.5)
[2016-12-15 10:18] LABS: BLOOD UREA NITROGEN 19 mg/dl (9-20); CALCIUM 8.8 mg/dL (8.4-10.2); CARBON DIOXIDE 21 mmol/L (22-30); CHLORIDE 110 mmol/L (98-107); GFR AFRICAN-AMERICAN > 60; GLUCOSE,RANDOM 361 mg/dL (75-110); POTASSIUM 5.2 MMOL/L (3.6-5.0); SODIUM 140 mmol/l (132-148)
--- NOTE | 2016-12-15 11:21 | CP.PCM.PN ---
Subjective - Date & Time of Evaluation Date of Evaluation: 12/14/16 Time of Evaluation: 11:19 - Subjective Subjective: Patient is much more awake Has better appetite Has no chest pain or SOB. still with poor balance. Objective - Vital Signs/Intake and Output Vital Signs (last 24 hours): Temp Pulse Resp BP Pulse Ox 98.4 F 100 H 18 130/97 H 100 12/15/16 07:32 12/15/16 07:32 12/15/16 07:32 12/15/16 07:32 12/15/16 07:32 - Medications Medications: Current Medications Aspirin (Ecotrin) 81 mg PO DAILY [facility] Last Admin: 12/15/16 08:41 Dose: 81 mg Atorvastatin Calcium (Lipitor) 10 mg PO DAILY [facility] Last Admin: 12/15/16 08:41 Dose: 10 mg Cholestyramine Resin (Questran) 4 gm PO BID [facility] Last Admin: 12/15/16 08:41 Dose: 4 gm Fluconazole (Diflucan) 100 mg PO DAILY [facility] Last Admin: 12/15/16 08:41 Dose: 100 mg Insulin Detemir (Levemir) 30 units SC HS [facility] Last Admin: 12/14/16 21:22 Dose: 30 units Insulin Human Lispro (Humalog) 0 units SC ACHS [facility] Last Admin: 12/15/16 07:30 Dose: Not Given Insulin Lispro Protam/Lispro Human (Humalog Mix 75/25) 20 units SC BID [facility] Last Admin: 12/15/16 09:00 Dose: 20 units Loperamide HCl (Imodium) 2 mg PO Q6 [facility] Last Admin: 12/15/16 04:25 Dose: 2 mg Midodrine (Proamatine) 2.5 mg PO TID [facility] Last Admin: 12/15/16 08:41 Dose: 2.5 mg Sucralfate (Carafate Oral Susp) 1 gm PO QID [facility] Last Admin: 12/15/16 08:41 Dose: 1 gm Vitamin A (Vitamin A & D Oint Ud Foilpak) 1 ea TOP BID [facility] Last Admin: 12/15/16 08:42 Dose: 1 ea - Labs Labs: 12/15/16 09:45 12/15/16 09:45 PT 12.8 Seconds (9.8-13.1) 12/12/16 05:40 INR 1.1 (0.9-1.2) 12/12/16 05:40 APTT 26.4 Seconds (25.6-37.1) 12/12/16 05:40 - Head Exam Head Exam: NORMAL INSPECTION - Eye Exam Eye Exam: Normal appearance - ENT Exam ENT Exam: Mucous Membranes Moist - Respiratory Exam Respiratory Exam: Clear to Ausculation Bilateral - Cardiovascular Exam Cardiovascular Exam: REGULAR RHYTHM - GI/Abdominal Exam GI & Abdominal Exam: Normal Bowel Sounds Assessment and Plan (1) Physical debility Status: Acute (2) Malabsorption due to intolerance, not elsewhere classified Status: Acute (3) Diabetes mellitus type 2 in nonobese Status: Chronic - Assessment and Plan (Free Text) Plan: cont meds cont tx cont PT
--- NOTE | 2016-12-15 11:23 | CP.PCM.PN ---
Subjective - Date & Time of Evaluation Date of Evaluation: 12/15/16 Time of Evaluation: 11:21 - Subjective Subjective: He sits mostly by the chair Not enthusiastic to do PT Has better apapetite Has no chest pain or SOB. Bm is normal. Objective - Vital Signs/Intake and Output Vital Signs (last 24 hours): Temp Pulse Resp BP Pulse Ox 98.4 F 100 H 18 130/97 H 100 12/15/16 07:32 12/15/16 07:32 12/15/16 07:32 12/15/16 07:32 12/15/16 07:32 - Medications Medications: Current Medications Aspirin (Ecotrin) 81 mg PO DAILY [facility] Last Admin: 12/15/16 08:41 Dose: 81 mg Atorvastatin Calcium (Lipitor) 10 mg PO DAILY [facility] Last Admin: 12/15/16 08:41 Dose: 10 mg Cholestyramine Resin (Questran) 4 gm PO BID [facility] Last Admin: 12/15/16 08:41 Dose: 4 gm Fluconazole (Diflucan) 100 mg PO DAILY [facility] Last Admin: 12/15/16 08:41 Dose: 100 mg Insulin Detemir (Levemir) 30 units SC HS [facility] Last Admin: 12/14/16 21:22 Dose: 30 units Insulin Human Lispro (Humalog) 0 units SC ACHS [facility] Last Admin: 12/15/16 07:30 Dose: Not Given Insulin Lispro Protam/Lispro Human (Humalog Mix 75/25) 20 units SC BID [facility] Last Admin: 12/15/16 09:00 Dose: 20 units Loperamide HCl (Imodium) 2 mg PO Q6 [facility] Last Admin: 12/15/16 04:25 Dose: 2 mg Midodrine (Proamatine) 2.5 mg PO TID [facility] Last Admin: 12/15/16 08:41 Dose: 2.5 mg Sucralfate (Carafate Oral Susp) 1 gm PO QID [facility] Last Admin: 12/15/16 08:41 Dose: 1 gm Vitamin A (Vitamin A & D Oint Ud Foilpak) 1 ea TOP BID [facility] Last Admin: 12/15/16 08:42 Dose: 1 ea - Labs Labs: 12/15/16 09:45 12/15/16 09:45 PT 12.8 Seconds (9.8-13.1) 12/12/16 05:40 INR 1.1 (0.9-1.2) 12/12/16 05:40 APTT 26.4 Seconds (25.6-37.1) 12/12/16 05:40 - Head Exam Head Exam: NORMAL INSPECTION - ENT Exam ENT Exam: Mucous Membranes Moist - Respiratory Exam Respiratory Exam: Clear to Ausculation Bilateral - Cardiovascular Exam Cardiovascular Exam: REGULAR RHYTHM - GI/Abdominal Exam GI & Abdominal Exam: Normal Bowel Sounds Assessment and Plan (1) Physical debility Status: Acute (2) Malabsorption due to intolerance, not elsewhere classified Status: Acute (3) Diabetes mellitus type 2 in nonobese Status: Chronic - Assessment and Plan (Free Text) Plan: cont meds Con ttx Cont PT discharge planning
--- NOTE | 2016-12-15 11:33 | CP.PCM.PN ---
Subjective - Date & Time of Evaluation Date of Evaluation: 12/13/16 Time of Evaluation: 09:30 - Subjective Subjective: Patient feels very weak Stayed mostly on the chair Has better appetite. Objective - Vital Signs/Intake and Output Vital Signs (last 24 hours): Temp Pulse Resp BP Pulse Ox 98.4 F 100 H 18 130/97 H 100 12/15/16 07:32 12/15/16 07:32 12/15/16 07:32 12/15/16 07:32 12/15/16 07:32 - Medications Medications: Current Medications Aspirin (Ecotrin) 81 mg PO DAILY [facility] Last Admin: 12/15/16 08:41 Dose: 81 mg Atorvastatin Calcium (Lipitor) 10 mg PO DAILY [facility] Last Admin: 12/15/16 08:41 Dose: 10 mg Cholestyramine Resin (Questran) 4 gm PO BID [facility] Last Admin: 12/15/16 08:41 Dose: 4 gm Fluconazole (Diflucan) 100 mg PO DAILY [facility] Last Admin: 12/15/16 08:41 Dose: 100 mg Insulin Detemir (Levemir) 30 units SC HS [facility] Last Admin: 12/14/16 21:22 Dose: 30 units Insulin Human Lispro (Humalog) 0 units SC ACHS [facility] Last Admin: 12/15/16 07:30 Dose: Not Given Insulin Lispro Protam/Lispro Human (Humalog Mix 75/25) 20 units SC BID [facility] Last Admin: 12/15/16 09:00 Dose: 20 units Loperamide HCl (Imodium) 2 mg PO Q6 [facility] Last Admin: 12/15/16 04:25 Dose: 2 mg Midodrine (Proamatine) 2.5 mg PO TID [facility] Last Admin: 12/15/16 08:41 Dose: 2.5 mg Sucralfate (Carafate Oral Susp) 1 gm PO QID [facility] Last Admin: 12/15/16 08:41 Dose: 1 gm Vitamin A (Vitamin A & D Oint Ud Foilpak) 1 ea TOP BID [facility] Last Admin: 12/15/16 08:42 Dose: 1 ea - Labs Labs: 12/15/16 09:45 12/15/16 09:45 PT 12.8 Seconds (9.8-13.1) 12/12/16 05:40 INR 1.1 (0.9-1.2) 12/12/16 05:40 APTT 26.4 Seconds (25.6-37.1) 12/12/16 05:40 - Head Exam Head Exam: NORMAL INSPECTION - Eye Exam Eye Exam: Normal appearance - ENT Exam ENT Exam: Mucous Membranes Moist - Respiratory Exam Respiratory Exam: Clear to Ausculation Bilateral - Cardiovascular Exam Cardiovascular Exam: REGULAR RHYTHM - Neurological Exam Neurological Exam: CN II-XII Intact, Oriented x3 Assessment and Plan (1) Physical debility Status: Acute (2) Malabsorption due to intolerance, not elsewhere classified Status: Acute (3) Diabetes mellitus type 2 in nonobese Status: Chronic - Assessment and Plan (Free Text) Plan: Con tmeds cont hydration adjust insulin cont meds. cont PT
[2016-12-15 16:48] VITALS: BP 125/83; PULSE 90
== END 2016-12-15 21:30 | DRG 638 ==
LOC: H.ER 17:56 → H.EROBSV 20:00 → H.ERHOLD 12-11 13:23 → H.MEDSURG1 12-11 15:43 → OBSVTOIN 12-12 11:10
PROVIDERS: ADMIT Family Medicine; ATTEND Family Medicine
DX: E13.10 Other specified diabetes mellitus with ketoacidosis without coma (principal); N39.0 Urinary tract infection, site not specified; K90.49 Malabsorption due to intolerance, not elsewhere classified; B48.8 Other specified mycoses; R56.9 Unspecified convulsions; B96.1 Klebsiella pneumoniae [K. pneumoniae] as the cause of diseases classified elsewhere; I10 Essential (primary) hypertension; E78.00 Pure hypercholesterolemia, unspecified; Z79.4 Long term (current) use of insulin; Z79.82 Long term (current) use of aspirin